=== PATIENT | male | born 1940 | race Hispanic/Latino ===

== ENCOUNTER 2023-07-03 12:58 | Emergency (ER) | payer OTHER ==
--- OUTSIDE RECORDS SUMMARY | 2023-07-03 13:02 | XMS REPORT | Continuity of Care Document ---
:1940 Author Organization [facility] t Address [address] [place] [address] [address] [place] [address] Care Team Providers Name Role Phone Kishan Hansen Primary Care Physician [phone] Problems This patient has no known problems. Allergies, Adverse Reactions, Alerts This patient has no known allergies or adverse reactions. Medications Ordered Filled Start Stop Current Ordering Indication Dosage Frequency Signature Comments Components Source Medication Medication Date Date Medication? Clinician (SIG) Name Name TAKE 1 0 No [id number] TABLET 8-09 DAILY. 00:00: 00 Xarelto 20 2020-1 No 1mg mg tablet 2-22 00:00: 00 irbesartan 2020-1 No 1mg 300 2-22 mg-hydrochl 00:00: orothiazide 00 12.5 mg tablet atorvastati 2020-1 No 1mg n 40 mg 2-22 tablet 00:00: 00 carvedilol 2020-1 No 1mg 6.25 mg 2-22 tablet 00:00: 00 atorvastati 2020-0 No 1mg n 40 mg 6-28 tablet 00:00: 00 irbesartan 2020-0 No 1mg 300 6-28 mg-hydrochl 00:00: orothiazide 00 12.5 mg tablet Xarelto 20 2020-0 No 1mg mg tablet 6-28 00:00: 00 carvedilol 1-0 No 1mg 6.25 mg 6-28 tablet 00:00: 00 irbesartan 2020-0 No 1mg 300 5-21 mg-hydrochl 00:00: orothiazide 00 12.5 mg tablet atorvastati 2020-0 No 1mg n 40 mg 5-21 tablet 00:00: 00 carvedilol 2020-0 No 1mg 6.25 mg 5-21 tablet 00:00: 00 atorvastati 2020-0 No 1mg n 40 mg 3-09 tablet 00:00: 00 irbesartan 2020-0 No 1mg 300 3-09 mg-hydrochl 00:00: orothiazide 00 12.5 mg tablet carvedilol 2020-0 No 1mg 6.25 mg 3-09 tablet 00:00: 00 atorvastati 2020-0 No 1mg n 40 mg 2-19 tablet 00:00: 00 atorvastati 2019-1 No 1mg n 40 mg 1-19 tablet 00:00: 00 cholecalcif 2019-1 No 1(50,00 karl 1-19 0 unit) (vitamin 00:00: D3) 1,250 00 mcg (50,000 unit) capsule Voltaren 1 2019-1 No 1% % topical 1-16 gel 00:00: 00 irbesartan 2019-1 No 1mg 300 1-16 mg-hydrochl 00:00: orothiazide 00 12.5 mg tablet carvedilol 2019-1 No 1mg 6.25 mg 1-16 tablet 00:00: 00 carvedilol 2019-1 No 1mg 6.25 mg 0-30 tablet 00:00: 00 irbesartan 2019-0 No 1mg 300 5-20 mg-hydrochl 00:00: orothiazide 00 12.5 mg tablet Xarelto 20 2019-0 No 1mg mg tablet 5-20 00:00: 00 carvedilol 2019-0 No 1mg 6.25 mg 5-20 tablet 00:00: 00 Xarelto 20 2019-0 No 1mg mg tablet 1-22 00:00: 00 irbesartan 2019-0 No 1mg 300 1-22 mg-hydrochl 00:00: orothiazide 00 12.5 mg tablet carvedilol 2019-0 No 1mg 6.25 mg 1-22 tablet 00:00: 00 carvedilol 2019-0 No 1mg 6.25 mg 1-22 tablet 00:00: 00 carvedilol 2018-1 No 1mg 6.25 mg 0-16 tablet 00:00: 00 carvedilol 2018-0 No 1mg 6.25 mg 4-17 tablet 00:00: 00 carvedilol 2017-1 No 1mg 6.25 mg 1-01 tablet 00:00: 00 amlodipine 2018-1 No 1mg 10 mg 0-17 tablet 00:00: 00 amlodipine 2018-0 No 1mg 10 mg 6-04 tablet 00:00: 00 amlodipine 2018-0 No 1mg 10 mg 2-28 tablet 00:00: 00 amlodipine 2018-0 No 1mg 10 mg 2-16 tablet 00:00: 00 Restasis 2018-0 No 1% 0.05 % eye 2-13 drops in a 00:00: dropperette 00 Systane 2018-0 No 1% (PF) 0.4 2-13 %-0.3 % eye 00:00: drops in a 00 dropperette amlodipine 2016-1 No 1mg 5 mg tablet 2-27 00:00: 00 carvedilol 2017-0 No 1mg 12.5 mg 9-27 tablet 00:00: 00 carvedilol 2016-1 No mg 6.25 mg 1-07 tablet 00:00: 00 carvedilol 2015-1 No 1mg 6.25 mg 1-07 tablet 00:00: 00 carvedilol 2015-1 No 2mg 6.25 mg 1-07 tablet 00:00: 00 Vital Signs Vital Name Observation Time Observation Value Comments Source BP Systolic 2022-04-03 08:26:00 105 mm[Hg] BP Diastolic 2022-04-03 08:26:00 63 mm[Hg] Weight Measured 2022-04-03 08:26:00 207.20 pounds Height Measured 2022-04-03 08:26:00 68.70 inches Body Temperature 2022-04-03 08:26:00 98.30 degrees Heart Rate 2022-04-03 08:26:00 82.00 /min Respiratory Rate 2022-04-03 08:26:00 18.00 /min BP Systolic 2021-08-16 16:12:00 134 mm[Hg] BP Diastolic 2021-08-16 16:12:00 82 mm[Hg] Weight Measured 2021-08-16 16:12:00 209.60 pounds Height Measured 2021-08-16 16:12:00 68.70 inches Body Temperature 2021-08-16 16:12:00 98.20 degrees Heart Rate 2021-08-16 16:12:00 87.00 /min Respiratory Rate 2021-08-16 16:12:00 16.00 /min BP Systolic 2021-07-03 09:11:00 130 mm[Hg] BP Diastolic 2021-07-03 09:11:00 80 mm[Hg] Weight Measured 2021-07-03 09:11:00 208.60 pounds Height Measured 2021-07-03 09:11:00 68.70 inches Body Temperature 2021-07-03 09:11:00 98.40 degrees Heart Rate 2021-07-03 09:11:00 93.00 /min Respiratory Rate 2021-07-03 09:11:00 BP Systolic 2021-02-20 08:08:00 129 mm[Hg] BP Diastolic 2021-02-20 08:08:00 74 mm[Hg] Weight Measured 2021-02-20 08:08:00 208.00 pounds Height Measured 2021-02-20 08:08:00 68.70 inches Body Temperature 2021-02-20 08:08:00 98.20 degrees Heart Rate 2021-02-20 08:08:00 98.00 /min Respiratory Rate 2021-02-20 08:08:00 23.00 /min BP Systolic 2020-11-01 09:26:00 143 mm[Hg] BP Diastolic 2020-11-01 09:26:00 83 mm[Hg] Weight Measured 2020-11-01 09:26:00 212.00 pounds Height Measured 2020-11-01 09:26:00 68.70 inches Body Temperature 2020-11-01 09:26:00 98.20 degrees Heart Rate 2020-11-01 09:26:00 104.00 /min Respiratory Rate 2020-11-01 09:26:00 16.00 /min BP Systolic 2020-07-11 13:52:00 134 mm[Hg] BP Diastolic 2020-07-11 13:52:00 75 mm[Hg] Weight Measured 2020-07-11 13:52:00 214.40 pounds Height Measured 2020-07-11 13:52:00 68.70 inches Body Temperature 2020-07-11 13:52:00 98.20 degrees Heart Rate 2020-07-11 13:52:00 95.00 /min Respiratory Rate 2020-07-11 13:52:00 17.00 /min BP Systolic 2020-01-13 08:54:00 144 mm[Hg] BP Diastolic 2020-01-13 08:54:00 85 mm[Hg] Weight Measured 2020-01-13 08:54:00 216.80 pounds Height Measured 2020-01-13 08:54:00 68.70 inches Body Temperature 2020-01-13 08:54:00 98.20 degrees Heart Rate 2020-01-13 08:54:00 87.00 /min Respiratory Rate 2020-01-13 08:54:00 17.00 /min BP Systolic 2019-06-10 08:16:00 140 mm[Hg] BP Diastolic 2019-06-10 08:16:00 83 mm[Hg] Weight Measured 2019-06-10 08:16:00 221.40 pounds Height Measured 2019-06-10 08:16:00 68.70 inches Body Temperature 2019-06-10 08:16:00 98.60 degrees Heart Rate 2019-06-10 08:16:00 91.00 /min Respiratory Rate 2019-06-10 08:16:00 17.00 /min BP Systolic 2019-04-06 08:20:00 130 mm[Hg] BP Diastolic 2019-04-06 08:20:00 89 mm[Hg] Weight Measured 2019-04-06 08:20:00 219.40 pounds Height Measured 2019-04-06 08:20:00 68.70 inches Body Temperature 2019-04-06 08:20:00 98.60 degrees Heart Rate 2019-04-06 08:20:00 87.00 /min Respiratory Rate 2019-04-06 08:20:00 17.00 /min BP Systolic 2018-12-10 09:28:00 140 mm[Hg] BP Diastolic 2018-12-10 09:28:00 88 mm[Hg] Weight Measured 2018-12-10 09:28:00 219.00 pounds Height Measured 2018-12-10 09:28:00 68.70 inches Body Temperature 2018-12-10 09:28:00 97.70 degrees Heart Rate 2018-12-10 09:28:00 83.00 /min Respiratory Rate 2018-12-10 09:28:00 18.00 /min Procedures Procedure Date / Time Performed Performing Clinician [facility] e 76866 Ecg Routine Ecg W/least 12 2018-06-11 00:00:00 Lds W/i r 11658 Ecg Routine Ecg W/least 2016-08-04 00:00:00 Lds W/i r Plan of Care Planned Activity Planned Date Details Comments Source Goal Plan of Care Note [code = 26052-7] Goal Plan of Care Note [code = 52141-4] Goal Plan of Care Note [code = 03883-9] Goal Plan of Care Note [code = 64653-8] Goal Plan of Care Note [code = 44265-1] Goal Plan of Care Note [code = 37404-3] Goal Plan of Care Note [code = 86256-1] Goal Plan of Care Note [code = 44464-6] Encounters Start End Encounter Admission Attending Care Care Encounter Source Date/Time Date/Time Type Type Clinicians Facility Department ID 2023-06-21 2023-06-21 Outpatient SFA SFA [id number] Yuan 08:20:40 08:20:40 10[address] [facility] [place] 2023-06-06 2023-06-06 Outpatient SFA SFA [id number] Yuan 07:59:35 07:59:35 1012 [facility] [place] 2023-05-03 2023-05-03 Outpatient SFA SFA [id number] 023 Yuan 08:00:02 08:00:02 0908 [facility] [place] 2023-02-01 2023-02-01 Outpatient SFA SFA [id number] [id number] Yuan 14:20:10 14:20:10 0609 [facility] [place] 2022-11-06 2022-11-06 Outpatient SFA SFA [id number] [id number] Yuan 15:20:24 15:20:24 0314 [facility] [place] 2022-08-01 2022-08-01 Outpatient SFA SFA [id number] [id number] Yuan 16:41:35 16:41:35 1207 [facility] [place] 2022-04-03 2022-04-03 Outpatient [id number] 00:00:00 00:00:00 Visit [id number] Results Test Description Test Time Test Comments Results Result Comments Source FERRITIN 2023-06-22 09:01:31 Test Item Value Reference Range Interpretation Comme nts FERRITIN (test code = 2075) 503 NG/ML 30-400 H UNLESS OTHERWISE INDICATED, ALL TESTING PERFORM ED AT CLINICAL PATHOLOGY [facility], [facility]. [address] [address] CREW LEADER/CONTROL ROOM OPERATOR: ELVER PETERSEN M.D. CLIA NUMBER [id number] [place]. [id number] CBC W/AUTO DIFF WITH [id number] 02:31:48 Test Item Value Reference Range Interpretation Comments WBC (test code = 8.5 K/UL 3.5-11.0 1001) RBC (test code = 4.24 M/UL 4.50-6.10 L 1002) HEMOGLOBIN (test 13.3 G/DL 13.5-17.0 L code = 1003) HEMATOCRIT (test 39.8 % 40.0-51.0 L code = 1004) MCV (test code = 93.9 fL 80.0-99.0 1005) MCH (test code = 31.4 PG 25.0-33.0 1006) MCHC (test code = 33.4 G/DL 31.0-36.0 1007) RDW (test code = 13.4 % 11.5-15.0 1038) NEUTROPHILS (test 62.4 % code = 1008) LYMPHOCYTES (test 27.4 % code = 1010) MONOCYTES (test code 7.1 % = 1011) EOSINOPHILS (test 1.8 % code = 1012) BASOPHILS (test code 0.5 % = 1013) IMMATURE 0.8 % GRANULOCYTES (test code = 1036) NUCLEATED RBCS (test 0.0 /100 See_Comment [Autom ated message] code = 1065) WBC'S The system [employer] generated this result transmitted ref erence range: 0.0. The reference range was not used to int erpret this result as normal/abnormal . PLATELET COUNT (test 158 K/UL 130-400 code = 1015) ABSOLUTE NEUTROPHILS 5.33 K/UL 1.50-7.50 (test code = 1066) ABSOLUTE LYMPHOCYTES 2.34 K/UL 1.00-4.00 (test code = 1067) ABSOLUTE MONOCYTES 0.61 K/UL 0.20-1.00 (test code = 1068) ABSOLUTE EOSINOPHILS 0.15 K/UL 0.00-0.50 (test code = 1040) ABSOLUTE BASOPHILS 0.04 K/UL 0.00-0.20 (test code = 1069) ABS IMMATURE 0.07 K/UL 0.00-0.10 GRANULOCYTES (test code = 1020) ABS NUCLEATED RBCS 0.00 K/UL 0.00-0.11 UNLESS O THERWISE (test code = 22952) INDICATE D, ALL TESTING PERFORM ED AT CLINICAL PATHOL [facility] [place] [address] [facility] [place] [address] [facility] DIRECTOR: Jacquelyn GERMAIN AMBREEN NUMBER [id number] [facility] [place]EDIT[place] N O. [id number] VITAMIN D, 25 [id number] 11:38:03 Test Item Value Reference Range Interpretation Comments VITAMIN D, 25 35 NG/ML SEE BELOW EFFECTIVE 09/03/2022, [place] (test code PLEASE NOTE NE W METHODOLOGY = 4958) IS ELECTROC HEMILUMINESCENCE BINDING ASSAY. NOTE: 25-HYDROXYVITAM IN D ASSAY INCLUDES 25-HYD ROXYVITAMIN D2 AND D3. I NTERPRETIVE RANGES PED IATRIC (<17 YEARS) . . . . . . . . . . . NG/ML 20-100ADU LT: INSUFFICIENT . . . . . . . . . . . . . . NG/ML <20 SUBOP TIMAL . . . . . . . . . . . . . . . NG/ML 20-29 OPTIMAL . . . . . . . . . . . . . . . . . NG/ML 30-100 CBC W/AUTO DIFF WITH [id number] 03:49:35 Test Item Value Reference Range Interpretation Comments WBC (test code = 8.3 K/UL 3.5-11.0 1001) RBC (test code = 4.12 M/UL 4.50-6.10 L 1002) HEMOGLOBIN (test code 12.9 G/DL 13.5-17.0 L = 1003) HEMATOCRIT (test code 38.9 % 40.0-51.0 L = 1004) MCV (test code = 94.4 fL 80.0-99.0 1005) MCH (test code = 31.3 PG 25.0-33.0 1006) MCHC (test code = 33.2 G/DL 31.0-36.0 1007) RDW (test code = 13.2 % 11.5-15.0 1038) NEUTROPHILS (test 65.7 % code = 1008) LYMPHOCYTES (test 24.9 % code = 1010) MONOCYTES (test code 6.6 % = 1011) EOSINOPHILS (test 2.0 % code = 1012) BASOPHILS (test code 0.6 % = 1013) IMMATURE GRANULOCYTES 0.2 % (test code = 1036) NUCLEATED RBCS (test 0.0 /100 WBC'S See_Comment [Aut omated code = 1065) message] The sy stem which generated this result transmitted reference range : 0.0. The refere nce range was not u sed to interpret th is result as normal/abnormal . PLATELET COUNT (test 175 K/UL 130-400 code = 1015) ABSOLUTE NEUTROPHILS 5.46 K/UL 1.50-7.50 (test code = 1066) ABSOLUTE LYMPHOCYTES 2.07 K/UL 1.00-4.00 (test code = 1067) ABSOLUTE MONOCYTES 0.55 K/UL 0.20-1.00 (test code = 1068) ABSOLUTE EOSINOPHILS 0.17 K/UL 0.00-0.50 (test code = 1040) ABSOLUTE BASOPHILS 0.05 K/UL 0.00-0.20 (test code = 1069) ABS IMMATURE 0.02 K/UL 0.00-0.10 GRANULOCYTES (test code = 1020) ABS NUCLEATED RBCS 0.00 K/UL 0.00-0.11 (test code = 59914) COMPREHENSIVE METABOLIC [id number] 03:17:45 Test Item Value Reference Range Interpretation Comments GLUCOSE (test code = 112 MG/DL 70-99 H 2216) BUN (test code = 27 MG/DL 8-23 H 2207) CREATININE (test 1.68 MG/DL 0.80-1.40 H code = 2214) eGFR (2020 CKD-EPI) 40 >60 L (test code = 13904) ML/MIN/1.73 CALC BUN/CREAT (test 16 RATIO 6-28 code = 2235) SODIUM (test code = 143 MEQ/L 186-257 4108) POTASSIUM (test code 4.3 MEQ/L 3.5-5.4 = 2227) CHLORIDE (test code 106 MEQ/L 95-107 = 2215) CARBON DIOXIDE (test 25 MEQ/L 19-31 code = 2206) CALCIUM (test code = 9.4 MG/DL 8.5-10.5 220) PROTEIN, TOTAL (test 7.0 G/DL 6.1-8.3 code = 2229) ALBUMIN (test code = 4.0 G/DL 3.5-5.2 220) CALC GLOBULIN (test 3.0 G/DL 1.9-3.7 code = 2240) CALC A/G RATIO (test 1.3 RATIO 1.0-2.6 code = 2234) BILIRUBIN, TOTAL 0.9 MG/DL See_Comment [Automated message] (test code = 2207) The syste [employer] which generated this result transmitted ref erence range: <=1.2. T he reference range was not used to int erpret this result as normal/abnormal . ALKALINE PHOSPHATASE 97 U/L 40-125 (test code = 2204) AST (test code = 18 U/L 9-50 2217) ALT (test code = 25 U/L 5-50 UNLESS OTH ERWISE 2218) INDICATED, ALL TESTING PERFORM ED AT [facility] [address] [place] [id number] [place] [address] DIRECTOR: Jacquelyn GERMAIN AMBREEN NUMBER [id number] CAP [place]CREDITATION N O. [id number] LIPID [id number] 05:43:22 Test Item Value Reference Range Interpretation Comments CHOLESTEROL (test 125 MG/DL <200 code = 2210) TRIGLYCERIDES (test 100 MG/DL <150 code = 2232) HDL CHOLESTEROL (test 52 MG/DL >39 code = 2220) CALC LDL CHOL (test 54 MG/DL <100 NOTE: C ALCULATED LDL code = 2237) IS BASED ON DIMITRIOS-BOYD METHOD WHICHINCLUDES ADJUSTABLE TRIGLYCERIDE:VL DL CHOLESTEROL RAT IO.THIS FACTOR VARIES B Y MEASURED TRIGLY CERIDE AND NON-HDLCHOL ESTEROL CONCENTRATIONS WITH INCREASED CALCU LATED LDL SEENIN HIGH ER TRIGLYCERIDE OR LOWER NON-HDL SPECIME NS. FOR MOREINFORMATION , SEE CLIENT ANNOUNCE MENT AT [email or web address] LDL/HDL 1.04 RATIO <3.55 (test code = 2238) COMPREHENSIVE METABOLIC [id number] 05:43:22 Test Item Value Reference Range Interpretation Comments GLUCOSE (test code = 102 MG/DL 70-99 H 2216) BUN (test code = 29 MG/DL 8-23 H 2207) CREATININE (test 1.57 MG/DL 0.80-1.40 H code = 221) eGFR (2020 CKD-EPI) 44 >60 L (test code = 79624) ML/MIN/1.73 CALC BUN/CREAT (test 18 RATIO 6-28 code = 2235) SODIUM (test code = 145 MEQ/L 978-312 5271) POTASSIUM (test code 4.7 MEQ/L 3.5-5.4 = 2227) CHLORIDE (test code 112 MEQ/L 95-107 H = 2214) CARBON DIOXIDE (test 18 MEQ/L 19-31 L code = 220) CALCIUM (test code = 9.0 MG/DL 8.5-10.5 2208) PROTEIN, TOTAL (test 7.0 G/DL 6.1-8.3 code = 2228) ALBUMIN (test code = 3.9 G/DL 3.5-5.2 2200) CALC GLOBULIN (test 3.1 G/DL 1.9-3.7 code = 2240) CALC A/G RATIO (test 1.3 RATIO 1.0-2.6 code = 223) BILIRUBIN, TOTAL 0.7 MG/DL See_Comment [Automated message] (test code = 2207) The syste m which generated this result transmitted ref erence range: <=1.2. T he reference range was not used to int erpret this result as normal/abnormal . ALKALINE PHOSPHATASE 103 U/L 40-125 (test code = 220) AST (test code = 22 U/L 9-50 2217) ALT (test code = 27 U/L 5-50 CPL chong s 2218) important patho logy staff changes effective 10/24. New patholo gy staff will prov richard uninterrupted, excellent patie nt care and clinic al consultation. S ee URL: [email or web address]. UNLE SS OTHERWISE INDIC ATED, ALL TESTING PER FORMED AT CLINICAL [facility] [employer], [place] [address] [place] [address] [facility] DIRECTOR: Jacquelyn GERMAIN AMBREEN NUMBER [id number] CAP ACCREDITATION N O. [id number] CBC W/AUTO DIFF WITH [id number] 03:40:13 Test Item Value Reference Range Interpretation Comments WBC (test code = 7.2 K/UL 3.5-11.0 1001) RBC (test code = 3.84 M/UL 4.50-6.10 L 1002) HEMOGLOBIN (test code 12.2 G/DL 13.5-17.0 L = 1003) HEMATOCRIT (test code 36.5 % 40.0-51.0 L = 1004) MCV (test code = 95.1 fL 80.0-99.0 1005) MCH (test code = 31.8 PG 25.0-33.0 1006) MCHC (test code = 33.4 G/DL 31.0-36.0 1007) RDW (test code = 12.8 % 11.5-15.0 1038) NEUTROPHILS (test 64.9 % code = 1008) LYMPHOCYTES (test 25.1 % code = 1010) MONOCYTES (test code 7.5 % = 1011) EOSINOPHILS (test 1.8 % code = 1012) BASOPHILS (test code 0.4 % = 1013) IMMATURE GRANULOCYTES 0.3 % (test code = 1036) NUCLEATED RBCS (test 0.0 /100 WBC'S See_Comment [Aut omated code = 1065) message] The sy stem which generated this result transmitted reference range : 0.0. The refere nce range was not u sed to interpret th is result as normal/abnormal . PLATELET COUNT (test 177 K/UL 130-400 code = 1015) ABSOLUTE NEUTROPHILS 4.68 K/UL 1.50-7.50 (test code = 1066) ABSOLUTE LYMPHOCYTES 1.81 K/UL 1.00-4.00 (test code = 1067) ABSOLUTE MONOCYTES 0.54 K/UL 0.20-1.00 (test code = 1068) ABSOLUTE EOSINOPHILS 0.13 K/UL 0.00-0.50 (test code = 1040) ABSOLUTE BASOPHILS 0.03 K/UL 0.00-0.20 (test code = 1069) ABS IMMATURE 0.02 K/UL 0.00-0.10 GRANULOCYTES (test code = 1020) ABS NUCLEATED RBCS 0.00 K/UL 0.00-0.11 (test code = 00886) PSA, [id number] 06:57:19 Test Item Value Reference Range Interpretation Comments PSA, TOTAL 0.56 NG/ML See_Comment NOTE: Methodol ogy is Arlene (test code = Waldo Electroch emiluminescence 2606) Immunoassay tra ceable to WHO reference stand julius 96/760. UNLESS OTHERWIS E INDICATED, ALL TESTING PERFORM ED ATCLINICAL PATHOLOGY [facility]. [address] [place] [address] LABORATORY DIRE CTOR: UMA HALL M.D. CLIA NUMBER [id number] [place]. [id number] [A utomated message] The sy stem which generated this result transmitted ref erence range: <=4.00. The ref erence range was not used to int erpret this result as bev l/abnormal. LIPID [id number] 06:08:50 Test Item Value Reference Range Interpretation Comments CHOLESTEROL (test 132 MG/DL <200 code = 2210) TRIGLYCERIDES (test 79 MG/DL <150 code = 2232) HDL CHOLESTEROL (test 55 MG/DL >39 code = 2220) CALC LDL CHOL (test 61 MG/DL <100 NOTE: C ALCULATED LDL code = 2237) IS BASED ON DIMITROIS-BOYD METHOD WHICHINCLUDES ADJUSTABLE TRIGLYCERIDE:VL DL CHOLESTEROL RAT IO.THIS FACTOR VARIES B Y MEASURED TRIGLY CERIDE AND NON-HDLCHOL ESTEROL CONCENTRATIONS WITH INCREASED CALCU LATED LDL SEENIN HIGH ER TRIGLYCERIDE OR LOWER NON-HDL SPECIME NS. FOR MOREINFORMATION , SEE CLIENT ANNOUNCE MENT AT [email or web address] LDL/HDL 1.11 RATIO <3.55 (test code = 2238) COMPREHENSIVE METABOLIC [id number] 06:08:50 Test Item Value Reference Range Interpretation Comments GLUCOSE (test code = 102 MG/DL 70-99 H 2216) BUN (test code = 36 MG/DL 8-23 H 2207) CREATININE (test 1.96 MG/DL 0.80-1.40 H code = 2214) eGFR (2020 CKD-EPI) 34 ML/MIN/1.73 >60 L (test code = 50755) CALC BUN/CREAT (test 18 RATIO 6-28 code = 223) SODIUM (test code = 142 MEQ/L 420-621 3757) POTASSIUM (test code 5.1 MEQ/L 3.5-5.4 = 2227) CHLORIDE (test code 106 MEQ/L 95-107 = 2214) CARBON DIOXIDE (test 23 MEQ/L 19-31 code = 220) CALCIUM (test code = 9.3 MG/DL 8.5-10.5 2208) PROTEIN, TOTAL (test 7.6 G/DL 6.1-8.3 code = 2228) ALBUMIN (test code = 4.2 G/DL 3.5-5.2 2200) CALC GLOBULIN (test 3.4 G/DL 1.9-3.7 code = 2239) CALC A/G RATIO (test 1.2 RATIO 1.0-2.6 code = 2233) BILIRUBIN, TOTAL 0.5 MG/DL See_Comment [Automated message] (test code = 2206) The syste [employer] which generated this result transmit reid reference range : <=1.2. The refe rence range was not u sed to interpret th is result as normal/abnormal . ALKALINE PHOSPHATASE 118 U/L 40-125 (test code = 2203) AST (test code = 28 U/L 9-50 2217) ALT (test code = 40 U/L 5-50 2218) CBC W/AUTO DIFF WITH [id number] 03:40:43 Test Item Value Reference Range Interpretation Comments WBC (test code = 8.6 K/UL 3.5-11.0 1001) RBC (test code = 4.10 M/UL 4.50-6.10 L 1002) HEMOGLOBIN (test code 12.8 G/DL 13.5-17.0 L = 1003) HEMATOCRIT (test code 38.7 % 40.0-51.0 L = 1004) MCV (test code = 94.4 fL 80.0-99.0 1005) MCH (test code = 31.2 PG 25.0-33.0 1006) MCHC (test code = 33.1 G/DL 31.0-36.0 1007) RDW (test code = 13.1 % 11.5-15.0 1038) NEUTROPHILS (test 62.0 % code = 1008) LYMPHOCYTES (test 25.6 % code = 1010) MONOCYTES (test code 8.9 % = 1011) EOSINOPHILS (test 2.6 % code = 1012) BASOPHILS (test code 0.5 % = 1013) IMMATURE GRANULOCYTES 0.4 % (test code = 1036) NUCLEATED RBCS (test 0.0 /100 WBC'S See_Comment [Aut omated code = 1065) message] The sy stem which generated this result transmitted reference range : 0.0. The refere nce range was not u sed to interpret th is result as normal/abnormal . PLATELET COUNT (test 202 K/UL 130-400 code = 1015) ABSOLUTE NEUTROPHILS 5.33 K/UL 1.50-7.50 (test code = 1066) ABSOLUTE LYMPHOCYTES 2.19 K/UL 1.00-4.00 (test code = 1067) ABSOLUTE MONOCYTES 0.76 K/UL 0.20-1.00 (test code = 1068) ABSOLUTE EOSINOPHILS 0.22 K/UL 0.00-0.50 (test code = 1040) ABSOLUTE BASOPHILS 0.04 K/UL 0.00-0.20 (test code = 1069) ABS IMMATURE 0.03 K/UL 0.00-0.10 GRANULOCYTES (test code = 1020) ABS NUCLEATED RBCS 0.00 K/UL 0.00-0.11 (test code = 16383) CBC W/AUTO [id number] 00:00:00 Test Item Value Reference Range Interpretation Comments WBC (test code = 1001) 8.6 K/UL RBC (test code = 1002) 4.10 M/UL HEMOGLOBIN (test code = 1003) 12.8 G/DL HEMATOCRIT (test code = 1004) 38.7 % MCV (test code = 1005) 94.4 fL MCH (test code = 1006) 31.2 PG MCHC (test code = 1007) 33.1 G/DL RDW (test code = 1038) 13.1 % NEUTROPHILS (test code = 1008) 62.0 % LYMPHOCYTES (test code = 1010) 25.6 % MONOCYTES (test code = 1011) 8.9 % EOSINOPHILS (test code = 1012) 2.6 % BASOPHILS (test code = 1013) 0.5 % IMMATURE GRANULOCYTES (test 0.4 % code = 1036) NUCLEATED RBCS (test code = 0.0 /100WBC'S 1065) PLATELET COUNT (test code = 202 K/UL 1015) ABSOLUTE NEUTROPHILS (test code 5.33 K/UL = 1066) ABSOLUTE LYMPHOCYTES (test code 2.19 K/UL = 1067) ABSOLUTE MONOCYTES (test code = 0.76 K/UL 1068) ABSOLUTE EOSINOPHILS (test code 0.22 K/UL = 1040) ABSOLUTE BASOPHILS (test code = 0.04 K/UL 1069) ABS IMMATURE GRANULOCYTES (test 0.03 K/UL code = 1020) ABS NUCLEATED RBCS (test code = 0.00 K/UL 42320) CBC W/AUTO [id number] 00:00:00 Test Item Value Reference Range Interpretation Comments WBC (test code = 1001) 8.6 K/UL RBC (test code = 1002) 4.10 M/UL HEMOGLOBIN (test code = 1003) 12.8 G/DL HEMATOCRIT (test code = 1004) 38.7 % MCV (test code = 1005) 94.4 fL MCH (test code = 1006) 31.2 PG MCHC (test code = 1007) 33.1 G/DL RDW (test code = 1038) 13.1 % NEUTROPHILS (test code = 1008) 62.0 % LYMPHOCYTES (test code = 1010) 25.6 % MONOCYTES (test code = 1011) 8.9 % EOSINOPHILS (test code = 1012) 2.6 % BASOPHILS (test code = 1013) 0.5 % IMMATURE GRANULOCYTES (test 0.4 % code = 1036) NUCLEATED RBCS (test code = 0.0 /100WBC'S 1065) PLATELET COUNT (test code = 202 K/UL 1015) ABSOLUTE NEUTROPHILS (test code 5.33 K/UL = 1066) ABSOLUTE LYMPHOCYTES (test code 2.19 K/UL = 1067) ABSOLUTE MONOCYTES (test code = 0.76 K/UL 1068) ABSOLUTE EOSINOPHILS (test code 0.22 K/UL = 1040) ABSOLUTE BASOPHILS (test code = 0.04 K/UL 1069) ABS IMMATURE GRANULOCYTES (test 0.03 K/UL code = 1020) ABS NUCLEATED RBCS (test code = 0.00 K/UL 11570) LIPID [id number] 00:00:00 Test Item Value Reference Range Interpretation Comments CHOLESTEROL (test code = 2210) 132 MG/DL TRIGLYCERIDES (test code = 2232) 79 MG/DL HDL CHOLESTEROL (test code = 2220) 55 MG/DL CALC LDL CHOL (test code = 2237) 61 MG/DL RISK RATIO LDL/HDL (test code = 1.11 RATIO 2238) LIPID [id number] 00:00:00 Test Item Value Reference Range Interpretation Comments CHOLESTEROL (test code = 2210) 132 MG/DL TRIGLYCERIDES (test code = 2232) 79 MG/DL HDL CHOLESTEROL (test code = 2220) 55 MG/DL CALC LDL CHOL (test code = 2237) 61 MG/DL RISK RATIO LDL/HDL (test code = 1.11 RATIO 2238) COMPREHENSIVE METABOLIC [id number] 00:00:00 Test Item Value Reference Range Interpretation Comments GLUCOSE (test code = 2217) 102 MG/DL BUN (test code = 2208) 36 MG/DL CREATININE (test code = 2214) 1.96 MG/DL eGFR (2020 CKD-EPI) (test code 34 ML/MIN/1.73 = 73110) CALC BUN/CREAT (test code = 18 RATIO 2235) SODIUM (test code = 2231) 142 MEQ/L POTASSIUM (test code = 2228) 5.1 MEQ/L CHLORIDE (test code = 2215) 106 MEQ/L CARBON DIOXIDE (test code = 23 MEQ/L 2205) CALCIUM (test code = 2209) 9.3 MG/DL PROTEIN, TOTAL (test code = 7.6 G/DL 2228) ALBUMIN (test code = 2201) 4.2 G/DL CALC GLOBULIN (test code = 3.4 G/DL 2239) CALC A/G RATIO (test code = 1.2 RATIO 4) BILIRUBIN, TOTAL (test code = 0.5 MG/DL 2206) ALKALINE PHOSPHATASE (test 118 U/L code = 2204) AST (test code = 2218) 28 U/L ALT (test code = 2219) 40 U/L COMPREHENSIVE METABOLIC [id number] 00:00:00 Test Item Value Reference Range Interpretation Comments GLUCOSE (test code = 2217) 102 MG/DL BUN (test code = 2208) 36 MG/DL CREATININE (test code = 2214) 1.96 MG/DL eGFR (2020 CKD-EPI) (test code 34 ML/MIN/1.73 = 34978) CALC BUN/CREAT (test code = 18 RATIO 2234) SODIUM (test code = 2231) 142 MEQ/L POTASSIUM (test code = 2228) 5.1 MEQ/L CHLORIDE (test code = 2215) 106 MEQ/L CARBON DIOXIDE (test code = 23 MEQ/L 2205) CALCIUM (test code = 2209) 9.3 MG/DL PROTEIN, TOTAL (test code = 7.6 G/DL 2228) ALBUMIN (test code = 2201) 4.2 G/DL CALC GLOBULIN (test code = 3.4 G/DL 2239) CALC A/G RATIO (test code = 1.2 RATIO 2233) BILIRUBIN, TOTAL (test code = 0.5 MG/DL 2206) ALKALINE PHOSPHATASE (test 118 U/L code = 2203) AST (test code = 2218) 28 U/L ALT (test code = 2219) 40 U/L PSA, [id number] 00:00:00 Test Item Value Reference Range Interpretation Comments PSA, TOTAL (test code = 2606) 0.56 NG/ML PSA, [id number] 00:00:00 Test Item Value Reference Range Interpretation Comments PSA, TOTAL (test code = 2606) 0.56 NG/ML PSA, [id number] 00:00:00 Test Item Value Reference Range Interpretation Comments PSA, TOTAL (test code = 2606) 0.56 NG/ML CBC W/AUTO [id number] 00:00:00 Test Item Value Reference Range Interpretation Comments WBC (test code = 1001) 8.6 K/UL RBC (test code = 1002) 4.10 M/UL HEMOGLOBIN (test code = 1003) 12.8 G/DL HEMATOCRIT (test code = 1004) 38.7 % MCV (test code = 1005) 94.4 fL MCH (test code = 1006) 31.2 PG MCHC (test code = 1007) 33.1 G/DL RDW (test code = 1038) 13.1 % NEUTROPHILS (test code = 1008) 62.0 % LYMPHOCYTES (test code = 1010) 25.6 % MONOCYTES (test code = 1011) 8.9 % EOSINOPHILS (test code = 1012) 2.6 % BASOPHILS (test code = 1013) 0.5 % IMMATURE GRANULOCYTES (test 0.4 % code = 1036) NUCLEATED RBCS (test code = 0.0 /100WBC'S 1065) PLATELET COUNT (test code = 202 K/UL 1015) ABSOLUTE NEUTROPHILS (test code 5.33 K/UL = 1066) ABSOLUTE LYMPHOCYTES (test code 2.19 K/UL = 1067) ABSOLUTE MONOCYTES (test code = 0.76 K/UL 1068) ABSOLUTE EOSINOPHILS (test code 0.22 K/UL = 1040) ABSOLUTE BASOPHILS (test code = 0.04 K/UL 1069) ABS IMMATURE GRANULOCYTES (test 0.03 K/UL code = 1020) ABS NUCLEATED RBCS (test code = 0.00 K/UL 78782) LIPID [id number] 05:40:06 Test Item Value Reference Range Interpretation Comments CHOLESTEROL (test 143 MG/DL <200 code = 2210) TRIGLYCERIDES (test 98 MG/DL <150 code = 2232) HDL CHOLESTEROL (test 57 MG/DL >39 code = 2220) CALC LDL CHOL (test 68 MG/DL <100 NOTE: C ALCULATED LDL code = 2237) IS BASED ON DIMITRIOS-BOYD METHOD WHICHINCLUDES ADJUSTABLE TRIGLYCERIDE:VL DL CHOLESTEROL RAT IO.THIS FACTOR VARIES B Y MEASURED TRIGLY CERIDE AND NON-HDLCHOL ESTEROL CONCENTRATIONS WITH INCREASED CALCU LATED LDL SEENIN HIGH ER TRIGLYCERIDE OR LOWER NON-HDL SPECIME NS. FOR MOREINFORMATION , SEE CLIENT ANNOUNCE MENT AT [email or web address] RISK RATIO LDL/HDL 1.19 RATIO <3.55 (test code = 2238) COMPREHENSIVE METABOLIC [id number] 05:40:06 Test Item Value Reference Range Interpretation Comments GLUCOSE (test code = 103 MG/DL 70-99 H 2216) BUN (test code = 28 MG/DL 8-23 H 2207) CREATININE (test 1.77 MG/DL 0.80-1.40 H EFFECTIVE code = 2214) 08/07/2021, [facility] HAS IMPLEMENTED THE NKF-ASN RECOMME NDED KD-EPI EGF R REFIT CALCULATI ON THAT DOES NOT I NCLUDE A COEFFICIENT FORRACE. FOR MO RE INFORMATION, SE E ANNOUNCEMENT [email or web address]. Act[employer]/EGFR_CALC eGFR (2020 CKD-EPI) 38 >60 L (test code = 42853) ML/MIN/1.73 CALC BUN/CREAT (test 16 RATIO 6-28 code = 223) SODIUM (test code = 142 MEQ/L 840-623 1281) POTASSIUM (test code 5.1 MEQ/L 3.5-5.4 = 2227) CHLORIDE (test code 106 MEQ/L 95-107 = 2214) CARBON DIOXIDE (test 24 MEQ/L 19-31 code = 220) CALCIUM (test code = 9.3 MG/DL 8.5-10.5 2208) PROTEIN, TOTAL (test 7.4 G/DL 6.1-8.3 code = 2228) ALBUMIN (test code = 4.4 G/DL 3.5-5.2 2200) CALC GLOBULIN (test 3.0 G/DL 1.9-3.7 code = 224) CALC A/G RATIO (test 1.5 RATIO 1.0-2.6 code = 2233) BILIRUBIN, TOTAL 0.6 MG/DL See_Comment [Automated message] (test code = 2206) The [employer]Chron which generated this result transmitted ref erence range: <=1.2. T he reference range was not used to int erpret this result as normal/abnormal . ALKALINE PHOSPHATASE 103 U/L 40-125 (test code = 2203) AST (test code = 19 U/L 9-50 2217) ALT (test code = 20 U/L 5-50 UNLESS OTH ERWISE 2218) INDICATED, ALL TESTING PERFORM ED [facility], [facility]. [address] [place] [id number] [place] [address] DIRECTOR: Jacquelyn MCKEONIA NUMBER [id number] CAP ACCREDITATION N O. [id number] HEMOGLOBIN [id number] 03:47:41 Test Item Value Reference Range Interpretation Comments HEMOGLOBIN A1c (test code = 04601) 5.9 % 4.2-5.6 H LIPID [id number] 00:00:00 Test Item Value Reference Range Interpretation Comments CHOLESTEROL (test code = 2210) 143 MG/DL TRIGLYCERIDES (test code = 2232) 98 MG/DL HDL CHOLESTEROL (test code = 2220) 57 MG/DL CALC LDL CHOL (test code = 2236) 68 MG/DL RISK RATIO LDL/HDL (test code = 1.19 RATIO 2238) HEMOGLOBIN [id number] 00:00:00 Test Item Value Reference Range Interpretation Comments HEMOGLOBIN A1c (test code = 30057) 5.9 % HEMOGLOBIN [id number] 00:00:00 Test Item Value Reference Range Interpretation Comments HEMOGLOBIN A1c (test code = 34139) 5.9 % HEMOGLOBIN [id number] 00:00:00 Test Item Value Reference Range Interpretation Comments HEMOGLOBIN A1c (test code = 70795) 5.9 % COMPREHENSIVE METABOLIC [id number] 00:00:00 Test Item Value Reference Range Interpretation Comments GLUCOSE (test code = 2217) 103 MG/DL BUN (test code = 2208) 28 MG/DL CREATININE (test code = 2214) 1.77 MG/DL eGFR (2020 CKD-EPI) (test code 38 ML/MIN/1.73 = 56156) CALC BUN/CREAT (test code = 16 RATIO 2235) SODIUM (test code = 2231) 142 MEQ/L POTASSIUM (test code = 2228) 5.1 MEQ/L CHLORIDE (test code = 2215) 106 MEQ/L CARBON DIOXIDE (test code = 24 MEQ/L 2205) CALCIUM (test code = 2209) 9.3 MG/DL PROTEIN, TOTAL (test code = 7.4 G/DL 2228) ALBUMIN (test code = 2201) 4.4 G/DL CALC GLOBULIN (test code = 3.0 G/DL 0) CALC A/G RATIO (test code = 1.5 RATIO 2234) BILIRUBIN, TOTAL (test code = 0.6 MG/DL 2206) ALKALINE PHOSPHATASE (test 103 U/L code = 2204) AST (test code = 2218) 19 U/L ALT (test code = 2219) 20 U/L COMPREHENSIVE METABOLIC [id number] 00:00:00 Test Item Value Reference Range Interpretation Comments GLUCOSE (test code = 2217) 103 MG/DL BUN (test code = 2208) 28 MG/DL CREATININE (test code = 2214) 1.77 MG/DL eGFR (2020 CKD-EPI) (test code 38 ML/MIN/1.73 = 54017) CALC BUN/CREAT (test code = 16 RATIO 2235) SODIUM (test code = 2231) 142 MEQ/L POTASSIUM (test code = 2228) 5.1 MEQ/L CHLORIDE (test code = 2215) 106 MEQ/L CARBON DIOXIDE (test code = 24 MEQ/L 2205) CALCIUM (test code = 2209) 9.3 MG/DL PROTEIN, TOTAL (test code = 7.4 G/DL 2228) ALBUMIN (test code = 2201) 4.4 G/DL CALC GLOBULIN (test code = 3.0 G/DL 2239) CALC A/G RATIO (test code = 1.5 RATIO 2234) BILIRUBIN, TOTAL (test code = 0.6 MG/DL 2206) ALKALINE PHOSPHATASE (test 103 U/L code = 2204) AST (test code = 2218) 19 U/L ALT (test code = 2219) 20 U/L LIPID [id number] 00:00:00 Test Item Value Reference Range Interpretation Comments CHOLESTEROL (test code = 2210) 143 MG/DL TRIGLYCERIDES (test code = 2232) 98 MG/DL HDL CHOLESTEROL (test code = 2220) 57 MG/DL CALC LDL CHOL (test code = 2237) 68 MG/DL RISK RATIO LDL/HDL (test code = 1.19 RATIO 2238) HEMOGLOBIN [id number] 00:00:00 Test Item Value Reference Range Interpretation Comments HEMOGLOBIN A1c (test code = 11968) 5.9 % HEMOGLOBIN [id number] 00:00:00 Test Item Value Reference Range Interpretation Comments HEMOGLOBIN A1c (test code = 82973) 5.9 % LIPID [id number] 00:00:00 Test Item Value Reference Range Interpretation Comments CHOLESTEROL (test code = 2210) 187 MG/DL TRIGLYCERIDES (test code = 2232) 151 MG/DL HDL CHOLESTEROL (test code = 2220) 52 MG/DL CALC LDL CHOL (test code = 2237) 109 MG/DL RISK RATIO LDL/HDL (test code = 2.10 RATIO 2238) LIPID [id number] 00:00:00 Test Item Value Reference Range Interpretation Comments CHOLESTEROL (test code = 2210) 187 MG/DL TRIGLYCERIDES (test code = 2232) 151 MG/DL HDL CHOLESTEROL (test code = 2220) 52 MG/DL CALC LDL CHOL (test code = 2237) 109 MG/DL RISK RATIO LDL/HDL (test code = 2.10 RATIO 2238) COMPREHENSIVE METABOLIC [id number] 00:00:00 Test Item Value Reference Range Interpretation Comments GLUCOSE (test code = 2217) 96 MG/DL BUN (test code = 2208) 30 MG/DL CREATININE (test code = 2214) 1.74 MG/DL eGFR AMER. (test code 42 ML/MIN/1.73 = 63741) eGFR NON- AMER. (test 36 ML/MIN/1.73 code = 27131) CALC BUN/CREAT (test code = 17 RATIO 2235) SODIUM (test code = 2231) 142 MEQ/L POTASSIUM (test code = 2228) 4.6 MEQ/L CHLORIDE (test code = 2215) 104 MEQ/L CARBON DIOXIDE (test code = 24 MEQ/L 2205) CALCIUM (test code = 2209) 9.6 MG/DL PROTEIN, TOTAL (test code = 7.8 G/DL 2228) ALBUMIN (test code = 2201) 4.6 G/DL CALC GLOBULIN (test code = 3.2 G/DL 2240) CALC A/G RATIO (test code = 1.4 RATIO 2233) BILIRUBIN, TOTAL (test code = 0.6 MG/DL 2206) ALKALINE PHOSPHATASE (test 96 U/L code = 2204) AST (test code = 2218) 15 U/L ALT (test code = 2219) 26 U/L COMPREHENSIVE METABOLIC [id number] 00:00:00 Test Item Value Reference Range Interpretation Comments GLUCOSE (test code = 2217) 96 MG/DL BUN (test code = 2208) 30 MG/DL CREATININE (test code = 2214) 1.74 MG/DL eGFR AMER. (test code 42 ML/MIN/1.73 = 67115) eGFR NON- AMER. (test 36 ML/MIN/1.73 code = 98523) CALC BUN/CREAT (test code = 17 RATIO 2235) SODIUM (test code = 2231) 142 MEQ/L POTASSIUM (test code = 2228) 4.6 MEQ/L CHLORIDE (test code = 2215) 104 MEQ/L CARBON DIOXIDE (test code = 24 MEQ/L 2205) CALCIUM (test code = 2209) 9.6 MG/DL PROTEIN, TOTAL (test code = 7.8 G/DL 2228) ALBUMIN (test code = 2201) 4.6 G/DL CALC GLOBULIN (test code = 3.2 G/DL 2240) CALC A/G RATIO (test code = 1.4 RATIO 2233) BILIRUBIN, TOTAL (test code = 0.6 MG/DL 2206) ALKALINE PHOSPHATASE (test 96 U/L code = 2204) AST (test code = 2218) 15 U/L ALT (test code = 2219) 26 U/L [id number] 00:00:00 Test Item Value Reference Range Interpretation Comments TSH, THIRD GENERATION (test code 2.790 UIU/ML = 2821) [id number] 00:00:00 Test Item Value Reference Range Interpretation Comments TSH, THIRD GENERATION (test code 2.790 UIU/ML = 2821) [id number] 00:00:00 Test Item Value Reference Range Interpretation Comments TSH, THIRD GENERATION (test code 2.790 UIU/ML = 2821) VITAMIN D, 25 [id number] 00:00:00 Test Item Value Reference Range Interpretation Comments VITAMIN D, 25 [place] (test code = 4958) 35 NG/ML VITAMIN D, 25 [id number] 00:00:00 Test Item Value Reference Range Interpretation Comments VITAMIN D, 25 [place] (test code = 4958) 35 NG/ML PTH, INTACT, WITH CALCIUM, PHOSPHORUS, [id number] 00:00:00 Test Item Value Reference Range Interpretation Comments INTACT PTH (test code = 5005) 69 PG/ML CALCIUM (test code = 2209) 9.6 MG/DL PHOSPHORUS (test code = 2227) 3.5 MG/DL CREATININE (test code = 2214) 1.74 MG/DL eGFR AMER. (test code 42 ML/MIN/1.73 = 13628) eGFR NON- AMER. (test 36 ML/MIN/1.73 code = 09218) PTH, INTACT, WITH CALCIUM, PHOSPHORUS, [id number] 00:00:00 Test Item Value Reference Range Interpretation Comments INTACT PTH (test code = 5005) 69 PG/ML CALCIUM (test code = 2209) 9.6 MG/DL PHOSPHORUS (test code = 2227) 3.5 MG/DL CREATININE (test code = 2214) 1.74 MG/DL eGFR AMER. (test code 42 ML/MIN/1.73 = 11895) eGFR NON- AMER. (test 36 ML/MIN/1.73 code = 43814) PTH, INTACT, WITH CALCIUM, PHOSPHORUS, [id number] 00:00:00 Test Item Value Reference Range Interpretation Comments INTACT PTH (test code = 5005) 69 PG/ML CALCIUM (test code = 2209) 9.6 MG/DL PHOSPHORUS (test code = 2227) 3.5 MG/DL CREATININE (test code = 2214) 1.74 MG/DL eGFR AMER. (test code 42 ML/MIN/1.73 = 90795) eGFR NON- AMER. (test 36 ML/MIN/1.73 code = 32595) ALBUMIN/CREATININE RATIO, URINE, RANDOM [ADDED][id number] 00:00:00 Test Item Value Reference Range Interpretation Comments CREATININE, URINE, CONC. (test 182.6 MG/DL code = 2072) ALBUMIN, URINE, RANDOM (test code 2.0 MG/DL = 18158) CALC ALBUMIN/CREAT, RND (test 11 MG/G code = 63536) ALBUMIN/CREATININE RATIO, URINE, RANDOM [ADDED][id number] 00:00:00 Test Item Value Reference Range Interpretation Comments CREATININE, URINE, CONC. (test 182.6 MG/DL code = 2072) ALBUMIN, URINE, RANDOM (test code 2.0 MG/DL = 62461) CALC ALBUMIN/CREAT, RND (test 11 MG/G code = 63847) HEMOGLOBIN [id number] 00:00:00 Test Item Value Reference Range Interpretation Comments HEMOGLOBIN A1c (test code = 99325) 5.9 % PTH, INTACT, WITH CALCIUM, PHOSPHORUS, [id number] 00:00:00 Test Item Value Reference Range Interpretation Comments INTACT PTH (test code = 5005) 117 PG/ML CALCIUM (test code = 2209) 9.4 MG/DL PHOSPHORUS (test code = 2227) 3.7 MG/DL CREATININE (test code = 2214) 2.02 MG/DL eGFR AMER. (test code 35 ML/MIN/1.73 = 56299) eGFR NON- AMER. (test 30 ML/MIN/1.73 code = 27212) PTH, INTACT, WITH CALCIUM, PHOSPHORUS, [id number] 00:00:00 Test Item Value Reference Range Interpretation Comments INTACT PTH (test code = 5005) 117 PG/ML CALCIUM (test code = 2209) 9.4 MG/DL PHOSPHORUS (test code = 2227) 3.7 MG/DL CREATININE (test code = 2214) 2.02 MG/DL eGFR AMER. (test code 35 ML/MIN/1.73 = 88855) eGFR NON- AMER. (test 30 ML/MIN/1.73 code = 88438) PTH, INTACT, WITH CALCIUM, PHOSPHORUS, [id number] 00:00:00 Test Item Value Reference Range Interpretation Comments INTACT PTH (test code = 5005) 117 PG/ML CALCIUM (test code = 2209) 9.4 MG/DL PHOSPHORUS (test code = 2227) 3.7 MG/DL CREATININE (test code = 2214) 2.02 MG/DL eGFR AMER. (test code 35 ML/MIN/1.73 = 75930) eGFR NON- AMER. (test 30 ML/MIN/1.73 code = 89907) VITAMIN D, 25 [id number] 00:00:00 Test Item Value Reference Range Interpretation Comments VITAMIN D, 25 [place] (test code = 4958) 23 NG/ML VITAMIN D, 25 [id number] 00:00:00 Test Item Value Reference Range Interpretation Comments VITAMIN D, 25 [place] (test code = 4958) 23 NG/ML LIPID [id number] 00:00:00 Test Item Value Reference Range Interpretation Comments CHOLESTEROL (test code = 2210) 231 MG/DL TRIGLYCERIDES (test code = 2232) 189 MG/DL HDL CHOLESTEROL (test code = 2220) 49 MG/DL CALC LDL CHOL (test code = 2237) 149 MG/DL RISK RATIO LDL/HDL (test code = 3.04 RATIO 2238) LIPID [id number] 00:00:00 Test Item Value Reference Range Interpretation Comments CHOLESTEROL (test code = 2210) 231 MG/DL TRIGLYCERIDES (test code = 2232) 189 MG/DL HDL CHOLESTEROL (test code = 2220) 49 MG/DL CALC LDL CHOL (test code = 2237) 149 MG/DL RISK RATIO LDL/HDL (test code = 3.04 RATIO 2238) COMPREHENSIVE METABOLIC [id number] 00:00:00 Test Item Value Reference Range Interpretation Comments GLUCOSE (test code = 2217) 86 MG/DL BUN (test code = 2208) 35 MG/DL CREATININE (test code = 2214) 2.02 MG/DL eGFR AMER. (test code 35 ML/MIN/1.73 = 84073) eGFR NON- AMER. (test 30 ML/MIN/1.73 code = 25942) CALC BUN/CREAT (test code = 17 RATIO 2235) SODIUM (test code = 2231) 141 MEQ/L POTASSIUM (test code = 2228) 5.0 MEQ/L CHLORIDE (test code = 2215) 104 MEQ/L CARBON DIOXIDE (test code = 19 MEQ/L 220) CALCIUM (test code = 2209) 9.4 MG/DL PROTEIN, TOTAL (test code = 8.0 G/DL 2228) ALBUMIN (test code = 2201) 4.3 G/DL CALC GLOBULIN (test code = 3.7 G/DL 2240) CALC A/G RATIO (test code = 1.2 RATIO 2234) BILIRUBIN, TOTAL (test code = 0.7 MG/DL 2206) ALKALINE PHOSPHATASE (test 96 U/L code = 2204) AST (test code = 2218) 16 U/L ALT (test code = 2219) 16 U/L COMPREHENSIVE METABOLIC [id number] 00:00:00 Test Item Value Reference Range Interpretation Comments GLUCOSE (test code = 2217) 86 MG/DL BUN (test code = 2208) 35 MG/DL CREATININE (test code = 2214) 2.02 MG/DL eGFR AMER. (test code 35 ML/MIN/1.73 = 55595) eGFR NON- AMER. (test 30 ML/MIN/1.73 code = 24624) CALC BUN/CREAT (test code = 17 RATIO 2235) SODIUM (test code = 2231) 141 MEQ/L POTASSIUM (test code = 2228) 5.0 MEQ/L CHLORIDE (test code = 2215) 104 MEQ/L CARBON DIOXIDE (test code = 19 MEQ/L 2206) CALCIUM (test code = 2209) 9.4 MG/DL PROTEIN, TOTAL (test code = 8.0 G/DL 2228) ALBUMIN (test code = 2201) 4.3 G/DL CALC GLOBULIN (test code = 3.7 G/DL 2240) CALC A/G RATIO (test code = 1.2 RATIO 2234) BILIRUBIN, TOTAL (test code = 0.7 MG/DL 7) ALKALINE PHOSPHATASE (test 96 U/L code = 2204) AST (test code = 2218) 16 U/L ALT (test code = 2219) 16 U/L CBC W/AUTO [id number] 00:00:00 Test Item Value Reference Range Interpretation Comments WBC (test code = 1001) 8.2 K/UL RBC (test code = 1002) 4.77 M/UL HEMOGLOBIN (test code = 1003) 14.4 G/DL HEMATOCRIT (test code = 1004) 42.8 % MCV (test code = 1005) 89.7 fL MCH (test code = 1006) 30.2 PG MCHC (test code = 1007) 33.6 G/DL RDW (test code = 1038) 13.1 % NEUTROPHILS (test code = 1008) 68.4 % LYMPHOCYTES (test code = 1010) 20.3 % MONOCYTES (test code = 1011) 7.6 % EOSINOPHILS (test code = 1012) 3.2 % BASOPHILS (test code = 1013) 0.5 % PLATELET COUNT (test code = 1015) 168 K/UL CBC W/AUTO [id number] 00:00:00 Test Item Value Reference Range Interpretation Comments WBC (test code = 1001) 8.2 K/UL RBC (test code = 1002) 4.77 M/UL HEMOGLOBIN (test code = 1003) 14.4 G/DL HEMATOCRIT (test code = 1004) 42.8 % MCV (test code = 1005) 89.7 fL MCH (test code = 1006) 30.2 PG MCHC (test code = 1007) 33.6 G/DL RDW (test code = 1038) 13.1 % NEUTROPHILS (test code = 1008) 68.4 % LYMPHOCYTES (test code = 1010) 20.3 % MONOCYTES (test code = 1011) 7.6 % EOSINOPHILS (test code = 1012) 3.2 % BASOPHILS (test code = 1013) 0.5 % PLATELET COUNT (test code = 1015) 168 K/UL CBC W/AUTO [id number] 00:00:00 Test Item Value Reference Range Interpretation Comments WBC (test code = 1001) 8.2 K/UL RBC (test code = 1002) 4.77 M/UL HEMOGLOBIN (test code = 1003) 14.4 G/DL HEMATOCRIT (test code = 1004) 42.8 % MCV (test code = 1005) 89.7 fL MCH (test code = 1006) 30.2 PG MCHC (test code = 1007) 33.6 G/DL RDW (test code = 1038) 13.1 % NEUTROPHILS (test code = 1008) 68.4 % LYMPHOCYTES (test code = 1010) 20.3 % MONOCYTES (test code = 1011) 7.6 % EOSINOPHILS (test code = 1012) 3.2 % BASOPHILS (test code = 1013) 0.5 % PLATELET COUNT (test code = 1015) 168 K/UL PROTEIN/CREATININE RATIO, [id number] 00:00:00 Test Item Value Reference Range Interpretation Comments PROTEIN, URINE, CONC. (test 25 MG/DL code = 2104) CREATININE, URINE, CONC. (test 247.6 MG/DL code = 2072) CALC PROTEIN/CREATININE (test 101 MG/GCREAT code = 2158) PROTEIN/CREATININE RATIO, [id number] 00:00:00 Test Item Value Reference Range Interpretation Comments PROTEIN, URINE, CONC. (test 25 MG/DL code = 2104) CREATININE, URINE, CONC. (test 247.6 MG/DL code = 2072) CALC PROTEIN/CREATININE (test 101 MG/GCREAT code = 2158) LIPID [id number] 00:00:00 Test Item Value Reference Range Interpretation Comments CHOLESTEROL (test code = 2210) 215 MG/DL TRIGLYCERIDES (test code = 2232) 135 MG/DL HDL CHOLESTEROL (test code = 2220) 49 MG/DL CALC LDL CHOL (test code = 2237) 139 MG/DL RISK RATIO LDL/HDL (test code = 2.84 RATIO 2238) LIPID [id number] 00:00:00 Test Item Value Reference Range Interpretation Comments CHOLESTEROL (test code = 2210) 215 MG/DL TRIGLYCERIDES (test code = 2232) 135 MG/DL HDL CHOLESTEROL (test code = 2220) 49 MG/DL CALC LDL CHOL (test code = 2237) 139 MG/DL RISK RATIO LDL/HDL (test code = 2.84 RATIO 2238) COMPREHENSIVE METABOLIC [id number] 00:00:00 Test Item Value Reference Range Interpretation Comments GLUCOSE (test code = 2217) 108 MG/DL BUN (test code = 2208) 30 MG/DL CREATININE (test code = 2214) 1.49 MG/DL eGFR AMER. (test code 51 ML/MIN/1.73 = 94593) eGFR NON- AMER. (test 44 ML/MIN/1.73 code = 01505) CALC BUN/CREAT (test code = 20 RATIO 2235) SODIUM (test code = 2231) 142 MEQ/L POTASSIUM (test code = 2228) 4.7 MEQ/L CHLORIDE (test code = 2215) 106 MEQ/L CARBON DIOXIDE (test code = 23 MEQ/L 220) CALCIUM (test code = 2209) 9.2 MG/DL PROTEIN, TOTAL (test code = 7.7 G/DL 2228) ALBUMIN (test code = 2201) 4.4 G/DL CALC GLOBULIN (test code = 3.3 G/DL 2240) CALC A/G RATIO (test code = 1.3 RATIO 223) BILIRUBIN, TOTAL (test code = 0.9 MG/DL 2206) ALKALINE PHOSPHATASE (test 94 U/L code = 2204) AST (test code = 2218) 13 U/L ALT (test code = 2219) 15 U/L COMPREHENSIVE METABOLIC [id number] 00:00:00 Test Item Value Reference Range Interpretation Comments GLUCOSE (test code = 2217) 108 MG/DL BUN (test code = 2208) 30 MG/DL CREATININE (test code = 2214) 1.49 MG/DL eGFR AMER. (test code 51 ML/MIN/1.73 = 12282) eGFR NON- AMER. (test 44 ML/MIN/1.73 code = 33049) CALC BUN/CREAT (test code = 20 RATIO 2235) SODIUM (test code = 2231) 142 MEQ/L POTASSIUM (test code = 2228) 4.7 MEQ/L CHLORIDE (test code = 2215) 106 MEQ/L CARBON DIOXIDE (test code = 23 MEQ/L 2206) CALCIUM (test code = 2209) 9.2 MG/DL PROTEIN, TOTAL (test code = 7.7 G/DL 2228) ALBUMIN (test code = 2201) 4.4 G/DL CALC GLOBULIN (test code = 3.3 G/DL 2240) CALC A/G RATIO (test code = 1.3 RATIO 2234) BILIRUBIN, TOTAL (test code = 0.9 MG/DL 2206) ALKALINE PHOSPHATASE (test 94 U/L code = 2204) AST (test code = 2218) 13 U/L ALT (test code = 2219) 15 U/L COMPREHENSIVE METABOLIC [id number] 00:00:00 Test Item Value Reference Range Interpretation Comments GLUCOSE (test code = 2217) 103 MG/DL BUN (test code = 2208) 38 MG/DL CREATININE (test code = 2214) 1.60 MG/DL eGFR AMER. (test code 47 ML/MIN/1.73 = 23457) eGFR NON- AMER. (test 41 ML/MIN/1.73 code = 90402) CALC BUN/CREAT (test code = 24 RATIO 2235) SODIUM (test code = 2231) 143 MEQ/L POTASSIUM (test code = 2228) 4.6 MEQ/L CHLORIDE (test code = 2215) 106 MEQ/L CARBON DIOXIDE (test code = 24 MEQ/L 2205) CALCIUM (test code = 2209) 9.5 MG/DL PROTEIN, TOTAL (test code = 7.4 G/DL 2228) ALBUMIN (test code = 2201) 4.4 G/DL CALC GLOBULIN (test code = 3.0 G/DL 2240) CALC A/G RATIO (test code = 1.5 RATIO 2234) BILIRUBIN, TOTAL (test code = 0.8 MG/DL 2206) ALKALINE PHOSPHATASE (test 97 U/L code = 2204) AST (test code = 2218) 10 U/L ALT (test code = 2219) 11 U/L COMPREHENSIVE METABOLIC [id number] 00:00:00 Test Item Value Reference Range Interpretation Comments GLUCOSE (test code = 2217) 103 MG/DL BUN (test code = 2208) 38 MG/DL CREATININE (test code = 2214) 1.60 MG/DL eGFR AMER. (test code 47 ML/MIN/1.73 = 79027) eGFR NON- AMER. (test 41 ML/MIN/1.73 code = 44283) CALC BUN/CREAT (test code = 24 RATIO 2235) SODIUM (test code = 2231) 143 MEQ/L POTASSIUM (test code = 2228) 4.6 MEQ/L CHLORIDE (test code = 2215) 106 MEQ/L CARBON DIOXIDE (test code = 24 MEQ/L 2205) CALCIUM (test code = 2209) 9.5 MG/DL PROTEIN, TOTAL (test code = 7.4 G/DL 2228) ALBUMIN (test code = 2201) 4.4 G/DL CALC GLOBULIN (test code = 3.0 G/DL 2240) CALC A/G RATIO (test code = 1.5 RATIO 2234) BILIRUBIN, TOTAL (test code = 0.8 MG/DL 2206) ALKALINE PHOSPHATASE (test 97 U/L code = 2204) AST (test code = 2218) 10 U/L ALT (test code = 2219) 11 U/L LIPID [id number] 00:00:00 Test Item Value Reference Range Interpretation Comments CHOLESTEROL (test code = 2210) 217 MG/DL TRIGLYCERIDES (test code = 2232) 198 MG/DL HDL CHOLESTEROL (test code = 2220) 47 MG/DL CALC LDL CHOL (test code = 2237) 130 MG/DL RISK RATIO LDL/HDL (test code = 2.77 RATIO 2238) LIPID [id number] 00:00:00 Test Item Value Reference Range Interpretation Comments CHOLESTEROL (test code = 2210) 217 MG/DL TRIGLYCERIDES (test code = 2232) 198 MG/DL HDL CHOLESTEROL (test code = 2220) 47 MG/DL CALC LDL CHOL (test code = 2237) 130 MG/DL RISK RATIO LDL/HDL (test code = 2.77 RATIO 2238) CBC W/AUTO [id number] 00:00:00 Test Item Value Reference Range Interpretation Comments WBC (test code = 1001) 7.7 K/UL RBC (test code = 1002) 4.56 M/UL HEMOGLOBIN (test code = 1003) 13.7 G/DL HEMATOCRIT (test code = 1004) 40.1 % MCV (test code = 1005) 87.9 fL MCH (test code = 1006) 30.0 PG MCHC (test code = 1007) 34.2 G/DL RDW (test code = 1038) 13.7 % NEUTROPHILS (test code = 1008) 65.9 % LYMPHOCYTES (test code = 1010) 24.1 % MONOCYTES (test code = 1011) 7.6 % EOSINOPHILS (test code = 1012) 2.0 % BASOPHILS (test code = 1013) 0.4 % PLATELET COUNT (test code = 1015) 175 K/UL CBC W/AUTO [id number] 00:00:00 Test Item Value Reference Range Interpretation Comments WBC (test code = 1001) 7.7 K/UL RBC (test code = 1002) 4.56 M/UL HEMOGLOBIN (test code = 1003) 13.7 G/DL HEMATOCRIT (test code = 1004) 40.1 % MCV (test code = 1005) 87.9 fL MCH (test code = 1006) 30.0 PG MCHC (test code = 1007) 34.2 G/DL RDW (test code = 1038) 13.7 % NEUTROPHILS (test code = 1008) 65.9 % LYMPHOCYTES (test code = 1010) 24.1 % MONOCYTES (test code = 1011) 7.6 % EOSINOPHILS (test code = 1012) 2.0 % BASOPHILS (test code = 1013) 0.4 % PLATELET COUNT (test code = 1015) 175 K/UL CBC W/AUTO [id number] 00:00:00 Test Item Value Reference Range Interpretation Comments WBC (test code = 1001) 7.7 K/UL RBC (test code = 1002) 4.56 M/UL HEMOGLOBIN (test code = 1003) 13.7 G/DL HEMATOCRIT (test code = 1004) 40.1 % MCV (test code = 1005) 87.9 fL MCH (test code = 1006) 30.0 PG MCHC (test code = 1007) 34.2 G/DL RDW (test code = 1038) 13.7 % NEUTROPHILS (test code = 1008) 65.9 % LYMPHOCYTES (test code = 1010) 24.1 % MONOCYTES (test code = 1011) 7.6 % EOSINOPHILS (test code = 1012) 2.0 % BASOPHILS (test code = 1013) 0.4 % PLATELET COUNT (test code = 1015) 175 K/UL PROTEIN/CREATININE RATIO, [id number] 00:00:00 Test Item Value Reference Range Interpretation Comments PROTEIN, URINE, CONC. (test code 8 MG/DL = 2104) CREATININE, URINE, CONC. (test 122.6 MG/DL code = 2071) CALC PROTEIN/CREATININE (test 65 MG/GCREAT code = 2158) PROTEIN/CREATININE RATIO, [id number] 00:00:00 Test Item Value Reference Range Interpretation Comments PROTEIN, URINE, CONC. (test code 8 MG/DL = 2104) CREATININE, URINE, CONC. (test 122.6 MG/DL code = 2072) CALC PROTEIN/CREATININE (test 65 MG/GCREAT code = 2158) COMPREHENSIVE METABOLIC [id number] 00:00:00 Test Item Value Reference Range Interpretation Comments GLUCOSE (test code = 2217) 103 MG/DL BUN (test code = 2208) 23 MG/DL CREATININE (test code = 2214) 1.57 MG/DL eGFR AMER. (test code 49 ML/MIN/1.73 = 13600) eGFR NON- AMER. (test 42 ML/MIN/1.73 code = 13570) CALC BUN/CREAT (test code = 15 RATIO 2235) SODIUM (test code = 2231) 140 MEQ/L POTASSIUM (test code = 2228) 4.5 MEQ/L CHLORIDE (test code = 2215) 103 MEQ/L CARBON DIOXIDE (test code = 23 MEQ/L 2206) CALCIUM (test code = 2209) 9.4 MG/DL PROTEIN, TOTAL (test code = 7.8 G/DL 2228) ALBUMIN (test code = 2201) 4.7 G/DL CALC GLOBULIN (test code = 3.1 G/DL 2240) CALC A/G RATIO (test code = 1.5 RATIO 2234) BILIRUBIN, TOTAL (test code = 0.8 MG/DL 2206) ALKALINE PHOSPHATASE (test 103 U/L code = 2204) AST (test code = 2218) 13 U/L ALT (test code = 2219) 16 U/L COMPREHENSIVE METABOLIC [id number] 00:00:00 Test Item Value Reference Range Interpretation Comments GLUCOSE (test code = 2217) 103 MG/DL BUN (test code = 2208) 23 MG/DL CREATININE (test code = 2214) 1.57 MG/DL eGFR AMER. (test code 49 ML/MIN/1.73 = 53847) eGFR NON- AMER. (test 42 ML/MIN/1.73 code = 91467) CALC BUN/CREAT (test code = 15 RATIO 2235) SODIUM (test code = 2231) 140 MEQ/L POTASSIUM (test code = 2228) 4.5 MEQ/L CHLORIDE (test code = 2215) 103 MEQ/L CARBON DIOXIDE (test code = 23 MEQ/L 2205) CALCIUM (test code = 2209) 9.4 MG/DL PROTEIN, TOTAL (test code = 7.8 G/DL 2228) ALBUMIN (test code = 2201) 4.7 G/DL CALC GLOBULIN (test code = 3.1 G/DL 2239) CALC A/G RATIO (test code = 1.5 RATIO 2233) BILIRUBIN, TOTAL (test code = 0.8 MG/DL 2206) ALKALINE PHOSPHATASE (test 103 U/L code = 2204) AST (test code = 2218) 13 U/L ALT (test code = 2219) 16 U/L [id number] 00:00:00 Test Item Value Reference Range Interpretation Comments TSH, THIRD GENERATION (test code 1.550 UIU/ML = 2821) [id number] 00:00:00 Test Item Value Reference Range Interpretation Comments TSH, THIRD GENERATION (test code 1.550 UIU/ML = 2821) [id number] 00:00:00 Test Item Value Reference Range Interpretation Comments TSH, THIRD GENERATION (test code 1.550 UIU/ML = 2821) CBC W/AUTO [id number] 00:00:00 Test Item Value Reference Range Interpretation Comments WBC (test code = 1001) 7.2 K/UL RBC (test code = 1002) 4.28 M/UL HEMOGLOBIN (test code = 1003) 13.0 G/DL HEMATOCRIT (test code = 1004) 38.2 % MCV (test code = 1005) 89.3 fL MCH (test code = 1006) 30.4 PG MCHC (test code = 1007) 34.0 G/DL RDW (test code = 1038) 13.5 % NEUTROPHILS (test code = 1008) 61.8 % LYMPHOCYTES (test code = 1010) 26.0 % MONOCYTES (test code = 1011) 7.4 % EOSINOPHILS (test code = 1012) 4.4 % BASOPHILS (test code = 1013) 0.4 % PLATELET COUNT (test code = 1015) 145 K/UL CBC W/AUTO [id number] 00:00:00 Test Item Value Reference Range Interpretation Comments WBC (test code = 1001) 7.2 K/UL RBC (test code = 1002) 4.28 M/UL HEMOGLOBIN (test code = 1003) 13.0 G/DL HEMATOCRIT (test code = 1004) 38.2 % MCV (test code = 1005) 89.3 fL MCH (test code = 1006) 30.4 PG MCHC (test code = 1007) 34.0 G/DL RDW (test code = 1038) 13.5 % NEUTROPHILS (test code = 1008) 61.8 % LYMPHOCYTES (test code = 1010) 26.0 % MONOCYTES (test code = 1011) 7.4 % EOSINOPHILS (test code = 1012) 4.4 % BASOPHILS (test code = 1013) 0.4 % PLATELET COUNT (test code = 1015) 145 K/UL LIPID [id number] 00:00:00 Test Item Value Reference Range Interpretation Comments CHOLESTEROL (test code = 2210) 144 MG/DL TRIGLYCERIDES (test code = 2232) 142 MG/DL HDL CHOLESTEROL (test code = 2220) 48 MG/DL CALC LDL CHOL (test code = 2237) 68 MG/DL RISK RATIO LDL/HDL (test code = 1.41 RATIO 2238) LIPID [id number] 00:00:00 Test Item Value Reference Range Interpretation Comments CHOLESTEROL (test code = 2210) 144 MG/DL TRIGLYCERIDES (test code = 2232) 142 MG/DL HDL CHOLESTEROL (test code = 2220) 48 MG/DL CALC LDL CHOL (test code = 2237) 68 MG/DL RISK RATIO LDL/HDL (test code = 1.41 RATIO 2238) COMPREHENSIVE METABOLIC [id number] 00:00:00 Test Item Value Reference Range Interpretation Comments GLUCOSE (test code = 2217) 102 MG/DL BUN (test code = 2208) 22 MG/DL CREATININE (test code = 2214) 1.31 MG/DL eGFR AMER. (test code 61 ML/MIN/1.73 = 64419) eGFR NON- AMER. (test 53 ML/MIN/1.73 code = 45926) CALC BUN/CREAT (test code = 17 RATIO 2235) SODIUM (test code = 2231) 140 MEQ/L POTASSIUM (test code = 2228) 4.7 MEQ/L CHLORIDE (test code = 2215) 104 MEQ/L CARBON DIOXIDE (test code = 21 MEQ/L 220) CALCIUM (test code = 2209) 9.2 MG/DL PROTEIN, TOTAL (test code = 7.6 G/DL 222) ALBUMIN (test code = 2201) 4.2 G/DL CALC GLOBULIN (test code = 3.4 G/DL 2240) CALC A/G RATIO (test code = 1.2 RATIO 2234) BILIRUBIN, TOTAL (test code = 0.9 MG/DL 2206) ALKALINE PHOSPHATASE (test 79 U/L code = 2204) AST (test code = 2218) 13 U/L ALT (test code = 2219) 23 U/L COMPREHENSIVE METABOLIC [id number] 00:00:00 Test Item Value Reference Range Interpretation Comments GLUCOSE (test code = 2217) 102 MG/DL BUN (test code = 2208) 22 MG/DL CREATININE (test code = 2214) 1.31 MG/DL eGFR AMER. (test code 61 ML/MIN/1.73 = 25233) eGFR NON- AMER. (test 53 ML/MIN/1.73 code = 36198) CALC BUN/CREAT (test code = 17 RATIO 2235) SODIUM (test code = 2231) 140 MEQ/L POTASSIUM (test code = 2228) 4.7 MEQ/L CHLORIDE (test code = 2215) 104 MEQ/L CARBON DIOXIDE (test code = 21 MEQ/L 2205) CALCIUM (test code = 2209) 9.2 MG/DL PROTEIN, TOTAL (test code = 7.6 G/DL 2228) ALBUMIN (test code = 2201) 4.2 G/DL CALC GLOBULIN (test code = 3.4 G/DL 2240) CALC A/G RATIO (test code = 1.2 RATIO 2234) BILIRUBIN, TOTAL (test code = 0.9 MG/DL 2206) ALKALINE PHOSPHATASE (test 79 U/L code = 2204) AST (test code = 2218) 13 U/L ALT (test code = 2219) 23 U/L HEMOGLOBIN [id number] 00:00:00 Test Item Value Reference Range Interpretation Comments HEMOGLOBIN A1c (test code = 68295) 5.6 % HEMOGLOBIN [id number] 00:00:00 Test Item Value Reference Range Interpretation Comments HEMOGLOBIN A1c (test code = 34459) 5.6 % HEMOGLOBIN [id number] 00:00:00 Test Item Value Reference Range Interpretation Comments HEMOGLOBIN A1c (test code = 68894) 5.6 % PSA, [id number] 00:00:00 Test Item Value Reference Range Interpretation Comments PSA, TOTAL (test code = 2606) 0.70 NG/ML PSA, [id number] 00:00:00 Test Item Value Reference Range Interpretation Comments PSA, TOTAL (test code = 2606) 0.70 NG/ML PSA, [id number] 00:00:00 Test Item Value Reference Range Interpretation Comments PSA, TOTAL (test code = 2606) 0.70 NG/ML CBC W/AUTO [id number] 00:00:00 Test Item Value Reference Range Interpretation Comments WBC (test code = 1001) 7.2 K/UL RBC (test code = 1002) 4.28 M/UL HEMOGLOBIN (test code = 1003) 13.0 G/DL HEMATOCRIT (test code = 1004) 38.2 % MCV (test code = 1005) 89.3 fL MCH (test code = 1006) 30.4 PG MCHC (test code = 1007) 34.0 G/DL RDW (test code = 1038) 13.5 % NEUTROPHILS (test code = 1008) 61.8 % LYMPHOCYTES (test code = 1010) 26.0 % MONOCYTES (test code = 1011) 7.4 % EOSINOPHILS (test code = 1012) 4.4 % BASOPHILS (test code = 1013) 0.4 % PLATELET COUNT (test code = 1015) 145 K/UL LIPID [id number] 00:00:00 Test Item Value Reference Range Interpretation Comments CHOLESTEROL (test code = 2210) 137 MG/DL TRIGLYCERIDES (test code = 2232) 204 MG/DL HDL CHOLESTEROL (test code = 2220) 46 MG/DL CALC LDL CHOL (test code = 2237) 50 MG/DL RISK RATIO LDL/HDL (test code = 1.09 RATIO 2238) LIPID [id number] 00:00:00 Test Item Value Reference Range Interpretation Comments CHOLESTEROL (test code = 2210) 137 MG/DL TRIGLYCERIDES (test code = 2232) 204 MG/DL HDL CHOLESTEROL (test code = 2220) 46 MG/DL CALC LDL CHOL (test code = 2237) 50 MG/DL RISK RATIO LDL/HDL (test code = 1.09 RATIO 2238) COMPREHENSIVE METABOLIC [id number] 00:00:00 Test Item Value Reference Range Interpretation Comments GLUCOSE (test code = 2217) 89 MG/DL BUN (test code = 2208) 21 MG/DL CREATININE (test code = 2214) 1.36 MG/DL eGFR AMER. (test code 58 ML/MIN/1.73 = 66000) eGFR NON- AMER. (test 50 ML/MIN/1.73 code = 93105) CALC BUN/CREAT (test code = 15 RATIO 2235) SODIUM (test code = 2231) 145 MEQ/L POTASSIUM (test code = 2228) 5.1 MEQ/L CHLORIDE (test code = 2215) 105 MEQ/L CARBON DIOXIDE (test code = 25 MEQ/L 220) CALCIUM (test code = 2209) 9.1 MG/DL PROTEIN, TOTAL (test code = 7.6 G/DL 2228) ALBUMIN (test code = 2201) 4.2 G/DL CALC GLOBULIN (test code = 3.4 G/DL 2240) CALC A/G RATIO (test code = 1.2 RATIO 2234) BILIRUBIN, TOTAL (test code = 0.6 MG/DL 2206) ALKALINE PHOSPHATASE (test 108 U/L code = 2204) AST (test code = 2218) 15 U/L ALT (test code = 2219) 24 U/L LIPID [id number] 00:00:00 Test Item Value Reference Range Interpretation Comments CHOLESTEROL (test code = 2210) 127 MG/DL TRIGLYCERIDES (test code = 2232) 125 MG/DL HDL CHOLESTEROL (test code = 2220) 46 MG/DL CALC LDL CHOL (test code = 2237) 56 MG/DL RISK RATIO LDL/HDL (test code = 1.22 RATIO 2238) LIPID [id number] 00:00:00 Test Item Value Reference Range Interpretation Comments CHOLESTEROL (test code = 2210) 127 MG/DL TRIGLYCERIDES (test code = 2232) 125 MG/DL HDL CHOLESTEROL (test code = 2220) 46 MG/DL CALC LDL CHOL (test code = 2237) 56 MG/DL RISK RATIO LDL/HDL (test code = 1.22 RATIO 2238) COMPREHENSIVE METABOLIC [id number] 00:00:00 Test Item Value Reference Range Interpretation Comments GLUCOSE (test code = 2217) 89 MG/DL BUN (test code = 2208) 21 MG/DL CREATININE (test code = 2214) 1.36 MG/DL eGFR AMER. (test code 58 ML/MIN/1.73 = 84874) eGFR NON- AMER. (test 50 ML/MIN/1.73 code = 44113) CALC BUN/CREAT (test code = 15 RATIO 2235) SODIUM (test code = 2231) 145 MEQ/L POTASSIUM (test code = 2228) 5.1 MEQ/L CHLORIDE (test code = 2215) 105 MEQ/L CARBON DIOXIDE (test code = 25 MEQ/L 220) CALCIUM (test code = 2209) 9.1 MG/DL PROTEIN, TOTAL (test code = 7.6 G/DL 2228) ALBUMIN (test code = 2201) 4.2 G/DL CALC GLOBULIN (test code = 3.4 G/DL 224) CALC A/G RATIO (test code = 1.2 RATIO 4) BILIRUBIN, TOTAL (test code = 0.6 MG/DL 2206) ALKALINE PHOSPHATASE (test 108 U/L code = 2204) AST (test code = 2218) 15 U/L ALT (test code = 2219) 24 U/L CBC W/AUTO [id number] 00:00:00 Test Item Value Reference Range Interpretation Comments WBC (test code = 1001) 8.5 K/UL RBC (test code = 1002) 4.69 M/UL HEMOGLOBIN (test code = 1003) 14.1 G/DL HEMATOCRIT (test code = 1004) 42.9 % MCV (test code = 1005) 91.5 fL MCH (test code = 1006) 30.1 PG MCHC (test code = 1007) 32.9 G/DL RDW (test code = 1038) 13.3 % NEUTROPHILS (test code = 1008) 68.1 % LYMPHOCYTES (test code = 1010) 21.7 % MONOCYTES (test code = 1011) 7.8 % EOSINOPHILS (test code = 1012) 1.9 % BASOPHILS (test code = 1013) 0.5 % PLATELET COUNT (test code = 1015) 149 K/UL CBC W/AUTO [id number] 00:00:00 Test Item Value Reference Range Interpretation Comments WBC (test code = 1001) 8.5 K/UL RBC (test code = 1002) 4.69 M/UL HEMOGLOBIN (test code = 1003) 14.1 G/DL HEMATOCRIT (test code = 1004) 42.9 % MCV (test code = 1005) 91.5 fL MCH (test code = 1006) 30.1 PG MCHC (test code = 1007) 32.9 G/DL RDW (test code = 1038) 13.3 % NEUTROPHILS (test code = 1008) 68.1 % LYMPHOCYTES (test code = 1010) 21.7 % MONOCYTES (test code = 1011) 7.8 % EOSINOPHILS (test code = 1012) 1.9 % BASOPHILS (test code = 1013) 0.5 % PLATELET COUNT (test code = 1015) 149 K/UL CBC W/AUTO [id number] 00:00:00 Test Item Value Reference Range Interpretation Comments WBC (test code = 1001) 8.5 K/UL RBC (test code = 1002) 4.69 M/UL HEMOGLOBIN (test code = 1003) 14.1 G/DL HEMATOCRIT (test code = 1004) 42.9 % MCV (test code = 1005) 91.5 fL MCH (test code = 1006) 30.1 PG MCHC (test code = 1007) 32.9 G/DL RDW (test code = 1038) 13.3 % NEUTROPHILS (test code = 1008) 68.1 % LYMPHOCYTES (test code = 1010) 21.7 % MONOCYTES (test code = 1011) 7.8 % EOSINOPHILS (test code = 1012) 1.9 % BASOPHILS (test code = 1013) 0.5 % PLATELET COUNT (test code = 1015) 149 K/UL COMPREHENSIVE METABOLIC [id number] 00:00:00 Test Item Value Reference Range Interpretation Comments GLUCOSE (test code = 2217) 111 MG/DL BUN (test code = 2208) 26 MG/DL CREATININE (test code = 2214) 1.52 MG/DL eGFR AMER. (test code 51 ML/MIN/1.73 = 34240) eGFR NON- AMER. (test 44 ML/MIN/1.73 code = 94423) CALC BUN/CREAT (test code = 17 RATIO 2235) SODIUM (test code = 2231) 141 MEQ/L POTASSIUM (test code = 2228) 4.7 MEQ/L CHLORIDE (test code = 2215) 103 MEQ/L CARBON DIOXIDE (test code = 25 MEQ/L 2205) CALCIUM (test code = 2209) 9.4 MG/DL PROTEIN, TOTAL (test code = 7.7 G/DL 2228) ALBUMIN (test code = 2201) 4.5 G/DL CALC GLOBULIN (test code = 3.2 G/DL 2240) CALC A/G RATIO (test code = 1.4 RATIO 2234) BILIRUBIN, TOTAL (test code = 0.9 MG/DL 2206) ALKALINE PHOSPHATASE (test 105 U/L code = 2204) AST (test code = 2218) 14 U/L ALT (test code = 2219) 18 U/L COMPREHENSIVE METABOLIC [id number] 00:00:00 Test Item Value Reference Range Interpretation Comments GLUCOSE (test code = 2217) 111 MG/DL BUN (test code = 2208) 26 MG/DL CREATININE (test code = 2214) 1.52 MG/DL eGFR AMER. (test code 51 ML/MIN/1.73 = 58336) eGFR NON- AMER. (test 44 ML/MIN/1.73 code = 49281) CALC BUN/CREAT (test code = 17 RATIO 2235) SODIUM (test code = 2231) 141 MEQ/L POTASSIUM (test code = 2228) 4.7 MEQ/L CHLORIDE (test code = 2215) 103 MEQ/L CARBON DIOXIDE (test code = 25 MEQ/L 2205) CALCIUM (test code = 2209) 9.4 MG/DL PROTEIN, TOTAL (test code = 7.7 G/DL 2228) ALBUMIN (test code = 2201) 4.5 G/DL CALC GLOBULIN (test code = 3.2 G/DL 2240) CALC A/G RATIO (test code = 1.4 RATIO 2234) BILIRUBIN, TOTAL (test code = 0.9 MG/DL 2206) ALKALINE PHOSPHATASE (test 105 U/L code = 2204) AST (test code = 2218) 14 U/L ALT (test code = 2219) 18 U/L LIPID [id number] 00:00:00 Test Item Value Reference Range Interpretation Comments CHOLESTEROL (test code = 2210) 125 MG/DL TRIGLYCERIDES (test code = 2232) 136 MG/DL HDL CHOLESTEROL (test code = 2220) 47 MG/DL CALC LDL CHOL (test code = 2237) 51 MG/DL RISK RATIO LDL/HDL (test code = 1.08 RATIO 2238) LIPID [id number] 00:00:00 Test Item Value Reference Range Interpretation Comments CHOLESTEROL (test code = 2210) 125 MG/DL TRIGLYCERIDES (test code = 2232) 136 MG/DL HDL CHOLESTEROL (test code = 2220) 47 MG/DL CALC LDL CHOL (test code = 2237) 51 MG/DL RISK RATIO LDL/HDL (test code = 1.08 RATIO 2238) HEMOGLOBIN [id number] 00:00:00 Test Item Value Reference Range Interpretation Comments HEMOGLOBIN A1c (test code = 19499) 5.5 % HEMOGLOBIN [id number] 00:00:00 Test Item Value Reference Range Interpretation Comments HEMOGLOBIN A1c (test code = 35858) 5.5 % HEMOGLOBIN [id number] 00:00:00 Test Item Value Reference Range Interpretation Comments HEMOGLOBIN A1c (test code = 70660) 5.5 % COMPREHENSIVE METABOLIC [id number] 00:00:00 Test Item Value Reference Range Interpretation Comments GLUCOSE (test code = 2217) 99 MG/DL BUN (test code = 2208) 19 MG/DL CREATININE (test code = 2214) 0.87 MG/DL eGFR AMER. (test code 98 ML/MIN/1.73 = 35667) eGFR NON- AMER. (test 84 ML/MIN/1.73 code = 69833) CALC BUN/CREAT (test code = 22 RATIO 2235) SODIUM (test code = 2231) 140 MEQ/L POTASSIUM (test code = 2228) 4.7 MEQ/L CHLORIDE (test code = 2215) 103 MEQ/L CARBON DIOXIDE (test code = 17 MEQ/L 2205) CALCIUM (test code = 2209) 9.2 MG/DL PROTEIN, TOTAL (test code = 7.3 G/DL 2228) ALBUMIN (test code = 2201) 4.2 G/DL CALC GLOBULIN (test code = 3.1 G/DL 2239) CALC A/G RATIO (test code = 1.4 RATIO 2233) BILIRUBIN, TOTAL (test code = 0.8 MG/DL 2207) ALKALINE PHOSPHATASE (test 91 U/L code = 2204) AST (test code = 2218) 14 U/L ALT (test code = 2219) 16 U/L LIPID [id number] 00:00:00 Test Item Value Reference Range Interpretation Comments CHOLESTEROL (test code = 2210) 222 MG/DL TRIGLYCERIDES (test code = 2232) 101 MG/DL HDL CHOLESTEROL (test code = 2220) 53 MG/DL CALC LDL CHOL (test code = 2237) 149 MG/DL RISK RATIO LDL/HDL (test code = 2.81 RATIO 2238) LIPID [id number] 00:00:00 Test Item Value Reference Range Interpretation Comments CHOLESTEROL (test code = 2210) 222 MG/DL TRIGLYCERIDES (test code = 2232) 101 MG/DL HDL CHOLESTEROL (test code = 2220) 53 MG/DL CALC LDL CHOL (test code = 2237) 149 MG/DL RISK RATIO LDL/HDL (test code = 2.81 RATIO 2238) THYROID II PROFILE (T3U, T4, T7, TSH)[id number] 00:00:00 Test Item Value Reference Range Interpretation Comments T3 UPTAKE (test code = 2817) 29.4 % T4 (THYROXINE) (test code = 2819) 8.4 UG/DL CALCULATED T7 (FTI) (test code = 2.47 2820) TSH (test code = 2821) 2.2 UIU/ML THYROID II PROFILE (T3U, T4, T7, TSH)[id number] 00:00:00 Test Item Value Reference Range Interpretation Comments T3 UPTAKE (test code = 2817) 29.4 % T4 (THYROXINE) (test code = 2819) 8.4 UG/DL CALCULATED T7 (FTI) (test code = 2.47 2820) TSH (test code = 2821) 2.2 UIU/ML PSA, FREE AND [id number] 00:00:00 Test Item Value Reference Range Interpretation Comments PROSTATIC SPECIFIC AG (test code = 0.58 NG/ML 462346) FREE PSA (test code = 850717) 0.21 NG/ML % FREE PSA (test code = 291727) 36 % PSA, FREE AND [id number] 00:00:00 Test Item Value Reference Range Interpretation Comments PROSTATIC SPECIFIC AG (test code = 0.58 NG/ML 093289) FREE PSA (test code = 428924) 0.21 NG/ML % FREE PSA (test code = 359261) 36 % COMPREHENSIVE METABOLIC [id number] 00:00:00 Test Item Value Reference Range Interpretation Comments GLUCOSE (test code = 2217) 99 MG/DL BUN (test code = 2208) 19 MG/DL CREATININE (test code = 2214) 0.87 MG/DL eGFR AMER. (test code 98 ML/MIN/1.73 = 22737) eGFR NON- AMER. (test 84 ML/MIN/1.73 code = 39979) CALC BUN/CREAT (test code = 22 RATIO 2235) SODIUM (test code = 2231) 140 MEQ/L POTASSIUM (test code = 2228) 4.7 MEQ/L CHLORIDE (test code = 2215) 103 MEQ/L CARBON DIOXIDE (test code = 17 MEQ/L 2205) CALCIUM (test code = 2209) 9.2 MG/DL PROTEIN, TOTAL (test code = 7.3 G/DL 2228) ALBUMIN (test code = 2201) 4.2 G/DL CALC GLOBULIN (test code = 3.1 G/DL 2240) CALC A/G RATIO (test code = 1.4 RATIO 2234) BILIRUBIN, TOTAL (test code = 0.8 MG/DL 2206) ALKALINE PHOSPHATASE (test 91 U/L code = 2204) AST (test code = 2218) 14 U/L ALT (test code = 2219) 16 U/L CBC W/AUTO [id number] 00:00:00 Test Item Value Reference Range Interpretation Comments WBC (test code = 1001) 7.8 K/UL RBC (test code = 1002) 4.80 M/UL HEMOGLOBIN (test code = 1003) 14.0 G/DL HEMATOCRIT (test code = 1004) 42.6 % MCV (test code = 1005) 88.8 fL MCH (test code = 1006) 29.2 PG MCHC (test code = 1007) 32.9 G/DL RDW (test code = 1038) 12.9 % NEUTROPHILS (test code = 1008) 67.2 % LYMPHOCYTES (test code = 1010) 23.3 % MONOCYTES (test code = 1011) 6.3 % EOSINOPHILS (test code = 1012) 2.8 % BASOPHILS (test code = 1013) 0.4 % PLATELET COUNT (test code = 1015) 177 K/UL CBC W/AUTO [id number] 00:00:00 Test Item Value Reference Range Interpretation Comments WBC (test code = 1001) 7.8 K/UL RBC (test code = 1002) 4.80 M/UL HEMOGLOBIN (test code = 1003) 14.0 G/DL HEMATOCRIT (test code = 1004) 42.6 % MCV (test code = 1005) 88.8 fL MCH (test code = 1006) 29.2 PG MCHC (test code = 1007) 32.9 G/DL RDW (test code = 1038) 12.9 % NEUTROPHILS (test code = 1008) 67.2 % LYMPHOCYTES (test code = 1010) 23.3 % MONOCYTES (test code = 1011) 6.3 % EOSINOPHILS (test code = 1012) 2.8 % BASOPHILS (test code = 1013) 0.4 % PLATELET COUNT (test code = 1015) 177 K/UL CBC W/AUTO [id number] 00:00:00 Test Item Value Reference Range Interpretation Comments WBC (test code = 1001) 7.8 K/UL RBC (test code = 1002) 4.80 M/UL HEMOGLOBIN (test code = 1003) 14.0 G/DL HEMATOCRIT (test code = 1004) 42.6 % MCV (test code = 1005) 88.8 fL MCH (test code = 1006) 29.2 PG MCHC (test code = 1007) 32.9 G/DL RDW (test code = 1038) 12.9 % NEUTROPHILS (test code = 1008) 67.2 % LYMPHOCYTES (test code = 1010) 23.3 % MONOCYTES (test code = 1011) 6.3 % EOSINOPHILS (test code = 1012) 2.8 % BASOPHILS (test code = 1013) 0.4 % PLATELET COUNT (test code = 1015) 177 K/UL HEMOGLOBIN [id number] 00:00:00 Test Item Value Reference Range Interpretation Comments HEMOGLOBIN A1c (test code = 25003) 5.8 % HEMOGLOBIN [id number] 00:00:00 Test Item Value Reference Range Interpretation Comments HEMOGLOBIN A1c (test code = 98591) 5.8 % HEMOGLOBIN [id number] 00:00:00 Test Item Value Reference Range Interpretation Comments HEMOGLOBIN A1c (test code = 86350) 5.8 %
[2023-07-03 13:24] LABS: Absolute Lymphocytes (CBC) 1.8 K/uL (0.7-4.9); Lymphocytes % 21.2 % (15.3-44.8); MCV 94.4 fL (80-100); MPV 8.7 fL (7.6-11.3); Platelets 155 thou/uL (152-406); RBC Red Blood Cell Count 4.24 M/uL (4.33-5.43)
[2023-07-03 13:41] LABS: Albumin 3.5 g/dL (3.4-5.0); Potassium 4.2 mEq/L (3.5-5.1); Protein, Total 7.6 g/dL (6.4-8.2)
--- NOTE | 2023-07-03 15:06 | EDPHYS ---
Physician Documentation [facility] Name: Denver Kaiser Age: 82 yrs Sex: Male : 1940 Arrival Date: 07/03/2023 Time: 12:58 Bed Treatment Private MD: ED Physician Dereck Groves HPI: 07/03 16:05 This 82 yrs old Male presents to ER via EMS with complaints of Leg Pain. rt 16:05 Patient presents to the ED with a cramping sensation to the right thigh. He states that rt this been intermittent for several years, somewhat worsened today. Patient states that the symptoms have since improved. Denies falling or injury. Denies other acute complaints, symptoms are mild in severity, aching nature, radiating, no other aggravating or alleviating factors.. Historical: - Allergies: 13:00 No Known Allergies; iw - Immunization history:: Adult Immunizations up to date. - Social history:: Smoking status: unknown. - Family history:: not pertinent. ROS: 16:05 Constitutional: Negative for fever, chills, and weight loss, Cardiovascular: Negative rt for chest pain, palpitations, and edema, Respiratory: Negative for shortness of breath, cough, wheezing, and pleuritic chest pain, Abdomen/GI: Negative for abdominal pain, nausea, vomiting, diarrhea, and constipation, Skin: Negative for injury, rash, and discoloration, Neuro: Negative for headache, weakness, numbness, tingling, and seizure, Psych: Negative for depression, anxiety, suicide ideation, homicidal ideation, and hallucinations, 16:05 MS/extremity: Positive for pain, Negative for injury or acute deformity, Exam: 16:05 Constitutional: This is a well developed, well nourished patient who is awake, alert, rt and in no acute distress. Head/Face: Normocephalic, atraumatic. Chest/axilla: Normal chest wall appearance and motion. Nontender with no deformity. No lesions are appreciated. Cardiovascular: Regular rate and rhythm with a normal S1 and S2. No gallops, murmurs, or rubs. Normal PMI, no JVD. No pulse deficits. Respiratory: Lungs have equal breath sounds bilaterally, clear to auscultation and percussion. No rales, rhonchi or wheezes noted. No increased work of breathing, no retractions or nasal flaring. Abdomen/GI: Soft, non-tender, with normal bowel sounds. No distension or tympany. No guarding or rebound. No evidence of tenderness throughout. Skin: Warm, dry with normal turgor. Normal color with no rashes, no lesions, and no evidence of cellulitis. MS/ Extremity: Pulses equal, no cyanosis. Neurovascular intact. Full, normal range of motion. Neuro: Awake and alert, GCS 15, oriented to person, place, time, and situation. Cranial nerves II-XII grossly intact. Motor strength 5/5 in all extremities. Sensory grossly intact. Cerebellar exam normal. Normal gait. Vital Signs: 13:01 BP 130 / 70; Pulse 78; Resp 16; Temp 98; Pulse Ox 98% on R/A; iw 15:23 BP 122 / 69; Resp 20; Pulse Ox 97% on R/A; tm6 MDM: 13:00 Patient medically screened. rt 16:05 Differential diagnosis: Muscle spasm, electrolyte disturbance. Data reviewed: vital rt signs, nurses notes, lab test result(s), Patient states that he has seen a kidney doctor before, believe that his elevation of creatinine is a chronic issue and not acute not requiring admission.. Consideration of Admission/Observation Escalation of care including admission/observation considered. I considered the following discharge prescriptions or medication management in the emergency department Medications were administered in the Emergency Department. See MAR. Test considered but Not performed: X-ray: Denies trauma, CT scan, x-ray not indicated. Care significantly affected by the following chronic conditions: Chronic Kidney Disease. Counseling: I had a detailed discussion with the patient and/or guardian regarding the historical points, exam findings, and any diagnostic results supporting the discharge/admit diagnosis, lab results, the need for outpatient follow up, to return to the emergency department if symptoms worsen or persist or if there are any questions or concerns that arise at home. Response to treatment: the patient's symptoms have markedly improved after treatment. 07/03 13:00 Order name: CBC with Diff; Complete Time: 13:42 rt 07/03 13:00 Order name: CMP; Complete Time: 13:42 rt 07/03 13:00 Order name: Magnesium; Complete Time: 13:42 rt 07/03 13:00 Order name: CPK; Complete Time: 13:42 rt Administered Medications: 15:22 Drug: Cyclobenzaprine PO 10 mg PO once Route: PO; tm6 Disposition Summary: 07/03/23 15:05 Discharge Ordered Notes: Location: Home rt Problem: an ongoing problem rt Symptoms: have improved rt Condition: Stable rt Diagnosis - Cramp and spasm rt Followup: rt - With: Private Physician - When: 2 - 3 days - Reason: Discharge Instructions: - Discharge Summary Sheet rt - Leg Cramps rt Forms: - Medication Reconciliation Form rt - Thank You Letter rt - Antibiotic Education rt - Prescription Opioid Use rt - Patient Portal Instructions rt - Leadership Thank You Letter rt Prescriptions: - Cyclobenzaprine 5 mg Oral Tablet - take 1 tablet ORAL route 3 times per day As needed; 15 tablet; Refills: 0, rt Product Selection Permitted Signatures: Dispatcher [employer] Monica Melo RN RN iw Dereck Groves MD MD rt Jordan Marroquin RN RN tm6
--- NOTE | 2023-07-03 15:06 | ER ---
Nurse's Notes [facility] Name: Denver Kaiser Age: 82 yrs Sex: Male : 1940 Arrival Date: 07/03/2023 Time: 12:58 Bed Treatment Private MD: Diagnosis: Cramp and spasm Presentation: 07/03 12:59 Chief complaint: Patient states: c/o leg cramping that has been going on for years , iw today he was at [facility] and he almost fell, was worried about taking him home. Coronavirus screen: At this time, the client does not indicate any symptoms associated with coronavirus-19. Ebola Screen: Patient negative for fever greater than or equal to 101.5 degrees Fahrenheit, and additional compatible Ebola Virus Disease symptoms Patient denies exposure to infectious person. Patient denies travel to an Ebola-affected area in the 21 days before illness onset. No symptoms or risks identified at this time. 12:59 Method Of Arrival: EMS: [facility] iw 12:59 Acuity: [facility] 3 iw 15:24 Initial Sepsis Screen: Does the patient meet any 2 criteria? No. Patient's initial tm6 sepsis screen is negative. Does the patient have a suspected source of infection? No. Patient's initial sepsis screen is negative. Risk Assessment: Do you want to hurt yourself or someone else? Patient reports no desire to harm self or others. Onset of symptoms is unknown. Triage Assessment: 15:24 General: Appears in no apparent distress. Behavior is calm, cooperative, appropriate tm6 for age. Pain: Complains of pain in right leg and left leg. EENT: No signs and/or symptoms were reported regarding the EENT system. Neuro: Level of Consciousness is awake, alert, obeys commands, Oriented to person, place, time, situation, Appropriate for age. Cardiovascular: Capillary refill < 3 seconds Patient's skin is warm and dry. Respiratory: Airway is patent Respiratory effort is even, unlabored, Respiratory pattern is regular, symmetrical. GI: Abdomen is round non-distended. : No signs and/or symptoms were reported regarding the genitourinary system. Derm: No signs and/or symptoms reported regarding the dermatologic system. Musculoskeletal: No signs and/or symptoms reported regarding the musculoskeletal system. Historical: - Allergies: 13:00 No Known Allergies; iw - Immunization history:: Adult Immunizations up to date. - Social history:: Smoking status: unknown. - Family history:: not pertinent. Screenin:23 [facility] ED Fall Risk Assessment (Adult) History of falling in the last 3 months, tm6 including since admission No falls in past 3 months (0 pts). Abuse screen: Denies threats or abuse. Denies injuries from another. Nutritional screening: No deficits noted. Tuberculosis screening: No symptoms or risk factors identified. Assessment: 13:00 General: Appears in no apparent distress. Behavior is calm, cooperative. Neuro: Level iw of Consciousness is awake, alert, obeys commands, Oriented to person, place, time, situation, Moves all extremities. Full function. Cardiovascular: Patient's skin is warm and dry. Respiratory: Respiratory effort is even, unlabored, Respiratory pattern is regular. Derm: Skin is intact, is healthy with good turgor. Musculoskeletal: Range of motion: intact in all extremities. 14:37 Reassessment: Patient appears in no apparent distress at this time. Patient and/or iw family updated on plan of care and expected duration. Pain level reassessed. 15:23 Reassessment: Patient appears in no apparent distress at this time. Pain: Complains of tm6 pain in right leg and left leg. Vital Signs: 13:01 BP 130 / 70; Pulse 78; Resp 16; Temp 98; Pulse Ox 98% on R/A; iw 15:23 BP 122 / 69; Resp 20; Pulse Ox 97% on R/A; tm6 ED Course: 12:59 Patient arrived in ED. iw 13:00 Dereck Groves MD is Attending Physician. rt 13:00 Triage completed. iw 13:01 Arm band placed on. iw 13:17 CPK Sent. bc6 13:17 Magnesium Sent. bc6 13:17 CMP Sent. bc6 13:17 CBC with Diff Sent. bc6 13:17 Inserted saline lock: 20 gauge in left forearm, using aseptic technique. Blood bc6 collected. 14:37 Monica Villalobos, RN is Primary Nurse. iw 15:24 No provider procedures requiring assistance completed. tm6 15:25 Patient has correct armband on for positive identification. Bed in low position. Call tm6 light in reach. Side rails up X2. Provided Education on: medications. 15:26 IV discontinued, intact, bleeding controlled, No redness/swelling at site. tm6 Administered Medications: 15:22 Drug: Cyclobenzaprine PO 10 mg PO once Route: PO; tm6 Medication: 15:25 VIS not applicable for this client. tm6 Outcome: 15:05 Discharge ordered by . rt 15:25 Discharged to home ambulatory, with family, tm6 15:25 Condition: stable 15:25 Discharge instructions given to patient, family, Instructed on discharge instructions, follow up and referral plans. medication usage, Demonstrated understanding of instructions, follow-up care, medications, Prescriptions given X 1, 15:37 Patient left the ED. tm6 Signatures: Monica Villalobos, RN RN iw Dereck Groves MD MD rt Kayla Calderon [facility] Jordan Marroquin RN RN tm6
[2023-07-03] MEDS ORDERED: CYCLOBENZAPRINE 10 MG TAB ONE (15:32)
[2023-07-03 15:53] VITALS: TEMP 98
[2023-07-03 15:55] VITALS: BP 122/69; O2SAT 97
== END 2023-07-03 15:37 | disposition home or self-care (01) ==
LOC: ER 12:58
DX: R25.2 Cramp and spasm (principal)
CPT/HCPCS: 36415; 80053; 82550; 83735; 85025; 99284

== ENCOUNTER 2023-08-27 10:49 | Inpatient (IN) | payer OTHER ==
--- OUTSIDE RECORDS SUMMARY | 2023-08-27 10:54 | XMS REPORT | Continuity of Care Document ---
Author Name Unknown Address [address] [facility] [address] [place] [address] [facility] thconnect Address [address] [facility] [address] [place] [address] Care Team Providers Care Construction Sales Manager Name Role Phone Unavailable Unavailable Unavailable Encounters Start Date/Time End Date/Time Encounter Type Admission Type Attending Clinicians [facility] Facility Care Department Encounter ID Source 2023-08-01 08:04:43 2023-08-01 08:04:43 Outpatient [facility] [id number] 2023-06-21 08:20:40 2023-06-21 08:20:40 Outpatient [facility] [id number] 2023-06-06 07:59:35 2023-06-06 07:59:35 Outpatient [facility] [id number] 2023-05-03 08:00:02 2023-05-03 08:00:02 Outpatient [facility] [id number] 2023-02-01 14:20:10 2023-02-01 14:20:10 Outpatient [facility] [id number] 2022-11-06 15:20:24 2022-11-06 15:20:24 Outpatient [facility] [id number] [address] 2022-08-01 16:41:35 2022-08-01 16:41:35 Outpatient [facility] [address] Results Test Description Test Time Test Comments Results Result Co mments Source CBC W/AUTO DIFF WITH [id number] 02:31:48* Test Item Value Reference Range Interpretation Comme nts WBC (test code = 1001) 8.5 K/UL 3.5-11.0 RBC (test code = 1002) 4.24 M/UL 4.50-6.10 L HEMOGLOBIN (test code = 1003) 13.3 G/DL 13.5-17.0 L HEMATOCRIT (test code = 1004) 39.8 % 40.0-51.0 L MCV (test code = 1005) 93.9 fL 80.0-99.0 MCH (test code = 1006) 31.4 PG 25.0-33.0 MCHC (test code = 1007) 33.4 G/DL 31.0-36.0 RDW (test code = 1038) 13.4 % 11.5-15.0 NEUTROPHILS (test code = 1008) 62.4 % LYMPHOCYTES (test code = 1010) 27.4 % MONOCYTES (test code = 1011) 7.1 % EOSINOPHILS (test code = 1012) 1.8 % BASOPHILS (test code = 1013) 0.5 % IMMATURE GRANULOCYTES (test code = 1036) 0.8 % NUCLEATED RBCS (test code = 1065) 0.0 /100 WBC'S See_Comment [Automated message] The system which generated this result transmitted reference range: 0.0. The reference range was not used to interpret this result as normal/abnormal. PLATELET COUNT (test code = 1015) 158 K/UL 130-400 ABSOLUTE NEUTROPHILS (test code = 1066) 5.33 K/UL 1.50-7.50 ABSOLUTE LYMPHOCYTES (test code = 1067) 2.34 K/UL 1.00-4.00 ABSOLUTE MONOCYTES (test code = 1068) 0.61 K/UL 0.20-1.00 ABSOLUTE EOSINOPHILS (test code = 1040) 0.15 K/UL 0.00-0.50 ABSOLUTE BASOPHILS (test code = 1069) 0.04 K/UL 0.00-0.20 ABS IMMATURE GRANULOCYTES (test code = 1020) 0.07 K/UL 0.00-0.10 ABS NUCLEATED RBCS (test code = 89510) 0.00 K/UL 0.00-0.11 UNLESS OTHER SANCHEZ INDICATED, ALL TESTING PERFORMED AT [facility] [address] [place] [address] CLUTCH MECHANIC: JANNETH PETERSEN M.D. CLIA NUMBER [id number] [place]. [id number] VITAMIN D, 25 [id number] 11:38:03* Test Item Value Reference Range Interpretation Comme nts VITAMIN D, 25 OH (test code = 4958) 35 NG/ML SEE BELOW EFFECTIVE 04/2023, PLEASE NOTE NEW METHODOLOGY IS ELECTROCHEMILUMINESCENCE BINDING ASSAY. NOTE: 25-HYDROXYVITAMIN D ASSAY INCLUDES 25-HYDROXYVITAMIN D2 AND D3. INTERPRETIVE RANGES PEDIATRIC (<17 YEARS) . . . . . . . . . . . NG/ML 20-100ADULT: INSUFFICIENT . . . . . . . . . . . . . . NG/ML <20 SUBOPTIMAL . . . . . . . . . . . . . . . NG/ML 20-29 OPTIMAL . . . . . . . . . . . . . . . . . NG/ML 30-100 CBC W/AUTO DIFF WITH [id number] 03:49:35* Test Item Value Reference Range Interpretation Comme nts WBC (test code = 1001) 8.3 K/UL 3.5-11.0 RBC (test code = 1002) 4.12 M/UL 4.50-6.10 L HEMOGLOBIN (test code = 1003) 12.9 G/DL 13.5-17.0 L HEMATOCRIT (test code = 1004) 38.9 % 40.0-51.0 L MCV (test code = 1005) 94.4 fL 80.0-99.0 MCH (test code = 1006) 31.3 PG 25.0-33.0 MCHC (test code = 1007) 33.2 G/DL 31.0-36.0 RDW (test code = 1038) 13.2 % 11.5-15.0 NEUTROPHILS (test code = 1008) 65.7 % LYMPHOCYTES (test code = 1010) 24.9 % MONOCYTES (test code = 1011) 6.6 % EOSINOPHILS (test code = 1012) 2.0 % BASOPHILS (test code = 1013) 0.6 % IMMATURE GRANULOCYTES (test code = 1036) 0.2 % NUCLEATED RBCS (test code = 1065) 0.0 /100 WBC'S See_Comment [Automated Tax Alli] The system which generated this result transmitted reference range: 0.0. The reference range was not used to interpret this result as normal/abnormal. PLATELET COUNT (test code = 1015) 175 K/UL 130-400 ABSOLUTE NEUTROPHILS (test code = 1066) 5.46 K/UL 1.50-7.50 ABSOLUTE LYMPHOCYTES (test code = 1067) 2.07 K/UL 1.00-4.00 ABSOLUTE MONOCYTES (test code = 1068) 0.55 K/UL 0.20-1.00 ABSOLUTE EOSINOPHILS (test code = 1040) 0.17 K/UL 0.00-0.50 ABSOLUTE BASOPHILS (test code = 1069) 0.05 K/UL 0.00-0.20 ABS IMMATURE GRANULOCYTES (test code = 1020) 0.02 K/UL 0.00-0.10 ABS NUCLEATED RBCS (test code = 20723) 0.00 K/UL 0.00-0.11 COMPREHENSIVE METABOLIC [id number] 03:17:45* Test Item Value Reference Range Interpretation Comme nts GLUCOSE (test code = 2217) 112 MG/DL 70-99 H BUN (test code = 220) 27 MG/DL 8-23 H CREATININE (test code = 2214) 1.68 MG/DL 0.80-1.40 H eGFR (2020 CKD-EPI) (test code = 18475) 40 ML/MIN/1.73 >60 L CALC BUN/CREAT (test code = 2235) 16 RATIO 6-28 SODIUM (test code = 2231) 143 MEQ/L 133-146 POTASSIUM (test code = 2228) 4.3 MEQ/L 3.5-5.4 CHLORIDE (test code = 2215) 106 MEQ/L 95-107 CARBON DIOXIDE (test code = 2206) 25 MEQ/L 19-31 CALCIUM (test code = 2209) 9.4 MG/DL 8.5-10.5 PROTEIN, TOTAL (test code = 2229) 7.0 G/DL 6.1-8.3 ALBUMIN (test code = 2201) 4.0 G/DL 3.5-5.2 CALC GLOBULIN (test code = 2240) 3.0 G/DL 1.9-3.7 CALC A/G RATIO (test code = 2234) 1.3 RATIO 1.0-2.6 BILIRUBIN, TOTAL (test code = 2207) 0.9 MG/DL See_Comment [Automated me ssage] The system which generated this result transmitted reference range: <=1.2. The reference range was not used to interpret this result as normal/abnormal. ALKALINE PHOSPHATASE (test code = 4) 97 U/L 40-125 AST (test code = 2218) 18 U/L 9-50 ALT (test code = 2219) 25 U/L 5-50 UNLESS OTHERWISE INDICATED, ALL TESTING PERFORMED AT [facility] [address] [place] [address] CLUTCH MECHANIC: JANNETH PETERSEN M.D. CLIA NUMBER [id number] [facility] [place]. [id number] LIPID [id number] 05:43:22* Test Item Value Reference Range Interpretation Comme nts CHOLESTEROL (test code = 0) 125 MG/DL <200 TRIGLYCERIDES (test code = 2232) 100 MG/DL <150 HDL CHOLESTEROL (test code = 2219) 52 MG/DL >39 CALC LDL CHOL (test code = 7) 54 MG/DL <100 NOTE: CALCULATED LDL IS BASED ON DIMITRIOS-BOYD METHOD WHICHINCLUDES ADJUSTABLE TRIGLYCERIDE:VLDL CHOLESTEROL RATIO.THIS FACTOR VARIES BY MEASURED TRIGLYCERIDE AND NON-HDLCHOLESTEROL CONCENTRATIONS WITH INCREASED CALCULATED LDL SEENIN HIGHER TRIGLYCERIDE OR LOWER NON-HDL SPECIMENS. FOR MOREINFORMATION, SEE CLIENT ANNOUNCEMENT AT [email or web address] [email or web address] LDL/HDL (test code = 2237) 1.04 RATIO <3.55 COMPREHENSIVE METABOLIC [id number] 05:43:22* Test Item Value Reference Range Interpretation Comme nts GLUCOSE (test code = 2216) 102 MG/DL 70-99 H BUN (test code = 2207) 29 MG/DL 8-23 H CREATININE (test code = 2213) 1.57 MG/DL 0.80-1.40 H eGFR (2020 CKD-EPI) (test code = 99306) 44 ML/MIN/1.73 >60 L CALC BUN/CREAT (test code = 2235) 18 RATIO 6-28 SODIUM (test code = 2230) 145 MEQ/L 133-146 POTASSIUM (test code = 222) 4.7 MEQ/L 3.5-5.4 CHLORIDE (test code = 2214) 112 MEQ/L 95-107 H CARBON DIOXIDE (test code = 6) 18 MEQ/L 19-31 L CALCIUM (test code = 2208) 9.0 MG/DL 8.5-10.5 PROTEIN, TOTAL (test code = 2228) 7.0 G/DL 6.1-8.3 ALBUMIN (test code = 220) 3.9 G/DL 3.5-5.2 CALC GLOBULIN (test code = 2240) 3.1 G/DL 1.9-3.7 CALC A/G RATIO (test code = 223) 1.3 RATIO 1.0-2.6 BILIRUBIN, TOTAL (test code = 2206) 0.7 MG/DL See_Comment [Automated me ssage] The system which generated this result transmitted reference range: <=1.2. The reference range was not used to interpret this result as normal/abnormal. ALKALINE PHOSPHATASE (test code = 2203) 103 U/L 40-125 AST (test code = 2217) 22 U/L 9-50 ALT (test code = 2218) 27 U/L 5-50 [facility] has impo rtant pathology staff changes effective 10/24/2022. New pathology staff will provide uninterrupted, excellent patient care and clinical consultation. See URL: [email or web address] [email or web address] [email or web address]-team. UNLESS OTHERWISE INDICATED, ALL TESTING PERFORMED AT [facility] [address] [place] [address] CLUTCH MECHANIC: JANNETH PETERSEN M.D. CLIA NUMBER [id number] [facility] [place]. [id number] CBC W/AUTO DIFF WITH [id number] 03:40:13* Test Item Value Reference Range Interpretation Comme nts WBC (test code = 1001) 7.2 K/UL 3.5-11.0 RBC (test code = 1002) 3.84 M/UL 4.50-6.10 L HEMOGLOBIN (test code = 1003) 12.2 G/DL 13.5-17.0 L HEMATOCRIT (test code = 1004) 36.5 % 40.0-51.0 L MCV (test code = 1005) 95.1 fL 80.0-99.0 MCH (test code = 1006) 31.8 PG 25.0-33.0 MCHC (test code = 1007) 33.4 G/DL 31.0-36.0 RDW (test code = 1038) 12.8 % 11.5-15.0 NEUTROPHILS (test code = 1008) 64.9 % LYMPHOCYTES (test code = 1010) 25.1 % MONOCYTES (test code = 1011) 7.5 % EOSINOPHILS (test code = 1012) 1.8 % BASOPHILS (test code = 1013) 0.4 % IMMATURE GRANULOCYTES (test code = 1036) 0.3 % NUCLEATED RBCS (test code = 1065) 0.0 /100 WBC'S See_Comment [Automated messa ge] The system which generated this result transmitted reference range: 0.0. The reference range was not used to interpret this result as normal/abnormal. PLATELET COUNT (test code = 1015) 177 K/UL 130-400 ABSOLUTE NEUTROPHILS (test code = 1066) 4.68 K/UL 1.50-7.50 ABSOLUTE LYMPHOCYTES (test code = 1067) 1.81 K/UL 1.00-4.00 ABSOLUTE MONOCYTES (test code = 1068) 0.54 K/UL 0.20-1.00 ABSOLUTE EOSINOPHILS (test code = 1040) 0.13 K/UL 0.00-0.50 ABSOLUTE BASOPHILS (test code = 1069) 0.03 K/UL 0.00-0.20 ABS IMMATURE GRANULOCYTES (test code = 1020) 0.02 K/UL 0.00-0.10 ABS NUCLEATED RBCS (test code = 71218) 0.00 K/UL 0.00-0.11 PSA, [id number] 06:57:19* Test Item Value Reference Range Interpretation Comme nts PSA, TOTAL (test code = 2606) 0.56 NG/ML See_Comment NOTE: Methodolog y is Arlene Waldo Electrochemiluminescence Immunoassay traceable to WHO reference standard 96/760. UNLESS OTHERWISE INDICATED, ALL TESTING PERFORMED [facility] [address] [place] [address] CLUTCH MECHANIC: UMA HALL M.D. CLIA NUMBER [id number] [facility] [place] [id number] [Automated message] The system which generated this result transmitted reference range: <=4.00. The reference range was not used to interpret this result as normal/abnormal. LIPID [id number] 06:08:50* Test Item Value Reference Range Interpretation Comme nts CHOLESTEROL (test code = 2210) 132 MG/DL <200 TRIGLYCERIDES (test code = 2232) 79 MG/DL <150 HDL CHOLESTEROL (test code = 2220) 55 MG/DL >39 CALC LDL CHOL (test code = 223) 61 MG/DL <100 NOTE: CALCULATED LDL IS BASED ON DIMITRIOS-BOYD METHOD WHICHINCLUDES ADJUSTABLE TRIGLYCERIDE:VLDL CHOLESTEROL RATIO.THIS FACTOR VARIES BY MEASURED TRIGLYCERIDE AND NON-HDLCHOLESTEROL CONCENTRATIONS WITH INCREASED CALCULATED LDL SEENIN HIGHER TRIGLYCERIDE OR LOWER NON-HDL SPECIMENS. FOR MOREINFORMATION, SEE CLIENT ANNOUNCEMENT AT [email or web address] RISK RATIO LDL/HDL (test code = 223) 1.11 RATIO <3.55 COMPREHENSIVE METABOLIC [id number] 06:08:50* Test Item Value Reference Range Interpretation Comme nts GLUCOSE (test code = 2216) 102 MG/DL 70-99 H BUN (test code = 2207) 36 MG/DL 8-23 H CREATININE (test code = 221) 1.96 MG/DL 0.80-1.40 H eGFR (2020 CKD-EPI) (test code = 26410) 34 ML/MIN/1.73 >60 L CALC BUN/CREAT (test code = 2235) 18 RATIO 6-28 SODIUM (test code = 223) 142 MEQ/L 133-146 POTASSIUM (test code = 2228) 5.1 MEQ/L 3.5-5.4 CHLORIDE (test code = 2215) 106 MEQ/L 95-107 CARBON DIOXIDE (test code = 2206) 23 MEQ/L 19-31 CALCIUM (test code = 220) 9.3 MG/DL 8.5-10.5 PROTEIN, TOTAL (test code = 2228) 7.6 G/DL 6.1-8.3 ALBUMIN (test code = 220) 4.2 G/DL 3.5-5.2 CALC GLOBULIN (test code = 2240) 3.4 G/DL 1.9-3.7 CALC A/G RATIO (test code = 2234) 1.2 RATIO 1.0-2.6 BILIRUBIN, TOTAL (test code = 220) 0.5 MG/DL See_Comment [Automated me ssage] The system which generated this result transmitted reference range: <=1.2. The reference range was not used to interpret this result as normal/abnormal. ALKALINE PHOSPHATASE (test code = 2204) 118 U/L 40-125 AST (test code = 2218) 28 U/L 9-50 ALT (test code = 2219) 40 U/L 5-50 CBC W/AUTO DIFF WITH [id number] 03:40:43* Test Item Value Reference Range Interpretation Comme nts WBC (test code = 1001) 8.6 K/UL 3.5-11.0 RBC (test code = 1002) 4.10 M/UL 4.50-6.10 L HEMOGLOBIN (test code = 1003) 12.8 G/DL 13.5-17.0 L HEMATOCRIT (test code = 1004) 38.7 % 40.0-51.0 L MCV (test code = 1005) 94.4 fL 80.0-99.0 MCH (test code = 1006) 31.2 PG 25.0-33.0 MCHC (test code = 1007) 33.1 G/DL 31.0-36.0 RDW (test code = 1038) 13.1 % 11.5-15.0 NEUTROPHILS (test code = 1008) 62.0 % LYMPHOCYTES (test code = 1010) 25.6 % MONOCYTES (test code = 1011) 8.9 % EOSINOPHILS (test code = 1012) 2.6 % BASOPHILS (test code = 1013) 0.5 % IMMATURE GRANULOCYTES (test code = 1036) 0.4 % NUCLEATED RBCS (test code = 1065) 0.0 /100 WBC'S See_Comment [Automated Oxyrane UKa ge] The system which generated this result transmitted reference range: 0.0. The reference range was not used to interpret this result as normal/abnormal. PLATELET COUNT (test code = 1015) 202 K/UL 130-400 ABSOLUTE NEUTROPHILS (test code = 1066) 5.33 K/UL 1.50-7.50 ABSOLUTE LYMPHOCYTES (test code = 1067) 2.19 K/UL 1.00-4.00 ABSOLUTE MONOCYTES (test code = 1068) 0.76 K/UL 0.20-1.00 ABSOLUTE EOSINOPHILS (test code = 1040) 0.22 K/UL 0.00-0.50 ABSOLUTE BASOPHILS (test code = 1069) 0.04 K/UL 0.00-0.20 ABS IMMATURE GRANULOCYTES (test code = 1020) 0.03 K/UL 0.00-0.10 ABS NUCLEATED RBCS (test code = 44948) 0.00 K/UL 0.00-0.11 LIPID [id number] 05:40:06* Test Item Value Reference Range Interpretation Comme nts CHOLESTEROL (test code = 2210) 143 MG/DL <200 TRIGLYCERIDES (test code = 2232) 98 MG/DL <150 HDL CHOLESTEROL (test code = 2220) 57 MG/DL >39 CALC LDL CHOL (test code = 2237) 68 MG/DL <100 NOTE: CALCULATED LDL IS BASED ON DIMITRIOS-BOYD METHOD WHICHINCLUDES ADJUSTABLE TRIGLYCERIDE:VLDL CHOLESTEROL RATIO.THIS FACTOR VARIES BY MEASURED TRIGLYCERIDE AND NON-HDLCHOLESTEROL CONCENTRATIONS WITH INCREASED CALCULATED LDL SEENIN HIGHER TRIGLYCERIDE OR LOWER NON-HDL SPECIMENS. FOR MOREINFORMATION, SEE CLIENT ANNOUNCEMENT AT [email or web address] /[email or web address] RISK RATIO LDL/HDL (test code = 2238) 1.19 RATIO <3.55 COMPREHENSIVE METABOLIC [id number] 05:40:06* Test Item Value Reference Range Interpretation Comme nts GLUCOSE (test code = 2217) 103 MG/DL 70-99 H BUN (test code = 2208) 28 MG/DL 8-23 H CREATININE (test code = 2214) 1.77 MG/DL 0.80-1.40 H EFFECTIVE 2020, [facility] HAS IMPLEMENTED THE NKF-ASN RECOMMENDED KD-EPI EGFR REFIT CALCULATION THAT DOES NOT INCLUDE A COEFFICIENT FORRACE. FOR MORE INFORMATION, SEE ANNOUNCEMENT [email or web address] (2020 CKD-EPI) (test code = 61328) 38 ML/MIN/1.73 >60 L CALC BUN/CREAT (test code = 2235) 16 RATIO 6-28 SODIUM (test code = 2230) 142 MEQ/L 133-146 POTASSIUM (test code = 2228) 5.1 MEQ/L 3.5-5.4 CHLORIDE (test code = 2215) 106 MEQ/L 95-107 CARBON DIOXIDE (test code = 2205) 24 MEQ/L 19-31 CALCIUM (test code = 2208) 9.3 MG/DL 8.5-10.5 PROTEIN, TOTAL (test code = 2228) 7.4 G/DL 6.1-8.3 ALBUMIN (test code = 2201) 4.4 G/DL 3.5-5.2 CALC GLOBULIN (test code = 2240) 3.0 G/DL 1.9-3.7 CALC A/G RATIO (test code = 2234) 1.5 RATIO 1.0-2.6 BILIRUBIN, TOTAL (test code = 2207) 0.6 MG/DL See_Comment [Automated me ssage] The system which generated this result transmitted reference range: <=1.2. The reference range was not used to interpret this result as normal/abnormal. ALKALINE PHOSPHATASE (test code = 2204) 103 U/L 40-125 AST (test code = 2218) 19 U/L 9-50 ALT (test code = 2219) 20 U/L 5-50 UNLESS OTHERWISE INDICATED, ALL TESTING PERFORMED [facility] [address] [place] [address] CLUTCH MECHANIC: UMA HALL M.D. CLIA NUMBER [id number] [facility] [place]. [id number] HEMOGLOBIN [id number] 03:47:41* Test Item Value Reference Range Interpretation Comme nts HEMOGLOBIN A1c (test code = 66012) 5.9 % 4.2-5.6 H
[2023-08-27 11:37] LABS: Absolute Lymphocytes (CBC) 0.7 K/uL (0.7-4.9); Hematocrit 37.2 % (39.6-49.0); Lymphocytes % 5.9 % (15.3-44.8); MCV 93.3 fL (80-100); MPV 9.1 fL (7.6-11.3); Platelets 114 thou/uL (152-406); RBC Red Blood Cell Count 3.99 M/uL (4.33-5.43)
--- NOTE | 2023-08-27 11:38 | RAD REPORT ---
EXAM DESCRIPTION: RAD - Chest Single View - 08/27/2023 11:28 am CLINICAL HISTORY: COUGH Chest pain. COMPARISON: CHEST PA AND LAT 2 VIEW dated 02/03/2014 FINDINGS: Portable technique limits examination quality. The lungs are grossly clear. The heart is upper limit normal in size. No displaced fractures. IMPRESSION: No acute intrathoracic process suspected.
--- NOTE | 2023-08-27 11:39 | RAD REPORT ---
EXAM DESCRIPTION: RAD - Femur Right - 08/27/2023 11:28 am CLINICAL HISTORY: PAIN COMPARISON: No comparisons FINDINGS: Advanced right hip osteoarthritis. No acute fracture or dislocation.
[2023-08-27 11:43] LABS: Protime INR 2.89
--- NOTE | 2023-08-27 11:46 | RAD REPORT ---
EXAM DESCRIPTION: CT - Head C Spine Cap Wo Con - 08/27/2023 11:30 am CLINICAL HISTORY: Trauma, head and neck injury. Chest, abdomen and pelvis pain. TRAUMA COMPARISON: No comparisons TECHNIQUE: CT head without contrast. CT cervical spine without contrast with coronal and sagittal reformatted images. CT chest, abdomen and pelvis without contrast with coronal and sagittal reformatted images of the [facility] [place]. All CT scans are performed using dose optimization technique as appropriate and may include automated exposure control or mA/KV adjustment according to patient size. FINDINGS: CT HEAD WITHOUT CONTRAST: No intracranial hemorrhage, hydrocephalus or extra-axial fluid collection. Advanced generalized brain atrophy is present with moderate periventricular and deep white matter chronic microvascular ischemi c changes. No areas of brain edema or midline shift. Vertebrobasilar atherosclerosis. The paranasal sinuses and mastoids are clear. The calvarium is intact. CT CERVICAL SPINE WITHOUT CONTRAST: No fracture or subluxation. Mild cervical degenerative changes are present. The prevertebral soft tis sues are normal in thickness. CT CHEST, ABDOMEN, PELVIS WITHOUT CONTRAST: NOTE: Lack of contrast is a significant limitation in the assessment of trauma related findings. Spec ifically, solid organ, vascular and bowel evaluation is significantly limited. The lungs are clear.Small hiatal hernia.No pneumothorax or pericardial/pleural fluid. No evidence of intra-abdominal visceral injury, free fluid or free air is seen within the above detai led limitations. Moderate stool throughout the colon. No concerning pelvic findings. Sclerosis of the left femoral head noted suggesting AVN. Severe osteoa rthritis of the right hip. No acute fractures. IMPRESSION: Negative for acute traumatic findings within the above detailed limitations.
[2023-08-27 11:56] LABS: Albumin 2.9 g/dL (3.4-5.0); Bilirubin Direct 0.4 mg/dL (0-0.2); Bilirubin Indirect, Calculated 0.6 mg/dL (0.2-0.8); Magnesium 1.8 mg/dL (1.6-2.4); Potassium 4.1 mEq/L (3.5-5.1)
[2023-08-27 12:02] LABS: Troponin High Sensitivity 95.4 pg/mL (<58.9)
[2023-08-27] MEDS ORDERED: NA CHLORIDE 0.9% 1,000 ML ONE (12:06)
--- NOTE | 2023-08-27 12:21 | RAD REPORT ---
EXAM DESCRIPTION: US - Extrem Venous W Compress Joey - 08/27/2023 11:55 am CLINICAL HISTORY: PAIN Bilateral leg edema and swelling. COMPARISON: No comparisons TECHNIQUE: Real-time sonographic interrogation of the left and right lower extremity deep venous sys tems was performed. FINDINGS: Normal compressibility, flow augmentation, phasic flow and spontaneous flow is identified in both the left and right lower extremity deep venous systems. IMPRESSION: No sonographic evidence of left or right lower extremity deep venous thrombosis.
--- NOTE | 2023-08-27 14:02 | EDPHYS ---
Physician Documentation [facility] Name: Denver Kaiser Age: 82 yrs Sex: Male : 1940 Arrival Date: 08/27/2023 Time: 10:49 Bed 18 Private MD: ED Physician Ozzie Agosto HPI: 08/27 13:52 This 82 yrs old Male presents to ER via EMS with complaints of Near Syncope. opal 13:52 The patient has experienced near-syncope, almost passed out, felt dizzy. Onset: The opal symptoms/episode began/occurred just prior to arrival. Duration: This was a single episode, that lasted 30 second(s). Context: the episode(s) was witnessed, by family. Associated injury: The patient did not suffer any apparent associated injury. Associated signs and symptoms: Pertinent positives: lightheadedness, palpitations. Current symptoms: weakness. The patient has experienced similar episodes in the past, a few times. Historical: - Allergies: 11:08 No Known Allergies; cm10 - Home Meds: 14:38 Xarelto oral [Active]; cm10 - PMHx: 14:38 Atrial fibrillation; Hypertensive disorder; Hypercholesterolemia; cm10 - Immunization history:: Adult Immunizations unknown. - Social history:: Smoking status: Patient denies any tobacco usage or history of. ROS: 13:54 Constitutional: Negative for fever, chills, and weight loss, Eyes: Negative for injury, opal pain, redness, and discharge, ENT: Negative for injury, pain, and discharge, Neck: Negative for injury, pain, and swelling, Respiratory: Negative for shortness of breath, cough, wheezing, and pleuritic chest pain, Abdomen/GI: Negative for abdominal pain, nausea, vomiting, diarrhea, and constipation, Back: Negative for injury and pain, : Negative for injury, bleeding, discharge, and swelling, MS/Extremity: Negative for injury and deformity, Skin: Negative for injury, rash, and discoloration, Psych: Negative for depression, anxiety, suicide ideation, homicidal ideation, and hallucinations, Allergy/Immunology: Negative for hives, rash, and allergies, Endocrine: Negative for neck swelling, polydipsia, polyuria, polyphagia, and marked weight changes, Hematologic/Lymphatic: Negative for swollen nodes, abnormal bleeding, and unusual bruising, 13:54 Neuro: Positive for dizziness, Exam: 13:54 Constitutional: This is a well developed, well nourished patient who is awake, alert, opal and in no acute distress. Head/Face: Normocephalic, atraumatic. Eyes: Pupils equal round and reactive to light, extra-ocular motions intact. Lids and lashes normal. Conjunctiva and sclera are non-icteric and not injected. Cornea within normal limits. Periorbital areas with no swelling, redness, or edema. ENT: Nares patent. No nasal discharge, no septal abnormalities noted. Tympanic membranes are normal and external auditory canals are clear. Oropharynx with no redness, swelling, or masses, exudates, or evidence of obstruction, uvula midline. Mucous membranes moist. Neck: Trachea midline, no thyromegaly or masses palpated, and no cervical lymphadenopathy. Supple, full range of motion without nuchal rigidity, or vertebral point tenderness. No Meningismus. Chest/axilla: Normal chest wall appearance and motion. Nontender with no deformity. No lesions are appreciated. Respiratory: Lungs have equal breath sounds bilaterally, clear to auscultation and percussion. No rales, rhonchi or wheezes noted. No increased work of breathing, no retractions or nasal flaring. Abdomen/GI: Soft, non-tender, with normal bowel sounds. No distension or tympany. No guarding or rebound. No evidence of tenderness throughout. Back: No spinal tenderness. No costovertebral tenderness. Full range of motion. Male : Normal genitalia with no discharge or lesions. Skin: Warm, dry with normal turgor. Normal color with no rashes, no lesions, and no evidence of cellulitis. MS/ Extremity: Pulses equal, no cyanosis. Neurovascular intact. Full, normal range of motion. Neuro: Awake and alert, GCS 15, oriented to person, place, time, and situation. Cranial nerves II-XII grossly intact. Motor strength 5/5 in all extremities. Sensory grossly intact. Cerebellar exam normal. Normal gait. Psych: Awake, alert, with orientation to person, place and time. Behavior, mood, and affect are within normal limits. 13:54 Cardiovascular: Rate: tachycardic, actual rate is 107 bpm, Rhythm: irregularly irregular, Pulses: Pulses are 4+ in bilateral radial, brachial, femoral, popliteal, posterior tibial and and dorsalis pedis arteries.. Heart sounds: normal, Edema: is not appreciated, JVD: is not appreciated, 13:54 ECG was reviewed by the Attending Physician. Vital Signs: 11:08 Pulse 107; Resp 18; Temp 98.8(O); Pulse Ox 97% on R/A; cm10 11:09 BP 118 / 74; cm10 13:00 BP 124 / 70; Pulse 94; Resp 18; Pulse Ox 96% on R/A; cm10 13:30 BP 118 / 67; Pulse 95; Resp 18; Pulse Ox 97% ; cm10 14:00 BP 115 / 68; Pulse 91; Resp 16; Pulse Ox 98% on R/A; cm10 15:00 BP 113 / 76; Pulse 83; Resp 18; Pulse Ox 98% on R/A; cm10 16:00 BP 110 / 67; Pulse 78; Resp 18; Pulse Ox 99% on R/A; cm10 17:00 BP 113 / 67; Pulse 83; Resp 18; Pulse Ox 98% on R/A; cm10 18:00 BP 108 / 70; Pulse 75; Resp 18; Pulse Ox 98% on R/A; cm10 19:21 BP 99 / 65; Pulse 73; Pulse Ox 100% ; tm6 MDM: 10:57 Patient medically screened. opal 10:58 Patient medically screened. opal 13:56 Differential diagnosis: arrythmia, dehydration. Differential Diagnosis altered mental opal status, sepsis, flu. Differential Diagnosis: aortic aneurysm, cardiac arrhythmia, cerebrovascular accident, emotional response, GI bleed, idiopathic syncope, pseudo seizure, seizure, transient ischemic attack, vasovagal episode, cardiac arrhythmia, CVA, generalized weakness, GI bleed, head injury, hyperventilation, hypovolemia, idiopathic dizziness, near-syncope, sepsis, syncope, TIA, vertigo. Data reviewed: vital signs, nurses notes, lab test result(s), EKG, radiologic studies, plain films. Data reviewed: EMS record. Consideration of Admission/Observation Patient was admitted/placed on observation. Escalation of care including admission/observation considered. I considered the following discharge prescriptions or medication management in the emergency department Medications were administered in the Emergency Department. See MAR. Test considered but Not performed: MRI: mri brain. Historians other than the Patient: EMS: ems well informed. Care significantly affected by the following chronic conditions: Diabetes, Hypertension, Chronic Kidney Disease. Counseling: I had a detailed discussion with the patient and/or guardian regarding the historical points, exam findings, and any diagnostic results supporting the discharge/admit diagnosis, lab results, radiology results, the need for further work-up and treatment in the hospital. 08/27 11:02 Order name: Basic Metabolic Panel; Complete Time: 13:42 opal 08/27 11:02 Order name: CBC with Diff opal 08/27 11:02 Order name: LFT's; Complete Time: 13:42 opal 08/27 11:02 Order name: Magnesium; Complete Time: 13:42 opal 08/27 11:02 Order name: NT PRO-BNP; Complete Time: 13:42 opal 08/27 11:02 Order name: PT-INR; Complete Time: 13:42 opal 08/27 11:02 Order name: Troponin HS; Complete Time: 13:42 opal 08/27 11:02 Order name: Lipase; Complete Time: 13:42 opal 08/27 11:02 Order name: Urinalysis w/ reflexes opal 08/27 11:02 Order name: AMMONIA; Complete Time: 13:42 opal 08/27 14:57 Order name: NT PRO-BNP EDMS 08/27 14:57 Order name: T4 Free EDMS 08/27 14:57 Order name: Thyroid Stimulating Hormone EDMS 08/27 14:57 Order name: Basic Metabolic Panel EDMS / 14:57 Order name: Basic Metabolic Panel EDMS 08/27 14:57 Order name: CBC with Automated Diff EDMS 08/27 14:57 Order name: CBC with Automated Diff EDMS / 14:57 Order name: Lipid Profile EDMS / 14:57 Order name: Lipid Profile EDMS / 14:57 Order name: Magnesium EDMS / 14:57 Order name: Magnesium EDMS 08/27 14:57 Order name: Magnesium EDMS 08/27 14:57 Order name: Magnesium EDMS / 14:57 Order name: Phosphorus EDMS / 14:57 Order name: Phosphorus EDMS / 14:57 Order name: Phosphorus EDMS 08/27 14:57 Order name: Phosphorus EDMS 08/27 14:57 Order name: Troponin High Sensitivity EDMS 08/27 14:57 Order name: Urinalysis w/ reflexes EDMS 08/27 14:58 Order name: Troponin High Sensitivity [facility] 08/27 14:58 Order name: Troponin High Sensitivity [facility] 08/27 15:28 Order name: CBC Smear Scan [facility] 08/27 11:02 Order name: XRAY Chest (1 view); Complete Time: 13:42 [facility] 08/27 11:02 Order name: CT Traumagram (Head C Spine CAP wo con); Complete Time: 13:42 [facility] 08/27 11:02 Order name: Femur Right XRAY; Complete Time: 13:42 [facility] 08/27 11:02 Order name: US Extremity Venous W Compression Joey; Complete Time: 13:42 [facility] 08/27 11:02 Order name: EKG; Complete Time: 11:02 [facility] 08/27 14:57 Order name: CONS Physician Consult [facility] 08/27 14:57 Order name: EKG Electrocardiogram [facility] 08/27 14:57 Order name: EKG Electrocardiogram [facility] 08/27 11:02 Order name: Cardiac monitoring; Complete Time: 11:30 [facility] 08/27 11:02 Order name: EKG - Nurse/Tech; Complete Time: 12:47 [facility] 08/27 11:02 Order name: IV Saline Lock; Complete Time: 11:30 [facility] 08/27 11:02 Order name: Labs collected and sent; Complete Time: 11:30 [facility] 08/27 11:02 Order name: O2 Per Protocol; Complete Time: 11:30 [facility] 08/27 11:02 Order name: O2 Sat Monitoring; Complete Time: 11:30 [facility] EC:54 Rate is 104 beats/min. Rhythm is regular. QRS [place] is Normal. AK interval is normal. [facility] QRS interval is normal. QT interval is normal. No Q waves. T waves are Normal. No ST changes noted. Clinical impression: Atrial Fibrillation. Interpreted by me. Reviewed by me. Administered Medications: 12:46 Drug: NS 0.9% IV 500 ml IV at bolus once Route: IV; Rate: bolus; Site: right forearm; cm10 18:36 Follow up: Response: No adverse reaction; IV Status: Completed infusion; IV Intake: cm10 500ml 12:46 Drug: NS 0.9% IV 1000 ml IV at 125 ml/hr continuous Route: IV; Rate: 125 ml/hr; Site: cm10 right forearm; 18:36 Follow up: Response: No adverse reaction; IV Status: Completed infusion; IV Intake: cm10 500ml 14:28 Drug: Digoxin IVP 0.5 mg IVP once Route: IVP; Site: right forearm; cm10 18:36 Follow up: Response: No adverse reaction cm10 14:28 Drug: Metoprolol PO 25 mg PO once Route: PO; cm10 18:36 Follow up: Response: No adverse reaction cm10 Disposition Summary: 08/27/23 14:02 Hospitalization Ordered Notes: Hospitalization Status: Observation opal Provider: Sherri Vasquez opal Condition: Stable opal Problem: new opal Symptoms: have improved opal Bed/Room Type: Standard opal Location: Telemetry/MedSurg (observation)(08/27/23 17:44) em1 Room Assignment: [facility](08/27/23 17:44) em1 Diagnosis - Chronic atrial fibrillation - in RVR opal - Acute kidney failure, unspecified - ON CHRONIC opal - Dizziness and giddiness opal - Syncope Near opal - Non ST elevation IA opal - longterm (current) use of anticoagulants opal Forms: - Medication Reconciliation Form opal - SBAR form opal - Leadership Thank You Letter opal Signatures: Dispatcher [employer] EDOzzie Osorio MD MD cha Martinez, Иван em1 Librado Monaco, RN RN Padmini Meza RN RN cm10 Corrections: (The following items were deleted from the chart) 14:47 11:08 PMHx: Unable to Obtain; cm10 cm10 16:30 14:02 Telemetry/MedSurg (observation) opal bp 16:30 14:02 opal bp 17:44 16:30 BR ER HOLD bp em1 17:44 16:30 ERHOLD- bp em1
--- NOTE | 2023-08-27 14:02 | ER ---
Nurse's Notes [facility] Name: Denver Kaiser Age: 82 yrs Sex: Male : 1940 Arrival Date: 08/27/2023 Time: 10:49 Bed 18 Private MD: Diagnosis: Chronic atrial fibrillation-in RVR;Acute kidney failure, unspecified-ON CHRONIC;Dizziness and giddiness;Syncope Near;Non ST elevation PR;[facility] (current) use of anticoagulants Presentation: 08/27 11:10 Chief complaint: EMS states: They were called to patient's home for near-syncopal cm10 episode. EMS reports that pt did not hit head and did not have any LOC. Pt's initial BP was in the 90s systolic. Pt currently complaining of right leg pain. Coronavirus screen: Vaccine status: Patient reports being unvaccinated. Client denies travel out of the [place] in the last 14 days. Ebola Screen: Patient denies travel to an Ebola-affected area in the 21 days before illness onset. No symptoms or risks identified at this time. Initial Sepsis Screen: Does the patient meet any 2 criteria? No. Patient's initial sepsis screen is negative. Does the patient have a suspected source of infection? No. Patient's initial sepsis screen is negative. Risk Assessment: Do you want to hurt yourself or someone else? Patient reports no desire to harm self or others. Onset of symptoms was August 27, 2023. 11:10 Method Of Arrival: EMS: [facility] 10 11:10 Acuity: KAITLIN 3 cm10 Triage Assessment: 11:12 General: Appears in no apparent distress. comfortable, Behavior is calm, cooperative. cm10 Pain: Complains of pain in right leg. Neuro: No deficits noted. Reynoso Agitation-Sedation Scale (RASS): 0 - Alert and Calm Level of Consciousness is awake, alert, Oriented to person, place, time, situation. Cardiovascular: No deficits noted. Patient's skin is warm and dry. Rhythm is atrial fibrillation. Respiratory: No deficits noted. Airway is patent Respiratory effort is even, unlabored, Respiratory pattern is regular, symmetrical. GI: No deficits noted. No signs and/or symptoms were reported involving the gastrointestinal system. : No deficits noted. No signs and/or symptoms were reported regarding the genitourinary system. Derm: No deficits noted. No signs and/or symptoms reported regarding the dermatologic system. Skin is intact, Skin is pink, warm \\T\\ dry. Musculoskeletal: No deficits noted. No signs and/or symptoms reported regarding the musculoskeletal system. Range of motion: intact in all extremities. Historical: - Allergies: 11:08 No Known Allergies; cm10 - Home Meds: 14:38 Xarelto oral [Active]; cm10 - PMHx: 14:38 Atrial fibrillation; Hypertensive disorder; Hypercholesterolemia; cm10 - Immunization history:: Adult Immunizations unknown. - Social history:: Smoking status: Patient denies any tobacco usage or history of. Screenin:12 [facility] ED Fall Risk Assessment (Adult) History of falling in the last 3 months, cm10 including since admission Yes- single mechanical fall (1 pt) Confusion or Disorientation No (0 pts) Intoxicated or Sedated No (0 pts) Impaired Gait Yes (1 pt) Mobility Assist Device Used No (0 pt) Altered Elimination No (0 pt) Score/Fall Risk Level 0 - 2 = Low Risk Oriented to surroundings, Maintained a safe environment, Provided non-skid footwear, Hourly rounding (assess needs \\T\\ fall precautionary measures) done. Abuse screen: Denies threats or abuse. Denies injuries from another. Nutritional screening: No deficits noted. Tuberculosis screening: No symptoms or risk factors identified. Assessment: 14:02 Reassessment: Patient appears in no apparent distress at this time. Patient and/or cm10 family updated on plan of care and expected duration. Pain level reassessed. Patient is alert, oriented x 3, equal unlabored respirations, skin warm/dry/pink. Patient states feeling better. Patient states symptoms have improved. 16:00 Reassessment: Patient appears in no apparent distress at this time. Patient and/or cm10 family updated on plan of care and expected duration. Pain level reassessed. Patient is alert, oriented x 3, equal unlabored respirations, skin warm/dry/pink. Patient states feeling better. Patient states symptoms have improved. 18:35 Reassessment: Patient and/or family updated on plan of care and expected duration. Pain cm10 level reassessed. Patient is alert, oriented x 3, equal unlabored respirations, skin warm/dry/pink. Attempted to call report and was told "wait until after shift change." Patient states symptoms have improved. 19:21 Reassessment: Patient appears in no apparent distress at this time. Patient and/or tm6 family updated on plan of care and expected duration. Pain level reassessed. Patient is alert, oriented x 3, equal unlabored respirations, skin warm/dry/pink. Vital Signs: 11:08 Pulse 107; Resp 18; Temp 98.8(O); Pulse Ox 97% on R/A; cm10 11:09 BP 118 / 74; cm10 13:00 BP 124 / 70; Pulse 94; Resp 18; Pulse Ox 96% on R/A; cm10 13:30 BP 118 / 67; Pulse 95; Resp 18; Pulse Ox 97% ; cm10 14:00 BP 115 / 68; Pulse 91; Resp 16; Pulse Ox 98% on R/A; cm10 15:00 BP 113 / 76; Pulse 83; Resp 18; Pulse Ox 98% on R/A; cm10 16:00 BP 110 / 67; Pulse 78; Resp 18; Pulse Ox 99% on R/A; cm10 17:00 BP 113 / 67; Pulse 83; Resp 18; Pulse Ox 98% on R/A; cm10 18:00 BP 108 / 70; Pulse 75; Resp 18; Pulse Ox 98% on R/A; cm10 19:21 BP 99 / 65; Pulse 73; Pulse Ox 100% ; tm6 ED Course: 10:57 Patient arrived in ED. opal 10:57 Ozzie Agosto MD is Attending Physician. opal 11:08 Padmini Hanson, VALENTIN is Primary Nurse. cm10 11:12 Triage completed. cm10 11:12 Arm band placed on Patient placed in an exam room, on a stretcher, on director of cardiac cath lab, cm10 on pulse oximetry. 11:13 Patient has correct armband on for positive identification. Placed in gown. Bed in low cm10 position. Call light in reach. Side rails up X2. Provided Education on: ER process and procedures. . Client placed on continuous cardiac and pulse oximetry monitoring. NIBP monitoring applied. 11:30 XRAY Chest (1 view) In Process Unspecified. EDMS 11:30 Femur Right XRAY In Process Unspecified. EDMS 11:30 Initial lab(s) drawn, by me, sent to lab. Inserted saline lock: 20 gauge in right cm10 forearm, using aseptic technique. Blood collected. 11:32 CT Traumagram (Head C Spine CAP wo con) In Process Unspecified. EDMS 11:57 US Extremity Venous W Compression Joey In Process Unspecified. EDMS 12:03 Notified ED physician of a critical lab result(s). troponin 95.5. kb3 14:00 Sherri Vasquez MD is Hospitalizing Provider. opal 18:39 No provider procedures requiring assistance completed. Patient admitted, IV remains in cm10 place. Administered Medications: 12:46 Drug: NS 0.9% IV 500 ml IV at bolus once Route: IV; Rate: bolus; Site: right forearm; cm10 18:36 Follow up: Response: No adverse reaction; IV Status: Completed infusion; IV Intake: cm10 500ml 12:46 Drug: NS 0.9% IV 1000 ml IV at 125 ml/hr continuous Route: IV; Rate: 125 ml/hr; Site: cm10 right forearm; 18:36 Follow up: Response: No adverse reaction; IV Status: Completed infusion; IV Intake: cm10 500ml 14:28 Drug: Digoxin IVP 0.5 mg IVP once Route: IVP; Site: right forearm; cm10 18:36 Follow up: Response: No adverse reaction cm10 14:28 Drug: Metoprolol PO 25 mg PO once Route: PO; cm10 18:36 Follow up: Response: No adverse reaction cm10 Medication: 11:12 VIS not applicable for this client. cm10 Intake: 18:36 IV: 500ml; Total: 500ml. cm10 18:36 IV: 500ml; Total: 1000ml. cm10 Outcome: 14:02 Decision to Hospitalize by Provider. opal 19:38 Admitted to Tele accompanied by nurse, via wheelchair, room 406, Report called to tm6 VALENTIN Baptiste 19:38 Condition: good 19:57 Patient left the ED. 6 Signatures: Dispatcher [employer] Ozzie Ta MD MD cha Bradberry, Kelly, RN RN kb3 Padmini Hanson RN RN cm10 Jordan Marroquin RN RN tm6 Corrections: (The following items were deleted from the chart) 14:47 11:08 PMHx: Unable to Obtain; cm10 cm10
[2023-08-27] MEDS ORDERED: METOPROLOL TAR 25 MG TAB ONE (14:19)
[2023-08-27] MEDS ORDERED: DIGOXIN 0.25 MG/ML AMP ONE (14:19)
[2023-08-27] MEDS ORDERED: HYDROCODONE/APAP 5/325 MG TAB PO PRN (14:47)
[2023-08-27] MEDS ORDERED: MORPHINE 4 MG/ML SYR IV PRN (14:47)
[2023-08-27] MEDS ORDERED: NITROGLYCERIN 0.4 MG/TAB SL PRN (14:55)
[2023-08-27] MEDS ORDERED: NA CHLORIDE 0.9% 1,000 ML IV SCH (15:00)
--- NOTE | 2023-08-27 15:19 | P.HP ---
Certification for Inpatient With expected LOS: <2 Midnights Patient will require the following post-hospital care: None Practitioner: I am a practitioner with admitting privileges, knowledge of patient current condition, hospital course, and medical plan of care. Services: Services provided to patient in accordance with Admission requirements found in Title 42 Section 412.3 of the Code of Federal Regulations <Lori Valverde - Last Filed: 08/27/23 15:11> Patient History Date of Service: 08/27/23 Reason for admission: A-fib RVR, near syncope, acute renal failure History of Present Illness: 2 This 82 yrs old Male patient with a history of hypertension, chronic A-fib, CKD presents to ER via EMS with complaints of Near Syncope. The patient has experienced near-syncope, almost passed out, felt dizzy. Onset: The symptoms/episode began/occurred just prior to arrival today. this was a single episode, that lasted 30 second(s). Context: the episode(s) was witnessed, by family. The patient did not suffer any apparent associated injury.Pertinent positives for lightheadedness, palpitations. Current symptoms: weakness. The patient has experienced similar episodes in the past, a few times. Patient denies chest pain, shortness of breath or palpitation. Patient denies fever chills, abdominal pain, nausea or vomiting. ED course Vital Signs: blood pressure BP 124 / 70; Pulse 94; Resp 18; Pulse Ox 96% on R/A; Initial laboratory evaluation; leukocytosis WBC 11.1, metabolic panel shows acute renal failure BUN 59, creatinine 2.35, GFR 27, hyperglycemia blood glucose 146. Elevated troponin I95.4, elevated BNP 4714. Admitting the patient with a diagnosis of A-fib RVR, near syncope, and acute renal failure. <Lori Valverde - Last Filed: 08/27/23 15:11> Date of Service: 08/27/23 <Sherri Vasquez - Last Filed: 08/27/23 17:08> Allergies No Known Allergies Allergy (Verified 02/25/17 11:39) Home Medications: Aspirin [Aspirin EC 81 MG] 81 mg PO DAILY 08/30/15 Losartan Potassium [Cozaar] 100 mg PO DAILY WITH BREAKFAST 08/30/15 carvediloL [Coreg*] 6.25 mg PO BID 08/30/15 Atorvastatin Calcium [Lipitor*] 20 mg PO BEDTIME 02/22/17 Vit C/E/Zn/Coppr/Lutein/Zeaxan [Preservision Areds 2 Softgel] 1 each PO DAILY 02/22/17 Review of Systems 10-point ROS is otherwise unremarkable <Lori Valverde - Last Filed: 08/27/23 15:11> Physical Examination - Physical Exam General: Alert, Oriented x3, Cachectic HEENT: Normocephalic Neck: Supple, 2+ carotid pulse no bruit Respiratory: Clear to auscultation bilaterally, Normal air movement Cardiovascular: No edema, Regular rate/rhythm Capillary refill: <2 Seconds Gastrointestinal: Normal bowel sounds, Soft and benign Musculoskeletal: No clubbing, No swelling Integumentary: No rashes, No breakdown Neurological: Normal gait, Normal speech, Normal tone, Normal affect - Studies Laboratory Data (last 24 hrs) 08/27/23 08/27/23 08/27/23 11:20 11:20 11:20 WBC 11.10 H Hgb 12.7 L Hct 37.2 L Plt Count 114 L PT 30.8 H INR 2.89 Sodium 138 Potassium 4.1 BUN 59 H Creatinine 2.35 H Glucose 146 H Magnesium 1.8 Total Bilirubin 1.0 AST 30 ALT 35 Alkaline Phosphatase 85 Lipase 36 <Lori Valverde - Last Filed: 08/27/23 15:11> - Studies Laboratory Data (last 24 hrs) 08/27/23 08/27/23 08/27/23 11:20 11:20 11:20 WBC 11.10 H Hgb 12.7 L Hct 37.2 L Plt Count 114 L PT 30.8 H INR 2.89 Sodium 138 Potassium 4.1 BUN 59 H Creatinine 2.35 H Glucose 146 H Magnesium 1.8 Total Bilirubin 1.0 AST 30 ALT 35 Alkaline Phosphatase 85 Lipase 36 <Sherri Vasquez - Last Filed: 08/27/23 17:08> Assessment and Plan - Problems (Diagnosis) (1) Atrial fibrillation with RVR Current Visit: Yes Status: Acute (2) Cardiac enzymes elevated Current Visit: Yes Status: Acute (3) Elevated brain natriuretic peptide (BNP) level Current Visit: Yes Status: Acute (4) Hypertension Current Visit: Yes Status: Acute Qualifiers: Hypertension type: renovascular hypertension Qualified Code(s): I15.0 - Renovascular hypertension (5) CKD (chronic kidney disease) stage 4, GFR 15-29 ml/min Current Visit: Yes Status: Acute (6) Acute renal failure Current Visit: Yes Status: Acute (7) Osteoarthritis of right hip Current Visit: Yes Status: Acute (8) Hyperlipidemia Current Visit: Yes Status: Acute - Plan A-fib with RVR Near syncope, dizziness Elevated troponin Elevated BNP Patient is brought to the hospital due to near syncope experienced this morning, single episode lasted 30 seconds witnessed by the family, no injury Twelve-lead EKG source shows A-fib RVR Patient denies chest pain, discomfort or palpitation Patient's daughter reports that patient has history of A-fib was started on Xarelto by the nicking machine operator Patient is on aspirin 81 p.o. daily Consulted nicking machine operator Dr. Springer Acute renal failure versus chronic Elevated renal profile BUN 59, creatinine 2.35, GFR 27 Patient and daughter reports that he had mild decrease in the kidney function Gentle IV hydration as the BNP is elevated Consulted abstract searcher Dr. Escalante Renal diet Renal dosing of medications and avoid NSAIDs and nephrotoxins Hypertension Chronic controlled Continue the home medication and start as appropriate Hyperlipidemia chronic controlled on statins Will check the lipid panel in the morning Right hip osteoarthritis Chronic, controlled pain on Tylenol as needed Fall precautions discussed CODE STATUS Full code Diet Cardiac DVT prophylaxis Heparin Discharge Plan: Home Plan to discharge in: 48 Hours - Advance Directives Does patient have a Living Will: No Does patient have a Durable POA for Healthcare: No - Code Status/Comfort Care Code Status Assessed: Yes (full code) Code Status: Full Code Physician Review: Patient Assessed, Agree with Above Assessment and Plan Critical Care: No Time Spent Managing Pts Care (In Minutes): 55 (minutes) <Lori Valverde - Last Filed: 08/27/23 15:11> - Plan Pt seen and examined. I agree with the note by the POWDER OPERATOR. Pt is an 82 yrs old Male patient with a history of hypertension, chronic A-fib, and CKD who presents to ER via EMS with complaints of Near Syncope. Pt reports that he passed out while trying to get up from the commode. He remembers feeling dizzy. On admission, pt presented with A. fib with RVR. At bedside, pt is in NAD A/P: A. fib with RVR; Will continue telemetry, xarelto and metoprolol. Near syncope: Will follow up Echo and carotid ultrasound. It appears pt had micturition syncope EARNEST on CKD stage 3: Will avoid nephrotoxins and monitor renal function. Consulted Grill Associate Will continue home meds for other chronic medical problems. Code: full <Sherri Vasquez - Last Filed: 08/27/23 17:08>
[2023-08-27 15:28] LABS: Blood Morphology Comment NOT SEEN (NOT SEEN); Platelet Estimate DECR; White Blood Cell Scan OK (OK)
[2023-08-27 19:59] LABS: Thyroid Stimulating Hormone 0.926 uIU/mL (0.358-3.740)
[2023-08-27] MEDS: HEPARIN 5000 UNIT/ML 1 ML VIAL SQ SCH (22:37)
[2023-08-28] MEDS: HEPARIN 5000 UNIT/ML 1 ML VIAL SQ SCH ×3 (01:00→17:14)
[2023-08-28 02:18] LABS: Hematocrit 34.2 % (39.6-49.0); Lymphocytes % 20.8 % (15.3-44.8); MCV 93.3 fL (80-100); MPV 9.1 fL (7.6-11.3); Platelets 104 thou/uL (152-406); RBC Red Blood Cell Count 3.67 M/uL (4.33-5.43)
[2023-08-28 02:44] LABS: Magnesium 1.8 mg/dL (1.6-2.4); Phosphorus 2.1 mg/dL (2.5-4.9); Potassium 3.8 mEq/L (3.5-5.1)
[2023-08-28] MEDS: carvediloL 6.25 MG TAB PO SCH ×2 (08:01→20:53)
[2023-08-28] MEDS: POTASS/SODIUM PHOSPHATE 1 PKT POWD.PACK PO SCH ×3 (08:01→11:23)
[2023-08-28] MEDS: ASPIRIN EC 81 MG TAB PO SCH (08:01)
[2023-08-28] MEDS ORDERED: POTASSIUM CL SA 10 MEQ TAB PO ONE (09:00)
[2023-08-28] MEDS ORDERED: MAGNESIUM SULFATE 1 gm IVPB 1 GM/100 ML BAG IV ONE (09:00)
--- NOTE | 2023-08-28 10:08 | P.CNS ---
Date of Consult: 08/28/23 Reason for Consult: EARNEST/ CKD Requesting Physician: Sherri Vasquez Chief Complaint: A-fib RVR, near syncope, acute renal failure History of Present Illness: This 82 yrs old Male patient with a history of hypertension, chronic A- fib, CKD presents to ER via EMS with complaints of Near Syncope. The patient has experienced near-syncope, almost passed out, felt dizzy. Onset: The symptoms/episode began/occurred just prior to arrival today. this was a single episode, that lasted 30 second(s). Context: the episode(s) was witnessed, by family. The patient did not suffer any apparent associated injury.Pertinent positives for lightheadedness, palpitations. Current symptoms: weakness. The patient has experienced similar episodes in the past, a few times. Patient denies chest pain, shortness of breath or palpitation. Patient denies fever chills, abdominal pain, nausea or vomiting. ED course Vital Signs: blood pressure BP 124 / 70; Pulse 94; Resp 18; Pulse Ox 96% on R/A; Initial laboratory evaluation; leukocytosis WBC 11.1, metabolic panel shows acute renal failure BUN 59, creatinine 2.35, GFR 27, hyperglycemia blood glucose 146. Elevated troponin I95.4, elevated BNP 4714. Admitting the patient with a diagnosis of A-fib RVR, near syncope, and acute renal failure. darrenrice 13:52 This 82 yrs old Male presents to ER via EMS with complaints of Near Syncope. opal 13:52 The patient has experienced near-syncope, almost passed out, felt dizzy. Onset: The opal symptoms/episode began/occurred just prior to arrival. Duration: This was a single episode, that lasted 30 second(s). Context: the episode(s) was witnessed, by family. Associated injury: The patient did not suffer any apparent associated injury. Associated signs and symptoms: Pertinent positives: lightheadedness, palpitations. Current symptoms: weakness. The patient has experienced similar episodes in the past, a few times. Denies current NSAIDs. No difficulty with urination. Daughter reports he does not drink enough water. He lays in bed most of the day due to hip pain. Allergies No Known Allergies Allergy (Verified 02/25/17 11:39) Home medications list reviewed: Yes Home Medications: Aspirin [Aspirin EC 81 MG] 81 mg PO DAILY 08/30/15 Losartan Potassium [Cozaar] 100 mg PO DAILY WITH BREAKFAST 08/30/15 carvediloL [Coreg*] 6.25 mg PO BID 08/30/15 Atorvastatin Calcium [Lipitor*] 20 mg PO BEDTIME 02/22/17 Vit C/E/Zn/Coppr/Lutein/Zeaxan [Preservision Areds 2 Softgel] 1 each PO DAILY 02/22/17 - Past Medical/Surgical History -: HTN -: HLD -: CKD III (Dr. Escalante/ Dr. Butler) -: CVD - Social History Smoking Status: Unknown if ever smoked Review of Systems 10-point ROS is otherwise unremarkable General: Weakness Musculoskeletal: Other (Hip pain) Physical Examination Temp Pulse Resp BP Pulse Ox 97.7 F 63 16 140/75 100 08/28/23 08:00 08/28/23 08:01 08/28/23 08:00 08/28/23 08:01 08/28/23 08:00 General: In no apparent distress, Oriented x3, Cooperative HEENT: Atraumatic Neck: Supple Respiratory: Clear to auscultation bilaterally Cardiovascular: No edema, Regular rate/rhythm Gastrointestinal: Soft and benign, Non-distended Musculoskeletal: No clubbing, No contractures Integumentary: No rashes, No cyanosis Neurological: Normal speech Laboratory Data (last 24 hrs) 08/27/23 08/27/23 08/27/23 11:20 11:20 11:20 WBC 11.10 H Hgb 12.7 L Hct 37.2 L Plt Count 114 L PT 30.8 H INR 2.89 Sodium 138 Potassium 4.1 BUN 59 H Creatinine 2.35 H Glucose 146 H Magnesium 1.8 Total Bilirubin 1.0 AST 30 ALT 35 Alkaline Phosphatase 85 Lipase 36 Imagings Data: EXAM DESCRIPTION: RAD - Chest Single View - 08/27/2023 11:28 am CLINICAL HISTORY: COUGH Chest pain. COMPARISON: CHEST PA AND LAT 2 VIEW dated 02/03/2014 FINDINGS: Portable technique limits examination quality. The lungs are grossly clear. The heart is upper limit normal in size. No displaced fractures. IMPRESSION: No acute intrathoracic process suspected. EXAM DESCRIPTION: CT - Head C Spine Cap Wo Con - 08/27/2023 11:30 am CLINICAL HISTORY: Trauma, head and neck injury. Chest, abdomen and pelvis pain. TRAUMA COMPARISON: No comparisons TECHNIQUE: CT head without contrast. CT cervical spine without contrast with coronal and sagittal reformatted images. CT chest, abdomen and pelvis without contrast with coronal and sagittal reformatted images of the spine. All CT scans are performed using dose optimization technique as appropriate and may include automated exposure control or mA/KV adjustment according to patient size. FINDINGS: CT HEAD WITHOUT CONTRAST: No intracranial hemorrhage, hydrocephalus or extra-axial fluid collection. Advanced generalized brain atrophy is present with moderate periventricular and deep white matter chronic microvascular ischemic changes. No areas of brain edema or midline shift. Vertebrobasilar atherosclerosis. The paranasal sinuses and mastoids are clear. The calvarium is intact. CT CERVICAL SPINE WITHOUT CONTRAST: No fracture or subluxation. Mild cervical degenerative changes are present. The prevertebral soft tissues are normal in thickness. CT CHEST, ABDOMEN, PELVIS WITHOUT CONTRAST: NOTE: Lack of contrast is a significant limitation in the assessment of trauma related findings. Specifically, solid organ, vascular and bowel evaluation is significantly limited. The lungs are clear.Small hiatal hernia.No pneumothorax or pericardial/pleural fluid. No evidence of intra-abdominal visceral injury, free fluid or free air is seen within the above detailed limitations. Moderate stool throughout the colon. No concerning pelvic findings. Sclerosis of the left femoral head noted suggesting AVN. Severe osteoarthritis of the right hip. No acute fractures. EXAM DESCRIPTION: US - Extrem Venous W Compress Joey - 08/27/2023 11:55 am CLINICAL HISTORY: PAIN Bilateral leg edema and swelling. COMPARISON: No comparisons TECHNIQUE: Real-time sonographic interrogation of the left and right lower extremity deep venous systems was performed. FINDINGS: Normal compressibility, flow augmentation, phasic flow and spontaneous flow is identified in both the left and right lower extremity deep venous systems. IMPRESSION: No sonographic evidence of left or right lower extremity deep venous thrombosis. Conclusions/Impression: Stage I EARNEST likely due to hypovolemia CKD IIIb -No NSAIDs -Change IVF to LR Hypophosphatemia -Replete as ordered HTN with CKD -Continue Coreg -Hold Losartan at this time Hypoalbuminemia -Recommend protein supplementation Anemia in chronic illness -Monitor H&H CKD MBD -Start Ergo Hospitalist and ER notes reviewed Thank you kindly for the consultation
[2023-08-28] MEDS ORDERED: POTASS/SODIUM PHOSPHATE 1 PKT POWD.PACK PO ONE (10:11)
[2023-08-28] MEDS: Ringers Lactate 1,000 ML IV SCH ×2 (11:00→20:33)
--- NOTE | 2023-08-28 11:23 | RAD REPORT ---
EXAM DESCRIPTION: US - CP - 08/28/2023 8:50 am CLINICAL HISTORY: syncope COMPARISON: No comparisons TECHNIQUE: Real-time sonographic grayscale, color duplex, and spectral wave Doppler evaluation of cordelia carotid systems was performed. FINDINGS: Normal high resistance waveforms are noted in both external carotid arteries. The common c arotid arteries and internal carotid arteries show normal low resistance waveforms. Left proximal to mid ICA short segment of hypoechoic plaque and sluggish flow, with suspected severe luminal narrowing. Proximal to mid right ICA multifocal up to moderate narrowing predominantly due to echogenic calcified irregular plaque. Peak systolic velocity is elevated on the right, up to 164 cm/ sec, and decreased on the left, with highest peak systolic velocity 64 cm/sec. ICA/CCA ratio calculat ed at 2.0 on the right and 0.5 on the left. Antegrade flow seen in both vertebral arteries. IMPRESSION: Up to moderate segmental proximal to mid right ICA atherosclerotic plaque with 50-69% st enosis. Short segment of a hypoechoic plaque and suspected severe luminal narrowing along the left proximal t o mid ICA, concerning for a near occlusion. Additional evaluation which may entail CT neck angiogram is recommended. Vertebral arteries are patent. Evaluation of carotid artery stenosis, if any, is reported based on consensus recommendations of the Society of Radiologists in Ultrasound (Yusef et al., Radiology, 2003)
[2023-08-28] MEDS: DRISDOL (VITAMIN D=ERGOCALCIFEROL) 50000 UNIT CAP PO SCH (11:31)
[2023-08-28] MEDS: RIVAROXABAN 15 MG TABLET PO SCH (17:14)
[2023-08-28] MEDS: DOCUSATE NA 100 MG CAP PO SCH (20:35)
[2023-08-28] MEDS: ATORVASTATIN 20 MG TAB PO SCH (20:36)
[2023-08-29] MEDS: HEPARIN 5000 UNIT/ML 1 ML VIAL SQ SCH ×2 (00:49→09:00)
[2023-08-29 05:15] LABS: Urine Bacteria <20 /HPF (<20); Urine Bilirubin NEGATIVE (Negative); Urine Blood 2+ (Negative); Urine Clarity Turbid (Clear); Urine Color Light-Yellow (Yellow); Urine Glucose NEGATIVE (Negative); Urine Mucus Slight /HPF (None Seen); Urine Protein NEGATIVE (Negative); Urine Urobilinogen Normal (Normal); Urine WBC Clump Rare /HPF (None Seen)
[2023-08-29 05:21] LABS: UR PROTEIN 12.7 mg/dL (<11.9); Urine Protein/Creatinine Ratio 0.29 ratio (<0.15)
[2023-08-29 05:47] LABS: UR MICROALBUMIN 1.5 mg/dL (< 1.9)
--- NOTE | 2023-08-29 07:26 | ECHO ---
HEIGHT: 5 ft 5 in WEIGHT: 199 lb 0 oz DATE OF STUDY: 08/28/[address]: Sherri Vasquez MD 2-DIMENSIONAL: YES M.MODE: YES DOPPLER: YES COLOR FLOW: YES TDS: NO PORTABLE: YES DEFINITY: NO BUBBLE STUDY: NO DIAGNOSIS: SYNCOPE CARDIAC HISTORY: CATHERIZATION: SURGERY: PROSTHETIC VALVE: PACEMAKER: MEASUREMENTS (cm) DIASTOLIC (NORMALS) SYSTOLIC (NORMALS) IVSd 1.1 (0.6-1.2) LA Diam 4.1 (1.9-4.0) LVEF 85% LVIDd 2.9 (3.5-5.7) LVIDs 1.4 (2.0-3.5) %FS 53% LVPWd 1.2 (0.6-1.2) Ao Diam 2.8 (2.0-3.7) 2 DIMENSIONAL ASSESSMENT: RIGHT ATRIUM: NORMAL LEFT ATRIUM: ENLARGED RIGHT VENTRICLE: NORMAL LEFT VENTRICLE: NORMAL TRICUSPID VALVE: NORMAL MITRAL VALVE: NORMAL PULMONIC VALVE: NORMAL AORTIC VALVE: NORMAL PERICARDIAL EFFUSION: NONE AORTIC ROOT: NORMAL LEFT VENTRICULAR WALL MOTION: NORMAL. DOPPLER/COLOR FLOW: SEE BELOW. COMMENTS: 1. NORMAL LEFT VENTRICULAR EJECTION FRACTION GREATER THAN 60% WITH NORMAL WALL MOTION. 2. DIASTOLIC DYSFUNCTION. 3. LEFT ATRIAL ENLARGEMENT. TECHNOLOGIST: CLEM RIVAS
[2023-08-29 08:21] LABS: Hematocrit 34.4 % (39.6-49.0); Lymphocytes % 27.1 % (15.3-44.8); MCV 93.1 fL (80-100); MPV 9.5 fL (7.6-11.3); Platelets 117 thou/uL (152-406)
[2023-08-29 08:37] LABS: Magnesium 2.1 mg/dL (1.6-2.4); Phosphorus 2.7 mg/dL (2.5-4.9); Potassium 4.2 mEq/L (3.5-5.1); Uric Acid 7.4 mg/dL (3.5-7.2)
[2023-08-29] MEDS ORDERED: CEFTRIAXONE 1,000 MG in NA CHLORIDE 0.9% 50 ML IVPB SCH (09:00)
[2023-08-29] MEDS: Ringers Lactate 1,000 ML IV SCH ×2 (09:14→13:17)
[2023-08-29] MEDS: carvediloL 6.25 MG TAB PO SCH ×2 (09:15→20:14)
[2023-08-29] MEDS: DOCUSATE NA 100 MG CAP PO SCH ×2 (09:15→20:15)
[2023-08-29] MEDS: ASPIRIN EC 81 MG TAB PO SCH (09:16)
--- NOTE | 2023-08-29 10:15 | P.PN ---
Subjective Date of Service: 08/29/23 Chief Complaint: A-fib RVR, near syncope, acute renal failure Subjective: No new changes, Improving, Doing well Patient is alert and oriented x 3 Resting in the bed NAD Denies any pain or shortness of breath Vital stable <Lori Valverde - Last Filed: 08/29/23 10:15> Date of Service: 08/31/23 <Sherri Vasquez - Last Filed: 08/31/23 13:46> Review of Systems 10-point ROS is otherwise unremarkable <Lori Valverde - Last Filed: 08/29/23 10:15> Physical Examination - Vital Signs Temperature: 97.5 F Blood Pressure: 136/73 Pulse: 86 Respirations: 17 Pulse Ox (%): 97 - Physical Exam General: Alert, Oriented x3 HEENT: Atraumatic, Normocephalic Neck: Supple, 2+ carotid pulse no bruit Respiratory: Clear to auscultation bilaterally, Normal air movement Cardiovascular: No edema, Normal pulses Capillary refill: <2 Seconds Gastrointestinal: Normal bowel sounds, Soft and benign Musculoskeletal: No clubbing, No swelling Integumentary: No rashes, No breakdown Neurological: Normal gait, Normal speech <Lori Valverde - Last Filed: 08/29/23 10:15> Assessment And Plan - Current Problems (Diagnosis) (1) Atrial fibrillation with RVR Status: Acute (2) Cardiac enzymes elevated Status: Acute (3) Elevated brain natriuretic peptide (BNP) level Status: Acute (4) Hypertension Status: Acute Qualifiers: Hypertension type: renovascular hypertension Qualified Code(s): I15.0 - Renovascular hypertension (5) CKD (chronic kidney disease) stage 4, GFR 15-29 ml/min Status: Acute (6) Acute renal failure Status: Acute (7) Osteoarthritis of right hip Status: Acute (8) Hyperlipidemia Status: Acute - Plan A-fib with RVR, Elevated troponin -Chronic, controlled , no palipitations, chesr discomfort -Admitted with Near syncope, dizziness Elevated troponin - 95.4>-79.3>-72 Elevated BNP Patient's daughter reports that patient has history of A-fib was started on Xarelto by the consumer services advisor Patient is on aspirin 81 p.o. daily Consulted consumer services advisor Dr. Springer Acute renal failure versus chronic Improving renal profile BUN 34, creatinine 1.54, GFR 44 Patient and daughter reports that he had mild decrease in the kidney function Gentle IV hydration as the BNP is elevated Consulted home service director Dr. Escalante Renal diet Renal dosing of medications and avoid NSAIDs and nephrotoxins Hypertension Chronic controlled Continue the home medication and start as appropriate Hyperlipidemia chronic controlled on statins Will check the lipid panel in the morning Right hip osteoarthritis Chronic, controlled pain on Tylenol as needed Fall precautions discussed CODE STATUS Full code Diet Cardiac DVT prophylaxis Heparin Discharge Plan: Home Plan to discharge in: 24 Hours - Code Status/Comfort Care Code Status Assessed: Yes (full code) Code Status: Full Code Physician Review: Patient Assessed, Agree with Above Assessment and Plan Critical Care: No Time Spent Managing PTS Care (In Minutes): 35 (minutes) <Lori Valverde - Last Filed: 08/29/23 10:15> - Plan Pt seen and examined. I agree with the note by the LITHARGE MILL OPERATOR. Continue current therapy <Sherri Vasquez - Last Filed: 08/31/23 13:46>
--- NOTE | 2023-08-29 11:36 | P.PN ---
Date of Service: 08/29/23 Vital Signs Temp Pulse Resp BP Pulse Ox 97.5 F 86 17 136/73 97 08/29/23 10:16 08/29/23 10:16 08/29/23 10:16 08/29/23 10:16 08/29/23 10:16 Medications Acetaminophen (Acetaminophen 500 Mg Tab) 500 mg PO Q4HP PRN PRN Reason: Pain scale 2-4 (Mild) Hydrocodone Bitart/Acetaminophen (Hydrocodone/Apap 5/325 Mg Tab) 1 tab PO Q6H PRN PRN Reason: Pain scale 5-7 (Moderate) Aspirin (Aspirin Ec 81 Mg Tab) 81 mg PO DAILY [facility] Last Admin: 08/29/23 09:16 Dose: 81 mg Atorvastatin Calcium (Atorvastatin 20 Mg Tab) 20 mg PO BEDTIME [facility] Last Admin: 08/28/23 20:36 Dose: 20 mg Carvedilol (Carvedilol 6.25 Mg Tab) 6.25 mg PO BID [facility] Last Admin: 08/29/23 09:15 Dose: 6.25 mg Docusate Sodium (Docusate Na 100 Mg Cap) 100 mg PO BID [facility] Last Admin: 08/29/23 09:15 Dose: 100 mg Ergocalciferol (Drisdol (Vitamin D=Ergocalciferol) 01972 Unit Cap) 50,000 unit PO Q48H [facility] Stop: 08/30/23 12:01 Last Admin: 08/28/23 11:31 Dose: 50,000 unit Lactated Ringer's (Lactated Ringers) 1,000 mls @ 75 mls/hr IV .[id number] [facility] Last Admin: 08/29/23 09:14 Dose: 1,000 mls Ceftriaxone Sodium 1,000 mg/ (Sodium Chloride) 50 mls @ 100 mls/hr IVPB DAILY [facility]; Protocol Last Admin: 08/29/23 09:14 Dose: 50 mls Morphine Sulfate (Morphine 4 Mg/Ml Syr) 4 mg IV Q6H PRN PRN Reason: Pain scale 8-10 (Severe) Nitroglycerin (Nitroglycerin 0.4 Mg/Tab) 0.4 mg SL UD PRN PRN Reason: Pain scale 2-4 (Mild) Rivaroxaban (Rivaroxaban 15 Mg Tablet) 15 mg PO DAILY AT SUPPER [facility] Last Admin: 08/28/23 17:14 Dose: 15 mg Lab Results (last 24 hrs) 08/27/23 11:02: Urine Color Cancelled, Urine Clarity Cancelled, Urine pH Cancelled, Ur Specific [place] Cancelled, Glucose (UA)(Auto) Cancelled, Urine Ketones Cancelled, Urine Blood Cancelled, Urine Nitrite Cancelled, Urine Bilirubin Cancelled, Urine Urobilinogen Cancelled, Ur Leukocyte Esterase Cancelled, Urine RBC Cancelled, Urine Red Cell Clumps Cancelled, Urine WBC Cancelled, Urine WBC Clumps Cancelled, Ur Squamous Epith Cells Cancelled, U Non- Squamous Epi Cells Cancelled, Ur Transition Epith Cell Cancelled, Ur Renal Epithelial Cell Cancelled, Calcium Carbonate Cryst Cancelled, Calcium Oxalate Crystal Cancelled, Leucine Crystals Cancelled, Cystine Crystals Cancelled, Uric Acid Crystals Cancelled, Triple Phos Crystals Cancelled, Tyrosine Crystals Cancelled, Unidentified Crystals Cancelled, Amorphous Crystals Cancelled, Urine Bacteria Cancelled, Hyaline Casts Cancelled, Granular Casts Cancelled, Waxy Casts Cancelled, RBC Casts Cancelled, WBC Casts Cancelled, Urine Mucus Cancelled, Urine Trichomonas Cancelled, Ur Yeast w Hyphae Cancelled, Urine Yeast (Budding) Cancelled, Urine Sperm Cancelled, Ur Oval Fat Bodies Cancelled, Urine Culture Reflexed Cancelled, Urine Total Protein Cancelled, Urine Ascorbic Acid Cancelled, Urine Fat Cancelled Assessment/ Plan: Nephrology No dyspnea No chest pain Good appetite No acute events overnight Vitals, medications, blood work and imaging reviewed in the chart General: In no apparent distress, Oriented x3, Cooperative HEENT: Atraumatic Neck: Supple Respiratory: Clear to auscultation bilaterally Cardiovascular: No edema, Regular rate/rhythm Gastrointestinal: Soft and benign, Non-distended Musculoskeletal: No clubbing, No contractures Integumentary: No rashes, No cyanosis Neurological: Normal speech Laboratory Data (last 24 hrs) 08/27/23 08/27/23 08/27/23 11:20 11:20 11:20 WBC 11.10 H Hgb 12.7 L Hct 37.2 L Plt Count 114 L PT 30.8 H INR 2.89 Sodium 138 Potassium 4.1 BUN 59 H Creatinine 2.35 H Glucose 146 H Magnesium 1.8 Total Bilirubin 1.0 AST 30 ALT 35 Alkaline Phosphatase 85 Lipase 36 Imagings Data: EXAM DESCRIPTION: RAD - Chest Single View - 08/27/2023 11:28 am CLINICAL HISTORY: COUGH Chest pain. COMPARISON: CHEST PA AND LAT 2 VIEW dated 02/03/2014 FINDINGS: Portable technique limits examination quality. The lungs are grossly clear. The heart is upper limit normal in size. No displaced fractures. IMPRESSION: No acute intrathoracic process suspected. EXAM DESCRIPTION: CT - Head C Spine Cap Wo Con - 08/27/2023 11:30 am CLINICAL HISTORY: Trauma, head and neck injury. Chest, abdomen and pelvis pain. TRAUMA COMPARISON: No comparisons TECHNIQUE: CT head without contrast. CT cervical spine without contrast with coronal and sagittal reformatted images. CT chest, abdomen and pelvis without contrast with coronal and sagittal reformatted images of the spine. All CT scans are performed using dose optimization technique as appropriate and may include automated exposure control or mA/KV adjustment according to patient size. FINDINGS: CT HEAD WITHOUT CONTRAST: No intracranial hemorrhage, hydrocephalus or extra-axial fluid collection. Advanced generalized brain atrophy is present with moderate periventricular and deep white matter chronic microvascular ischemic changes. No areas of brain edema or midline shift. Vertebrobasilar atherosclerosis. The paranasal sinuses and mastoids are clear. The calvarium is intact. CT CERVICAL SPINE WITHOUT CONTRAST: No fracture or subluxation. Mild cervical degenerative changes are present. The prevertebral soft tissues are normal in thickness. CT CHEST, ABDOMEN, PELVIS WITHOUT CONTRAST: NOTE: Lack of contrast is a significant limitation in the assessment of trauma related findings. Specifically, solid organ, vascular and bowel evaluation is significantly limited. The lungs are clear.Small hiatal hernia.No pneumothorax or pericardial/pleural fluid. No evidence of intra-abdominal visceral injury, free fluid or free air is seen within the above detailed limitations. Moderate stool throughout the colon. No concerning pelvic findings. Sclerosis of the left femoral head noted suggesting AVN. Severe osteoarthritis of the right hip. No acute fractures. EXAM DESCRIPTION: US - Extrem Venous W Compress Joey - 08/27/2023 11:55 am CLINICAL HISTORY: PAIN Bilateral leg edema and swelling. COMPARISON: No comparisons TECHNIQUE: Real-time sonographic interrogation of the left and right lower extremity deep venous systems was performed. FINDINGS: Normal compressibility, flow augmentation, phasic flow and spontaneous flow is identified in both the left and right lower extremity deep venous systems. IMPRESSION: No sonographic evidence of left or right lower extremity deep venous thrombosis. LEFT VENTRICULAR WALL MOTION: NORMAL. DOPPLER/COLOR FLOW: SEE BELOW. COMMENTS: 1. NORMAL LEFT VENTRICULAR EJECTION FRACTION GREATER THAN 60% WITH NORMAL WALL MOTION. 2. DIASTOLIC DYSFUNCTION. 3. LEFT ATRIAL ENLARGEMENT Conclusions/Impression: Stage I EARNEST likely due to hypovolemia CKD IIIb with Proteinuria -No NSAIDs -Continue IVF with LR Hypophosphatemia -Replete prn HTN with CKD/ CHD -Continue Coreg -Hold Losartan at this time Diastolic CHF, chronic -Daily weight -Low sodium diet Hypoalbuminemia -Recommend protein supplementation Anemia in chronic illness -Monitor H&H CKD MBD -Continue Ergo Hospitalist note reviewed
--- NOTE | 2023-08-29 12:16 | P.PN ---
Date of Service: 08/28/23 Patient is alert and oriented x 3 Resting in the bed NAD Denies any pain or shortness of breath Vital stable Review of Systems 10-point ROS is otherwise unremarkable Physical Examination - Vital Signs Temperature: 97.5 F Blood Pressure: 136/73 Pulse: 86 Respirations: 17 Pulse Ox (%): 97 - Physical Exam General: Alert, Oriented x3 HEENT: Atraumatic, Normocephalic Neck: Supple, 2+ carotid pulse no bruit Respiratory: Clear to auscultation bilaterally, Normal air movement Cardiovascular: No edema, Normal pulses Capillary refill: <2 Seconds Gastrointestinal: Normal bowel sounds, Soft and benign Musculoskeletal: No clubbing, No swelling Integumentary: No rashes, No breakdown Neurological: Normal gait, Normal speech Assessment And Plan - Current Problems (Diagnosis) (1) Atrial fibrillation with RVR Current Visit: Yes Status: Acute (2) Cardiac enzymes elevated Current Visit: Yes Status: Acute (3) Elevated brain natriuretic peptide (BNP) level Current Visit: Yes Status: Acute (4) Hypertension Current Visit: Yes Status: Acute Qualifiers: Hypertension type: renovascular hypertension Qualified Code(s): I15.0 - Renovascular hypertension (5) CKD (chronic kidney disease) stage 4, GFR 15-29 ml/min Current Visit: Yes Status: Acute (6) Acute renal failure Current Visit: Yes Status: Acute (7) Osteoarthritis of right hip Current Visit: Yes Status: Acute (8) Hyperlipidemia Current Visit: Yes Status: Acute - Plan A-fib with RVR, Elevated troponin -Chronic, controlled , no palipitations, chesr discomfort -Admitted with Near syncope, dizziness Elevated troponin - 95.4>-79.3 Elevated BNP Patient's daughter reports that patient has history of A-fib was started on Xarelto by the diving supervisor Patient is on aspirin 81 p.o. daily Consulted diving supervisor Dr. Springer Acute renal failure versus chronic Improving renal profile Patient and daughter reports that he had mild decrease in the kidney function Gentle IV hydration as the BNP is elevated Consulted securities trader Dr. Escalante Renal diet Renal dosing of medications and avoid NSAIDs and nephrotoxins Hypertension Chronic controlled Continue the home medication and start as appropriate Hyperlipidemia chronic controlled on statins Will check the lipid panel in the morning Right hip osteoarthritis Chronic, controlled pain on Tylenol as needed Fall precautions discussed CODE STATUS Full code Diet Cardiac <Lori Valverde - Last Filed: 08/29/23 12:15> Pt seen and examined. I agree with the note by the FACILITY PLANNER. Carotid ultrasound shows moderate segmental proximal to mid right ICA atherosclerotic plaque with 50-69% stenosis. He needs to see a vascular surgeon. Will continue coreg, xarelto and telemetry. <Sherri Vasquez - Last Filed: 08/29/23 16:36>
[2023-08-29] MEDS: RIVAROXABAN 15 MG TABLET PO SCH (16:31)
[2023-08-29 18:03] VITALS: BMI 33.1
[2023-08-29] MEDS: ACETAMINOPHEN 500 MG TAB PO PRN (20:14)
[2023-08-29] MEDS: ATORVASTATIN 20 MG TAB PO SCH (20:15)
[2023-08-29 21:00] VITALS: O2SAT 94
[2023-08-30] MEDS: ACETAMINOPHEN 500 MG TAB PO PRN (04:55)
[2023-08-30 08:35] LABS: Phosphorus 2.8 mg/dL (2.5-4.9)
[2023-08-30 09:28] VITALS: TEMP 97.6
--- NOTE | 2023-08-30 10:36 | P.DS ---
Admission Date: 08/27/23 Discharge Date: 08/30/23 Reason for Admission: A-fib RVR, near syncope, acute renal failure - Problems (1) Atrial fibrillation with RVR Status: Acute (2) Cardiac enzymes elevated Status: Acute (3) Elevated brain natriuretic peptide (BNP) level Status: Acute (4) Hypertension Status: Acute Qualifiers: Hypertension type: renovascular hypertension Qualified Code(s): I15.0 - Renovascular hypertension (5) CKD (chronic kidney disease) stage 4, GFR 15-29 ml/min Status: Acute (6) Acute renal failure Status: Acute (7) Osteoarthritis of right hip Status: Acute (8) Hyperlipidemia Status: Acute Brief History of Present Illness: 2 This 82 yrs old Male patient with a history of hypertension, chronic A-fib, CKD presents to ER via EMS with complaints of Near Syncope. The patient has experienced near-syncope, almost passed out, felt dizzy. Onset: The symptoms/episode began/occurred just prior to arrival today. this was a single episode, that lasted 30 second(s). Context: the episode(s) was witnessed, by family. The patient did not suffer any apparent associated injury.Pertinent positives for lightheadedness, palpitations. Current symptoms: weakness. The patient has experienced similar episodes in the past, a few times. Patient denies chest pain, shortness of breath or palpitation. Patient denies fever chills, abdominal pain, nausea or vomiting. ED course Vital Signs: blood pressure BP 124 / 70; Pulse 94; Resp 18; Pulse Ox 96% on R/A; Initial laboratory evaluation; leukocytosis WBC 11.1, metabolic panel shows acute renal failure BUN 59, creatinine 2.35, GFR 27, hyperglycemia blood glucose 146. Elevated troponin I95.4, elevated BNP 4714. Admitting the patient with a diagnosis of A-fib RVR, near syncope, and acute renal failure. Hospital Course: Mr. Kaiser is a pleasant 82-year-old male patient with a past medical history significant for hypertension, chronic A-fib, CKD who was admitted to the [facility] on 09/14/2019 for near syncope and atrial fibrillation with RVR, hypertension and acute renal failure.. Patient was admitted in the hospital and started on IV pain reportedly regional education manager and epic ambulatory specialists. On 10/29/2019, patient was seen on morning rounds and deemed medically stable for discharge. Patient was discharged with instructions to schedule follow-up appointments with -PCP in 3 to 5 days, -regional education manager in 2 weeks, -Labor Contract Analyst 2 weeks. Patient was provided prescriptions for Augmentin for 4 more days Patient was given opportunity to ask questions and reported no further questions. Furthermore, all questions were answered to the best of my ability. - Please follow-up with your PCP for medication refills/adjustments -Please call if any questions regarding hospital stay -Please call nursing station at [phone] if any nursing or medication questions -Return to the emergency room if symptoms worsen <Lori Valverde - Last Filed: 08/30/23 10:34> Admission Date: 08/27/23 Discharge Date: 08/31/23 Hospital Course: Pt seen and examined. I agree with the note by the PROCUREMENT INTERNSH[employer]. Ok to discharge pt <Sherri Vasquez - Last Filed: 08/31/23 13:30> Disposition: ROUTINE DISCHARGE Discharge Condition: GOOD Vital Signs/Physical Exam: Temp Pulse Resp BP Pulse Ox 97.6 F 73 17 169/84 H 98 08/30/23 08:00 08/30/23 08:00 08/30/23 08:00 08/30/23 08:00 08/30/23 08:00 General: Alert, Oriented x3 HEENT: Atraumatic, Normocephalic Neck: Supple, 2+ carotid pulse no bruit Respiratory: Clear to auscultation bilaterally, Normal air movement Cardiovascular: No edema, Normal pulses Capillary refill: <2 Seconds Gastrointestinal: Normal bowel sounds, Soft and benign Musculoskeletal: No clubbing, No swelling Neurological: Normal gait, Normal speech Laboratory Data at Discharge: WBC 7.40 thou/uL (4.3-10.9) 08/29/23 07:26 Hgb 11.7 g/dL (13.6-17.9) L 08/29/23 07:26 Hct 34.4 % (39.6-49.0) L 08/29/23 07:26 Plt Count 117 thou/uL (152-406) L 08/29/23 07:26 PT 30.8 SECONDS (9.5-12.5) H 08/27/23 11:20 INR 2.89 08/27/23 11:20 Sodium 139 mEq/L (136-145) 08/29/23 07:26 Potassium 4.2 mEq/L (3.5-5.1) 08/29/23 07:26 BUN 36 mg/dL (7-18) H 08/29/23 07:26 Creatinine 1.54 mg/dL (0.70-1.30) H 08/29/23 07:26 Glucose 91 mg/dL (74-106) 08/29/23 07:26 Uric Acid 7.4 mg/dL (3.5-7.2) H 08/29/23 07:26 Phosphorus 2.8 mg/dL (2.5-4.9) 08/30/23 06:30 Magnesium 2.0 mg/dL (1.6-2.4) 08/30/23 06:30 Total Bilirubin 1.0 mg/dL (0.2-1.0) 08/27/23 11:20 AST 30 U/L (15-37) 08/27/23 11:20 ALT 35 U/L (16-61) 08/27/23 11:20 Alkaline Phosphatase 85 U/L (45-117) 08/27/23 11:20 Triglycerides 98 mg/dL (<150) 08/28/23 01:55 Cholesterol 91 mg/dL (<200) 08/28/23 01:55 HDL Cholesterol 36 mg/dL (40-60) L 08/28/23 01:55 Cholesterol/HDL Ratio 2.53 08/28/23 01:55 Lipase 36 U/L (13-75) 08/27/23 11:20 <Lori Valverde - Last Filed: 08/30/23 10:34> Vital Signs/Physical Exam: Temp Pulse Resp BP Pulse Ox 97.6 F 57 17 164/86 H 98 08/30/23 08:00 08/30/23 12:00 08/30/23 08:00 08/30/23 12:00 08/30/23 08:00 Laboratory Data at Discharge: WBC 7.40 thou/uL (4.3-10.9) 08/29/23 07:26 Hgb 11.7 g/dL (13.6-17.9) L 08/29/23 07:26 Hct 34.4 % (39.6-49.0) L 08/29/23 07:26 Plt Count 117 thou/uL (152-406) L 08/29/23 07:26 PT 30.8 SECONDS (9.5-12.5) H 08/27/23 11:20 INR 2.89 08/27/23 11:20 Sodium 139 mEq/L (136-145) 08/29/23 07:26 Potassium 4.2 mEq/L (3.5-5.1) 08/29/23 07:26 BUN 36 mg/dL (7-18) H 08/29/23 07:26 Creatinine 1.54 mg/dL (0.70-1.30) H 08/29/23 07:26 Glucose 91 mg/dL (74-106) 08/29/23 07:26 Uric Acid 7.4 mg/dL (3.5-7.2) H 08/29/23 07:26 Phosphorus 2.8 mg/dL (2.5-4.9) 08/30/23 06:30 Magnesium 2.0 mg/dL (1.6-2.4) 08/30/23 06:30 Total Bilirubin 1.0 mg/dL (0.2-1.0) 08/27/23 11:20 AST 30 U/L (15-37) 08/27/23 11:20 ALT 35 U/L (16-61) 08/27/23 11:20 Alkaline Phosphatase 85 U/L (45-117) 08/27/23 11:20 Triglycerides 98 mg/dL (<150) 08/28/23 01:55 Cholesterol 91 mg/dL (<200) 08/28/23 01:55 HDL Cholesterol 36 mg/dL (40-60) L 08/28/23 01:55 Cholesterol/HDL Ratio 2.53 08/28/23 01:55 Lipase 36 U/L (13-75) 08/27/23 11:20 <Sherri Vasquez - Last Filed: 08/31/23 13:30> Activity: Ad joel Time spent managing pt's care (in minutes): 55 (minutes) <Lori Valverde - Last Filed: 08/30/23 10:34> <Sherri Vasquez - Last Filed: 08/31/23 13:30> Home Medications: Aspirin [Aspirin EC 81 MG] 81 mg PO DAILY 08/30/15 Losartan Potassium [Cozaar] 100 mg PO DAILY WITH BREAKFAST 08/30/15 carvediloL [Coreg*] 6.25 mg PO BID 08/30/15 Atorvastatin Calcium [Lipitor*] 20 mg PO BEDTIME 02/22/17 Vit C/E/Zn/Coppr/Lutein/Zeaxan [Preservision Areds 2 Softgel] 1 each PO DAILY 02/22/17 Amox/Clavulanate [Augmentin 875-125 Tab] 1 each PO BID 4 Days #8 tab 08/30/23 New Medications: Amox/Clavulanate [Augmentin 875-125 Tab] 1 each PO BID 4 Days #8 tab Physician Discharge Instructions: Mr. Kaiser is a pleasant 82-year-old male patient with a past medical history significant for hypertension, chronic A-fib, CKD who was admitted to the [facility] on 09/14/2019 for near syncope and atrial fibrillation with RVR, hypertension and acute renal failure.. Patient was admitted in the hospital and started on IV pain reportedly regional education manager and epic ambulatory specialists. On 10/29/2019, patient was seen on morning rounds and deemed medically stable for discharge. Patient was discharged with instructions to schedule follow-up appointments with -PCP in 3 to 5 days, -regional education manager in 2 weeks, -Labor Contract Analyst 2 weeks. Patient was provided prescriptions for Augmentin for 4 more days Patient was given opportunity to ask questions and reported no further questions. Furthermore, all questions were answered to the best of my ability. - Please follow-up with your PCP for medication refills/adjustments -Please call if any questions regarding hospital stay -Please call nursing station at [phone] if any nursing or medication questions -Return to the emergency room if symptoms worsen Followup: Teto Escalante DO [ACTIVE - CAN ADMIT] - 1 Week Jose Rhodes MD [ACTIVE - CAN ADMIT] - 1 Week Satish,Mona Castellon MD [Primary Care Provider] - (3-5 days)
[2023-08-30] MEDS: DOCUSATE NA 100 MG CAP PO SCH (10:45)
[2023-08-30] MEDS ORDERED: carvediloL 12.5 MG TAB PO SCH ×2 (10:52→18:00)
[2023-08-30] MEDS: DRISDOL (VITAMIN D=ERGOCALCIFEROL) 50000 UNIT CAP PO SCH (11:00)
[2023-08-30 12:35] VITALS: BP 164/86
--- NOTE | 2023-08-30 13:48 | EKG ---
Test Date: 2023-08-27 Test Time: 12:43:24 Video Effects Editor: POLI MEASUREMENT RESULTS: Intervals: Rate: 104 [place]: QRSD: 72 QT: 340 QTc: 447 [place]: P: DE: QRS: -12 T: -57 INTERPRETIVE STATEMENTS: Atrial fibrillation Marked ST abnormality, possible inferior subendocardial injury Abnormal ECG Compared to ECG 02/03/2014 11:58:37 ST (T wave) deviation now present Sinus rhythm no longer present Left ventricular hypertrophy no longer present Electronically Signed On 08-30-23 13:41:38 PRICING COORDINATOR by Jose Rhodes
--- NOTE | 2023-08-30 14:01 | P.PN ---
Nephrology (S) Pt has no acute complaints, feels better overall (O) Vitals reviewed in the EMR Vitals, medications, blood work and imaging reviewed in the chart General: Cooperative HEENT: Atraumatic, not on O2 Neck: Supple Respiratory: Clear to auscultation bilaterally mostly Cardiovascular: No edema, Regular rate/rhythm Gastrointestinal: Soft and benign, Non-distended Musculoskeletal: No contractures Integumentary: No rashes Neurological: Normal speech, awake, alert Imagings Data: EXAM DESCRIPTION: RAD - Chest Single View - 08/27/2023 11:28 am CLINICAL HISTORY: COUGH Chest pain. COMPARISON: CHEST PA AND LAT 2 VIEW dated 02/03/2014 FINDINGS: Portable technique limits examination quality. The lungs are grossly clear. The heart is upper limit normal in size. No displaced fractures. IMPRESSION: No acute intrathoracic process suspected. EXAM DESCRIPTION: US - Extrem Venous W Compress Joey - 08/27/2023 11:55 am CLINICAL HISTORY: PAIN Bilateral leg edema and swelling. COMPARISON: No comparisons TECHNIQUE: Real-time sonographic interrogation of the left and right lower ex tremity deep venous systems was performed. FINDINGS: Normal compressibility, flow augmentation, phasic flow and spontaneous flow is identified in both the left and right lower extremity deep venous s ystems. IMPRESSION: No sonographic evidence of left or right lower extremity deep venous thrombosis. LEFT VENTRICULAR WALL MOTION: NORMAL. DOPPLER/COLOR FLOW: SEE BELOW. COMMENTS: 1. NORMAL LEFT VENTRICULAR EJECTION FRACTION GREATER THAN 60% WITH NORMAL WALL MOTION. 2. DIASTOLIC DYSFUNCTION. 3. LEFT ATRIAL ENLARGEMENT Conclusions/Impression: Stage I EARNEST 2nd to pre-renal state in part on possible underlying CKD Stage III unspecified -Cr level has downward trended nicely HTN with CKD -Continue Coreg, can restart ARB as lower dose of 50 mg qd UTI POA, Group B Step bacteriuria -Complete Abx course
[2023-09-02 11:16] LABS: Alpha-1-Globulins 0.3 g/dL (0.2-0.3); Alpha-2-Globulins 0.7 g/dL (0.5-0.9); Gamma Globulins 1.2 g/dL (0.8-1.7); INTERPRETATION REPORT
== END 2023-08-30 13:35 | disposition home health service (06) | DRG 683 ==
LOC: ER 10:49 → ERHOLD 14:44 → 4TH 19:19
PROVIDERS: ADMIT Hospitalist; ATTEND Hospitalist
DX: N17.9 Acute kidney failure, unspecified (principal); I13.0 Hypertensive heart and chronic kidney disease with heart failure and stage 1 through stage 4 chronic kidney disease, or unspecified chronic kidney disease; R64 Cachexia; I50.32 Chronic diastolic (congestive) heart failure; N39.0 Urinary tract infection, site not specified; D63.8 Anemia in other chronic diseases classified elsewhere; E83.39 Other disorders of phosphorus metabolism; I15.0 Renovascular hypertension; I48.91 Unspecified atrial fibrillation; R55 Syncope and collapse; N18.4 Chronic kidney disease, stage 4 (severe); N18.32 Chronic kidney disease, stage 3b; I65.21 Occlusion and stenosis of right carotid artery; M16.11 Unilateral primary osteoarthritis, right hip; E78.5 Hyperlipidemia, unspecified; B96.20 Unspecified Escherichia coli [E. coli] as the cause of diseases classified elsewhere; B95.1 Streptococcus, group B, as the cause of diseases classified elsewhere; Z68.33 Body mass index [BMI] 33.0-33.9, adult; Z79.01 Long term (current) use of anticoagulants
CPT/HCPCS: 36415; 70450; 71045; 71250; 72125; 80048; 80061; 80076; 81001; 82043; 82140; 82570; 83690; 83735; 83880; 84100; 84156; 84165; 84439; 84443; 84484; 84550; 85025; 85610; 86038; 86160; 87077; 87086; 87088; 87186; 93005; 93306; 93880; 93970; 96361; 96374; 97116; 97161; 99285; J0696; J1160; J1644; J3475; J7030; J7120

== ENCOUNTER 2024-05-27 17:10 | Emergency (ER) | payer OTHER ==
--- OUTSIDE RECORDS SUMMARY | 2024-05-27 17:17 | XMS REPORT | Continuity of Care Document ---
Author Name Unknown Address [address] [facility] [address] [place] [address] [facility] thconnect Address [address] [facility] [address] [place] [address] Care Team Providers Care Fisher Mussel Name Role Phone Valerie De La Rosa Primary Care Physician Medications Ordered Medication Name Filled Medication Name Start Date Stop Date Current Medication? Ordering Clinician Indication Dosage Frequency Signature (SIG) Comments Components Source Xarelto 15 mg tablet 15 00:00: 00 Yes mg Yuan Hamm hydrocodone 7.5 mg-acetamin ophen 325 mg tablet 02-25 00:00: 00 Yes mg Yuan Hamm atorvastati n 80 mg tablet 02-20 00:00: 00 Yes mg Yuan Hamm aspirin 81 mg tablet,chiki yed release 02-20 00:00: 00 Yes mg Yuan Hamm carvedilol 6.25 mg tablet 18 00:00: 00 Yes 1mg Yuan Hamm Bactrim DS 800 mg-160 mg tablet 12-16 00:00: 00 Yes 1mg Yuan Hamm SULFAMETHOX AZOLE/TRIME THOPRIM DS 800-160 MG TABS 12-16 00:00: 00 Yes Yuan Hamm irbesartan 150 mg-hydrochl orothiazide 12.5 mg tablet 11-30 00:00: 00 Yes mg Yuan Hamm magnesium oxide 400 mg (241.3 mg magnesium) tablet - 00:00: 00 Yes mg magnesi um) Yuan Hamm TAKE 1 TABLET BY MOUTH EVERY DAY WITH FOOD - 00:00: 00 Yes Yuan Hamm IRBESARTAN/ HYDROCHLORO THIAZIDE 150-12.5 MG TABS 0 1-23 00:00: 00 Yes Yuan Hamm AMOXICILLIN /CLAVULANAT E POTASSIUM 875-125 MG TABS 1-05 00:00: 00 Yes Yuan Hamm IRBESARTAN/ HYDROCHLORO THIAZIDE 300-12.5 MG TABS 2022-08 2- 00:00: 00 Yes Yuan Hamm ATORVASTATI N CALCIUM 40 MG TABS 2022-08 2- 00:00: 00 Yes Yuan Hamm TAKE 1 TABLET TWICE DAILY. 2022-08 2- 00:00: 00 12-31 00:00 :00 No 125 Yuan Hamm CYCLOBENZAP RINE HYDROCHLORI DE 5 MG TABS 2022-08 1- 00:00: 00 Yes Yuan Hamm LATANOPROST 0.005 % SOLN 2022-08 1 00:00: 00 Yes Yuan Hamm TAKE 1 TABLET TWICE DAILY. -11 00:00: 00 12-31 00:00 :00 No [id number] Yuan Hamm IRBESARTAN/ HYDROCHLORO THIAZIDE 300-12.5 MG TABS -08 00:00: 00 Yes Yuan Hamm TAKE 1 TABLET BY MOUTH AT BEDTIME 0 -08 00:00: 00 Yes Yuan Hamm TAKE 1 TABLET TWICE DAILY. -08 00:00: 00 12-31 00:00 :00 No 125 Yuan Hamm XARELTO 20 MG TABS 0 8-25 00:00: 00 Yes Yuan Hamm TAKE 1 TABLET BY MOUTH TWICE DAILY 0 6-09 00:00: 00 Yes Yuan Hamm LATANOPROST 0.005 % SOLN 0 5-18 00:00: 00 Yes Yuan Hamm INSTILL 1 DROP IN BOTH EYES AT BEDTIME 0 4-18 00:00: 00 Yes Yuan Hamm XARELTO 20 MG TABS 0 3-14 00:00: 00 Yes Yuan Hamm CARVEDILOL 12.5 MG TABS 0 3-14 00:00: 00 Yes Yuan Hamm ATORVASTATI N CALCIUM 40 MG TABS 3-14 00:00: 00 Yes Yuan Hamm TAKE 1 TABLET DAILY. 3-14 00:00: 00 12-31 00:00 :00 No [id number] Yuan Hamm CHEW OR SWALLOW 1 TABLET DAILY. 2021-08 2 00:00: 00 12-31 00:00 :00 No 20 Yuan Hamm TAKE 1 TABLET TWICE DAILY. 2021-08 00:00: 00 12-31 00:00 :00 No 125 Yuan Hamm TAKE 1 TABLET DAILY. 2021-08 00:00: 00 12-31 00:00 :00 No [id number] Yuan Hamm TAKE 1 TABLET BY MOUTH AT BEDTIME 2021-08 0- 00:00: 00 Yes Yuan Hamm TAKE 1 TABLET BY MOUTH DAILY 2021-08 0 00:00: 00 Yes Yuan Hamm CARVEDILOL 12.5 MG TABS 2021-08 0 00:00: 00 Yes Yuan Hamm LATANOPROST 0.005 % SOLN 05-02 00:00: 00 Yes Yuan Hamm INSTILL 1 DROP IN BOTH EYES AT BEDTIME 04-18 00:00: 00 Yes Yuan Hamm TAKE 1 TABLET DAILY. 8- 00:00: 00 Yes Yuan Hamm ATORVASTATI N CALCIUM 40 MG TABS 8- 00:00: 00 Yes Yuan Hamm CHEW OR SWALLOW 1 TABLET DAILY. 2020-08 00:00: 00 Yes Yuan Hamm TAKE 1 TABLET DAILY. 2020-08 00:00: 00 Yes Yuan Hamm atorvastati n 40 mg tablet 2020-08 00:00: 00 Yes 1mg Yuan Hamm Dose Unknown 2020-08 00:00: 00 Yes Yuan Hamm atorvastati n 40 mg tablet 02-20 00:00: 00 Yes 1mg Yuan Hamm irbesartan 300 mg-hydrochl orothiazide 12.5 mg tablet 02-20 00:00: 00 Yes 1mg Yuan Hamm CHEW OR SWALLOW 1 TABLET DAILY. 02-20 00:00: 00 Yes Yuan Hamm carvedilol 6.25 mg tablet 02-20 00:00: 00 Yes 1mg Yuan Hamm irbesartan 300 mg-hydrochl orothiazide 12.5 mg tablet 01-13 00:00: 00 Yes 1mg Yuan Hamm atorvastati n 40 mg tablet 01-13 00:00: 00 Yes 1mg Yuan Hamm carvedilol 6.25 mg tablet 01-13 00:00: 00 Yes 1mg Yuan Hamm atorvastati n 40 mg tablet 11-01 00:00: 00 Yes 1mg Yuan Hamm irbesartan 300 mg-hydrochl orothiazide 12.5 mg tablet 11-01 00:00: 00 Yes 1mg Yuan Hamm carvedilol 6.25 mg tablet 11-01 00:00: 00 Yes 1mg Yuan Hamm atorvastati n 40 mg tablet 10-14 00:00: 00 Yes 1mg Yuan Hamm atorvastati n 40 mg tablet 2019-08 00:00: 00 Yes 1mg Yuan Hamm cholecalcif karl (vitamin D3) 1,250 mcg (50,000 unit) capsule 2019-08 00:00: 00 Yes 1-5.84 gram Yuan Hamm Voltaren 1 % topical gel 2019-08 00:00: 00 Yes 1% Yuan Hamm irbesartan 300 mg-hydrochl orothiazide 12.5 mg tablet 2019-08 00:00: 00 Yes 1mg Yuan Hamm carvedilol 6.25 mg tablet 2019-08 00:00: 00 Yes 1mg Yuan Hamm carvedilol 6.25 mg tablet 2019-08 00:00: 00 Yes 1mg Yuan Hamm irbesartan 300 mg-hydrochl orothiazide 12.5 mg tablet 01-12 00:00: 00 Yes 1mg Yuan Hamm Xarelto 20 mg tablet 01-12 00:00: 00 Yes 1mg Yuan Hamm carvedilol 6.25 mg tablet 520 00:00: 00 Yes 1mg Yuan Hamm Xarelto 20 mg tablet 09-16 00:00: 00 Yes 1mg Yuan Hamm irbesartan 300 mg-hydrochl orothiazide 12.5 mg tablet 09-16 00:00: 00 Yes 1mg Yuan Hamm carvedilol 6.25 mg tablet 09-16 00:00: 00 Yes 1mg Yuan Hamm carvedilol 6.25 mg tablet 2018-08 016 00:00: 00 Yes 1mg Yuan Hamm carvedilol 6.25 mg tablet 17 00:00: 00 Yes 1mg Yuan Hamm carvedilol 6.25 mg tablet 2017-08 00:00: 00 Yes 1mg Yuan Hamm amlodipine 10 mg tablet 2017-08 0 00:00: 00 Yes 1mg Yuan Hamm amlodipine 10 mg tablet 604 00:00: 00 Yes 1mg Yuan Hamm amlodipine 10 mg tablet 10-23 00:00: 00 Yes 1mg Yuan Hamm amlodipine 10 mg tablet 16 00:00: 00 Yes 1mg Yuan Hamm Restasis 0.05 % eye drops in a dropperette 10-08 00:00: 00 Yes 1% Yuan Hamm Systane (PF) 0.4 %-0.3 % eye drops in a dropperette 10-08 00:00: 00 Yes 1% Yuan Hamm amlodipine 5 mg tablet 2016-08 00:00: 00 Yes 1mg Yuan Hamm carvedilol 12.5 mg tablet 05-22 00:00: 00 Yes 1mg Yuan Hamm carvedilol 6.25 mg tablet 2015-08 00:00: 00 Yes mg Yuan Hamm Immunizations Ordered Immunization Name Filled Immunization Name Date Status Comments Source influenza, seasonal vaccine, quadrivalent, adjuvanted, .5mL dose, preservative-free influenza, seasonal vaccine, quadrivalent, adjuvanted, .5mL dose, preservative-free 2023-08-01 00:00:00 Completed Yuan Hamm influenza, seasonal vaccine, quadrivalent, adjuvanted, .5mL dose, preservative-free influenza, seasonal vaccine, quadrivalent, adjuvanted, .5mL dose, preservative-free 2023-08-01 00:00:00 Completed Yuan Hamm (Old) Moderna COVID-19 Vaccine Bivalent Booster for ages 6 + years (18+, 12-17, 6-11) (Old) Moderna COVID-19 Vaccine Bivalent Booster for ages 6 + years (18+, 12-17, 6-11) 2022-11-06 00:00:00 Completed Yuan Hamm (Old) Moderna COVID-19 Vaccine Bivalent Booster for ages 6 + years (18+, 12-17, 6-11) (Old) Moderna COVID-19 Vaccine Bivalent Booster for ages 6 + years (18+, 12-17, 6-11) 2022-11-06 00:00:00 Completed Yuan Hamm (Old, dont use) Moderna Covid-19 Vaccine (Aged 12 years and older) (Corrugated Box Machine Operator) (Old, dont use) Moderna Covid-19 Vaccine (Aged 12 years and older) (Corrugated Box Machine Operator) 2021-04-24 00:00:00 Completed Yuan Hamm (Old, dont use) Moderna Covid-19 Vaccine (Aged 12 years and older) (Corrugated Box Machine Operator) (Old, dont use) Moderna Covid-19 Vaccine (Aged 12 years and older) (Corrugated Box Machine Operator) 2021-04-24 00:00:00 Completed Yuan Hamm (Old, dont use) Moderna Covid-19 Vaccine (Aged 12 years and older) (Corrugated Box Machine Operator) (Old, dont use) Moderna Covid-19 Vaccine (Aged 12 years and older) (Corrugated Box Machine Operator) 2020-11-29 00:00:00 Completed Yuan Hamm (Old, dont use) Moderna Covid-19 Vaccine (Aged 12 years and older) (Corrugated Box Machine Operator) (Old, dont use) Moderna Covid-19 Vaccine (Aged 12 years and older) (Corrugated Box Machine Operator) 2020-11-29 00:00:00 Completed Yuan Hamm Moderna COVID-19 Vaccine Moderna COVID-19 Vaccine 2020-11-01 00:00:00 Completed Yuan Hamm Moderna COVID-19 Vaccine Moderna COVID-19 Vaccine 2020-11-01 00:00:00 Completed Yuan Hamm Vital Signs Vital Name Observation Time Observation Value Comments S nga BP Systolic 2024-03-17 15:36:00 102 mm[Hg] Step hen F Hansel BP Diastolic 2024-03-17 15:36:00 61 mm[Hg] Yony phen F Hansel Weight Measured 2024-03-17 15:36:00 190.40 pounds Yuan F Hansel Height Measured 2024-03-17 15:36:00 68.70 inches Yuan F Hansel Body Temperature 2024-03-17 15:36:00 97.50 degrees Yuan F Hansel Heart Rate 2024-03-17 15:36:00 95.00 /min Pati en F Hansel Respiratory Rate 2024-03-17 15:36:00 Yuan F Hansel BP Systolic 2024-01-11 13:57:00 161 mm[Hg] Step hen F Hansel BP Diastolic 2024-01-11 13:57:00 80 mm[Hg] Yony phen F Hansel Weight Measured 2024-01-11 13:57:00 197.20 pounds Yuan F Hansel Height Measured 2024-01-11 13:57:00 68.70 inches Yuan F Hansel Body Temperature 2024-01-11 13:57:00 98.30 degrees Yuan F Hansel Heart Rate 2024-01-11 13:57:00 84.00 /min Pati en F Hansel Respiratory Rate 2024-01-11 13:57:00 18.00 /min Yuan F Hansel BP Systolic 2023-12-17 09:27:00 157 mm[Hg] Step hen F Hansel BP Diastolic 2023-12-17 09:27:00 80 mm[Hg] Yony phen F Hansel Weight Measured 2023-12-17 09:27:00 205.80 pounds Yuan F Hansel Height Measured 2023-12-17 09:27:00 68.70 inches Yuan F Hansel Body Temperature 2023-12-17 09:27:00 98.30 degrees Yuan F Hansel Heart Rate 2023-12-17 09:27:00 73.00 /min Pati en F Hansel Respiratory Rate 2023-12-17 09:27:00 17.00 /min Yuan F Hansel BP Systolic 2023-10-17 16:49:00 173 mm[Hg] Step hen F Hansel BP Diastolic 2023-10-17 16:49:00 81 mm[Hg] Yony phen F Hansel Weight Measured 2023-10-17 16:49:00 197.60 pounds Yuan F Hansel Height Measured 2023-10-17 16:49:00 68.70 inches Yuan F Hansel Body Temperature 2023-10-17 16:49:00 98.20 degrees Yuan F Hansel Heart Rate 2023-10-17 16:49:00 76.00 /min Pati en F Hansel Respiratory Rate 2023-10-17 16:49:00 17.00 /min Yuan F Hansel BP Systolic 2023-09-16 15:42:00 128 mm[Hg] Step hen F Hansel BP Diastolic 2023-09-16 15:42:00 81 mm[Hg] Yony phen F Hansel Weight Measured 2023-09-16 15:42:00 200.20 pounds Yuan F Hansel Height Measured 2023-09-16 15:42:00 68.70 inches Yuan F Hansel Body Temperature 2023-09-16 15:42:00 98.20 degrees Yuan F Hansel Heart Rate 2023-09-16 15:42:00 78.00 /min Pati en F Hansel Respiratory Rate 2023-09-16 15:42:00 19.00 /min Yuan F Hansel BP Systolic 2023-09-03 14:16:00 129 mm[Hg] Step hen F Hansel BP Diastolic 2023-09-03 14:16:00 82 mm[Hg] Yony phen F Hansel Weight Measured 2023-09-03 14:16:00 202.80 pounds Yuan F Hansel Height Measured 2023-09-03 14:16:00 68.70 inches Yuan F Hansel Body Temperature 2023-09-03 14:16:00 98.20 degrees Yuan F Hansel Heart Rate 2023-09-03 14:16:00 66.00 /min Pati en F Hansel Respiratory Rate 2023-09-03 14:16:00 18.00 /min Yuan F Hansel BP Systolic 2023-08-01 08:20:00 148 mm[Hg] Step hen F Hansel BP Diastolic 2023-08-01 08:20:00 91 mm[Hg] Yony phen F Hansel Weight Measured 2023-08-01 08:20:00 205.00 pounds Yuan F Hansel Height Measured 2023-08-01 08:20:00 68.70 inches Yuan F Hansel Body Temperature 2023-08-01 08:20:00 98.00 degrees Yuan F Hansel Heart Rate 2023-08-01 08:20:00 76.00 /min Pati en F Hansel Respiratory Rate 2023-08-01 08:20:00 17.00 /min Yuan F Hansel BP Systolic 2023-06-06 08:07:00 139 mm[Hg] Step hen F Hansel BP Diastolic 2023-06-06 08:07:00 88 mm[Hg] Yony phen F Hansel Weight Measured 2023-06-06 08:07:00 205.00 pounds Yuan F Hansel Height Measured 2023-06-06 08:07:00 68.70 inches Yuan F Hansel Body Temperature 2023-06-06 08:07:00 98.00 degrees Yuan F Hansel Heart Rate 2023-06-06 08:07:00 67.00 /min Pati en F Hansel Respiratory Rate 2023-06-06 08:07:00 Yuan F Hansel BP Systolic 2023-05-03 08:08:00 120 mm[Hg] Step hen F Hansel BP Diastolic 2023-05-03 08:08:00 78 mm[Hg] Yony phen F Hansel Weight Measured 2023-05-03 08:08:00 194.60 pounds Yuan F Hansel Height Measured 2023-05-03 08:08:00 68.70 inches Yuan F Hansel Body Temperature 2023-05-03 08:08:00 98.00 degrees Yuan F Hansel Heart Rate 2023-05-03 08:08:00 75.00 /min Pati en F Hansel Respiratory Rate 2023-05-03 08:08:00 Yuan F Hansel BP Systolic 2023-02-01 14:26:00 168 mm[Hg] Step hen F Hansel BP Diastolic 2023-02-01 14:26:00 97 mm[Hg] Yony phen F Hansel Weight Measured 2023-02-01 14:26:00 196.20 pounds Yuan F Hansel Height Measured 2023-02-01 14:26:00 68.70 inches Yuan F Hansel Body Temperature 2023-02-01 14:26:00 98.40 degrees Yuan F Hansel Heart Rate 2023-02-01 14:26:00 75.00 /min Pati en F Hansel Respiratory Rate 2023-02-01 14:26:00 19.00 /min Yuan F Hansel BP Systolic 2022-11-06 15:27:00 147 mm[Hg] Step hen F Hansel BP Diastolic 2022-11-06 15:27:00 70 mm[Hg] Yony phen F Hansel Weight Measured 2022-11-06 15:27:00 198.00 pounds Yuan F Hansel Height Measured 2022-11-06 15:27:00 68.70 inches Yuan F Hansel Body Temperature 2022-11-06 15:27:00 97.50 degrees Yuan F Hansel Heart Rate 2022-11-06 15:27:00 78.00 /min Pati en F Hansel Respiratory Rate 2022-11-06 15:27:00 18.00 /min Yuan F Hansel BP Systolic 2022-08-01 16:50:00 161 mm[Hg] Step hen F Hansel BP Diastolic 2022-08-01 16:50:00 93 mm[Hg] Yony phen F Hansel Weight Measured 2022-08-01 16:50:00 203.00 pounds Yuan F Hansel Height Measured 2022-08-01 16:50:00 68.70 inches Yuan F Hansel Body Temperature 2022-08-01 16:50:00 98.20 degrees Yuan F Hansel Heart Rate 2022-08-01 16:50:00 91.00 /min Pati en F Hansel Respiratory Rate 2022-08-01 16:50:00 17.00 /min Yuan Hamm Procedures Procedure Date / Time Performed Performing Clinicia n Source 30170 Ecg Routine Ecg W/least 12 Lds W/i r 2018-06-11 00:00:00 Yuan Hamm 26497 Ecg Routine Ecg W/least 12 Lds W/i r 2016-08-04 00:00:00 Yuan Hamm Encounters Start Date/Time End Date/Time Encounter Type Admission Type Attending [facility] Care Department Encounter ID Source 2024-03-16 15:30:00 Outpatient [facility] [id number] [facility] 2024-03-12 13:34:00 Outpatient [facility] ST[facility] [id number] [facility] 2024-02-25 13:53:01 Outpatient [facility] ST[facility] [id number] [facility] 2024-02-19 09:42:01 Outpatient [facility]LML[facility] STL[facility]C [id number] [facility] 2023-12-12 07:54:00 Outpatient [facility]LML[facility] STLMLC [id number] [facility] 2024-03-17 15:27:07 2024-03-17 15:27:07 Outpatient SFA SFA [id number] Yuan Hamm 2024-03-17 00:00:00 2024-03-17 00:00:00 Outpatient Visit SFA [id number] Yuan Hamm 2024-01-11 13:42:26 2024-01-11 13:42:26 Outpatient SFA SFA [id number] Yuan Hamm 2024-01-11 00:00:00 2024-01-11 00:00:00 Outpatient Visit SFA [id number] Yuan Hamm 2023-12-17 09:10:37 2023-12-17 09:10:37 Outpatient SFA SFA [id number] Yuan Hamm 2023-12-17 00:00:00 2023-12-17 00:00:00 Outpatient Visit SFA [id number] Yuan Hamm 2023-10-17 16:42:01 2023-10-17 16:42:01 Outpatient SFA SFA [id number] Yuan Hamm 2023-09-16 15:47:36 2023-09-16 15:47:36 Outpatient SFA SFA [id number] Yuan Hamm 2023-09-03 14:01:03 2023-09-03 14:01:03 Outpatient [facility] [id number] Yuan Hamm 2023-08-01 08:04:43 2023-08-01 08:04:43 Outpatient [facility] [id number] Yuan Hamm 2023-06-21 08:20:40 2023-06-21 08:20:40 Outpatient [facility] [id number] Yuan Hamm 2023-06-06 07:59:35 2023-06-06 07:59:35 Outpatient [facility] [id number] Yuan Hamm 2023-05-03 08:00:02 2023-05-03 08:00:02 Outpatient [facility] [id number] Yuan Hamm 2023-02-01 14:20:10 2023-02-01 14:20:10 Outpatient [facility] [id number] Yuan Hamm 2022-11-06 15:20:24 2022-11-06 15:20:24 Outpatient [facility] [id number] Yuan Hamm 2022-08-01 16:41:35 2022-08-01 16:41:35 Outpatient [facility] [id number] Yuan Hamm Results Test Description Test Time Test Comments Results Result Co mments Source CULTURE, URINE 2024-01-13 09:40:13 SPECIMEN NUMBER: [id number] CULTURE, URINE SPECIMEN NUMBER: [id number] SPECIMEN COMMENT: URINE SOURCE: URINE REPORT STATUS: FINAL FINAL REPORT: 01/13/2024 <10,000 CFU/ML UROGENITAL AWA PRESENT NO COMMON PATHOGENS UNLESS OTHERWISE INDICATED, ALL TESTING PERFORMED AT [facility] [address] [place] [id number] HOUSE CALLS NURSE: JANNETH PETERSEN M.D. CLIA NUMBER [id number] [facility] [place]. [id number] Yuan [id number] 09:01:31* Test Item Value Reference Range Interpretation Comme nts FERRITIN (test code = 2075) 503 NG/ML 30-400 H UNLESS OTHERWISE INDICATED, ALL TESTING PERFORMED AT [facility] [address] [place] [address] HOUSE CALLS NURSE: AJNNETH PETERSEN M.D. CLIA NUMBER [id number] [facility] [place]. [id number] 00:00:00* Test Item Value Reference Range Interpretation Comme nts FERRITIN (test code = 2074) 503 NG/ML Yuan [id number] 00:00:00* Test Item Value Reference Range Interpretation Comme nts FERRITIN (test code = 2074) 503 NG/ML Yuan Rouse [id number] 00:00:00* Test Item Value Reference Range Interpretation Comme nts FERRITIN (test code = 2074) 503 NG/ML Yuan HammCBC W/AUTO DIFF WITH [id number] 02:31:48* Test Item Value Reference Range Interpretation [...] 0.00-0.10 ABS NUCLEATED RBCS (test code = 93291) 0.00 K/UL 0.00-0.11 UNLESS OTHER SANCHEZ INDICATED, ALL TESTING PERFORMED AT [facility] [address] [place] [id number] HOUSE CALLS NURSE: JANNETH PETERSEN M.D. [place] NUMBER [id number] [facility] [place]. [id number] CBC W/AUTO [id number] 00:00:00* Test Item Value Reference Range Interpretation Comme nts WBC (test code = 1001) 8.5 K/UL RBC (test code = 1002) 4.24 M/UL HEMOGLOBIN (test code = 1003) 13.3 G/DL HEMATOCRIT (test code = 1004) 39.8 % MCV (test code = 1005) 93.9 fL MCH (test code = 1006) 31.4 PG MCHC (test code = 1007) 33.4 G/DL RDW (test code = 1038) 13.4 % NEUTROPHILS (test code = 1008) 62.4 % LYMPHOCYTES (test code = 1010) 27.4 % MONOCYTES (test code = 1011) 7.1 % EOSINOPHILS (test code = 1012) 1.8 % BASOPHILS (test code = 1013) 0.5 % IMMATURE GRANULOCYTES (test code = 1036) 0.8 % NUCLEATED RBCS (test code = 1065) 0.0 /100WBC'S PLATELET COUNT (test code = 1015) 158 K/UL ABSOLUTE NEUTROPHILS (test c ode = 1066) 5.33 K/UL ABSOLUTE LYMPHOCYTES (test c ode = 1067) 2.34 K/UL ABSOLUTE MONOCYTES (test cod e = 1068) 0.61 K/UL ABSOLUTE EOSINOPHILS (test c ode = 1040) 0.15 K/UL ABSOLUTE BASOPHILS (test cod e = 1069) 0.04 K/UL ABS IMMATURE GRANULOCYTES (t est code = 1020) 0.07 K/UL ABS NUCLEATED RBCS (test cod e = 32488) 0.00 K/UL Yuan HammCBC W/AUTO [id number] 00:00:00* Test Item Value Reference Range Interpretation Comme nts WBC (test code = 1001) 8.5 K/UL RBC (test code = 1002) 4.24 M/UL HEMOGLOBIN (test code = 1003) 13.3 G/DL HEMATOCRIT (test code = 1004) 39.8 % MCV (test code = 1005) 93.9 fL MCH (test code = 1006) 31.4 PG MCHC (test code = 1007) 33.4 G/DL RDW (test code = 1038) 13.4 % NEUTROPHILS (test code = 1008) 62.4 % LYMPHOCYTES (test code = 1010) 27.4 % MONOCYTES (test code = 1011) 7.1 % EOSINOPHILS (test code = 1012) 1.8 % BASOPHILS (test code = 1013) 0.5 % IMMATURE GRANULOCYTES (test code = 1036) 0.8 % NUCLEATED RBCS (test code = 1065) 0.0 /100WBC'S PLATELET COUNT (test code = 1015) 158 K/UL ABSOLUTE NEUTROPHILS (test c ode = 1066) 5.33 K/UL ABSOLUTE LYMPHOCYTES (test c ode = 1067) 2.34 K/UL ABSOLUTE MONOCYTES (test cod e = 1068) 0.61 K/UL ABSOLUTE EOSINOPHILS (test c ode = 1040) 0.15 K/UL ABSOLUTE BASOPHILS (test cod e = 1069) 0.04 K/UL ABS IMMATURE GRANULOCYTES (t est code = 1020) 0.07 K/UL ABS NUCLEATED RBCS (test cod e = 48970) 0.00 K/UL Yuan HammCBC W/AUTO [id number] 00:00:00* Test Item Value Reference Range Interpretation Comme nts WBC (test code = 1001) 8.5 K/UL RBC (test code = 1002) 4.24 M/UL HEMOGLOBIN (test code = 1003) 13.3 G/DL HEMATOCRIT (test code = 1004) 39.8 % MCV (test code = 1005) 93.9 fL MCH (test code = 1006) 31.4 PG MCHC (test code = 1007) 33.4 G/DL RDW (test code = 1038) 13.4 % NEUTROPHILS (test code = 1008) 62.4 % LYMPHOCYTES (test code = 1010) 27.4 % MONOCYTES (test code = 1011) 7.1 % EOSINOPHILS (test code = 1012) 1.8 % BASOPHILS (test code = 1013) 0.5 % IMMATURE GRANULOCYTES (test code = 1036) 0.8 % NUCLEATED RBCS (test code = 1065) 0.0 /100WBC'S PLATELET COUNT (test code = 1015) 158 K/UL ABSOLUTE NEUTROPHILS (test c ode = 1066) 5.33 K/UL ABSOLUTE LYMPHOCYTES (test c ode = 1067) 2.34 K/UL ABSOLUTE MONOCYTES (test cod e = 1068) 0.61 K/UL ABSOLUTE EOSINOPHILS (test c ode = 1040) 0.15 K/UL ABSOLUTE BASOPHILS (test cod e = 1069) 0.04 K/UL ABS IMMATURE GRANULOCYTES (t est code = 1020) 0.07 K/UL ABS NUCLEATED RBCS (test cod e = 19620) 0.00 K/UL Yuan Rouse AustinVITAMIN D, 25 [id number] 11:38:03* Test Item Value Reference Range Interpretation [...] . NG/ML 30-100 CBC W/AUTO DIFF WITH [id number] 03:49:35* Test Item Value Reference Range Interpretation [...] = 1065) 0.0 /100 WBC'S See_Comment [Automated [employer] ge] The system which generated this result [...] 0.00-0.10 ABS NUCLEATED RBCS (test code = 62655) 0.00 K/UL 0.00-0.11 COMPREHENSIVE METABOLIC [id number] 03:17:45* Test Item Value Reference Range Interpretation Comme nts GLUCOSE (test code = 2217) 112 MG/DL 70-99 H BUN (test code = 2208) 27 MG/DL 8-23 H CREATININE (test code = 2214) 1.68 MG/DL 0.80-1.40 H eGFR (2021 CKD-EPI) (test code = ) 40 ML/MIN/1.73 >60 L CALC BUN/CREAT (test code = 2234) 16 RATIO 6-28 SODIUM (test code = 2230) 143 MEQ/L 133-146 POTASSIUM (test code = 2227) 4.3 MEQ/L 3.5-5.4 CHLORIDE (test code = 2214) 106 MEQ/L 95-107 CARBON DIOXIDE (test code = 2205) 25 MEQ/L 19-31 CALCIUM (test code = 2208) 9.4 MG/DL 8.5-10.5 PROTEIN, TOTAL (test code = 2228) 7.0 G/DL 6.1-8.3 ALBUMIN (test code = 2200) 4.0 G/DL 3.5-5.2 CALC GLOBULIN (test code = 2239) 3.0 G/DL 1.9-3.7 CALC A/G RATIO (test code = 2233) 1.3 RATIO 1.0-2.6 BILIRUBIN, TOTAL (test code = 2206) 0.9 MG/DL See_Comment [Automated me ssage] The system which generated this result transmitted reference range: <=1.2. The reference range was not used to interpret this result as normal/abnormal. ALKALINE PHOSPHATASE (test code = 2203) 97 U/L 40-125 AST (test code = 2217) 18 U/L 9-50 ALT (test code = 2218) 25 U/L 5-50 UNLESS OTHERWISE INDICATED, ALL TESTING PERFORMED AT [facility] [address] [place] [address] HOUSE CALLS NURSE: JANNETH PETERSEN M.D. CLIA NUMBER [id number] [facility] [place]. [id number] CBC W/AUTO [id number] 00:00:00* Test Item Value Reference Range Interpretation Comme nts WBC (test code = 1001) 8.3 K/UL RBC (test code = 1002) 4.12 M/UL HEMOGLOBIN (test code = 1003) 12.9 G/DL HEMATOCRIT (test code = 1004) 38.9 % MCV (test code = 1005) 94.4 fL MCH (test code = 1006) 31.3 PG MCHC (test code = 1007) 33.2 G/DL RDW (test code = 1038) 13.2 % NEUTROPHILS (test code = 1008) 65.7 % LYMPHOCYTES (test code = 1010) 24.9 % MONOCYTES (test code = 1011) 6.6 % EOSINOPHILS (test code = 1012) 2.0 % BASOPHILS (test code = 1013) 0.6 % IMMATURE GRANULOCYTES (test code = 1036) 0.2 % NUCLEATED RBCS (test code = 1065) 0.0 /100WBC'S PLATELET COUNT (test code = 1015) 175 K/UL ABSOLUTE NEUTROPHILS (test c ode = 1066) 5.46 K/UL ABSOLUTE LYMPHOCYTES (test c ode = 1067) 2.07 K/UL ABSOLUTE MONOCYTES (test cod e = 1068) 0.55 K/UL ABSOLUTE EOSINOPHILS (test c ode = 1040) 0.17 K/UL ABSOLUTE BASOPHILS (test cod e = 1069) 0.05 K/UL ABS IMMATURE GRANULOCYTES (t est code = 1020) 0.02 K/UL ABS NUCLEATED RBCS (test cod e = 86298) 0.00 K/UL Yuan HammCOMPREHENSIVE METABOLIC [id number] 00:00:00* Test Item Value Reference Range Interpretation Comme nts GLUCOSE (test code = 2217) 112 MG/DL BUN (test code = 2208) 27 MG/DL CREATININE (test code = 2214) 1.68 MG/DL eGFR (2020 CKD-EPI) (test co de = 14404) 40 ML/MIN/1.73 CALC BUN/CREAT (test code = 2235) 16 RATIO SODIUM (test code = 2231) 143 MEQ/L POTASSIUM (test code = 2228) 4.3 MEQ/L CHLORIDE (test code = 2215) 106 MEQ/L CARBON DIOXIDE (test code = 2206) 25 MEQ/L CALCIUM (test code = 2209) 9.4 MG/DL PROTEIN, TOTAL (test code = 2229) 7.0 G/DL ALBUMIN (test code = 2201) 4.0 G/DL CALC GLOBULIN (test code = 2240) 3.0 G/DL CALC A/G RATIO (test code = 2234) 1.3 RATIO BILIRUBIN, TOTAL (test code = 2207) 0.9 MG/DL ALKALINE PHOSPHATASE (test code = 2204) 97 U/L AST (test code = 2218) 18 U/L ALT (test code = 2219) 25 U/L Yuan HammVITAMIN D, 25 [id number] 00:00:00* Test Item Value Reference Range Interpretation Comme nts VITAMIN D, 25 OH (test code = 4958) 35 NG/ML Yuan HammCBC W/AUTO [id number] 00:00:00* Test Item Value Reference Range Interpretation Comme nts WBC (test code = 1001) 8.3 K/UL RBC (test code = 1002) 4.12 M/UL HEMOGLOBIN (test code = 1003) 12.9 G/DL HEMATOCRIT (test code = 1004) 38.9 % MCV (test code = 1005) 94.4 fL MCH (test code = 1006) 31.3 PG MCHC (test code = 1007) 33.2 G/DL RDW (test code = 1038) 13.2 % NEUTROPHILS (test code = 1008) 65.7 % LYMPHOCYTES (test code = 1010) 24.9 % MONOCYTES (test code = 1011) 6.6 % EOSINOPHILS (test code = 1012) 2.0 % BASOPHILS (test code = 1013) 0.6 % IMMATURE GRANULOCYTES (test code = 1036) 0.2 % NUCLEATED RBCS (test code = 1065) 0.0 /100WBC'S PLATELET COUNT (test code = 1015) 175 K/UL ABSOLUTE NEUTROPHILS (test c ode = 1066) 5.46 K/UL ABSOLUTE LYMPHOCYTES (test c ode = 1067) 2.07 K/UL ABSOLUTE MONOCYTES (test cod e = 1068) 0.55 K/UL ABSOLUTE EOSINOPHILS (test c ode = 1040) 0.17 K/UL ABSOLUTE BASOPHILS (test cod e = 1069) 0.05 K/UL ABS IMMATURE GRANULOCYTES (t est code = 1020) 0.02 K/UL ABS NUCLEATED RBCS (test cod e = 98239) 0.00 K/UL Yuan HammCOMPREHENSIVE METABOLIC [id number] 00:00:00* Test Item Value Reference Range Interpretation Comme nts GLUCOSE (test code = 2217) 112 MG/DL BUN (test code = 2208) 27 MG/DL CREATININE (test code = 2214) 1.68 MG/DL eGFR (2020 CKD-EPI) (test co de = 03225) 40 ML/MIN/1.73 CALC BUN/CREAT (test code = 2235) 16 RATIO SODIUM (test code = 2231) 143 MEQ/L POTASSIUM (test code = 2228) 4.3 MEQ/L CHLORIDE (test code = 2215) 106 MEQ/L CARBON DIOXIDE (test code = 2206) 25 MEQ/L CALCIUM (test code = 2209) 9.4 MG/DL PROTEIN, TOTAL (test code = 2229) 7.0 G/DL ALBUMIN (test code = 2201) 4.0 G/DL CALC GLOBULIN (test code = 2240) 3.0 G/DL CALC A/G RATIO (test code = 2234) 1.3 RATIO BILIRUBIN, TOTAL (test code = 2207) 0.9 MG/DL ALKALINE PHOSPHATASE (test code = 2204) 97 U/L AST (test code = 2218) 18 U/L ALT (test code = 2219) 25 U/L Yuan HammVITAMIN D, 25 [id number] 00:00:00* Test Item Value Reference Range Interpretation Comme nts VITAMIN D, 25 OH (test code = 4958) 35 NG/ML Yuan Rouse HanselCBC W/AUTO [id number] 00:00:00* Test Item Value Reference Range Interpretation Comme nts WBC (test code = 1001) 8.3 K/UL RBC (test code = 1002) 4.12 M/UL HEMOGLOBIN (test code = 1003) 12.9 G/DL HEMATOCRIT (test code = 1004) 38.9 % MCV (test code = 1005) 94.4 fL MCH (test code = 1006) 31.3 PG MCHC (test code = 1007) 33.2 G/DL RDW (test code = 1038) 13.2 % NEUTROPHILS (test code = 1008) 65.7 % LYMPHOCYTES (test code = 1010) 24.9 % MONOCYTES (test code = 1011) 6.6 % EOSINOPHILS (test code = 1012) 2.0 % BASOPHILS (test code = 1013) 0.6 % IMMATURE GRANULOCYTES (test code = 1036) 0.2 % NUCLEATED RBCS (test code = 1065) 0.0 /100WBC'S PLATELET COUNT (test code = 1015) 175 K/UL ABSOLUTE NEUTROPHILS (test c ode = 1066) 5.46 K/UL ABSOLUTE LYMPHOCYTES (test c ode = 1067) 2.07 K/UL ABSOLUTE MONOCYTES (test cod e = 1068) 0.55 K/UL ABSOLUTE EOSINOPHILS (test c ode = 1040) 0.17 K/UL ABSOLUTE BASOPHILS (test cod e = 1069) 0.05 K/UL ABS IMMATURE GRANULOCYTES (t est code = 1020) 0.02 K/UL ABS NUCLEATED RBCS (test cod e = 19502) 0.00 K/UL Yuan HammCOMPREHENSIVE METABOLIC [id number] 00:00:00* Test Item Value Reference Range Interpretation Comme nts GLUCOSE (test code = 2217) 112 MG/DL BUN (test code = 2208) 27 MG/DL CREATININE (test code = 2214) 1.68 MG/DL eGFR (2020 CKD-EPI) (test co de = 55491) 40 ML/MIN/1.73 CALC BUN/CREAT (test code = 2235) 16 RATIO SODIUM (test code = 2231) 143 MEQ/L POTASSIUM (test code = 2228) 4.3 MEQ/L CHLORIDE (test code = 2215) 106 MEQ/L CARBON DIOXIDE (test code = 2206) 25 MEQ/L CALCIUM (test code = 2209) 9.4 MG/DL PROTEIN, TOTAL (test code = 2229) 7.0 G/DL ALBUMIN (test code = 2201) 4.0 G/DL CALC GLOBULIN (test code = 2240) 3.0 G/DL CALC A/G RATIO (test code = 2234) 1.3 RATIO BILIRUBIN, TOTAL (test code = 2207) 0.9 MG/DL ALKALINE PHOSPHATASE (test code = 2204) 97 U/L AST (test code = 2218) 18 U/L ALT (test code = 2219) 25 U/L Yuan HammVITAMIN D, 25 [id number] 00:00:00* Test Item Value Reference Range Interpretation Comme nts VITAMIN D, 25 OH (test code = 4958) 35 NG/ML Yuan HammLIPID [id number] 05:43:22* Test Item Value Reference Range Interpretation Comme nts CHOLESTEROL (test code = 2210) 125 MG/DL <200 TRIGLYCERIDES (test code = 2232) 100 MG/DL <150 HDL CHOLESTEROL (test code = 2220) 52 MG/DL >39 CALC LDL CHOL (test code = 223) 54 MG/DL <100 NOTE: CALCULATED LDL IS BASED ON DIMITRIOS-BOYD METHOD WHICHINCLUDES ADJUSTABLE TRIGLYCERIDE:VLDL CHOLESTEROL RATIO.THIS FACTOR VARIES BY MEASURED TRIGLYCERIDE AND NON-HDLCHOLESTEROL CONCENTRATIONS WITH INCREASED CALCULATED LDL SEENIN HIGHER TRIGLYCERIDE OR LOWER NON-HDL SPECIMENS. FOR MOREINFORMATION, SEE CLIENT ANNOUNCEMENT AT [email or web address] [email or web address] RATIO LDL/HDL (test code = 2237) 1.04 RATIO <3.55 COMPREHENSIVE METABOLIC [id number] 05:43:22* Test Item Value Reference Range Interpretation Comme nts GLUCOSE (test code = 2216) 102 MG/DL 70-99 H BUN (test code = 2207) 29 MG/DL 8-23 H CREATININE (test code = 221) 1.57 MG/DL 0.80-1.40 H eGFR (2020 CKD-EPI) (test code = 40531) 44 ML/MIN/1.73 >60 L CALC BUN/CREAT (test code = 2235) 18 RATIO 6-28 SODIUM (test code = 223) 145 MEQ/L 133-146 POTASSIUM (test code = 2228) 4.7 MEQ/L 3.5-5.4 CHLORIDE (test code = 2215) 112 MEQ/L 95-107 H CARBON DIOXIDE (test code = 6) 18 MEQ/L 19-31 L CALCIUM (test code = 2209) 9.0 MG/DL 8.5-10.5 PROTEIN, TOTAL (test code = 2228) 7.0 G/DL 6.1-8.3 ALBUMIN (test code = 1) 3.9 G/DL 3.5-5.2 CALC GLOBULIN (test code [...] U/L 40-125 AST (test code = 2218) 22 U/L 9-50 ALT (test code = 2219) 27 U/L 5-50 [facility] has impo rtant pathology staff changes effective 10/24/2022. New pathology staff will provide uninterrupted, excellent patient care and clinical consultation. See URL: [email or web address]. UNLESS OTHERWISE INDICATED, ALL TESTING PERFORMED AT [facility] [address] [place] [address] HOUSE CALLS NURSE: JANNETH PETERSEN M.D. IA NUMBER [id number] [facility] [place]. [id number] CBC W/AUTO DIFF WITH [id number] 03:40:13* Test Item Value Reference Range Interpretation [...] = 1065) 0.0 /100 WBC'S See_Comment [Automated [employer] ge] The system which generated this result [...] 0.00-0.10 ABS NUCLEATED RBCS (test code = 38424) 0.00 K/UL 0.00-0.11 LIPID [id number] 00:00:00* Test Item Value Reference Range Interpretation Comme nts CHOLESTEROL (test code = 2210) 125 MG/DL TRIGLYCERIDES (test code = 2232) 100 MG/DL HDL CHOLESTEROL (test code = 2220) 52 MG/DL CALC LDL CHOL (test code = 2237) 54 MG/DL RISK RATIO LDL/HDL (test cod e = 2238) 1.04 RATIO Yuan HammCOMPREHENSIVE METABOLIC [id number] 00:00:00* Test Item Value Reference Range Interpretation Comme nts GLUCOSE (test code = 2217) 102 MG/DL BUN (test code = 2208) 29 MG/DL CREATININE (test code = 2214) 1.57 MG/DL eGFR (2020 CKD-EPI) (test co de = 88185) 44 ML/MIN/1.73 CALC BUN/CREAT (test code = 2235) 18 RATIO SODIUM (test code = 2231) 145 MEQ/L POTASSIUM (test code = 2228) 4.7 MEQ/L CHLORIDE (test code = 2215) 112 MEQ/L CARBON DIOXIDE (test code = 2206) 18 MEQ/L CALCIUM (test code = 2209) 9.0 MG/DL PROTEIN, TOTAL (test code = 2229) 7.0 G/DL ALBUMIN (test code = 2201) 3.9 G/DL CALC GLOBULIN (test code = 2240) 3.1 G/DL CALC A/G RATIO (test code = 2234) 1.3 RATIO BILIRUBIN, TOTAL (test code = 2207) 0.7 MG/DL ALKALINE PHOSPHATASE (test code = 2204) 103 U/L AST (test code = 2218) 22 U/L ALT (test code = 2219) 27 U/L Yuan HammCBC W/AUTO [id number] 00:00:00* Test Item Value Reference Range Interpretation Comme nts WBC (test code = 1001) 7.2 K/UL RBC (test code = 1002) 3.84 M/UL HEMOGLOBIN (test code = 1003) 12.2 G/DL HEMATOCRIT (test code = 1004) 36.5 % MCV (test code = 1005) 95.1 fL MCH (test code = 1006) 31.8 PG MCHC (test code = 1007) 33.4 G/DL RDW (test code = 1038) 12.8 % NEUTROPHILS (test code = 1008) 64.9 % LYMPHOCYTES (test code = 1010) 25.1 % MONOCYTES (test code = 1011) 7.5 % EOSINOPHILS (test code = 1012) 1.8 % BASOPHILS (test code = 1013) 0.4 % IMMATURE GRANULOCYTES (test code = 1036) 0.3 % NUCLEATED RBCS (test code = 1065) 0.0 /100WBC'S PLATELET COUNT (test code = 1015) 177 K/UL ABSOLUTE NEUTROPHILS (test c ode = 1066) 4.68 K/UL ABSOLUTE LYMPHOCYTES (test c ode = 1067) 1.81 K/UL ABSOLUTE MONOCYTES (test cod e = 1068) 0.54 K/UL ABSOLUTE EOSINOPHILS (test c ode = 1040) 0.13 K/UL ABSOLUTE BASOPHILS (test cod e = 1069) 0.03 K/UL ABS IMMATURE GRANULOCYTES (t est code = 1020) 0.02 K/UL ABS NUCLEATED RBCS (test cod e = 58264) 0.00 K/UL Yuan HammLIPID [id number] 00:00:00* Test Item Value Reference Range Interpretation Comme nts CHOLESTEROL (test code = 2210) 125 MG/DL TRIGLYCERIDES (test code = 2232) 100 MG/DL HDL CHOLESTEROL (test code = 2220) 52 MG/DL CALC LDL CHOL (test code = 2237) 54 MG/DL RISK RATIO LDL/HDL (test cod e = 2238) 1.04 RATIO Yuan HammCOMPREHENSIVE METABOLIC [id number] 00:00:00* Test Item Value Reference Range Interpretation Comme nts GLUCOSE (test code = 2217) 102 MG/DL BUN (test code = 2208) 29 MG/DL CREATININE (test code = 2214) 1.57 MG/DL eGFR (2020 CKD-EPI) (test co de = 78261) 44 ML/MIN/1.73 CALC BUN/CREAT (test code = 2235) 18 RATIO SODIUM (test code = 2231) 145 MEQ/L POTASSIUM (test code = 2228) 4.7 MEQ/L CHLORIDE (test code = 2215) 112 MEQ/L CARBON DIOXIDE (test code = 2206) 18 MEQ/L CALCIUM (test code = 2209) 9.0 MG/DL PROTEIN, TOTAL (test code = 2229) 7.0 G/DL ALBUMIN (test code = 2201) 3.9 G/DL CALC GLOBULIN (test code = 2240) 3.1 G/DL CALC A/G RATIO (test code = 2234) 1.3 RATIO BILIRUBIN, TOTAL (test code = 2207) 0.7 MG/DL ALKALINE PHOSPHATASE (test code = 2204) 103 U/L AST (test code = 2218) 22 U/L ALT (test code = 2219) 27 U/L Yuan Rouse [facility] W/AUTO [id number] 00:00:00* Test Item Value Reference Range Interpretation Comme nts WBC (test code = 1001) 7.2 K/UL RBC (test code = 1002) 3.84 M/UL HEMOGLOBIN (test code = 1003) 12.2 G/DL HEMATOCRIT (test code = 1004) 36.5 % MCV (test code = 1005) 95.1 fL MCH (test code = 1006) 31.8 PG MCHC (test code = 1007) 33.4 G/DL RDW (test code = 1038) 12.8 % NEUTROPHILS (test code = 1008) 64.9 % LYMPHOCYTES (test code = 1010) 25.1 % MONOCYTES (test code = 1011) 7.5 % EOSINOPHILS (test code = 1012) 1.8 % BASOPHILS (test code = 1013) 0.4 % IMMATURE GRANULOCYTES (test code = 1036) 0.3 % NUCLEATED RBCS (test code = 1065) 0.0 /100WBC'S PLATELET COUNT (test code = 1015) 177 K/UL ABSOLUTE NEUTROPHILS (test c ode = 1066) 4.68 K/UL ABSOLUTE LYMPHOCYTES (test c ode = 1067) 1.81 K/UL ABSOLUTE MONOCYTES (test cod e = 1068) 0.54 K/UL ABSOLUTE EOSINOPHILS (test c ode = 1040) 0.13 K/UL ABSOLUTE BASOPHILS (test cod e = 1069) 0.03 K/UL ABS IMMATURE GRANULOCYTES (t est code = 1020) 0.02 K/UL ABS NUCLEATED RBCS (test cod e = 55300) 0.00 K/UL Yuan HammLIPID [id number] 00:00:00* Test Item Value Reference Range Interpretation Comme nts CHOLESTEROL (test code = 2210) 125 MG/DL TRIGLYCERIDES (test code = 2232) 100 MG/DL HDL CHOLESTEROL (test code = 2220) 52 MG/DL CALC LDL CHOL (test code = 2237) 54 MG/DL RISK RATIO LDL/HDL (test cod e = 2238) 1.04 RATIO Yuan HammCOMPREHENSIVE METABOLIC [id number] 00:00:00* Test Item Value Reference Range Interpretation Comme nts GLUCOSE (test code = 2217) 102 MG/DL BUN (test code = 2208) 29 MG/DL CREATININE (test code = 2214) 1.57 MG/DL eGFR (2020 CKD-EPI) (test co de = 41703) 44 ML/MIN/1.73 CALC BUN/CREAT (test code = 2235) 18 RATIO SODIUM (test code = 2231) 145 MEQ/L POTASSIUM (test code = 2228) 4.7 MEQ/L CHLORIDE (test code = 2215) 112 MEQ/L CARBON DIOXIDE (test code = 2206) 18 MEQ/L CALCIUM (test code = 2209) 9.0 MG/DL PROTEIN, TOTAL (test code = 2229) 7.0 G/DL ALBUMIN (test code = 2201) 3.9 G/DL CALC GLOBULIN (test code = 2240) 3.1 G/DL CALC A/G RATIO (test code = 2234) 1.3 RATIO BILIRUBIN, TOTAL (test code = 2207) 0.7 MG/DL ALKALINE PHOSPHATASE (test code = 2204) 103 U/L AST (test code = 2218) 22 U/L ALT (test code = 2219) 27 U/L Yuan Rouse HanselCBC W/AUTO [id number] 00:00:00* Test Item Value Reference Range Interpretation Comme nts WBC (test code = 1001) 7.2 K/UL RBC (test code = 1002) 3.84 M/UL HEMOGLOBIN (test code = 1003) 12.2 G/DL HEMATOCRIT (test code = 1004) 36.5 % MCV (test code = 1005) 95.1 fL MCH (test code = 1006) 31.8 PG MCHC (test code = 1007) 33.4 G/DL RDW (test code = 1038) 12.8 % NEUTROPHILS (test code = 1008) 64.9 % LYMPHOCYTES (test code = 1010) 25.1 % MONOCYTES (test code = 1011) 7.5 % EOSINOPHILS (test code = 1012) 1.8 % BASOPHILS (test code = 1013) 0.4 % IMMATURE GRANULOCYTES (test code = 1036) 0.3 % NUCLEATED RBCS (test code = 1065) 0.0 /100WBC'S PLATELET COUNT (test code = 1015) 177 K/UL ABSOLUTE NEUTROPHILS (test c ode = 1066) 4.68 K/UL ABSOLUTE LYMPHOCYTES (test c ode = 1067) 1.81 K/UL ABSOLUTE MONOCYTES (test cod e = 1068) 0.54 K/UL ABSOLUTE EOSINOPHILS (test c ode = 1040) 0.13 K/UL ABSOLUTE BASOPHILS (test cod e = 1069) 0.03 K/UL ABS IMMATURE GRANULOCYTES (t est code = 1020) 0.02 K/UL ABS NUCLEATED RBCS (test cod e = 13562) 0.00 K/UL Yuan HammPSA, [id number] 06:57:19* Test Item Value Reference Range Interpretation Comme nts PSA, TOTAL (test code = 2606) 0.56 NG/ML See_Comment NOTE: Methodolog y is Arlene Waldo Electrochemiluminescence Immunoassay traceable to WHO reference standard 96/760. UNLESS OTHERWISE INDICATED, ALL TESTING PERFORMED [facility] [employer] [facility] [address] [place] [address] HOUSE CALLS NURSE: UMA HALL M.D. CLIA NUMBER [id number] [place]. [id number] [Automated message] The system which generated this result transmitted reference range: <=4.00. The reference range was not used to interpret this result as normal/abnormal. LIPID [id number] 06:08:50* Test Item Value Reference Range Interpretation Comme nts CHOLESTEROL (test code = 2210) 132 MG/DL <200 TRIGLYCERIDES (test code = 2232) 79 MG/DL <150 HDL CHOLESTEROL (test code = 2220) 55 MG/DL >39 CALC LDL CHOL (test code = 2237) 61 MG/DL <100 NOTE: CALCULATED LDL IS BASED ON DIMITRIOS-BOYD METHOD WHICHINCLUDES ADJUSTABLE TRIGLYCERIDE:VLDL CHOLESTEROL RATIO.THIS FACTOR VARIES BY MEASURED TRIGLYCERIDE AND NON-HDLCHOLESTEROL CONCENTRATIONS WITH INCREASED CALCULATED LDL SEENIN HIGHER TRIGLYCERIDE OR LOWER NON-HDL SPECIMENS. FOR MOREINFORMATION, SEE CLIENT ANNOUNCEMENT AT [email or web address] RISK RATIO LDL/HDL (test code = 2238) 1.11 RATIO <3.55 COMPREHENSIVE METABOLIC [id number] 06:08:50* Test Item Value Reference Range Interpretation Comme nts GLUCOSE (test code = 2217) 102 MG/DL 70-99 H BUN (test code = 2207) 36 MG/DL 8-23 H CREATININE (test code = 2214) 1.96 MG/DL 0.80-1.40 H eGFR (2020 CKD-EPI) (test code = 02940) 34 ML/MIN/1.73 >60 L CALC BUN/CREAT (test code = 2235) 18 RATIO 6-28 SODIUM (test code = 2231) 142 MEQ/L 133-146 POTASSIUM (test code = 2228) 5.1 MEQ/L 3.5-5.4 CHLORIDE (test code = 2215) 106 MEQ/L 95-107 CARBON DIOXIDE (test code = 2206) 23 MEQ/L 19-31 CALCIUM (test code = 2209) 9.3 MG/DL 8.5-10.5 PROTEIN, TOTAL (test code = 222) 7.6 G/DL 6.1-8.3 ALBUMIN (test code = 2201) 4.2 G/DL 3.5-5.2 CALC GLOBULIN (test code [...] 40 U/L 5-50 CBC W/AUTO DIFF WITH [id number] 03:40:43* Test Item Value Reference Range Interpretation [...] 0.00-0.10 ABS NUCLEATED RBCS (test code = 63607) 0.00 K/UL 0.00-0.11 LIPID [id number] 00:00:00* Test Item Value Reference Range Interpretation Comme nts CHOLESTEROL (test code = 2210) 132 MG/DL TRIGLYCERIDES (test code = 2232) 79 MG/DL HDL CHOLESTEROL (test code = 2220) 55 MG/DL CALC LDL CHOL (test code = 2237) 61 MG/DL RISK RATIO LDL/HDL (test cod e = 2238) 1.11 RATIO Yuan HammCOMPREHENSIVE METABOLIC [id number] 00:00:00* Test Item Value Reference Range Interpretation Comme nts GLUCOSE (test code = 2217) 102 MG/DL BUN (test code = 2208) 36 MG/DL CREATININE (test code = 2214) 1.96 MG/DL eGFR (2020 CKD-EPI) (test co de = 96436) 34 ML/MIN/1.73 CALC BUN/CREAT (test code = 2235) 18 RATIO SODIUM (test code = 2231) 142 MEQ/L POTASSIUM (test code = 2228) 5.1 MEQ/L CHLORIDE (test code = 2215) 106 MEQ/L CARBON DIOXIDE (test code = 2206) 23 MEQ/L CALCIUM (test code = 2209) 9.3 MG/DL PROTEIN, TOTAL (test code = 2229) 7.6 G/DL ALBUMIN (test code = 2201) 4.2 G/DL CALC GLOBULIN (test code = 2240) 3.4 G/DL CALC A/G RATIO (test code = 2234) 1.2 RATIO BILIRUBIN, TOTAL (test code = 2207) 0.5 MG/DL ALKALINE PHOSPHATASE (test code = 2204) 118 U/L AST (test code = 2218) 28 U/L ALT (test code = 2219) 40 U/L Yuan HammPSA, [id number] 00:00:00* Test Item Value Reference Range Interpretation Comme nts PSA, TOTAL (test code = 2606) 0.56 NG/ML Yuan Rouse HanselCBC W/AUTO [id number] 00:00:00* Test Item Value Reference Range Interpretation Comme [...] NUCLEATED RBCS (test code = 1065) 0.0 /100WBC'S PLATELET COUNT (test code = 1015) 202 K/UL ABSOLUTE NEUTROPHILS (test c ode = 1066) 5.33 K/UL ABSOLUTE LYMPHOCYTES (test c ode = 1067) 2.19 K/UL ABSOLUTE MONOCYTES (test cod e = 1068) 0.76 K/UL ABSOLUTE EOSINOPHILS (test c ode = 1040) 0.22 K/UL ABSOLUTE BASOPHILS (test cod e = 1069) 0.04 K/UL ABS IMMATURE GRANULOCYTES (t est code = 1020) 0.03 K/UL ABS NUCLEATED RBCS (test cod e = 38369) 0.00 K/UL Yuan Rouse AustinLIPID [id number] 00:00:00* Test Item Value Reference Range Interpretation Comme nts CHOLESTEROL (test code = 2210) 132 MG/DL TRIGLYCERIDES (test code = 2232) 79 MG/DL HDL CHOLESTEROL (test code = 2220) 55 MG/DL CALC LDL CHOL (test code = 2237) 61 MG/DL RISK RATIO LDL/HDL (test cod e = 2238) 1.11 RATIO Yuan HammCOMPREHENSIVE METABOLIC [id number] 00:00:00* Test Item Value Reference Range Interpretation Comme nts GLUCOSE (test code = 2217) 102 MG/DL BUN (test code = 2208) 36 MG/DL CREATININE (test code = 2214) 1.96 MG/DL eGFR (2020 CKD-EPI) (test co de = 00666) 34 ML/MIN/1.73 CALC BUN/CREAT (test code = 2235) 18 RATIO SODIUM (test code = 2231) 142 MEQ/L POTASSIUM (test code = 2228) 5.1 MEQ/L CHLORIDE (test code = 2215) 106 MEQ/L CARBON DIOXIDE (test code = 2206) 23 MEQ/L CALCIUM (test code = 2209) 9.3 MG/DL PROTEIN, TOTAL (test code = 2229) 7.6 G/DL ALBUMIN (test code = 2201) 4.2 G/DL CALC GLOBULIN (test code = 2240) 3.4 G/DL CALC A/G RATIO (test code = 2234) 1.2 RATIO BILIRUBIN, TOTAL (test code = 2207) 0.5 MG/DL ALKALINE PHOSPHATASE (test code = 2204) 118 U/L AST (test code = 2218) 28 U/L ALT (test code = 2219) 40 U/L Yuan HammPSA, [id number] 00:00:00* Test Item Value Reference Range Interpretation Comme nts PSA, TOTAL (test code = 2606) 0.56 NG/ML Yuan HammCBC W/AUTO [id number] 00:00:00* Test Item Value Reference Range Interpretation Comme [...] NUCLEATED RBCS (test code = 1065) 0.0 /100WBC'S PLATELET COUNT (test code = 1015) 202 K/UL ABSOLUTE NEUTROPHILS (test c ode = 1066) 5.33 K/UL ABSOLUTE LYMPHOCYTES (test c ode = 1067) 2.19 K/UL ABSOLUTE MONOCYTES (test cod e = 1068) 0.76 K/UL ABSOLUTE EOSINOPHILS (test c ode = 1040) 0.22 K/UL ABSOLUTE BASOPHILS (test cod e = 1069) 0.04 K/UL ABS IMMATURE GRANULOCYTES (t est code = 1020) 0.03 K/UL ABS NUCLEATED RBCS (test cod e = 44373) 0.00 K/UL Yuan HammLIPID [id number] 00:00:00* Test Item Value Reference Range Interpretation Comme nts CHOLESTEROL (test code = 2210) 132 MG/DL TRIGLYCERIDES (test code = 2232) 79 MG/DL HDL CHOLESTEROL (test code = 2220) 55 MG/DL CALC LDL CHOL (test code = 2237) 61 MG/DL RISK RATIO LDL/HDL (test cod e = 2238) 1.11 RATIO Yuan HammCOMPREHENSIVE METABOLIC [id number] 00:00:00* Test Item Value Reference Range Interpretation Comme nts GLUCOSE (test code = 2217) 102 MG/DL BUN (test code = 2208) 36 MG/DL CREATININE (test code = 2214) 1.96 MG/DL eGFR (2020 CKD-EPI) (test co de = 52005) 34 ML/MIN/1.73 CALC BUN/CREAT (test code = 2235) 18 RATIO SODIUM (test code = 2231) 142 MEQ/L POTASSIUM (test code = 2228) 5.1 MEQ/L CHLORIDE (test code = 2215) 106 MEQ/L CARBON DIOXIDE (test code = 2206) 23 MEQ/L CALCIUM (test code = 2209) 9.3 MG/DL PROTEIN, TOTAL (test code = 2229) 7.6 G/DL ALBUMIN (test code = 2201) 4.2 G/DL CALC GLOBULIN (test code = 2240) 3.4 G/DL CALC A/G RATIO (test code = 2234) 1.2 RATIO BILIRUBIN, TOTAL (test code = 2207) 0.5 MG/DL ALKALINE PHOSPHATASE (test code = 2204) 118 U/L AST (test code = 2218) 28 U/L ALT (test code = 2219) 40 U/L Yuan HammPSA, [id number] 00:00:00* Test Item Value Reference Range Interpretation Comme nts PSA, TOTAL (test code = 2606) 0.56 NG/ML Yuan HammCBC W/AUTO [id number] 00:00:00* Test Item Value Reference Range Interpretation Comme [...] NUCLEATED RBCS (test code = 1065) 0.0 /100WBC'S PLATELET COUNT (test code = 1015) 202 K/UL ABSOLUTE NEUTROPHILS (test c ode = 1066) 5.33 K/UL ABSOLUTE LYMPHOCYTES (test c ode = 1067) 2.19 K/UL ABSOLUTE MONOCYTES (test cod e = 1068) 0.76 K/UL ABSOLUTE EOSINOPHILS (test c ode = 1040) 0.22 K/UL ABSOLUTE BASOPHILS (test cod e = 1069) 0.04 K/UL ABS IMMATURE GRANULOCYTES (t est code = 1020) 0.03 K/UL ABS NUCLEATED RBCS (test cod e = 49272) 0.00 K/UL Yuan HammLIPID [id number] 05:40:06* Test Item Value Reference Range Interpretation [...] SPECIMENS. FOR MOREINFORMATION, SEE CLIENT ANNOUNCEMENT AT [email or web address] [email or web address] RATIO LDL/HDL (test code = 223) 1.19 RATIO <3.55 COMPREHENSIVE METABOLIC [id number] 05:40:06* Test Item Value Reference Range Interpretation Comme nts GLUCOSE (test code = 2217) 103 MG/DL 70-99 H BUN (test code = 2208) 28 MG/DL 8-23 H CREATININE (test code = 2214) 1.77 MG/DL 0.80-1.40 H EFFECTIVE 2020, [facility] HAS IMPLEMENTED THE NKF-ASN RECOMMENDED KD-EPI EGFR REFIT CALCULATION THAT DOES NOT INCLUDE A COEFFICIENT FORRACE. FOR MORE INFORMATION, SEE ANNOUNCEMENT [email or web address] eGFR (2020 CKD-EPI) (test code = 55027) 38 ML/MIN/1.73 >60 L CALC BUN/CREAT (test code = 2235) 16 RATIO 6-28 SODIUM (test code = 223) 142 MEQ/L 133-146 POTASSIUM (test code = 2228) 5.1 MEQ/L 3.5-5.4 CHLORIDE (test code = 2215) 106 MEQ/L 95-107 CARBON DIOXIDE (test code = 2206) 24 MEQ/L 19-31 CALCIUM (test code = 2209) 9.3 MG/DL 8.5-10.5 PROTEIN, TOTAL (test code = 222) 7.4 G/DL 6.1-8.3 ALBUMIN (test code = [...] 5-50 UNLESS OTHERWISE INDICATED, ALL TESTING PERFORMED [facility] [employer] [address] [place] [id number] HOUSE CALLS NURSE: UMA HALL M.D. IA NUMBER [id number] [facility] [place]. [id number] HEMOGLOBIN [id number] 03:47:41* Test Item Value Reference Range Interpretation Comme nts HEMOGLOBIN A1c (test code = 44732) 5.9 % 4.2-5.6 H HEMOGLOBIN [id number] 00:00:00* Test Item Value Reference Range Interpretation Comme nts HEMOGLOBIN A1c (test code = 19847) 5.9 % Yuan HammCOMPREHENSIVE METABOLIC [id number] 00:00:00* Test Item Value Reference Range Interpretation Comme nts GLUCOSE (test code = 2217) 103 MG/DL BUN (test code = 2208) 28 MG/DL CREATININE (test code = 2214) 1.77 MG/DL eGFR (2020 CKD-EPI) (test co de = 76883) 38 ML/MIN/1.73 CALC BUN/CREAT (test code = 2235) 16 RATIO SODIUM (test code = 2231) 142 MEQ/L POTASSIUM (test code = 2228) 5.1 MEQ/L CHLORIDE (test code = 2215) 106 MEQ/L CARBON DIOXIDE (test code = 2206) 24 MEQ/L CALCIUM (test code = 2209) 9.3 MG/DL PROTEIN, TOTAL (test code = 2229) 7.4 G/DL ALBUMIN (test code = 2201) 4.4 G/DL CALC GLOBULIN (test code = 2240) 3.0 G/DL CALC A/G RATIO (test code = 2234) 1.5 RATIO BILIRUBIN, TOTAL (test code = 2207) 0.6 MG/DL ALKALINE PHOSPHATASE (test code = 2204) 103 U/L AST (test code = 2218) 19 U/L ALT (test code = 2219) 20 U/L Yuan HammLIPID [id number] 00:00:00* Test Item Value Reference Range Interpretation Comme nts CHOLESTEROL (test code = 2210) 143 MG/DL TRIGLYCERIDES (test code = 2232) 98 MG/DL HDL CHOLESTEROL (test code = 2220) 57 MG/DL CALC LDL CHOL (test code = 2237) 68 MG/DL RISK RATIO LDL/HDL (test cod e = 2238) 1.19 RATIO Yuan Rouse AustinHEMOGLOBIN [id number] 00:00:00* Test Item Value Reference Range Interpretation Comme nts HEMOGLOBIN A1c (test code = 06593) 5.9 % Yuan HammCOMPREHENSIVE METABOLIC [id number] 00:00:00* Test Item Value Reference Range Interpretation Comme nts GLUCOSE (test code = 2217) 103 MG/DL BUN (test code = 2208) 28 MG/DL CREATININE (test code = 2214) 1.77 MG/DL eGFR (2020 CKD-EPI) (test co de = 73585) 38 ML/MIN/1.73 CALC BUN/CREAT (test code = 2235) 16 RATIO SODIUM (test code = 2231) 142 MEQ/L POTASSIUM (test code = 2228) 5.1 MEQ/L CHLORIDE (test code = 2215) 106 MEQ/L CARBON DIOXIDE (test code = 2206) 24 MEQ/L CALCIUM (test code = 2209) 9.3 MG/DL PROTEIN, TOTAL (test code = 2229) 7.4 G/DL ALBUMIN (test code = 2201) 4.4 G/DL CALC GLOBULIN (test code = 2240) 3.0 G/DL CALC A/G RATIO (test code = 2234) 1.5 RATIO BILIRUBIN, TOTAL (test code = 2207) 0.6 MG/DL ALKALINE PHOSPHATASE (test code = 2204) 103 U/L AST (test code = 2218) 19 U/L ALT (test code = 2219) 20 U/L Yuan Rouse AustinLIPID [id number] 00:00:00* Test Item Value Reference Range Interpretation Comme nts CHOLESTEROL (test code = 2210) 143 MG/DL TRIGLYCERIDES (test code = 2232) 98 MG/DL HDL CHOLESTEROL (test code = 2220) 57 MG/DL CALC LDL CHOL (test code = 2237) 68 MG/DL RISK RATIO LDL/HDL (test cod e = 2238) 1.19 RATIO Yuan F AustinHEMOGLOBIN [id number] 00:00:00* Test Item Value Reference Range Interpretation Comme nts HEMOGLOBIN A1c (test code = 26383) 5.9 % Yuan HammCOMPREHENSIVE METABOLIC [id number] 00:00:00* Test Item Value Reference Range Interpretation Comme nts GLUCOSE (test code = 2217) 103 MG/DL BUN (test code = 2208) 28 MG/DL CREATININE (test code = 2214) 1.77 MG/DL eGFR (2020 CKD-EPI) (test co de = 14963) 38 ML/MIN/1.73 CALC BUN/CREAT (test code = 2235) 16 RATIO SODIUM (test code = 2231) 142 MEQ/L POTASSIUM (test code = 2228) 5.1 MEQ/L CHLORIDE (test code = 2215) 106 MEQ/L CARBON DIOXIDE (test code = 2206) 24 MEQ/L CALCIUM (test code = 2209) 9.3 MG/DL PROTEIN, TOTAL (test code = 2229) 7.4 G/DL ALBUMIN (test code = 2201) 4.4 G/DL CALC GLOBULIN (test code = 2240) 3.0 G/DL CALC A/G RATIO (test code = 2234) 1.5 RATIO BILIRUBIN, TOTAL (test code = 2207) 0.6 MG/DL ALKALINE PHOSPHATASE (test code = 2204) 103 U/L AST (test code = 2218) 19 U/L ALT (test code = 2219) 20 U/L Yuan Rouse AustinLIPID [id number] 00:00:00* Test Item Value Reference Range Interpretation Comme nts CHOLESTEROL (test code = 2210) 143 MG/DL TRIGLYCERIDES (test code = 2232) 98 MG/DL HDL CHOLESTEROL (test code = 2220) 57 MG/DL CALC LDL CHOL (test code = 2237) 68 MG/DL RISK RATIO LDL/HDL (test cod e = 2238) 1.19 RATIO Yuan Rouse AustinLIPID [id number] 00:00:00* Test Item Value Reference Range Interpretation Comme nts CHOLESTEROL (test code = 2210) 187 MG/DL TRIGLYCERIDES (test code = 2232) 151 MG/DL HDL CHOLESTEROL (test code = 2220) 52 MG/DL CALC LDL CHOL (test code = 2237) 109 MG/DL RISK RATIO LDL/HDL (test cod e = 2238) 2.10 RATIO Yuan HammCOMPREHENSIVE METABOLIC [id number] 00:00:00* Test Item Value Reference Range Interpretation Comme nts GLUCOSE (test code = 2217) 96 MG/DL BUN (test code = 2208) 30 MG/DL CREATININE (test code = 2214) 1.74 MG/DL eGFR AMER. (test cod e = 10008) 42 ML/MIN/1.73 eGFR NON- AMER. (test code = 31767) 36 ML/MIN/1.73 CALC BUN/CREAT (test code = 2235) 17 RATIO SODIUM (test code = 223) 142 MEQ/L POTASSIUM (test code = 2228) 4.6 MEQ/L CHLORIDE (test code = 2215) 104 MEQ/L CARBON DIOXIDE (test code = 2206) 24 MEQ/L CALCIUM (test code = 2209) 9.6 MG/DL PROTEIN, TOTAL (test code = 2229) 7.8 G/DL ALBUMIN (test code = 2201) 4.6 G/DL CALC GLOBULIN (test code = 2240) 3.2 G/DL CALC A/G RATIO (test code = 2234) 1.4 RATIO BILIRUBIN, TOTAL (test code = 2207) 0.6 MG/DL ALKALINE PHOSPHATASE (test code = 2204) 96 U/L AST (test code = 2218) 15 U/L ALT (test code = 2219) 26 U/L Yuan [id number] 00:00:00* Test Item Value Reference Range Interpretation Comme [facility] TSH, THIRD GENERATION (test code = 2821) 2.790 UIU/ML Yuan HammVITAMIN D, 25 [id number] 00:00:00* Test Item Value Reference Range Interpretation Comme [facility] VITAMIN D, 25 OH (test code = 4958) 35 NG/ML Yuan HammPTH, INTACT, WITH CALCIUM, PHOSPHORUS, [id number] 00:00:00* Test Item Value Reference Range Interpretation Comme [facility] INTACT PTH (test code = 5005) 69 PG/ML CALCIUM (test code = 2209) 9.6 MG/DL PHOSPHORUS (test code = 2227) 3.5 MG/DL CREATININE (test code = 2214) 1.74 MG/DL eGFR AMER. (test cod e = 72035) 42 ML/MIN/1.73 eGFR NON- AMER. (test code = 38239) 36 ML/MIN/1.73 Yuan HammALBUMIN/CREATININE RATIO, URINE, RANDOM [ADDED]2021-02-21 00:00:00* Test Item Value Reference Range Interpretation Comme nts CREATININE, URINE, CONC. (te st code = 2072) 182.6 MG/DL ALBUMIN, URINE, RANDOM (test code = 67246) 2.0 MG/DL CALC ALBUMIN/CREAT, RND (darcie t code = 39684) 11 MG/G Yuan HammHEMOGLOBIN [id number] 00:00:00* Test Item Value Reference Range Interpretation Comme [facility] HEMOGLOBIN A1c (test code = 82077) 5.9 % Yuan HammLIPID [id number] 00:00:00* Test Item Value Reference Range Interpretation Comme nts CHOLESTEROL (test code = 2210) 187 MG/DL TRIGLYCERIDES (test code = 2232) 151 MG/DL HDL CHOLESTEROL (test code = 2220) 52 MG/DL CALC LDL CHOL (test code = 2237) 109 MG/DL RISK RATIO LDL/HDL (test cod e = 2238) 2.10 RATIO Yuan HammCOMPREHENSIVE METABOLIC [id number] 00:00:00* Test Item Value Reference Range Interpretation Comme nts GLUCOSE (test code = 2217) 96 MG/DL BUN (test code = 2208) 30 MG/DL CREATININE (test code = 2214) 1.74 MG/DL eGFR AMER. (test cod e = 57365) 42 ML/MIN/1.73 eGFR NON- AMER. (test code = 06928) 36 ML/MIN/1.73 CALC BUN/CREAT (test code = 2235) 17 RATIO SODIUM (test code = 2231) 142 MEQ/L POTASSIUM (test code = 2228) 4.6 MEQ/L CHLORIDE (test code = 2215) 104 MEQ/L CARBON DIOXIDE (test code = 2206) 24 MEQ/L CALCIUM (test code = 2209) 9.6 MG/DL PROTEIN, TOTAL (test code = 2229) 7.8 G/DL ALBUMIN (test code = 220) 4.6 G/DL CALC GLOBULIN (test code = 2240) 3.2 G/DL CALC A/G RATIO (test code = 2234) 1.4 RATIO BILIRUBIN, TOTAL (test code = 2207) 0.6 MG/DL ALKALINE PHOSPHATASE (test code = 2204) 96 U/L AST (test code = 2218) 15 U/L ALT (test code = 2219) 26 U/L Yuan [id number] 00:00:00* Test Item Value Reference Range Interpretation Comme [facility] TSH, THIRD GENERATION (test code = 2821) 2.790 UIU/ML Yuan HammVITAMIN D, 25 [id number] 00:00:00* Test Item Value Reference Range Interpretation Comme [facility] VITAMIN D, 25 OH (test code = 4958) 35 NG/ML Yuan HammPTH, INTACT, WITH CALCIUM, PHOSPHORUS, [id number] 00:00:00* Test Item Value Reference Range Interpretation Comme [facility] INTACT PTH (test code = 5005) 69 PG/ML CALCIUM (test code = 2209) 9.6 MG/DL PHOSPHORUS (test code = 2227) 3.5 MG/DL CREATININE (test code = 2214) 1.74 MG/DL eGFR AMER. (test cod e = 62467) 42 ML/MIN/1.73 eGFR NON- AMER. (test code = 48304) 36 ML/MIN/1.73 Yuan HammALBUMIN/CREATININE RATIO, URINE, RANDOM [ADDED]2021-02-21 00:00:00* Test Item Value Reference Range Interpretation Comme [facility] CREATININE, URINE, CONC. (te st code = 2072) 182.6 MG/DL ALBUMIN, URINE, RANDOM (test code = 95419) 2.0 MG/DL CALC ALBUMIN/CREAT, RND (darcie t code = 19010) 11 MG/G Yuan HammHEMOGLOBIN [id number] 00:00:00* Test Item Value Reference Range Interpretation Comme [facility] HEMOGLOBIN A1c (test code = 52241) 5.9 % Yuan HammLIPID [id number] 00:00:00* Test Item Value Reference Range Interpretation Comme [facility] CHOLESTEROL (test code = 2210) 187 MG/DL TRIGLYCERIDES (test code = 2232) 151 MG/DL HDL CHOLESTEROL (test code = 2220) 52 MG/DL CALC LDL CHOL (test code = 2237) 109 MG/DL RISK RATIO LDL/HDL (test cod e = 2238) 2.10 RATIO Yuan HammCOMPREHENSIVE METABOLIC [id number] 00:00:00* Test Item Value Reference Range Interpretation Comme nts GLUCOSE (test code = 2217) 96 MG/DL BUN (test code = 2208) 30 MG/DL CREATININE (test code = 2214) 1.74 MG/DL eGFR AMER. (test cod e = 88671) 42 ML/MIN/1.73 eGFR NON- AMER. (test code = 32435) 36 ML/MIN/1.73 CALC BUN/CREAT (test code = 2235) 17 RATIO SODIUM (test code = 2231) 142 MEQ/L POTASSIUM (test code = 2228) 4.6 MEQ/L CHLORIDE (test code = 2215) 104 MEQ/L CARBON DIOXIDE (test code = 2206) 24 MEQ/L CALCIUM (test code = 2209) 9.6 MG/DL PROTEIN, TOTAL (test code = 2229) 7.8 G/DL ALBUMIN (test code = 2201) 4.6 G/DL CALC GLOBULIN (test code = 2240) 3.2 G/DL CALC A/G RATIO (test code = 2234) 1.4 RATIO BILIRUBIN, TOTAL (test code = 2207) 0.6 MG/DL ALKALINE PHOSPHATASE (test code = 2204) 96 U/L AST (test code = 2218) 15 U/L ALT (test code = 2219) 26 U/L Yuan [id number] 00:00:00* Test Item Value Reference Range Interpretation Comme [facility] TSH, THIRD GENERATION (test code = 2821) 2.790 UIU/ML Yuan HammVITAMIN D, 25 [id number] 00:00:00* Test Item Value Reference Range Interpretation Comme [facility] VITAMIN D, 25 OH (test code = 4958) 35 NG/ML Yuan HammPTH, INTACT, WITH CALCIUM, PHOSPHORUS, [id number] 00:00:00* Test Item Value Reference Range Interpretation Comme [facility] INTACT PTH (test code = 5005) 69 PG/ML CALCIUM (test code = 2209) 9.6 MG/DL PHOSPHORUS (test code = 2227) 3.5 MG/DL CREATININE (test code = 2214) 1.74 MG/DL eGFR AMER. (test cod e = 64010) 42 ML/MIN/1.73 eGFR NON- AMER. (test code = 91781) 36 ML/MIN/1.73 Yuan Rouse AustinALBUMIN/CREATININE RATIO, URINE, RANDOM [ADDED]2021-02-21 00:00:00* Test Item Value Reference Range Interpretation Comme [facility] CREATININE, URINE, CONC. (te st code = 2072) 182.6 MG/DL ALBUMIN, URINE, RANDOM (test code = 88333) 2.0 MG/DL CALC ALBUMIN/CREAT, RND (darcie t code = 03238) 11 MG/G Yuan HammHEMOGLOBIN [id number] 00:00:00* Test Item Value Reference Range Interpretation Comme [facility] HEMOGLOBIN A1c (test code = 90582) 5.9 % Yuan HammPTH, INTACT, WITH CALCIUM, PHOSPHORUS, [id number] 00:00:00* Test Item Value Reference Range Interpretation Comme nts INTACT PTH (test code = 5005) 117 PG/ML CALCIUM (test code = 2209) 9.4 MG/DL PHOSPHORUS (test code = 2227) 3.7 MG/DL CREATININE (test code = 2214) 2.02 MG/DL eGFR AMER. (test cod e = 88466) 35 ML/MIN/1.73 eGFR NON- AMER. (test code = 77594) 30 ML/MIN/1.73 Yuan HammVITAMIN D, 25 [id number] 00:00:00* Test Item Value Reference Range Interpretation Comme nts VITAMIN D, 25 OH (test code = 4958) 23 NG/ML Yuan HammPTH, INTACT, WITH CALCIUM, PHOSPHORUS, [id number] 00:00:00* Test Item Value Reference Range Interpretation Comme nts INTACT PTH (test code = 5005) 117 PG/ML CALCIUM (test code = 2209) 9.4 MG/DL PHOSPHORUS (test code = 2227) 3.7 MG/DL CREATININE (test code = 2214) 2.02 MG/DL eGFR AMER. (test cod e = 07740) 35 ML/MIN/1.73 eGFR NON- AMER. (test code = 95712) 30 ML/MIN/1.73 Yuan Rouse AustinVITAMIN D, 25 [id number] 00:00:00* Test Item Value Reference Range Interpretation Comme nts VITAMIN D, 25 OH (test code = 4958) 23 NG/ML Yuan HammPTH, INTACT, WITH CALCIUM, PHOSPHORUS, [id number] 00:00:00* Test Item Value Reference Range Interpretation Comme nts INTACT PTH (test code = 5005) 117 PG/ML CALCIUM (test code = 2209) 9.4 MG/DL PHOSPHORUS (test code = 2227) 3.7 MG/DL CREATININE (test code = 2214) 2.02 MG/DL eGFR AMER. (test cod e = 67046) 35 ML/MIN/1.73 eGFR NON- AMER. (test code = 50543) 30 ML/MIN/1.73 Yuan HammVITAMIN D, 25 [id number] 00:00:00* Test Item Value Reference Range Interpretation Comme nts VITAMIN D, 25 OH (test code = 4958) 23 NG/ML Yuan HammCOMPREHENSIVE METABOLIC [id number] 00:00:00* Test Item Value Reference Range Interpretation Comme nts GLUCOSE (test code = 2217) 86 MG/DL BUN (test code = 2208) 35 MG/DL CREATININE (test code = 2214) 2.02 MG/DL eGFR AMER. (test cod e = 33736) 35 ML/MIN/1.73 eGFR NON- AMER. (test code = 76260) 30 ML/MIN/1.73 CALC BUN/CREAT (test code = 2235) 17 RATIO SODIUM (test code = 2231) 141 MEQ/L POTASSIUM (test code = 2228) 5.0 MEQ/L CHLORIDE (test code = 2215) 104 MEQ/L CARBON DIOXIDE (test code = 2206) 19 MEQ/L CALCIUM (test code = 2209) 9.4 MG/DL PROTEIN, TOTAL (test code = 2229) 8.0 G/DL ALBUMIN (test code = 2201) 4.3 G/DL CALC GLOBULIN (test code = 2240) 3.7 G/DL CALC A/G RATIO (test code = 2234) 1.2 RATIO BILIRUBIN, TOTAL (test code = 2207) 0.7 MG/DL ALKALINE PHOSPHATASE (test code = 2204) 96 U/L AST (test code = 2218) 16 U/L ALT (test code = 2219) 16 U/L Yuan HammCBC W/AUTO [id number] 00:00:00* Test Item Value Reference Range Interpretation Comme nts WBC (test code = 1001) 8.2 K/UL [...] COUNT (test code = 1015) 168 K/UL Yuan HammPROTEIN/CREATININE RATIO, [id number] 00:00:00* Test Item Value Reference Range Interpretation Comme nts PROTEIN, URINE, CONC. (test code = 2104) 25 MG/DL CREATININE, URINE, CONC. (te st code = 2071) 247.6 MG/DL CALC PROTEIN/CREATININE (darcie t code = 2157) 101 MG/GCREAT Yuan HammLIPID [id number] 00:00:00* Test Item Value Reference Range Interpretation Comme nts CHOLESTEROL (test code = 2210) 231 MG/DL TRIGLYCERIDES (test code = 2232) 189 MG/DL HDL CHOLESTEROL (test code = 2220) 49 MG/DL CALC LDL CHOL (test code = 2237) 149 MG/DL RISK RATIO LDL/HDL (test cod e = 2238) 3.04 RATIO Yuan HammCOMPREHENSIVE METABOLIC [id number] 00:00:00* Test Item Value Reference Range Interpretation Comme nts GLUCOSE (test code = 2217) 86 MG/DL BUN (test code = 2208) 35 MG/DL CREATININE (test code = 2214) 2.02 MG/DL eGFR AMER. (test cod e = 82194) 35 ML/MIN/1.73 eGFR NON- AMER. (test code = 96209) 30 ML/MIN/1.73 CALC BUN/CREAT (test code = 2235) 17 RATIO SODIUM (test code = 2231) 141 MEQ/L POTASSIUM (test code = 2228) 5.0 MEQ/L CHLORIDE (test code = 2215) 104 MEQ/L CARBON DIOXIDE (test code = 2206) 19 MEQ/L CALCIUM (test code = 2209) 9.4 MG/DL PROTEIN, TOTAL (test code = 2229) 8.0 G/DL ALBUMIN (test code = 2201) 4.3 G/DL CALC GLOBULIN (test code = 2240) 3.7 G/DL CALC A/G RATIO (test code = 2234) 1.2 RATIO BILIRUBIN, TOTAL (test code = 2207) 0.7 MG/DL ALKALINE PHOSPHATASE (test code = 2204) 96 U/L AST (test code = 2218) 16 U/L ALT (test code = 2219) 16 U/L Yuan HammCBC W/AUTO [id number] 00:00:00* Test Item Value Reference Range Interpretation Comme nts WBC (test code = 1001) 8.2 K/UL [...] COUNT (test code = 1015) 168 K/UL Yuan HammPROTEIN/CREATININE RATIO, [id number] 00:00:00* Test Item Value Reference Range Interpretation Comme nts PROTEIN, URINE, CONC. (test code = 210) 25 MG/DL CREATININE, URINE, CONC. (te st code = 2071) 247.6 MG/DL CALC PROTEIN/CREATININE (darcie t code = 215) 101 MG/GCREAT Yuan HammLIPID [id number] 00:00:00* Test Item Value Reference Range Interpretation Comme nts CHOLESTEROL (test code = 2210) 231 MG/DL TRIGLYCERIDES (test code = 2232) 189 MG/DL HDL CHOLESTEROL (test code = 2220) 49 MG/DL CALC LDL CHOL (test code = 2237) 149 MG/DL RISK RATIO LDL/HDL (test cod e = 2238) 3.04 RATIO Yuan HammCOMPREHENSIVE METABOLIC [id number] 00:00:00* Test Item Value Reference Range Interpretation Comme nts GLUCOSE (test code = 2217) 86 MG/DL BUN (test code = 2208) 35 MG/DL CREATININE (test code = 2214) 2.02 MG/DL eGFR AMER. (test cod e = 38747) 35 ML/MIN/1.73 eGFR NON- AMER. (test code = 43380) 30 ML/MIN/1.73 CALC BUN/CREAT (test code = 2235) 17 RATIO SODIUM (test code = 2231) 141 MEQ/L POTASSIUM (test code = 2228) 5.0 MEQ/L CHLORIDE (test code = 2215) 104 MEQ/L CARBON DIOXIDE (test code = 2206) 19 MEQ/L CALCIUM (test code = 2209) 9.4 MG/DL PROTEIN, TOTAL (test code = 2229) 8.0 G/DL ALBUMIN (test code = 2201) 4.3 G/DL CALC GLOBULIN (test code = 2240) 3.7 G/DL CALC A/G RATIO (test code = 2234) 1.2 RATIO BILIRUBIN, TOTAL (test code = 2207) 0.7 MG/DL ALKALINE PHOSPHATASE (test code = 2204) 96 U/L AST (test code = 2218) 16 U/L ALT (test code = 2219) 16 U/L Yuan HammCBC W/AUTO [id number] 00:00:00* Test Item Value Reference Range Interpretation Comme nts WBC (test code = 1001) 8.2 K/UL [...] COUNT (test code = 1015) 168 K/UL Yuan aHmmPROTEIN/CREATININE RATIO, [id number] 00:00:00* Test Item Value Reference Range Interpretation Comme nts PROTEIN, URINE, CONC. (test code = 210) 25 MG/DL CREATININE, URINE, CONC. (te st code = 2071) 247.6 MG/DL CALC PROTEIN/CREATININE (darcie t code = 2157) 101 MG/GCREAT Yuan HammLIPID [id number] 00:00:00* Test Item Value Reference Range Interpretation Comme nts CHOLESTEROL (test code = 2210) 231 MG/DL TRIGLYCERIDES (test code = 2232) 189 MG/DL HDL CHOLESTEROL (test code = 2220) 49 MG/DL CALC LDL CHOL (test code = 2237) 149 MG/DL RISK RATIO LDL/HDL (test cod e = 2238) 3.04 RATIO Yuan HammCOMPREHENSIVE METABOLIC [id number] 00:00:00* Test Item Value Reference Range Interpretation Comme nts GLUCOSE (test code = 2217) 108 MG/DL BUN (test code = 2208) 30 MG/DL CREATININE (test code = 2214) 1.49 MG/DL eGFR AMER. (test cod e = 37734) 51 ML/MIN/1.73 eGFR NON- AMER. (test code = 99666) 44 ML/MIN/1.73 CALC BUN/CREAT (test code = 2235) 20 RATIO SODIUM (test code = 2231) 142 MEQ/L POTASSIUM (test code = 2228) 4.7 MEQ/L CHLORIDE (test code = 2215) 106 MEQ/L CARBON DIOXIDE (test code = 2206) 23 MEQ/L CALCIUM (test code = 2209) 9.2 MG/DL PROTEIN, TOTAL (test code = 2229) 7.7 G/DL ALBUMIN (test code = 2201) 4.4 G/DL CALC GLOBULIN (test code = 2240) 3.3 G/DL CALC A/G RATIO (test code = 2234) 1.3 RATIO BILIRUBIN, TOTAL (test code = 2207) 0.9 MG/DL ALKALINE PHOSPHATASE (test code = 220) 94 U/L AST (test code = 2218) 13 U/L ALT (test code = 2219) 15 U/L Yuan HammLIPID [id number] 00:00:00* Test Item Value Reference Range Interpretation Comme nts CHOLESTEROL (test code = 2210) 215 MG/DL TRIGLYCERIDES (test code = 2232) 135 MG/DL HDL CHOLESTEROL (test code = 2220) 49 MG/DL CALC LDL CHOL (test code = 2237) 139 MG/DL RISK RATIO LDL/HDL (test cod e = 2238) 2.84 RATIO Yuan HammCOMPREHENSIVE METABOLIC [id number] 00:00:00* Test Item Value Reference Range Interpretation Comme nts GLUCOSE (test code = 2216) 108 MG/DL BUN (test code = 8) 30 MG/DL CREATININE (test code = 2214) 1.49 MG/DL eGFR AMER. (test cod e = 42283) 51 ML/MIN/1.73 eGFR NON- AMER. (test code = 81544) 44 ML/MIN/1.73 CALC BUN/CREAT (test code = 2235) 20 RATIO SODIUM (test code = 2231) 142 MEQ/L POTASSIUM (test code = 2228) 4.7 MEQ/L CHLORIDE (test code = 2215) 106 MEQ/L CARBON DIOXIDE (test code = 6) 23 MEQ/L CALCIUM (test code = 2209) 9.2 MG/DL PROTEIN, TOTAL (test code = 2229) 7.7 G/DL ALBUMIN (test code = 2201) 4.4 G/DL CALC GLOBULIN (test code = 2240) 3.3 G/DL CALC A/G RATIO (test code = 2234) 1.3 RATIO BILIRUBIN, TOTAL (test code = 2207) 0.9 MG/DL ALKALINE PHOSPHATASE (test code = 2204) 94 U/L AST (test code = 2218) 13 U/L ALT (test code = 2219) 15 U/L Yuan Rouse AustinLIPID [id number] 00:00:00* Test Item Value Reference Range Interpretation Comme nts CHOLESTEROL (test code = 2210) 215 MG/DL TRIGLYCERIDES (test code = 2232) 135 MG/DL HDL CHOLESTEROL (test code = 2220) 49 MG/DL CALC LDL CHOL (test code = 2237) 139 MG/DL RISK RATIO LDL/HDL (test cod e = 2238) 2.84 RATIO Yuan F AustinCOMPREHENSIVE METABOLIC [id number] 00:00:00* Test Item Value Reference Range Interpretation Comme nts GLUCOSE (test code = 2217) 108 MG/DL BUN (test code = 2208) 30 MG/DL CREATININE (test code = 2214) 1.49 MG/DL eGFR AMER. (test cod e = 75344) 51 ML/MIN/1.73 eGFR NON- AMER. (test code = 82665) 44 ML/MIN/1.73 CALC BUN/CREAT (test code = 2235) 20 RATIO SODIUM (test code = 2231) 142 MEQ/L POTASSIUM (test code = 2228) 4.7 MEQ/L CHLORIDE (test code = 2215) 106 MEQ/L CARBON DIOXIDE (test code = 2206) 23 MEQ/L CALCIUM (test code = 2209) 9.2 MG/DL PROTEIN, TOTAL (test code = 2229) 7.7 G/DL ALBUMIN (test code = 2201) 4.4 G/DL CALC GLOBULIN (test code = 2240) 3.3 G/DL CALC A/G RATIO (test code = 2234) 1.3 RATIO BILIRUBIN, TOTAL (test code = 2207) 0.9 MG/DL ALKALINE PHOSPHATASE (test code = 2204) 94 U/L AST (test code = 2218) 13 U/L ALT (test code = 2219) 15 U/L Yuan Rouse AustinLIPID [id number] 00:00:00* Test Item Value Reference Range Interpretation Comme nts CHOLESTEROL (test code = 2210) 215 MG/DL TRIGLYCERIDES (test code = 2232) 135 MG/DL HDL CHOLESTEROL (test code = 2220) 49 MG/DL CALC LDL CHOL (test code = 2237) 139 MG/DL RISK RATIO LDL/HDL (test cod e = 2238) 2.84 RATIO uYan HammLIPID [id number] 00:00:00* Test Item Value Reference Range Interpretation Comme nts CHOLESTEROL (test code = 2210) 217 MG/DL TRIGLYCERIDES (test code = 2232) 198 MG/DL HDL CHOLESTEROL (test code = 2220) 47 MG/DL CALC LDL CHOL (test code = 2237) 130 MG/DL RISK RATIO LDL/HDL (test cod e = 2238) 2.77 RATIO Yuan HammCBC W/AUTO [id number] 00:00:00* Test Item Value Reference Range Interpretation Comme nts WBC (test code = 1001) 7.7 K/UL [...] COUNT (test code = 1015) 175 K/UL Yuan HammPROTEIN/CREATININE RATIO, [id number] 00:00:00* Test Item Value Reference Range Interpretation Comme nts PROTEIN, URINE, CONC. (test code = 2104) 8 MG/DL CREATININE, URINE, CONC. (te st code = 2071) 122.6 MG/DL CALC PROTEIN/CREATININE (darcie t code = 2157) 65 MG/GCREAT Yuan HammCOMPREHENSIVE METABOLIC [id number] 00:00:00* Test Item Value Reference Range Interpretation Comme nts GLUCOSE (test code = 2217) 103 MG/DL BUN (test code = 2208) 38 MG/DL CREATININE (test code = 2214) 1.60 MG/DL eGFR AMER. (test cod e = 23285) 47 ML/MIN/1.73 eGFR NON- AMER. (test code = 85117) 41 ML/MIN/1.73 CALC BUN/CREAT (test code = 2235) 24 RATIO SODIUM (test code = 2231) 143 MEQ/L POTASSIUM (test code = 2228) 4.6 MEQ/L CHLORIDE (test code = 2215) 106 MEQ/L CARBON DIOXIDE (test code = 2206) 24 MEQ/L CALCIUM (test code = 2209) 9.5 MG/DL PROTEIN, TOTAL (test code = 2229) 7.4 G/DL ALBUMIN (test code = 2201) 4.4 G/DL CALC GLOBULIN (test code = 2240) 3.0 G/DL CALC A/G RATIO (test code = 2234) 1.5 RATIO BILIRUBIN, TOTAL (test code = 2207) 0.8 MG/DL ALKALINE PHOSPHATASE (test code = 2204) 97 U/L AST (test code = 2218) 10 U/L ALT (test code = 2219) 11 U/L Yuan HammLIPID [id number] 00:00:00* Test Item Value Reference Range Interpretation Comme nts CHOLESTEROL (test code = 2210) 217 MG/DL TRIGLYCERIDES (test code = 2232) 198 MG/DL HDL CHOLESTEROL (test code = 2220) 47 MG/DL CALC LDL CHOL (test code = 2237) 130 MG/DL RISK RATIO LDL/HDL (test cod e = 2238) 2.77 RATIO Yuan HammCBC W/AUTO [id number] 00:00:00* Test Item Value Reference Range Interpretation Comme nts WBC (test code = 1001) 7.7 K/UL [...] COUNT (test code = 1015) 175 K/UL Yuan HammPROTEIN/CREATININE RATIO, [id number] 00:00:00* Test Item Value Reference Range Interpretation Comme nts PROTEIN, URINE, CONC. (test code = 2104) 8 MG/DL CREATININE, URINE, CONC. (te st code = 2071) 122.6 MG/DL CALC PROTEIN/CREATININE (darcie t code = 2158) 65 MG/GCREAT Yuan HammCOMPREHENSIVE METABOLIC [id number] 00:00:00* Test Item Value Reference Range Interpretation Comme nts GLUCOSE (test code = 2217) 103 MG/DL BUN (test code = 2208) 38 MG/DL CREATININE (test code = 2214) 1.60 MG/DL eGFR AMER. (test cod e = 84725) 47 ML/MIN/1.73 eGFR NON- AMER. (test code = 41429) 41 ML/MIN/1.73 CALC BUN/CREAT (test code = 2235) 24 RATIO SODIUM (test code = 2231) 143 MEQ/L POTASSIUM (test code = 2228) 4.6 MEQ/L CHLORIDE (test code = 2215) 106 MEQ/L CARBON DIOXIDE (test code = 2206) 24 MEQ/L CALCIUM (test code = 2209) 9.5 MG/DL PROTEIN, TOTAL (test code = 2229) 7.4 G/DL ALBUMIN (test code = 2201) 4.4 G/DL CALC GLOBULIN (test code = 2240) 3.0 G/DL CALC A/G RATIO (test code = 2234) 1.5 RATIO BILIRUBIN, TOTAL (test code = 2207) 0.8 MG/DL ALKALINE PHOSPHATASE (test code = 2204) 97 U/L AST (test code = 2218) 10 U/L ALT (test code = 2219) 11 U/L Yuan HammLIPID [id number] 00:00:00* Test Item Value Reference Range Interpretation Comme nts CHOLESTEROL (test code = 2210) 217 MG/DL TRIGLYCERIDES (test code = 2232) 198 MG/DL HDL CHOLESTEROL (test code = 2220) 47 MG/DL CALC LDL CHOL (test code = 2237) 130 MG/DL RISK RATIO LDL/HDL (test cod e = 2238) 2.77 RATIO Yuan HammCBC W/AUTO [id number] 00:00:00* Test Item Value Reference Range Interpretation Comme nts WBC (test code = 1001) 7.7 K/UL [...] COUNT (test code = 1015) 175 K/UL Yuan Rouse HanselPROTEIN/CREATININE RATIO, [id number] 00:00:00* Test Item Value Reference Range Interpretation Comme nts PROTEIN, URINE, CONC. (test code = 2104) 8 MG/DL CREATININE, URINE, CONC. (te st code = 2071) 122.6 MG/DL CALC PROTEIN/CREATININE (darcie t code = 215) 65 MG/GCREAT Yuan Rouse HanselCOMPREHENSIVE METABOLIC [id number] 00:00:00* Test Item Value Reference Range Interpretation Comme nts GLUCOSE (test code = 2217) 103 MG/DL BUN (test code = 2208) 38 MG/DL CREATININE (test code = 2214) 1.60 MG/DL eGFR AMER. (test cod e = 18744) 47 ML/MIN/1.73 eGFR NON- AMER. (test code = 46254) 41 ML/MIN/1.73 CALC BUN/CREAT (test code = 2235) 24 RATIO SODIUM (test code = 2231) 143 MEQ/L POTASSIUM (test code = 2228) 4.6 MEQ/L CHLORIDE (test code = 2215) 106 MEQ/L CARBON DIOXIDE (test code = 2206) 24 MEQ/L CALCIUM (test code = 2209) 9.5 MG/DL PROTEIN, TOTAL (test code = 2229) 7.4 G/DL ALBUMIN (test code = 2201) 4.4 G/DL CALC GLOBULIN (test code = 2240) 3.0 G/DL CALC A/G RATIO (test code = 2234) 1.5 RATIO BILIRUBIN, TOTAL (test code = 2207) 0.8 MG/DL ALKALINE PHOSPHATASE (test code = 2204) 97 U/L AST (test code = 2218) 10 U/L ALT (test code = 2219) 11 U/L Yuan Rouse [id number] 00:00:00* Test Item Value Reference Range Interpretation Comme nts TSH, THIRD GENERATION (test code = 2821) 1.550 UIU/ML Yuan HammCOMPREHENSIVE METABOLIC [id number] 00:00:00* Test Item Value Reference Range Interpretation Comme nts GLUCOSE (test code = 2217) 103 MG/DL BUN (test code = 2208) 23 MG/DL CREATININE (test code = 2214) 1.57 MG/DL eGFR AMER. (test cod e = 30097) 49 ML/MIN/1.73 eGFR NON- AMER. (test code = 34500) 42 ML/MIN/1.73 CALC BUN/CREAT (test code = 2235) 15 RATIO SODIUM (test code = 2231) 140 MEQ/L POTASSIUM (test code = 2228) 4.5 MEQ/L CHLORIDE (test code = 2215) 103 MEQ/L CARBON DIOXIDE (test code = 2206) 23 MEQ/L CALCIUM (test code = 2209) 9.4 MG/DL PROTEIN, TOTAL (test code = 2229) 7.8 G/DL ALBUMIN (test code = 2201) 4.7 G/DL CALC GLOBULIN (test code = 2240) 3.1 G/DL CALC A/G RATIO (test code = 2234) 1.5 RATIO BILIRUBIN, TOTAL (test code = 2207) 0.8 MG/DL ALKALINE PHOSPHATASE (test code = 2204) 103 U/L AST (test code = 2218) 13 U/L ALT (test code = 2219) 16 U/L Yuan Rouse [id number] 00:00:00* Test Item Value Reference Range Interpretation Comme nts TSH, THIRD GENERATION (test code = 2821) 1.550 UIU/ML Yuan Rouse AustinCOMPREHENSIVE METABOLIC [id number] 00:00:00* Test Item Value Reference Range Interpretation Comme nts GLUCOSE (test code = 2217) 103 MG/DL BUN (test code = 2208) 23 MG/DL CREATININE (test code = 2214) 1.57 MG/DL eGFR AMER. (test cod e = 14292) 49 ML/MIN/1.73 eGFR NON- AMER. (test code = 49879) 42 ML/MIN/1.73 CALC BUN/CREAT (test code = 2235) 15 RATIO SODIUM (test code = 2231) 140 MEQ/L POTASSIUM (test code = 2228) 4.5 MEQ/L CHLORIDE (test code = 2215) 103 MEQ/L CARBON DIOXIDE (test code = 2206) 23 MEQ/L CALCIUM (test code = 2209) 9.4 MG/DL PROTEIN, TOTAL (test code = 2229) 7.8 G/DL ALBUMIN (test code = 2201) 4.7 G/DL CALC GLOBULIN (test code = 2240) 3.1 G/DL CALC A/G RATIO (test code = 2234) 1.5 RATIO BILIRUBIN, TOTAL (test code = 2207) 0.8 MG/DL ALKALINE PHOSPHATASE (test code = 2204) 103 U/L AST (test code = 2218) 13 U/L ALT (test code = 2219) 16 U/L Yuan Rouse [id number] 00:00:00* Test Item Value Reference Range Interpretation Comme nts TSH, THIRD GENERATION (test code = 2821) 1.550 UIU/ML Yuan Rouse [place] [id number] 00:00:00* Test Item Value Reference Range Interpretation Comme nts GLUCOSE (test code = 2217) 103 MG/DL BUN (test code = 2208) 23 MG/DL CREATININE (test code = 2214) 1.57 MG/DL eGFR AMER. (test cod e = 33924) 49 ML/MIN/1.73 eGFR NON- AMER. (test code = 17350) 42 ML/MIN/1.73 CALC BUN/CREAT (test code = 2235) 15 RATIO SODIUM (test code = 2231) 140 MEQ/L POTASSIUM (test code = 2228) 4.5 MEQ/L CHLORIDE (test code = 2215) 103 MEQ/L CARBON DIOXIDE (test code = 2206) 23 MEQ/L CALCIUM (test code = 2209) 9.4 MG/DL PROTEIN, TOTAL (test code = 2229) 7.8 G/DL ALBUMIN (test code = 2201) 4.7 G/DL CALC GLOBULIN (test code = 2240) 3.1 G/DL CALC A/G RATIO (test code = 2234) 1.5 RATIO BILIRUBIN, TOTAL (test code = 2207) 0.8 MG/DL ALKALINE PHOSPHATASE (test code = 2204) 103 U/L AST (test code = 2218) 13 U/L ALT (test code = 2219) 16 U/L Yuan oRuse [place] HillLIPID [id number] 00:00:00* Test Item Value Reference Range Interpretation Comme nts CHOLESTEROL (test code = 2210) 144 MG/DL TRIGLYCERIDES (test code = 2232) 142 MG/DL HDL CHOLESTEROL (test code = 2220) 48 MG/DL CALC LDL CHOL (test code = 2237) 68 MG/DL RISK RATIO LDL/HDL (test cod e = 2238) 1.41 RATIO Yuan HammCOMPREHENSIVE METABOLIC [id number] 00:00:00* Test Item Value Reference Range Interpretation Comme nts GLUCOSE (test code = 2217) 102 MG/DL BUN (test code = 2208) 22 MG/DL CREATININE (test code = 2214) 1.31 MG/DL eGFR AMER. (test cod e = 22633) 61 ML/MIN/1.73 eGFR NON- AMER. (test code = 59717) 53 ML/MIN/1.73 CALC BUN/CREAT (test code = 2235) 17 RATIO SODIUM (test code = 2231) 140 MEQ/L POTASSIUM (test code = 2228) 4.7 MEQ/L CHLORIDE (test code = 2215) 104 MEQ/L CARBON DIOXIDE (test code = 2206) 21 MEQ/L CALCIUM (test code = 2209) 9.2 MG/DL PROTEIN, TOTAL (test code = 2229) 7.6 G/DL ALBUMIN (test code = 2201) 4.2 G/DL CALC GLOBULIN (test code = 2240) 3.4 G/DL CALC A/G RATIO (test code = 2234) 1.2 RATIO BILIRUBIN, TOTAL (test code = 2207) 0.9 MG/DL ALKALINE PHOSPHATASE (test code = 2204) 79 U/L AST (test code = 2218) 13 U/L ALT (test code = 2219) 23 U/L Yuan HammHEMOGLOBIN [id number] 00:00:00* Test Item Value Reference Range Interpretation Comme nts HEMOGLOBIN A1c (test code = 83918) 5.6 % Yuan HammPSA, [id number] 00:00:00* Test Item Value Reference Range Interpretation Comme nts PSA, TOTAL (test code = 2606) 0.70 NG/ML Yuan HammCBC W/AUTO [id number] 00:00:00* Test Item Value Reference Range Interpretation Comme [...] COUNT (test code = 1015) 145 K/UL Yuan HammLIPID [id number] 00:00:00* Test Item Value Reference Range Interpretation Comme nts CHOLESTEROL (test code = 2210) 144 MG/DL TRIGLYCERIDES (test code = 2232) 142 MG/DL HDL CHOLESTEROL (test code = 2220) 48 MG/DL CALC LDL CHOL (test code = 2237) 68 MG/DL RISK RATIO LDL/HDL (test cod e = 2238) 1.41 RATIO Yuan HammCOMPREHENSIVE METABOLIC [id number] 00:00:00* Test Item Value Reference Range Interpretation Comme nts GLUCOSE (test code = 2217) 102 MG/DL BUN (test code = 2208) 22 MG/DL CREATININE (test code = 2214) 1.31 MG/DL eGFR AMER. (test cod e = 50016) 61 ML/MIN/1.73 eGFR NON- AMER. (test code = 83190) 53 ML/MIN/1.73 CALC BUN/CREAT (test code = 2235) 17 RATIO SODIUM (test code = 2231) 140 MEQ/L POTASSIUM (test code = 2228) 4.7 MEQ/L CHLORIDE (test code = 2215) 104 MEQ/L CARBON DIOXIDE (test code = 2206) 21 MEQ/L CALCIUM (test code = 2209) 9.2 MG/DL PROTEIN, TOTAL (test code = 2229) 7.6 G/DL ALBUMIN (test code = 2201) 4.2 G/DL CALC GLOBULIN (test code = 2240) 3.4 G/DL CALC A/G RATIO (test code = 2234) 1.2 RATIO BILIRUBIN, TOTAL (test code = 2207) 0.9 MG/DL ALKALINE PHOSPHATASE (test code = 2204) 79 U/L AST (test code = 2218) 13 U/L ALT (test code = 2219) 23 U/L Yuan HammHEMOGLOBIN [id number] 00:00:00* Test Item Value Reference Range Interpretation Comme nts HEMOGLOBIN A1c (test code = 36276) 5.6 % Yuan HammPSA, [id number] 00:00:00* Test Item Value Reference Range Interpretation Comme nts PSA, TOTAL (test code = 2606) 0.70 NG/ML Yuan HammCBC W/AUTO [id number] 00:00:00* Test Item Value Reference Range Interpretation Comme [...] COUNT (test code = 1015) 145 K/UL Yuan HammLIPID [id number] 00:00:00* Test Item Value Reference Range Interpretation Comme nts CHOLESTEROL (test code = 2210) 144 MG/DL TRIGLYCERIDES (test code = 2232) 142 MG/DL HDL CHOLESTEROL (test code = 2220) 48 MG/DL CALC LDL CHOL (test code = 2237) 68 MG/DL RISK RATIO LDL/HDL (test cod e = 2238) 1.41 RATIO Yuan HammCOMPREHENSIVE METABOLIC [id number] 00:00:00* Test Item Value Reference Range Interpretation Comme nts GLUCOSE (test code = 2217) 102 MG/DL BUN (test code = 2208) 22 MG/DL CREATININE (test code = 2214) 1.31 MG/DL eGFR AMER. (test cod e = 04640) 61 ML/MIN/1.73 eGFR NON- AMER. (test code = 44659) 53 ML/MIN/1.73 CALC BUN/CREAT (test code = 2235) 17 RATIO SODIUM (test code = 2231) 140 MEQ/L POTASSIUM (test code = 2228) 4.7 MEQ/L CHLORIDE (test code = 2215) 104 MEQ/L CARBON DIOXIDE (test code = 2206) 21 MEQ/L CALCIUM (test code = 2209) 9.2 MG/DL PROTEIN, TOTAL (test code = 2229) 7.6 G/DL ALBUMIN (test code = 2201) 4.2 G/DL CALC GLOBULIN (test code = 2240) 3.4 G/DL CALC A/G RATIO (test code = 2234) 1.2 RATIO BILIRUBIN, TOTAL (test code = 2207) 0.9 MG/DL ALKALINE PHOSPHATASE (test code = 2204) 79 U/L AST (test code = 2218) 13 U/L ALT (test code = 2219) 23 U/L Yuan HammHEMOGLOBIN [id number] 00:00:00* Test Item Value Reference Range Interpretation Comme nts HEMOGLOBIN A1c (test code = 37416) 5.6 % Yuan HammPSA, [id number] 00:00:00* Test Item Value Reference Range Interpretation Comme nts PSA, TOTAL (test code = 2606) 0.70 NG/ML Yuan HammCBC W/AUTO [id number] 00:00:00* Test Item Value Reference Range Interpretation Comme [...] COUNT (test code = 1015) 145 K/UL Yuan HammLIPID [id number] 00:00:00* Test Item Value Reference Range Interpretation Comme nts CHOLESTEROL (test code = 2210) 137 MG/DL TRIGLYCERIDES (test code = 2232) 204 MG/DL HDL CHOLESTEROL (test code = 2220) 46 MG/DL CALC LDL CHOL (test code = 2237) 50 MG/DL RISK RATIO LDL/HDL (test cod e = 2238) 1.09 RATIO Yuan HammLIPID [id number] 00:00:00* Test Item Value Reference Range Interpretation Comme nts CHOLESTEROL (test code = 2210) 137 MG/DL TRIGLYCERIDES (test code = 2232) 204 MG/DL HDL CHOLESTEROL (test code = 2220) 46 MG/DL CALC LDL CHOL (test code = 2237) 50 MG/DL RISK RATIO LDL/HDL (test cod e = 2238) 1.09 RATIO Yuan HammLIPID [id number] 00:00:00* Test Item Value Reference Range Interpretation Comme nts CHOLESTEROL (test code = 2210) 137 MG/DL TRIGLYCERIDES (test code = 2232) 204 MG/DL HDL CHOLESTEROL (test code = 2220) 46 MG/DL CALC LDL CHOL (test code = 2237) 50 MG/DL RISK RATIO LDL/HDL (test cod e = 2238) 1.09 RATIO Yuan HammLIPID [id number] 00:00:00* Test Item Value Reference Range Interpretation Comme nts CHOLESTEROL (test code = 2210) 127 MG/DL TRIGLYCERIDES (test code = 2232) 125 MG/DL HDL CHOLESTEROL (test code = 2220) 46 MG/DL CALC LDL CHOL (test code = 2237) 56 MG/DL RISK RATIO LDL/HDL (test cod e = 2238) 1.22 RATIO Yuan HammCOMPREHENSIVE METABOLIC [id number] 00:00:00* Test Item Value Reference Range Interpretation Comme nts GLUCOSE (test code = 2217) 89 MG/DL BUN (test code = 2208) 21 MG/DL CREATININE (test code = 2214) 1.36 MG/DL eGFR AMER. (test cod e = 41584) 58 ML/MIN/1.73 eGFR NON- AMER. (test code = 33868) 50 ML/MIN/1.73 CALC BUN/CREAT (test code = 2235) 15 RATIO SODIUM (test code = 2231) 145 MEQ/L POTASSIUM (test code = 2228) 5.1 MEQ/L CHLORIDE (test code = 2215) 105 MEQ/L CARBON DIOXIDE (test code = 2206) 25 MEQ/L CALCIUM (test code = 2209) 9.1 MG/DL PROTEIN, TOTAL (test code = 2229) 7.6 G/DL ALBUMIN (test code = 2201) 4.2 G/DL CALC GLOBULIN (test code = 2240) 3.4 G/DL CALC A/G RATIO (test code = 2234) 1.2 RATIO BILIRUBIN, TOTAL (test code = 2207) 0.6 MG/DL ALKALINE PHOSPHATASE (test code = 2204) 108 U/L AST (test code = 2218) 15 U/L ALT (test code = 2219) 24 U/L Yuan HammLIPID [id number] 00:00:00* Test Item Value Reference Range Interpretation Comme nts CHOLESTEROL (test code = 2210) 127 MG/DL TRIGLYCERIDES (test code = 2232) 125 MG/DL HDL CHOLESTEROL (test code = 2220) 46 MG/DL CALC LDL CHOL (test code = 2237) 56 MG/DL RISK RATIO LDL/HDL (test cod e = 2238) 1.22 RATIO Yuan HammCOMPREHENSIVE METABOLIC [id number] 00:00:00* Test Item Value Reference Range Interpretation Comme nts GLUCOSE (test code = 2217) 89 MG/DL BUN (test code = 2208) 21 MG/DL CREATININE (test code = 2214) 1.36 MG/DL eGFR AMER. (test cod e = 29820) 58 ML/MIN/1.73 eGFR NON- AMER. (test code = 87527) 50 ML/MIN/1.73 CALC BUN/CREAT (test code = 2235) 15 RATIO SODIUM (test code = 2231) 145 MEQ/L POTASSIUM (test code = 2228) 5.1 MEQ/L CHLORIDE (test code = 2215) 105 MEQ/L CARBON DIOXIDE (test code = 2206) 25 MEQ/L CALCIUM (test code = 2209) 9.1 MG/DL PROTEIN, TOTAL (test code = 2229) 7.6 G/DL ALBUMIN (test code = 2201) 4.2 G/DL CALC GLOBULIN (test code = 2240) 3.4 G/DL CALC A/G RATIO (test code = 2234) 1.2 RATIO BILIRUBIN, TOTAL (test code = 2207) 0.6 MG/DL ALKALINE PHOSPHATASE (test code = 2204) 108 U/L AST (test code = 2218) 15 U/L ALT (test code = 2219) 24 U/L Yuan Rouse AustinLIPID [id number] 00:00:00* Test Item Value Reference Range Interpretation Comme nts CHOLESTEROL (test code = 2210) 127 MG/DL TRIGLYCERIDES (test code = 2232) 125 MG/DL HDL CHOLESTEROL (test code = 2220) 46 MG/DL CALC LDL CHOL (test code = 2237) 56 MG/DL RISK RATIO LDL/HDL (test cod e = 2238) 1.22 RATIO Yuan HammCOMPREHENSIVE METABOLIC [id number] 00:00:00* Test Item Value Reference Range Interpretation Comme nts GLUCOSE (test code = 2217) 89 MG/DL BUN (test code = 2208) 21 MG/DL CREATININE (test code = 2214) 1.36 MG/DL eGFR AMER. (test cod e = 10993) 58 ML/MIN/1.73 eGFR NON- AMER. (test code = 36275) 50 ML/MIN/1.73 CALC BUN/CREAT (test code = 2235) 15 RATIO SODIUM (test code = 2231) 145 MEQ/L POTASSIUM (test code = 2228) 5.1 MEQ/L CHLORIDE (test code = 2215) 105 MEQ/L CARBON DIOXIDE (test code = 2206) 25 MEQ/L CALCIUM (test code = 2209) 9.1 MG/DL PROTEIN, TOTAL (test code = 2229) 7.6 G/DL ALBUMIN (test code = 2201) 4.2 G/DL CALC GLOBULIN (test code = 2240) 3.4 G/DL CALC A/G RATIO (test code = 2234) 1.2 RATIO BILIRUBIN, TOTAL (test code = 2207) 0.6 MG/DL ALKALINE PHOSPHATASE (test code = 2204) 108 U/L AST (test code = 2218) 15 U/L ALT (test code = 2219) 24 U/L Yuan Nasim [place] HillCOMPREHENSIVE METABOL[place] [id number] 00:00:00* Test Item Value Reference Range Interpretation Comme nts GLUCOSE (test code = 2217) 111 MG/DL BUN (test code = 2208) 26 MG/DL CREATININE (test code = 2214) 1.52 MG/DL eGFR AMER. (test cod e = 00077) 51 ML/MIN/1.73 eGFR NON- AMER. (test code = 00518) 44 ML/MIN/1.73 CALC BUN/CREAT (test code = 2235) 17 RATIO SODIUM (test code = 2231) 141 MEQ/L POTASSIUM (test code = 2228) 4.7 MEQ/L CHLORIDE (test code = 2215) 103 MEQ/L CARBON DIOXIDE (test code = 2206) 25 MEQ/L CALCIUM (test code = 2209) 9.4 MG/DL PROTEIN, TOTAL (test code = 2229) 7.7 G/DL ALBUMIN (test code = 2201) 4.5 G/DL CALC GLOBULIN (test code = 2240) 3.2 G/DL CALC A/G RATIO (test code = 2234) 1.4 RATIO BILIRUBIN, TOTAL (test code = 2207) 0.9 MG/DL ALKALINE PHOSPHATASE (test code = 2204) 105 U/L AST (test code = 2218) 14 U/L ALT (test code = 2219) 18 U/L Yuan HammLIPID [id number] 00:00:00* Test Item Value Reference Range Interpretation Comme nts CHOLESTEROL (test code = 2210) 125 MG/DL TRIGLYCERIDES (test code = 2232) 136 MG/DL HDL CHOLESTEROL (test code = 2220) 47 MG/DL CALC LDL CHOL (test code = 2237) 51 MG/DL RISK RATIO LDL/HDL (test cod e = 2238) 1.08 RATIO Yuan HammHEMOGLOBIN [id number] 00:00:00* Test Item Value Reference Range Interpretation Comme gladys HEMOGLOBIN A1c (test code = 97592) 5.5 % Yuan HammCBC W/AUTO [id number] 00:00:00* Test Item Value Reference Range Interpretation Comme [...] COUNT (test code = 1015) 149 K/UL Yuan HammCOMPREHENSIVE METABOLIC [id number] 00:00:00* Test Item Value Reference Range Interpretation Comme nts GLUCOSE (test code = 2217) 111 MG/DL BUN (test code = 2208) 26 MG/DL CREATININE (test code = 2214) 1.52 MG/DL eGFR AMER. (test cod e = 99696) 51 ML/MIN/1.73 eGFR NON- AMER. (test code = 58902) 44 ML/MIN/1.73 CALC BUN/CREAT (test code = 2235) 17 RATIO SODIUM (test code = 2231) 141 MEQ/L POTASSIUM (test code = 2228) 4.7 MEQ/L CHLORIDE (test code = 2215) 103 MEQ/L CARBON DIOXIDE (test code = 2206) 25 MEQ/L CALCIUM (test code = 2209) 9.4 MG/DL PROTEIN, TOTAL (test code = 2229) 7.7 G/DL ALBUMIN (test code = 2201) 4.5 G/DL CALC GLOBULIN (test code = 2240) 3.2 G/DL CALC A/G RATIO (test code = 2234) 1.4 RATIO BILIRUBIN, TOTAL (test code = 2207) 0.9 MG/DL ALKALINE PHOSPHATASE (test code = 2204) 105 U/L AST (test code = 2218) 14 U/L ALT (test code = 2219) 18 U/L Yuan HammLIPID [id number] 00:00:00* Test Item Value Reference Range Interpretation Comme nts CHOLESTEROL (test code = 2210) 125 MG/DL TRIGLYCERIDES (test code = 2232) 136 MG/DL HDL CHOLESTEROL (test code = 2220) 47 MG/DL CALC LDL CHOL (test code = 2237) 51 MG/DL RISK RATIO LDL/HDL (test cod e = 2238) 1.08 RATIO Yuan HammHEMOGLOBIN [id number] 00:00:00* Test Item Value Reference Range Interpretation Comme nts HEMOGLOBIN A1c (test code = 25183) 5.5 % Yuan HammCBC W/AUTO [id number] 00:00:00* Test Item Value Reference Range Interpretation Comme [...] COUNT (test code = 1015) 149 K/UL Yuan HammCOMPREHENSIVE METABOLIC [id number] 00:00:00* Test Item Value Reference Range Interpretation Comme nts GLUCOSE (test code = 2217) 111 MG/DL BUN (test code = 2208) 26 MG/DL CREATININE (test code = 2214) 1.52 MG/DL eGFR AMER. (test cod e = 32426) 51 ML/MIN/1.73 eGFR NON- AMER. (test code = 40535) 44 ML/MIN/1.73 CALC BUN/CREAT (test code = 2235) 17 RATIO SODIUM (test code = 2231) 141 MEQ/L POTASSIUM (test code = 2228) 4.7 MEQ/L CHLORIDE (test code = 2215) 103 MEQ/L CARBON DIOXIDE (test code = 2206) 25 MEQ/L CALCIUM (test code = 2209) 9.4 MG/DL PROTEIN, TOTAL (test code = 2229) 7.7 G/DL ALBUMIN (test code = 2201) 4.5 G/DL CALC GLOBULIN (test code = 2240) 3.2 G/DL CALC A/G RATIO (test code = 2234) 1.4 RATIO BILIRUBIN, TOTAL (test code = 2207) 0.9 MG/DL ALKALINE PHOSPHATASE (test code = 2204) 105 U/L AST (test code = 2218) 14 U/L ALT (test code = 2219) 18 U/L Yuan HammLIPID [id number] 00:00:00* Test Item Value Reference Range Interpretation Comme nts CHOLESTEROL (test code = 2210) 125 MG/DL TRIGLYCERIDES (test code = 2232) 136 MG/DL HDL CHOLESTEROL (test code = 2220) 47 MG/DL CALC LDL CHOL (test code = 2237) 51 MG/DL RISK RATIO LDL/HDL (test cod e = 2238) 1.08 RATIO Yuan HammHEMOGLOBIN [id number] 00:00:00* Test Item Value Reference Range Interpretation Comme nts HEMOGLOBIN A1c (test code = 13834) 5.5 % Yuan HammCBC W/AUTO [id number] 00:00:00* Test Item Value Reference Range Interpretation Comme [...] COUNT (test code = 1015) 149 K/UL Yuan Rouse HanselLIPID [id number] 00:00:00* Test Item Value Reference Range Interpretation Comme nts CHOLESTEROL (test code = 2210) 222 MG/DL TRIGLYCERIDES (test code = 2232) 101 MG/DL HDL CHOLESTEROL (test code = 2220) 53 MG/DL CALC LDL CHOL (test code = 2237) 149 MG/DL RISK RATIO LDL/HDL (test cod e = 2238) 2.81 RATIO Yuan Rouse HanselTHYROID II PROFILE (T3U, T4, T7, TSH)[id number] 00:00:00* Test Item Value Reference Range Interpretation Comme nts T3 UPTAKE (test code = 2817) 29.4 % T4 (THYROXINE) (test code = 2819) 8.4 UG/DL CALCULATED T7 (FTI) (test co de = 2820) 2.47 TSH (test code = 2821) 2.2 UIU/ML Yuan Rouse HanselPSA, FREE AND [id number] 00:00:00* Test Item Value Reference Range Interpretation Comme nts PROSTATIC SPECIFIC AG (test code = 894223) 0.58 NG/ML FREE PSA (test code = 902047) 0.21 NG/ML % FREE PSA (test code = 099244) 36 % Yuan Nasim HanselCOMPREHENSIVE METABOLIC [id number] 00:00:00* Test Item Value Reference Range Interpretation Comme nts GLUCOSE (test code = 2217) 99 MG/DL BUN (test code = 2208) 19 MG/DL CREATININE (test code = 2214) 0.87 MG/DL eGFR AMER. (test cod e = 59721) 98 ML/MIN/1.73 eGFR NON- AMER. (test code = 03354) 84 ML/MIN/1.73 CALC BUN/CREAT (test code = 2235) 22 RATIO SODIUM (test code = 2231) 140 MEQ/L POTASSIUM (test code = 2228) 4.7 MEQ/L CHLORIDE (test code = 2215) 103 MEQ/L CARBON DIOXIDE (test code = 2206) 17 MEQ/L CALCIUM (test code = 2209) 9.2 MG/DL PROTEIN, TOTAL (test code = 2229) 7.3 G/DL ALBUMIN (test code = 2201) 4.2 G/DL CALC GLOBULIN (test code = 2240) 3.1 G/DL CALC A/G RATIO (test code = 2234) 1.4 RATIO BILIRUBIN, TOTAL (test code = 2207) 0.8 MG/DL ALKALINE PHOSPHATASE (test code = 2204) 91 U/L AST (test code = 2218) 14 U/L ALT (test code = 2219) 16 U/L Yuan Nasim HanselLIPID [id number] 00:00:00* Test Item Value Reference Range Interpretation Comme nts CHOLESTEROL (test code = 2210) 222 MG/DL TRIGLYCERIDES (test code = 2232) 101 MG/DL HDL CHOLESTEROL (test code = 2220) 53 MG/DL CALC LDL CHOL (test code = 2237) 149 MG/DL RISK RATIO LDL/HDL (test cod e = 2238) 2.81 RATIO Yuan HammTHYROID II PROFILE (T3U, T4, T7, TSH)[id number] 00:00:00* Test Item Value Reference Range Interpretation Comme nts T3 UPTAKE (test code = 2817) 29.4 % T4 (THYROXINE) (test code = 2819) 8.4 UG/DL CALCULATED T7 (FTI) (test co de = 2820) 2.47 TSH (test code = 2821) 2.2 UIU/ML Yuan HammPSA, FREE AND [id number] 00:00:00* Test Item Value Reference Range Interpretation Comme nts PROSTATIC SPECIFIC AG (test code = 986517) 0.58 NG/ML FREE PSA (test code = 889189) 0.21 NG/ML % FREE PSA (test code = 784679) 36 % Yuan HammCOMPREHENSIVE METABOLIC [id number] 00:00:00* Test Item Value Reference Range Interpretation Comme nts GLUCOSE (test code = 2217) 99 MG/DL BUN (test code = 2208) 19 MG/DL CREATININE (test code = 2214) 0.87 MG/DL eGFR AMER. (test cod e = 41438) 98 ML/MIN/1.73 eGFR NON- AMER. (test code = 03717) 84 ML/MIN/1.73 CALC BUN/CREAT (test code = 2235) 22 RATIO SODIUM (test code = 2231) 140 MEQ/L POTASSIUM (test code = 2228) 4.7 MEQ/L CHLORIDE (test code = 2215) 103 MEQ/L CARBON DIOXIDE (test code = 2206) 17 MEQ/L CALCIUM (test code = 2209) 9.2 MG/DL PROTEIN, TOTAL (test code = 2229) 7.3 G/DL ALBUMIN (test code = 2201) 4.2 G/DL CALC GLOBULIN (test code = 2240) 3.1 G/DL CALC A/G RATIO (test code = 2234) 1.4 RATIO BILIRUBIN, TOTAL (test code = 2207) 0.8 MG/DL ALKALINE PHOSPHATASE (test code = 2204) 91 U/L AST (test code = 2218) 14 U/L ALT (test code = 2219) 16 U/L Yuan Rouse AustinLIPID [id number] 00:00:00* Test Item Value Reference Range Interpretation Comme nts CHOLESTEROL (test code = 2210) 222 MG/DL TRIGLYCERIDES (test code = 2232) 101 MG/DL HDL CHOLESTEROL (test code = 2220) 53 MG/DL CALC LDL CHOL (test code = 2237) 149 MG/DL RISK RATIO LDL/HDL (test cod e = 2238) 2.81 RATIO Yuan HammTHYROID II PROFILE (T3U, T4, T7, TSH)2016-08-06 00:00:00* Test Item Value Reference Range Interpretation Comme nts T3 UPTAKE (test code = 2817) 29.4 % T4 (THYROXINE) (test code = 2819) 8.4 UG/DL CALCULATED T7 (FTI) (test co de = 2820) 2.47 TSH (test code = 2821) 2.2 UIU/ML Yuan Rouse HanselPSA, FREE AND [id number] 00:00:00* Test Item Value Reference Range Interpretation Comme nts PROSTATIC SPECIFIC AG (test code = 354082) 0.58 NG/ML FREE PSA (test code = 929981) 0.21 NG/ML % FREE PSA (test code = 802114) 36 % Yuan HammCOMPREHENSIVE METABOLIC [id number] 00:00:00* Test Item Value Reference Range Interpretation Comme nts GLUCOSE (test code = 2217) 99 MG/DL BUN (test code = 2208) 19 MG/DL CREATININE (test code = 2214) 0.87 MG/DL eGFR AMER. (test cod e = 55723) 98 ML/MIN/1.73 eGFR NON- AMER. (test code = 40843) 84 ML/MIN/1.73 CALC BUN/CREAT (test code = 2235) 22 RATIO SODIUM (test code = 2231) 140 MEQ/L POTASSIUM (test code = 2228) 4.7 MEQ/L CHLORIDE (test code = 2215) 103 MEQ/L CARBON DIOXIDE (test code = 2206) 17 MEQ/L CALCIUM (test code = 2209) 9.2 MG/DL PROTEIN, TOTAL (test code = 2229) 7.3 G/DL ALBUMIN (test code = 2201) 4.2 G/DL CALC GLOBULIN (test code = 2240) 3.1 G/DL CALC A/G RATIO (test code = 2234) 1.4 RATIO BILIRUBIN, TOTAL (test code = 2207) 0.8 MG/DL ALKALINE PHOSPHATASE (test code = 2204) 91 U/L AST (test code = 2218) 14 U/L ALT (test code = 2219) 16 U/L Yuan Rouse HanselCBC W/AUTO [id number] 00:00:00* Test Item Value Reference Range Interpretation Comme nts WBC (test code = 1001) 7.8 K/UL [...] COUNT (test code = 1015) 177 K/UL Yuan Rouse AustinHEMOGLOBIN [id number] 00:00:00* Test Item Value Reference Range Interpretation Comme nts HEMOGLOBIN A1c (test code = 48252) 5.8 % Yuan Rouse AustinCBC W/AUTO [id number] 00:00:00* Test Item Value Reference Range Interpretation Comme nts WBC (test code = 1001) 7.8 K/UL [...] COUNT (test code = 1015) 177 K/UL Yuan Rouse AustinHEMOGLOBIN [id number] 00:00:00* Test Item Value Reference Range Interpretation Comme nts HEMOGLOBIN A1c (test code = 11285) 5.8 % Yuan Rouse AustinCBC W/AUTO [id number] 00:00:00* Test Item Value Reference Range Interpretation Comme nts WBC (test code = 1001) 7.8 K/UL [...] COUNT (test code = 1015) 177 K/UL Yuan HammHEMOGLOBIN [id number] 00:00:00* Test Item Value Reference Range Interpretation Comme nts HEMOGLOBIN A1c (test code = 84040) 5.8 % Yuan Hamm Notes Date/Time Note Provider Source Yuan Hamm [facility]2024-05-18 00:00:00 Yuan Hamm [facility]2024-04-23 00:00:00 Yuan Martino [facility] [place]
[2024-05-27] MEDS ORDERED: NA CHLORIDE 0.9% 500 ML ONE (17:46)
[2024-05-27] MEDS ORDERED: MORPHINE 2 MG/ML SYR ONE (17:46)
[2024-05-27] MEDS ORDERED: ONDANSETRON 4 MG/2 ML VIAL ONE (17:46)
[2024-05-27 17:53] LABS: Absolute Eosinophils 0.2 K/uL (0-0.5); Absolute Lymphocytes (CBC) 2.2 K/uL (0.7-4.9); Absolute Monocytes 0.6 K/uL (0.1-1.3); Absolute Neutrophil 6.9 K/uL (1.8-8.0); Basophils % 0.4 % (0-1.3); Eosinophils % 1.8 % (0-4.4); Hematocrit 35.2 % (39.6-49.0); Hemoglobin 11.8 g/dL (13.6-17.9); Lymphocytes % 22.4 % (15.3-44.8); MCH 30.8 pg (27.0-35.0); MCHC 33.4 g/dL (32.0-36.0); MCV 92.1 fL (80-100); MPV 8.3 fL (7.6-11.3); Monocytes % 6.2 % (3.3-12.3); Neutrophils % 69.2 % (41.7-73.7); Platelets 295 thou/uL (152-406); RBC Red Blood Cell Count 3.82 M/uL (4.33-5.43); Red Cell Distribution Width 16.5 % (12.1-15.2)
[2024-05-27 18:05] LABS: Albumin 2.9 g/dL (3.4-5.0); Albumin/Globulin Ratio 0.6 (1.1-1.8); Anion Gap 9.6 mEq/L (5.0-15.0); Bilirubin Total 0.7 mg/dL (0.2-1.0); Potassium 3.6 mEq/L (3.5-5.1); Protein, Total 7.9 g/dL (6.4-8.2)
--- NOTE | 2024-05-27 18:46 | RAD REPORT ---
EXAM:Femur Right HISTORY: PAIN RIGHT COMPARISON: None IMPRESSION: Status post right total hip arthroplasty. No hardware convocations. No acute fracture. Pe ripheral vascular calcifications. Mild medial and lateral compartment narrowing at the knee.
--- NOTE | 2024-05-27 18:47 | RAD REPORT ---
EXAM:Hip Right 2 View HISTORY: PAIN RIGHT COMPARISON: None IMPRESSION: Right hip arthroplasty without hardware complications. No fractures. No dislocation.
--- NOTE | 2024-05-27 18:48 | RAD REPORT ---
EXAMINATION: XR PELVIS CLINICAL INDICATION: Male, 83 years old. PAIN TECHNIQUE: Frontal view of the pelvis [id number]. COMPARISON: Right hip radiograph 02/18/2024 FINDINGS: Status post right hip arthroplasty. No however convocations. No pelvic fracture identified. Mild left acetabular degenerative changes. IMPRESSION: No acute osseous abnormality.
--- NOTE | 2024-05-27 19:28 | EDPHYS ---
Physician Documentation [facility] Name: Denver Kaiser Age: 83 yrs Sex: Male : 1940 Arrival Date: 05/27/2024 Time: 17:10 Bed 18 Private MD: ED Physician Ozzie Agosto HPI: 05/27 19:19 This 83 yrs old Male presents to ER via Wheelchair with complaints of Fall opal Injury, Hip Pain - right. 19:19 Details of fall: The patient fell from an upright position, while walking. Onset: The opal symptoms/episode began/occurred today. Associated injuries: The patient sustained right hip, contusion, decreased range of motion. Severity of symptoms: At their worst the symptoms were mild, in the emergency department the symptoms are unchanged. The patient has not experienced similar symptoms in the past. Historical: - Allergies: 17:27 No Known Allergies; tm6 - PMHx: 17:27 Atrial fibrillation; Hypercholesterolemia; Hypertensive disorder; tm6 - PSHx: 17:27 right hip; tm6 - Immunization history:: Client reports receiving the 2nd dose of the Covid vaccine. - Infectious Disease History:: Denies. - Social history:: Smoking status: Patient denies any tobacco usage or history of. Patient/guardian denies using alcohol. - Family history:: not pertinent. ROS: 19:19 Constitutional: Negative for fever, chills, and weight loss, Eyes: Negative for injury, opal pain, redness, and discharge, ENT: Negative for injury, pain, and discharge, Neck: Negative for injury, pain, and swelling, Cardiovascular: Negative for chest pain, palpitations, and edema, Respiratory: Negative for shortness of breath, cough, wheezing, and pleuritic chest pain, Abdomen/GI: Negative for abdominal pain, nausea, vomiting, diarrhea, and constipation, Back: Negative for injury and pain, : Negative for injury, bleeding, discharge, and swelling, Skin: Negative for injury, rash, and discoloration, Neuro: Negative for headache, weakness, numbness, tingling, and seizure, 19:19 MS/extremity: Positive for decreased range of motion, pain, tenderness, of the right leg, Exam: 19:19 Constitutional: This is a well developed, well nourished patient who is awake, alert, opal and in no acute distress. Head/Face: Normocephalic, atraumatic. Eyes: Pupils equal round and reactive to light, extra-ocular motions intact. Lids and lashes normal. Conjunctiva and sclera are non-icteric and not injected. Cornea within normal limits. Periorbital areas with no swelling, redness, or edema. ENT: Nares patent. No nasal discharge, no septal abnormalities noted. Tympanic membranes are normal and external auditory canals are clear. Oropharynx with no redness, swelling, or masses, exudates, or evidence of obstruction, uvula midline. Mucous membranes moist. Neck: Trachea midline, no thyromegaly or masses palpated, and no cervical lymphadenopathy. Supple, full range of motion without nuchal rigidity, or vertebral point tenderness. No Meningismus. Chest/axilla: Normal chest wall appearance and motion. Nontender with no deformity. No lesions are appreciated. Cardiovascular: Regular rate and rhythm with a normal S1 and S2. No gallops, murmurs, or rubs. Normal PMI, no JVD. No pulse deficits. Respiratory: Lungs have equal breath sounds bilaterally, clear to auscultation and percussion. No rales, rhonchi or wheezes noted. No increased work of breathing, no retractions or nasal flaring. Abdomen/GI: Soft, non-tender, with normal bowel sounds. No distension or tympany. No guarding or rebound. No evidence of tenderness throughout. Back: No spinal tenderness. No costovertebral tenderness. Full range of motion. Male : Normal genitalia with no discharge or lesions. Skin: Warm, dry with normal turgor. Normal color with no rashes, no lesions, and no evidence of cellulitis. Neuro: Awake and alert, GCS 15, oriented to person, place, time, and situation. Cranial nerves II-XII grossly intact. Motor strength 5/5 in all extremities. Sensory grossly intact. Cerebellar exam normal. Normal gait. Psych: Awake, alert, with orientation to person, place and time. Behavior, mood, and affect are within normal limits. 19:19 Musculoskeletal/extremity: ROM: intact in all extremities, full active range of motion, full passive range of motion, limited active range of motion due to pain, limited passive range of motion due to pain, Circulation is intact in all extremities. Sensation intact. Compartment Syndrome exam of affected extremity: is normal. Weight bearing: able to fully bear weight, WITH SOME PAIN , USES A WALKER, DVT Exam: No signs of deep vein thrombosis. no swelling, no tenderness, negative Homans' sign noted on exam, no appreciated bluish discoloration, no erythema, no increased warmth, pain, Vital Signs: 17:25 BP 128 / 89; Pulse 92; Resp 18; Temp 97.8(O); Pulse Ox 99% on R/A; MAP 101 mmHg; Weight tm6 88.45 kg; Height 5 ft. 9 in. ; Pain 10/10; 18:52 BP 148 / 99; Pulse 89; Resp 16 S; Pulse Ox 100% on R/A; kc6 19:31 BP 157 / 95; Pulse 85; Resp 16; Temp 98.7; Pulse Ox 99% on R/A; mt4 17:25 Body Mass Index 28.80 (88.45 kg, 175.26 cm) tm6 17:25 Pain Scale: Adult tm6 Myra Coma Score: 19:19 Eye Response: spontaneous(4). Motor Response: obeys commands(6). Verbal Response: opal oriented(5). Total: 15. 19:49 Eye Response: spontaneous(4). Motor Response: obeys commands(6). Verbal Response: mt4 oriented(5). Total: 15. MDM: 17:21 Patient medically screened. opal 19:25 Differential diagnosis: contusion, fracture, multiple trauma, sprain, strain. Data opal reviewed: vital signs, nurses notes, lab test result(s), radiologic studies. Consideration of Admission/Observation Escalation of care including admission/observation considered. I considered the following discharge prescriptions or medication management in the emergency department Medications were administered in the Emergency Department. See MAR. Independent interpretation of the following test(s) in the Emergency Department X-Ray: My interpretation is ALL NEG PER DAY. Historians other than the Patient: Family Member: FAMILY WELL INFORMED. Care significantly affected by the following chronic conditions: Hypertension, A FIB, HIGH CHLESTEROL. Counseling: I had a detailed discussion with the patient and/or guardian regarding the historical points, exam findings, and any diagnostic results supporting the discharge/admit diagnosis, lab results, radiology results, the need for outpatient follow up, for definitive care, a family practitioner, a orthopedic surgeon. 05/27 17:22 Order name: CBC with Diff; Complete Time: 19:02 [facility] 05/27 17:22 Order name: Comprehensive Metabolic Panel; Complete Time: 19:02 [facility] 05/27 17:22 Order name: Pelvis XRAY; Complete Time: 19:02 [facility] 05/27 17:22 Order name: Hip Right 2 View XRAY; Complete Time: 19:02 [facility] 05/27 17:22 Order name: Femur Right XRAY; Complete Time: 19:02 opal Administered Medications: 17:53 Drug: morphine IVP or IV 2 mg IVP once over 4 mins Route: IVP; Infused Over: 4 mins; tm6 Site: right wrist; 18:52 Follow up: Response: No adverse reaction; RASS: Alert and Calm (0) kc6 17:53 Drug: Ondansetron IVP 4 mg IVP once; over 2 minutes Route: IVP; Site: right wrist; tm6 18:52 Follow up: Response: No adverse reaction kc6 17:54 Drug: NS 0.9% IV 500 ml IV at bolus once Route: IV; Rate: bolus; Site: right wrist; tm6 18:51 Follow up: Response: No adverse reaction; IV Status: Completed infusion; IV Intake: kc6 500ml 19:11 Not Given (Other Intervention Used): morphineor iv 2 mg IVP once over 4 mins kc6 19:36 Drug: [place] PO 10 mg-325 mg 1 tabs PO once Route: PO; mt4 19:52 Follow up: Response: No adverse reaction mt4 Disposition Summary: 05/27/24 19:27 Discharge Ordered Notes: Location: Home opal Problem: new opal Symptoms: have improved opal Condition: Stable opal Diagnosis - Fall on same level, unspecified opal - Contusion of right hip opal Followup: opal - With: Private Physician - When: 2 - 3 days - Reason: Recheck today's complaints, Continuance of care, Re-evaluation by your physician Followup: opal - With: Reese Santiago MD - When: 2 - 3 days - Reason: Recheck today's complaints, Re-evaluation by your physician Discharge Instructions: - Discharge Summary Sheet opal - Contusion opal - Fall Prevention in the Home, Adult opal - Contusion, [id number] opal - Hip Pain opal - Hip Sprain opal Forms: - Medication Reconciliation Form opal - Antibiotic Education opal - Prescription Opioid Use opal - Patient Portal Instructions opal - Leadership Thank You Letter opal Prescriptions: - acetaminophen-codeine 300-30 mg Oral tablet - take 1 tablet ORAL route every 4 to 6 hours; 20 tablet; Refills: 0, Product [facility] Selection Permitted Signatures: Dispatcher [employer] EDOzzie Osorio MD MD cha Masterson, Tawney RN RN tm6 Coleen Urena RN RN mt4 Hannah Hendrickson RN kc6 Corrections: (The following items were deleted from the chart) 17:23 17:23 Pelvis+RAD.RAD.BRZ ordered. EDMS EDMS 17:23 17:23 Hip Right 2 View+RAD.RAD.BRZ ordered. EDMS EDMS 17:23 17:23 Femur Right+RAD.RAD.BRZ ordered. EDMS EDMS
--- NOTE | 2024-05-27 19:28 | ER ---
Nurse's Notes [facility] Name: Denver Kaiser Age: 83 yrs Sex: Male : 1940 Arrival Date: 05/27/2024 Time: 17:10 Bed 18 Private MD: Diagnosis: Fall on same level, unspecified;Contusion of right hip Presentation: 05/27 17:26 Chief complaint: Patient's son or daughter states: dad fell last Saturday, does not tm6 remember falling. Right hip and thigh hurts 06/04, difficulty walking. Coronavirus screen: Vaccine status: Patient reports receiving the 2nd dose of the covid vaccine. Ebola Screen: Patient negative for fever greater than or equal to 101.5 degrees Fahrenheit, and additional compatible Ebola Virus Disease symptoms Patient denies exposure to infectious person. Patient denies travel to an Ebola-affected area in the 21 days before illness onset. No symptoms or risks identified at this time. Initial Sepsis Screen: Does the patient meet any 2 criteria? No. Patient's initial sepsis screen is negative. Does the patient have a suspected source of infection? No. Patient's initial sepsis screen is negative. Risk Assessment: Do you want to hurt yourself or someone else? Patient reports no desire to harm self or others. Onset of symptoms was May 19, 2024. 17:26 Method Of Arrival: Wheelchair tm6 17:26 Acuity: KAITLIN 3 tm6 Triage Assessment: 17:27 General: Appears in no apparent distress. Behavior is calm, cooperative. Pain: tm6 Complains of pain in right hip and right quadriceps Pain currently is 10 out of 10 on a pain scale. Pain began one week ago. EENT: No signs and/or symptoms were reported regarding the EENT system. Neuro: Level of Consciousness is awake, alert, obeys commands, Oriented to person, place, time, situation. Cardiovascular: Patient's skin is warm and dry. Respiratory: Airway is patent Respiratory effort is even, unlabored, Respiratory pattern is regular, symmetrical. GI: No signs and/or symptoms were reported involving the gastrointestinal system. Abdomen is flat, non-distended. : No signs and/or symptoms were reported regarding the genitourinary system. Derm: No signs and/or symptoms reported regarding the dermatologic system. Musculoskeletal: Reports pain in right hip and right quadriceps since last Saturday. Pain is 10 out of 10 on a pain scale. Historical: - Allergies: 17:27 No Known Allergies; tm6 - PMHx: 17:27 Atrial fibrillation; Hypercholesterolemia; Hypertensive disorder; tm6 - PSHx: 17:27 right hip; tm6 - Immunization history:: Client reports receiving the 2nd dose of the Covid vaccine. - Infectious Disease History:: Denies. - Social history:: Smoking status: Patient denies any tobacco usage or history of. Patient/guardian denies using alcohol. - Family history:: not pertinent. Screenin:53 [facility] ED Fall Risk Assessment (Adult) History of falling in the last 3 months, kc6 including since admission Yes- single mechanical fall (1 pt) Confusion or Disorientation Yes (5 pts) Intoxicated or Sedated No (0 pts) Impaired Gait Yes (1 pt) Mobility Assist Device Used Yes (1 pt) Altered Elimination No (0 pt) Score/Fall Risk Level 3 or more points = High Risk Oriented to surroundings. Abuse screen: Denies threats or abuse. Denies injuries from another. Nutritional screening: No deficits noted. Tuberculosis screening: No symptoms or risk factors identified. Assessment: 17:30 General: Appears in no apparent distress. comfortable, well groomed, well developed, kc6 Behavior is calm, cooperative, appropriate for age. Pain: Complains of pain in right leg and pelvis and right hip and right quadriceps Pain currently is 10 out of 10 on a pain scale. Neuro: Level of Consciousness is awake, alert, obeys commands. Cardiovascular: Capillary refill < 3 seconds. Respiratory: Airway is patent Trachea midline Respiratory effort is even, unlabored, Respiratory pattern is regular, symmetrical. GI: No signs and/or symptoms were reported involving the gastrointestinal system. : No signs and/or symptoms were reported regarding the genitourinary system. EENT: No signs and/or symptoms were reported regarding the EENT system. Derm: No signs and/or symptoms reported regarding the dermatologic system. Skin is intact, is healthy with good turgor, Skin is pink, warm \T\ dry. 18:53 Reassessment: Patient appears in no apparent distress at this time. No changes from kc6 previously documented assessment. Patient and/or family updated on plan of care and expected duration. Pain level reassessed. 19:48 General: Appears in no apparent distress. comfortable, Behavior is calm, cooperative, mt4 appropriate for age. Pain: Complains of pain in pelvis Pain currently is 8 out of 10 on a pain scale. Neuro: Level of Consciousness is awake, alert, obeys commands. 19:49 Neuro: Level of Consciousness is Weakness Gait is unsteady, Speech is normal. mt4 Respiratory: Airway is patent Respiratory effort is even, unlabored, Respiratory pattern is regular, symmetrical. GI: No signs and/or symptoms were reported involving the gastrointestinal system. : No signs and/or symptoms were reported regarding the genitourinary system. Vital Signs: 17:25 BP 128 / 89; Pulse 92; Resp 18; Temp 97.8(O); Pulse Ox 99% on R/A; MAP 101 mmHg; Weight tm6 88.45 kg; Height 5 ft. 9 in. ; Pain 10/10; 18:52 BP 148 / 99; Pulse 89; Resp 16 S; Pulse Ox 100% on R/A; kc6 19:31 BP 157 / 95; Pulse 85; Resp 16; Temp 98.7; Pulse Ox 99% on R/A; mt4 17:25 Body Mass Index 28.80 (88.45 kg, 175.26 cm) tm6 17:25 Pain Scale: Adult tm6 Myra Coma Score: 19:19 Eye Response: spontaneous(4). Motor Response: obeys commands(6). Verbal Response: opal oriented(5). Total: 15. 19:49 Eye Response: spontaneous(4). Motor Response: obeys commands(6). Verbal Response: mt4 oriented(5). Total: 15. ED Course: 17:13 Patient arrived in ED. ra3 17:21 Ozzie Agosto MD is Attending Physician. opal 17:27 Triage completed. tm6 17:27 Arm band placed on right wrist. tm6 17:38 Hannah Hendrickson, VALENTIN is Primary Nurse. kc6 17:44 Inserted saline lock: 20 gauge in right antecubital area, using aseptic technique. tm6 Blood collected. Flushed with 10 mL NS. 17:45 Comprehensive Metabolic Panel Sent. tm6 17:45 CBC with Diff Sent. tm6 17:54 Patient has correct armband on for positive identification. Bed in low position. Call kc6 light in reach. Side rails up X2. Adult w/ patient. Pulse ox on. NIBP on. Door closed. Noise minimized. Lights dimmed. Warm blanket given. Pillow given. 17:54 Patient maintains SpO2 saturation greater than 95% on room air. kc6 18:30 Pelvis XRAY In Process Unspecified. EDMS 18:30 Hip Right 2 View XRAY In Process Unspecified. EDMS 18:30 Femur Right XRAY In Process Unspecified. EDMS 19:11 Report given to VALENTIN Horne. [facility] 19:27 Reese Santiago MD is Referral Physician. [facility] 19:49 Provided Education on: discharge . mt4 19:49 No provider procedures requiring assistance completed. IV discontinued, intact, mt4 bleeding controlled, No redness/swelling at site. Patient maintains SpO2 saturation greater than 95% on room air. Administered Medications: 17:53 Drug: morphine IVP or IV 2 mg IVP once over 4 mins Route: IVP; Infused Over: 4 mins; tm6 Site: right wrist; 18:52 Follow up: Response: No adverse reaction; RASS: Alert and Calm (0) [facility] 17:53 Drug: Ondansetron IVP 4 mg IVP once; over 2 minutes Route: IVP; Site: right wrist; tm6 18:52 Follow up: Response: No adverse reaction 6 17:54 Drug: NS 0.9% IV 500 ml IV at bolus once Route: IV; Rate: bolus; Site: right wrist; tm6 18:51 Follow up: Response: No adverse reaction; IV Status: Completed infusion; IV Intake: kc6 500ml 19:11 Not Given (Other Intervention Used): morphineor iv 2 mg IVP once over [address] [facility] 19:36 Drug: [place] PO 10 mg-325 mg 1 tabs PO once Route: PO; mt4 19:52 Follow up: Response: No adverse reaction mt4 Medication: 19:49 VIS not applicable for this client. mt4 Intake: 18:51 IV: 500ml; Total: 500ml. kc6 Outcome: 19:27 Discharge ordered by . [facility] 19:49 Discharged to mt4 19:49 Condition: good 19:49 Discharge instructions given to patient, family, Instructed on discharge instructions, follow up and referral plans. medication usage, Demonstrated understanding of instructions, follow-up care, medications, Prescriptions given X 1, 19:51 Patient left the ED. mt4 Signatures: Dispatcher [employer] Ozzie Ta MD MD cha Campbell, Kaitlyn, RN RN kc6 Jordan Marroquin RN RN tm6 Carrie Victoria Molinec, RN RN mt4
[2024-05-27] MEDS ORDERED: HYDROCODONE/APAP 10/325 TAB ONE (19:34)
[2024-05-28 11:05] VITALS: BP 157/95; TEMP 98.7; O2SAT 99
== END 2024-05-27 19:51 | disposition home or self-care (01) ==
LOC: ER 17:10
DX: S70.01XA Contusion of right hip, initial encounter (principal); W18.30XA Fall on same level, unspecified, initial encounter; Y93.9 Activity, unspecified; Y92.9 Unspecified place or not applicable; I10 Essential (primary) hypertension; E78.00 Pure hypercholesterolemia, unspecified; I48.91 Unspecified atrial fibrillation
CPT/HCPCS: 96361; 85025; 36415; 80053; 72170; 73502; 73552; 96375; 96374; 99284; J2270; J2405; J7040

== ENCOUNTER 2024-09-25 18:25 | Emergency (ER) | payer OTHER ==
--- OUTSIDE RECORDS SUMMARY | 2024-09-25 18:43 | XMS REPORT | Continuity of Care Document ---
Author Name Unknown Address [address] [facility] [address] [place] [address] [facility] Address [address] [facility] [address] [place] [address] Care Team Providers Care Jacquard Loom Fixer Name Role Phone Valerie De La Rosa Primary Care Physician [phone] Medications Ordered Medication Name Filled Medication Name Start Date Stop Date Current Medication? Ordering Clinician Indication Dosage Frequency Signature (SIG) Comments Components Source atorvastati n 80 mg tablet 2023-08 00:00: 00 Yes mg Yuan Hamm aspirin 81 mg tablet,chiki yed release 2023-08 00:00: 00 Yes mg Yuan Hamm irbesartan 150 mg-hydrochl orothiazide 12.5 mg tablet 2023-08 00:00: 00 Yes 1mg Yuan Hamm atorvastati n 80 mg tablet 2023-08 00:00: 00 Yes mg Yuan Hamm aspirin 81 mg tablet,chiki yed release 2023-08 0 00:00: 00 Yes mg Yuan Hamm Xarelto 15 mg tablet 15 00:00: 00 Yes mg Yuan Hamm hydrocodone 7.5 mg-acetamin ophen 325 mg tablet -03 00:00: 00 Yes mg Yuan Hamm atorvastati [...] oxide 400 mg (241.3 mg magnesium) tablet 09-20 00:00: 00 Yes mg magnesi um) Yuan Hamm TAKE 1 TABLET BY MOUTH EVERY DAY WITH FOOD 09-17 00:00: 00 Yes Yuan Hamm IRBESARTAN/ HYDROCHLORO THIAZIDE 150-12.5 MG TABS 09-17 00:00: 00 Yes Yuan Hamm AMOXICILLIN /CLAVULANAT E POTASSIUM 875-125 MG TABS 08-30 00:00: 00 Yes Yuan Hamm IRBESARTAN/ HYDROCHLORO THIAZIDE 300-12.5 MG TABS 2022-08 00:00: 00 Yes Yuan Hamm ATORVASTATI N CALCIUM 40 MG TABS 2022-08 00:00: 00 Yes Yuan Hamm TAKE 1 TABLET TWICE DAILY. 2022-08 00:00: 00 12-31 00:00 :00 No 125 Yuan Hamm CYCLOBENZAP RINE HYDROCHLORI DE 5 MG TABS 2022-08 00:00: 00 Yes Yuan Hamm LATANOPROST 0.005 % SOLN 2022-08 00:00: 00 Yes Yuan Hamm TAKE 1 TABLET TWICE DAILY. 05-06 00:00: 00 12-31 00:00 :00 No [id number] Yuan Hamm IRBESARTAN/ HYDROCHLORO THIAZIDE 300-12.5 MG TABS 05-03 00:00: 00 Yes Yuan Hamm TAKE 1 TABLET BY MOUTH AT BEDTIME 05-03 00:00: 00 Yes Yuan Hamm TAKE 1 TABLET TWICE DAILY. 05-03 00:00: 00 12-31 00:00 :00 No 125 Yuan Hamm XARELTO 20 MG TABS 2023-0 8-25 00:00: 00 Yes Yuan Hamm TAKE [...] Yes Yuan Hamm TAKE 1 TABLET DAILY. -14 00:00: 00 12-31 00:00 :00 No [id number] Yuan Hamm CHEW OR SWALLOW 1 TABLET DAILY. 2021-08 2 00:00: 00 12-31 00:00 :00 No 20 Yuan Hamm TAKE 1 TABLET TWICE DAILY. 2021-08 2 00:00: 00 12-31 00:00 :00 No 125 Yuan Hamm TAKE 1 TABLET DAILY. 2021-08 2 00:00: 00 12-31 00:00 :00 No [id number] Yuan Hamm TAKE 1 TABLET BY MOUTH AT BEDTIME 2021-08 0-10 00:00: 00 Yes Yuan Hamm TAKE 1 TABLET BY MOUTH DAILY 2021-08 0-10 00:00: 00 Yes Yuan Hamm CARVEDILOL 12.5 MG TABS 2021-08 0-10 00:00: 00 Yes Yuan Hamm LATANOPROST 0.005 % SOLN 0 9-07 00:00: 00 Yes Yuan Hamm INSTILL 1 DROP IN BOTH EYES AT BEDTIME -24 00:00: 00 Yes Yuan Hamm TAKE 1 TABLET DAILY. 8-09 00:00: 00 Yes Yuan Hamm ATORVASTATI N CALCIUM 40 MG TABS 8-09 00:00: 00 Yes Yuan Hamm CHEW OR [...] irbesartan 300 mg-hydrochl orothiazide 12.5 mg tablet 2019-0816 00:00: 00 Yes 1mg Yuan Hamm carvedilol 6.25 mg tablet 2019-0816 00:00: 00 Yes 1mg Yuan Hamm carvedilol 6.25 mg tablet 2019-0830 00:00: 00 Yes 1mg Yuan Hamm irbesartan 300 mg-hydrochl orothiazide 12.5 mg tablet 20 00:00: 00 Yes 1mg Yuan Hamm Xarelto 20 mg tablet 01-12 00:00: 00 Yes 1mg Yuan Hamm carvedilol 6.25 mg tablet 01-12 00:00: 00 Yes 1mg Yuan Hamm Xarelto 20 mg tablet 09-16 00:00: 00 Yes 1mg Yuan Hamm irbesartan 300 mg-hydrochl orothiazide 12.5 mg tablet 09-16 00:00: 00 Yes 1mg Yuan Hamm carvedilol 6.25 mg tablet 09-16 00:00: 00 Yes 1mg Yuan Hamm carvedilol 6.25 mg tablet 2018-0816 00:00: 00 Yes 1mg Yuan Hamm carvedilol 6.25 mg tablet 17 00:00: 00 Yes 1mg Yuan Hamm carvedilol 6.25 mg tablet 2017-08 00:00: 00 Yes 1mg Yuan Hamm amlodipine 10 mg tablet 2017-08 017 00:00: 00 Yes 1mg Yuan Hamm amlodipine 10 mg tablet 604 00:00: 00 Yes 1mg Yuan Hamm amlodipine 10 mg tablet 28 00:00: 00 Yes 1mg Yuan Hamm amlodipine [...] .5mL dose, preservative-free 2023-08-01 00:00:00 Completed Yuan Nasim Hansel influenza, seasonal vaccine, quadrivalent, adjuvanted, .5mL dose, [...] Covid-19 Vaccine (Aged 12 years and older) (Through Freight Engineer) (Old, dont use) Moderna Covid-19 Vaccine (Aged 12 years and older) (Through Freight Engineer) 2021-04-24 00:00:00 Completed Yuan Hamm (Old, dont use) Moderna Covid-19 Vaccine (Aged 12 years and older) (Through Freight Engineer) (Old, dont use) Moderna Covid-19 Vaccine (Aged 12 years and older) (Through Freight Engineer) 2021-04-24 00:00:00 Completed Yuan Hamm (Old, dont use) Moderna Covid-19 Vaccine (Aged 12 years and older) (Through Freight Engineer) (Old, dont use) Moderna Covid-19 Vaccine (Aged 12 years and older) (Through Freight Engineer) 2020-11-29 00:00:00 Completed Yuan Hamm (Old, dont use) Moderna Covid-19 Vaccine (Aged 12 years and older) (Through Freight Engineer) (Old, dont use) Moderna Covid-19 Vaccine (Aged 12 years and older) (Through Freight Engineer) 2020-11-29 00:00:00 Completed Yuan Hamm Moderna COVID-19 Vaccine Moderna COVID-19 Vaccine 2020-11-01 00:00:00 Completed Yuan Hamm Moderna COVID-19 Vaccine Moderna COVID-19 Vaccine 2020-11-01 00:00:00 Completed Yuan Hamm Vital Signs Vital Name Observation Time Observation Value Comments S ource BP Systolic 2024-07-13 10:00:00 113 mm[Hg] Step hen F Hansel BP Diastolic 2024-07-13 10:00:00 67 mm[Hg] Yony phen F Hansel Weight Measured 2024-07-13 10:00:00 187.20 pounds Yuan Hamm Height Measured 2024-07-13 10:00:00 68.70 inches Yuan Hamm Body Temperature 2024-07-13 10:00:00 98.00 degrees Yuan Hamm Heart Rate 2024-07-13 10:00:00 95.00 /min Pati en F Hansel Respiratory Rate 2024-07-13 10:00:00 18.00 /min Yuan F Hansel BP Systolic 2024-03-17 15:36:00 102 mm[Hg] Step hen F Hansel BP Diastolic 2024-03-17 15:36:00 61 mm[Hg] Yony phen F Hansel Weight Measured 2024-03-17 15:36:00 190.40 pounds Yuan Hamm Height Measured 2024-03-17 15:36:00 68.70 inches Yuan Rouse Hansel Body Temperature 2024-03-17 15:36:00 97.50 degrees Yuan F Hansel Heart Rate 2024-03-17 15:36:00 95.00 /min Pati en F Hansel Respiratory Rate 2024-03-17 15:36:00 Yuan Nasim Hansel BP Systolic 2024-01-11 13:57:00 161 mm[Hg] [...] Rate 2023-12-17 09:27:00 17.00 /min Yuan F Hansle BP Systolic 2023-10-17 16:49:00 173 mm[Hg] Step [...] Respiratory Rate 2022-11-06 15:27:00 18.00 /min Yuan Hamm BP Systolic 2022-08-01 16:50:00 161 mm[Hg] Haroon Hamm BP Diastolic 2022-08-01 16:50:00 93 mm[Hg] Yony Hamm Weight Measured 2022-08-01 16:50:00 203.00 pounds Yuan Hamm Height Measured 2022-08-01 16:50:00 68.70 inches Yuan Hamm Body Temperature 2022-08-01 16:50:00 98.20 degrees Yuan Hamm Heart Rate 2022-08-01 16:50:00 91.00 /min Pati Hamm Respiratory Rate 2022-08-01 16:50:00 17.00 /min Yuan Hamm Procedures Procedure Date / Time Performed Performing Clinicia n Source 55402 Ecg Routine Ecg W/least 12 Lds W/i r 2018-06-11 00:00:00 Yuan Hamm 25727 Ecg Routine Ecg W/least 12 Lds W/i r 2016-08-04 00:00:00 Yuan Hamm Encounters Start Date/Time End Date/Time Encounter Type Admission Type Attending [facility] Facility Care Department Encounter ID Source 2024-03-16 15:30:00 Outpatient STLMLC STLMLC [id number] [facility] 2024-03-12 13:34:00 Outpatient STLMLC STLMLC [id number] [facility] 2024-02-25 13:53:01 Outpatient STLMLC STLMLC [id number] [facility] 2024-02-19 09:42:01 Outpatient STLMLC STLMLC [id number] [facility] 2023-12-12 07:54:00 Outpatient STLMLC STLMLC [id number] [facility] 2024-07-13 09:47:58 2024-07-13 09:47:58 Outpatient SFA SFA [id number] Yuan Hamm 2024-07-13 00:00:00 2024-07-13 00:00:00 Outpatient Visit SFA [id number] Yuan Hamm 2024-03-17 15:27:07 2024-03-17 15:27:07 Outpatient SFA SFA [id number] Yuan Hamm 2024-03-17 00:00:00 2024-03-17 00:00:00 Outpatient Visit SFA [id number] Yuan Hamm 2024-01-11 13:42:26 2024-01-11 13:42:26 Outpatient SFA SFA [id number] Yuan Hamm 2024-01-11 00:00:00 2024-01-11 00:00:00 Outpatient Visit SFA [id number] Yuan Hamm 2023-12-17 09:10:37 2023-12-17 09:10:37 Outpatient SFA SFA [id number] Yuan Hamm 2023-12-17 00:00:00 2023-12-17 00:00:00 Outpatient Visit SFA [id number] Yuan Hamm 2023-10-17 16:42:01 2023-10-17 16:42:01 Outpatient SFA SFA [id number] Yuan Rouse Hansel 2023-09-16 15:47:36 2023-09-16 15:47:36 Outpatient SFA SFA [id number] Yuan Rouse Hansel 2023-09-03 14:01:03 2023-09-03 14:01:03 Outpatient SFA SFA [id number] Yuan Hamm 2023-08-01 08:04:43 2023-08-01 08:04:43 Outpatient SFA SFA [id number] Yuan Hamm 2023-06-21 08:20:40 2023-06-21 08:20:40 Outpatient SFA SFA [id number] Yuan Hamm 2023-06-06 07:59:35 2023-06-06 07:59:35 Outpatient SFA [facility] [id number] Yuan Hamm 2023-05-03 08:00:02 2023-05-03 08:00:02 Outpatient SFA [facility] [id number] Yuan Hamm 2023-02-01 14:20:10 2023-02-01 14:20:10 Outpatient SFA SFA [id number] Yuan Hamm 2022-11-06 15:20:24 2022-11-06 15:20:24 Outpatient SFA SFA [id number] Yuan Hamm 2022-08-01 16:41:35 2022-08-01 16:41:35 Outpatient SFA SFA 1207 Yuan Hamm Results Test Description Test Time Test Comments Results Result Co mments Source VITAMIN [id number] 04:46:39* Test Item Value Reference Range Interpretation Comme [facility] VITAMIN B-12 (test code = 2840) 404 PG/ML 200-950 FOLIC [id number] 04:46:39* Test Item Value Reference Range Interpretation Comme [facility] FOLIC ACID (test code = 2695) 2.4 UG/L SEE BELOW L INTERPRETIVE RAN GES DEFICIENCY . . . . . . . . . . . . . . . UG/L <4.0 POSSIBLE DEFICIENCY. . . . . . . . . . . UG/L 4.0-5.9 SUFFICIENT . . . . . . . . . . . . . . . UG/L >=6.0 HEMOGLOBIN [id number] 07:40:39* Test Item Value Reference Range Interpretation Comme [facility] HEMOGLOBIN A1c (test code = 03830) 5.6 % 4.2-5.6 CBC W/AUTO DIFF WITH [id number] 06:47:08* Test Item Value Reference Range Interpretation Comme [facility] WBC (test code = 1001) 8.3 K/UL 3.5-11.0 RBC (test code = 1002) 3.65 M/UL 4.50-6.10 L HEMOGLOBIN (test code = 1003) 10.8 G/DL 13.5-17.0 L HEMATOCRIT (test code = 1004) 34.9 % 40.0-51.0 L MCV (test code = 1005) 95.6 fL 80.0-99.0 MCH (test code = 1006) 29.6 PG 25.0-33.0 MCHC (test code = 1007) 30.9 G/DL 31.0-36.0 L RDW (test code = 1038) 14.5 % 11.5-15.0 NEUTROPHILS (test code = 1008) 47.5 % LYMPHOCYTES (test code = 1010) 40.0 % MONOCYTES (test code = 1011) 9.0 % EOSINOPHILS (test code = 1012) 2.8 % BASOPHILS (test code = 1013) 0.5 % IMMATURE GRANULOCYTES (test code = 1036) 0.2 % NUCLEATED RBCS (test code = 1065) 0.0 /100 WBC'S See_Comment [Automated messa ge] The system which generated this result transmitted reference range: 0.0. The reference range was not used to interpret this result as normal/abnormal. PLATELET COUNT (test code = 1015) 216 K/UL 130-400 ABSOLUTE NEUTROPHILS (test code = 1066) 3.96 K/UL 1.50-7.50 ABSOLUTE LYMPHOCYTES (test code = 1067) 3.34 K/UL 1.00-4.00 ABSOLUTE MONOCYTES (test code = 1068) 0.75 K/UL 0.20-1.00 ABSOLUTE EOSINOPHILS (test code = 1040) 0.23 K/UL 0.00-0.50 ABSOLUTE BASOPHILS (test code = 1069) 0.04 K/UL 0.00-0.20 ABS IMMATURE GRANULOCYTES (test code = 1020) 0.02 K/UL 0.00-0.10 ABS NUCLEATED RBCS (test code = 21997) 0.00 K/UL 0.00-0.11 LIPID [id number] 06:30:27* Test Item Value Reference Range Interpretation Comme nts CHOLESTEROL (test code = 2210) 118 MG/DL <200 TRIGLYCERIDES (test code = 2232) 91 MG/DL <150 HDL CHOLESTEROL (test code = 2220) 52 MG/DL >39 CALC LDL CHOL (test code = 2237) 48 MG/DL <100 NOTE: CALCULATED LDL IS BASED ON DIMITRIOS-BOYD METHOD WHICHINCLUDES ADJUSTABLE TRIGLYCERIDE:VLDL CHOLESTEROL RATIO.THIS FACTOR VARIES BY MEASURED TRIGLYCERIDE AND NON-HDLCHOLESTEROL CONCENTRATIONS WITH INCREASED CALCULATED LDL SEENIN HIGHER TRIGLYCERIDE OR LOWER NON-HDL SPECIMENS. FOR MOREINFORMATION, SEE CLIENT ANNOUNCEMENT AT [email or web address] RISK RATIO LDL/HDL (test code = 2237) 0.92 RATIO <3.55 COMPREHENSIVE METABOLIC [id number] 06:30:27* Test Item Value Reference Range Interpretation Comme nts GLUCOSE (test code = 2216) 82 MG/DL 70-99 BUN (test code = 2207) 25 MG/DL 8-23 H CREATININE (test code = 2213) 1.60 MG/DL 0.80-1.40 H eGFR (2020 CKD-EPI) (test co de = 61190) 42 ML/MIN/1.73 >60 L CALC BUN/CREAT (test code = 2234) 16 RATIO 6-28 SODIUM (test code = 2230) 140 MEQ/L 133-146 POTASSIUM (test code = 2227) 3.8 MEQ/L 3.5-5.4 CHLORIDE (test code = 2214) 107 MEQ/L 95-107 CARBON DIOXIDE (test code = 2205) 21 MEQ/L 19-31 CALCIUM (test code = 2208) 8.5 MG/DL 8.5-10.5 PROTEIN, TOTAL (test code = 2228) 7.1 G/DL 6.1-8.3 ALBUMIN (test code = 2200) 3.7 G/DL 3.5-5.2 CALC GLOBULIN (test code = 0) 3.4 G/DL 1.9-3.7 CALC A/G RATIO (test code = 2233) 1.1 RATIO 1.0-2.6 BILIRUBIN, TOTAL (test code = 2206) 0.6 MG/DL <=1.2 ALKALINE PHOSPHATASE (test code = 2203) 108 U/L 40-125 AST (test code = 2217) 16 U/L 9-50 ALT (test code = 2218) 17 U/L 5-50 IRON BINDING CAPACITY AND IRON AND % [id number] 06:30:27* Test Item Value Reference Range Interpretation Comme nts IRON, SERUM (test code = 2221) 81 UG/DL 59-158 UNSATURATED IBC (test code = ) 162 UG/DL 112-347 CALC TOTAL IBC (test code = 2076) 243 UG/DL 250-450 L CALC % IRON SAT (test code = 2079) 33 % 20-50 [id number] 06:28:37* Test Item Value Reference Range Interpretation Comme nts TRANSFERRIN (test code = 4936) 191 MG/DL 200-360 L EGFR, CREATININE AND [id number] 06:28:37* Test Item Value Reference Range Interpretation Comme nts CYSTATIN-C (test code = 56312) 2.3 MG/L 0.6-1.2 H CREATININE (test code = 2214) 1.60 MG/DL 0.80-1.40 H eGFR CYS-CR.(2020 CKD-EPI) (test code = 50651) 31 ML/MIN/1.73 >59 L UNLESS OTHERWISE INDICATED, ALL TESTING PERFORMED AT [facility] [address] [place] [address] NANNY CAREGIVER: JANNETH PETERSEN M.D. CLIA NUMBER [id number] [place] [id number] 06:26:44* Test Item Value Reference Range Interpretation Comme nts FERRITIN (test code = 2075) 408 NG/ML 30-400 H CULTURE, [id number] 09:40:13SPECIMEN NUMBER: [id number] CULTURE, URINE SPECIMEN NUMBER: [id number] SPECIMEN COMMENT: URINE SOURCE: URINE REPORT STATUS: FINAL FINAL REPORT: 01/13/2024 <10,000 CFU/ML UROGENITAL AWA PRESENT NO COMMON PATHOGENS UNLESS OTHERWISE INDICATED, ALL TESTING PERFORMED AT [facility] [address] [place] [address] NANNY CAREGIVER: JANNETH PETERSEN M.D. CLIA NUMBER [id number] [place] [id number] CULTURE, [id number] 00:00:00* Test Item Value Reference Range Interpretation Comme nts CULTURE, URINE (test code = 47166) SPECIMEN NUMBER: [id number] Yuan HammCULTURE, [id number] 00:00:00* Test Item Value Reference Range Interpretation Comme nts CULTURE, URINE (test code = 20657) SPECIMEN NUMBER: [id number] Yuan [id number] 09:01:31* Test Item Value Reference Range Interpretation Comme nts FERRITIN (test code = 2074) 503 NG/ML 30-400 H UNLESS OTHERWISE INDICATED, ALL TESTING PERFORMED AT [facility] [address] [place] [address] NANNY CAREGIVER: JANNETH PETERSEN M.D. CLIA NUMBER [id number] [place]. [id number] 00:00:00* Test Item Value Reference Range Interpretation Comme nts FERRITIN (test code = 2074) 503 NG/ML Yuan Rouse [id number] 00:00:00* Test Item Value Reference Range Interpretation Comme nts FERRITIN (test code = 2074) 503 NG/ML Yuan F [id number] 00:00:00* Test Item Value Reference Range Interpretation Comme nts FERRITIN (test code = 2074) 503 NG/ML Yuan Rouse [id number] 00:00:00* Test Item Value Reference Range Interpretation Comme nts FERRITIN (test code = 2074) 503 NG/ML Yuan Rouse AustinCBC W/AUTO DIFF WITH [id number] 02:31:48* Test Item Value Reference Range Interpretation [...] 0.00-0.10 ABS NUCLEATED RBCS (test code = 97749) 0.00 K/UL 0.00-0.11 UNLESS OTHER SANCHEZ INDICATED, ALL TESTING PERFORMED AT [facility] [address] [place] [address] NANNY CAREGIVER: JANNETH PETERSEN M.D. CLIA NUMBER [id number] [facility] [place]. [id number] CBC W/AUTO [id number] 00:00:00* Test Item Value Reference Range Interpretation [...] ABS NUCLEATED RBCS (test cod e = 97824) 0.00 K/UL Yuan Rouse AustinCBC W/AUTO [id number] 00:00:00* Test Item Value Reference Range Interpretation [...] ABS NUCLEATED RBCS (test cod e = 36303) 0.00 K/UL Yuan Rouse AustinCBC W/AUTO [id number] 00:00:00* Test Item Value Reference Range Interpretation [...] ABS NUCLEATED RBCS (test cod e = 59216) 0.00 K/UL Yuan Rouse [facility] W/AUTO [id number] 00:00:00* Test Item Value Reference Range Interpretation [...] ABS NUCLEATED RBCS (test cod e = 68824) 0.00 K/UL Yuan Rouse AustinVITAMIN D, 25 [id number] 11:38:03* Test Item Value Reference Range Interpretation [...] . NG/ML 30-100 CBC W/AUTO DIFF WITH [id number] 03:49:35* Test Item Value Reference Range Interpretation [...] = 1065) 0.0 /100 WBC'S See_Comment [Automated RxMP Therapeuticsa ge] The system which generated this result [...] 0.00-0.10 ABS NUCLEATED RBCS (test code = 13062) 0.00 K/UL 0.00-0.11 COMPREHENSIVE METABOLIC [id number] 03:17:45* Test Item Value Reference Range Interpretation Comme nts GLUCOSE (test code = 2217) 112 MG/DL 70-99 H BUN (test code = 2208) 27 MG/DL 8-23 H CREATININE (test code = 2214) 1.68 MG/DL 0.80-1.40 H eGFR (2020 CKD-EPI) (test code = 56916) 40 ML/MIN/1.73 >60 L CALC BUN/CREAT (test code = 2235) 16 RATIO 6-28 SODIUM (test code = 223) 143 MEQ/L 133-146 POTASSIUM (test code = [...] 18 U/L 9-50 ALT (test code = 221) 25 U/L 5-50 UNLESS OTHERWISE INDICATED, ALL TESTING PERFORMED AT [facility] [address] [place] [address] NANNY CAREGIVER: JANNETH PETERSEN M.D. CLIA NUMBER [id number] [place]. [id number] VITAMIN D, 25 [id number] 00:00:00* Test Item Value Reference Range Interpretation Comme nts VITAMIN D, 25 OH (test code = 4958) 35 NG/ML [facility] [id number] 00:00:00* Test Item Value Reference Range Interpretation [...] ABS NUCLEATED RBCS (test cod e = 92173) 0.00 K/UL Yuan HammCOMPREHENSIVE METABOLIC [id number] 00:00:00* Test Item Value Reference Range Interpretation Comme nts GLUCOSE (test code = 2217) 112 MG/DL BUN (test code = 2208) 27 MG/DL CREATININE (test code = 2214) 1.68 MG/DL eGFR (2020 CKD-EPI) (test co de = 94984) 40 ML/MIN/1.73 CALC BUN/CREAT (test code = [...] 2219) 25 U/L Yuan HammVITAMIN D, 25 [id number] 00:00:00* Test Item Value Reference Range Interpretation Comme nts VITAMIN D, 25 OH (test code = 4958) 35 NG/ML Yuan HammCBC W/AUTO [id number] 00:00:00* Test Item Value Reference Range Interpretation [...] ABS NUCLEATED RBCS (test cod e = 47963) 0.00 K/UL Yuan HammCOMPREHENSIVE METABOLIC [id number] 00:00:00* Test Item Value Reference Range Interpretation Comme nts GLUCOSE (test code = 2217) 112 MG/DL BUN (test code = 2208) 27 MG/DL CREATININE (test code = 2214) 1.68 MG/DL eGFR (2020 CKD-EPI) (test co de = 81744) 40 ML/MIN/1.73 CALC BUN/CREAT (test code = [...] MG/DL ALKALINE PHOSPHATASE (test code = 220) 97 U/L AST (test code = 2218) 18 U/L ALT (test code = 2219) 25 U/L Yuan HammVITAMIN D, 25 [id number] 00:00:00* Test Item Value Reference Range Interpretation Comme nts VITAMIN D, 25 OH (test code = 4958) 35 NG/ML Yuan HammCBC W/AUTO [id number] 00:00:00* Test Item Value Reference Range Interpretation [...] ABS NUCLEATED RBCS (test cod e = 93038) 0.00 K/UL Yuan HammCOMPREHENSIVE METABOLIC [id number] 00:00:00* Test Item Value Reference Range Interpretation Comme nts GLUCOSE (test code = 2217) 112 MG/DL BUN (test code = 2208) 27 MG/DL CREATININE (test code = 2214) 1.68 MG/DL eGFR (2020 CKD-EPI) (test co de = 36208) 40 ML/MIN/1.73 CALC BUN/CREAT (test code = [...] 2219) 25 U/L Yuan HammVITAMIN D, 25 [id number] 00:00:00* Test Item Value Reference Range Interpretation Comme nts VITAMIN D, 25 OH (test code = 4958) 35 NG/ML Yuan Rouse HanselCBC W/AUTO [id number] 00:00:00* Test Item Value Reference Range Interpretation [...] ABS NUCLEATED RBCS (test cod e = 14468) 0.00 K/UL Yuan HammCOMPREHENSIVE METABOLIC [id number] 00:00:00* Test Item Value Reference Range Interpretation Comme nts GLUCOSE (test code = 2217) 112 MG/DL BUN (test code = 2208) 27 MG/DL CREATININE (test code = 2214) 1.68 MG/DL eGFR (2020 CKD-EPI) (test co de = 33239) 40 ML/MIN/1.73 CALC BUN/CREAT (test code = [...] G/DL CALC A/G RATIO (test code = 223) 1.3 RATIO BILIRUBIN, TOTAL (test code = 2206) 0.9 MG/DL ALKALINE PHOSPHATASE (test code = 2203) 97 U/L AST (test code = 2218) 18 U/L ALT (test code = 221) 25 U/L Yuan Rouse AustinLIPID [id number] 05:43:22* Test Item Value Reference Range Interpretation Comme nts CHOLESTEROL (test code = 2210) 125 MG/DL <200 TRIGLYCERIDES (test code = 2232) 100 MG/DL <150 HDL CHOLESTEROL (test code = 2220) 52 MG/DL >39 CALC LDL CHOL (test code = 2236) 54 MG/DL <100 NOTE: CALCULATED LDL IS BASED ON DIMITRIOS-BOYD METHOD WHICHINCLUDES ADJUSTABLE TRIGLYCERIDE:VLDL CHOLESTEROL RATIO.THIS FACTOR VARIES BY MEASURED TRIGLYCERIDE AND NON-HDLCHOLESTEROL CONCENTRATIONS WITH INCREASED CALCULATED LDL SEENIN HIGHER TRIGLYCERIDE OR LOWER NON-HDL SPECIMENS. FOR MOREINFORMATION, SEE CLIENT ANNOUNCEMENT AT [email or web address] RATIO LDL/HDL (test code = 2237) 1.04 RATIO <3.55 COMPREHENSIVE METABOLIC [id number] 05:43:22* Test Item Value Reference Range Interpretation Comme nts GLUCOSE (test code = 2216) 102 MG/DL 70-99 H BUN (test code = 2207) 29 MG/DL 8-23 H CREATININE (test code = 4) 1.57 MG/DL 0.80-1.40 H eGFR (2020 CKD-EPI) (test code = 06560) 44 ML/MIN/1.73 >60 L CALC BUN/CREAT (test code = 2234) 18 RATIO 6-28 SODIUM (test code = 2230) 145 MEQ/L 133-146 POTASSIUM (test code = 2228) 4.7 MEQ/L 3.5-5.4 CHLORIDE (test code = 2215) 112 MEQ/L 95-107 H CARBON DIOXIDE (test code = 6) 18 MEQ/L 19-31 L CALCIUM (test code = 220) 9.0 MG/DL 8.5-10.5 PROTEIN, TOTAL (test code = 2228) 7.0 G/DL 6.1-8.3 ALBUMIN (test code = 2200) 3.9 G/DL 3.5-5.2 CALC GLOBULIN (test code = 2240) 3.1 G/DL 1.9-3.7 CALC A/G RATIO (test code = 223) 1.3 RATIO 1.0-2.6 BILIRUBIN, TOTAL (test code = 2207) 0.7 MG/DL See_Comment [Automated me ssage] The system which generated this result transmitted reference range: <=1.2. The reference range was not used to interpret this result as normal/abnormal. ALKALINE PHOSPHATASE (test code = 2203) 103 U/L 40-125 AST (test code = 2218) 22 U/L 9-50 ALT (test code = 2219) 27 U/L 5-50 [facility] has impo rtant pathology staff changes effective 10/24/2022. New pathology staff will provide uninterrupted, excellent patient care and clinical consultation. See URL: [email or web address]. UNLESS OTHERWISE INDICATED, ALL TESTING PERFORMED AT [facility] [address] [place] [address] NANNY CAREGIVER: JANNETH PETERSEN M.D. CLIA NUMBER [id number] [facility] [place] [id number] CBC W/AUTO DIFF WITH [id number] 03:40:13* Test Item Value Reference Range Interpretation [...] 0.00-0.10 ABS NUCLEATED RBCS (test code = 50509) 0.00 K/UL 0.00-0.11 CBC W/AUTO [id number] 00:00:00* Test Item Value Reference Range Interpretation [...] ABS NUCLEATED RBCS (test cod e = 29002) 0.00 K/UL Yuan HammLIPID [id number] 00:00:00* Test Item Value Reference Range Interpretation Comme nts CHOLESTEROL (test code = 2210) 125 MG/DL TRIGLYCERIDES (test code = 2232) 100 MG/DL HDL CHOLESTEROL (test code = 2220) 52 MG/DL CALC LDL CHOL (test code = 2237) 54 MG/DL RISK RATIO LDL/HDL (test cod e = 2238) 1.04 RATIO Yuan Rouse HanselCOMPREHENSIVE METABOLIC [id number] 00:00:00* Test Item Value Reference Range Interpretation Comme nts GLUCOSE (test code = 2217) 102 MG/DL BUN (test code = 2208) 29 MG/DL CREATININE (test code = 2214) 1.57 MG/DL eGFR (2020 CKD-EPI) (test co de = 79330) 44 ML/MIN/1.73 CALC BUN/CREAT (test code = [...] = 2219) 27 U/L Yuan HammCBC W/AUTO [id number] 00:00:00* Test Item Value Reference Range Interpretation [...] ABS NUCLEATED RBCS (test cod e = 45771) 0.00 K/UL Yuan HammLIPID [id number] 00:00:00* Test Item Value Reference Range Interpretation Comme nts CHOLESTEROL (test code = 2210) 125 MG/DL TRIGLYCERIDES (test code = 2232) 100 MG/DL HDL CHOLESTEROL (test code = 2220) 52 MG/DL CALC LDL CHOL (test code = 2237) 54 MG/DL RISK RATIO LDL/HDL (test cod e = 2238) 1.04 RATIO Yuan HammCOMPREHENSIVE METABOLIC [id number] 00:00:00* Test Item Value Reference Range Interpretation Comme nts GLUCOSE (test code = 2217) 102 MG/DL BUN (test code = 2208) 29 MG/DL CREATININE (test code = 2214) 1.57 MG/DL eGFR (2020 CKD-EPI) (test co de = 66281) 44 ML/MIN/1.73 CALC BUN/CREAT (test code = [...] (test code = 2219) 27 U/L [facility] [id number] 00:00:00* Test Item Value Reference Range Interpretation [...] ABS NUCLEATED RBCS (test cod e = 74212) 0.00 K/UL Yuan HammLIPID [id number] 00:00:00* Test Item Value Reference Range Interpretation Comme nts CHOLESTEROL (test code = 2210) 125 MG/DL TRIGLYCERIDES (test code = 2232) 100 MG/DL HDL CHOLESTEROL (test code = 2220) 52 MG/DL CALC LDL CHOL (test code = 2237) 54 MG/DL RISK RATIO LDL/HDL (test cod e = 2238) 1.04 RATIO Yuan HammCOMPREHENSIVE METABOLIC [id number] 00:00:00* Test Item Value Reference Range Interpretation Comme nts GLUCOSE (test code = 2217) 102 MG/DL BUN (test code = 2208) 29 MG/DL CREATININE (test code = 2214) 1.57 MG/DL eGFR (2020 CKD-EPI) (test co de = 09022) 44 ML/MIN/1.73 CALC BUN/CREAT (test code = [...] = 2219) 27 U/L Yuan HammCBC W/AUTO [id number] 00:00:00* Test Item Value Reference Range Interpretation [...] ABS NUCLEATED RBCS (test cod e = 36752) 0.00 K/UL Yuan Rouse AustinLIPID [id number] 00:00:00* Test Item Value Reference Range Interpretation Comme nts CHOLESTEROL (test code = 2210) 125 MG/DL TRIGLYCERIDES (test code = 2232) 100 MG/DL HDL CHOLESTEROL (test code = 2220) 52 MG/DL CALC LDL CHOL (test code = 2237) 54 MG/DL RISK RATIO LDL/HDL (test cod e = 2238) 1.04 RATIO Yuan HammCOMPREHENSIVE METABOLIC [id number] 00:00:00* Test Item Value Reference Range Interpretation Comme nts GLUCOSE (test code = 2217) 102 MG/DL BUN (test code = 2208) 29 MG/DL CREATININE (test code = 2214) 1.57 MG/DL eGFR (2020 CKD-EPI) (test co de = 44939) 44 ML/MIN/1.73 CALC BUN/CREAT (test code = [...] (test code = 2219) 27 U/L Yuan HammPSA, [id number] 06:57:19* Test Item Value Reference Range Interpretation Comme nts PSA, TOTAL (test code = 2606) 0.56 NG/ML See_Comment NOTE: Methodolog y is Arlene Waldo Electrochemiluminescence Immunoassay traceable to WHO reference standard 96/760. UNLESS OTHERWISE INDICATED, ALL TESTING PERFORMED [facility] [employer] [address] [place] [address] NANNY CAREGIVER: UMA HALL M.D. CLIA NUMBER [id number] [place]. [id number] [Automated message] The system which generated this result transmitted reference range: <=4.00. The reference range was not used to interpret this result as normal/abnormal. LIPID [id number] 06:08:50* Test Item Value Reference Range Interpretation [...] SPECIMENS. FOR MOREINFORMATION, SEE CLIENT ANNOUNCEMENT AT [email or web address] RISK RATIO LDL/HDL (test code = 2237) 1.11 RATIO <3.55 COMPREHENSIVE METABOLIC [id number] 06:08:50* Test Item Value Reference Range Interpretation Comme nts GLUCOSE (test code = 2216) 102 MG/DL 70-99 H BUN (test code = 2207) 36 MG/DL 8-23 H CREATININE (test code = 2213) 1.96 MG/DL 0.80-1.40 H eGFR (2020 CKD-EPI) (test code = ) 34 ML/MIN/1.73 >60 L CALC BUN/CREAT (test code = 2234) 18 RATIO 6-28 SODIUM (test code = 2230) 142 MEQ/L 133-146 POTASSIUM (test code = 2227) 5.1 MEQ/L 3.5-5.4 CHLORIDE (test code = 2214) 106 MEQ/L 95-107 CARBON DIOXIDE (test code = 2205) 23 MEQ/L 19-31 CALCIUM (test code = 2208) 9.3 MG/DL 8.5-10.5 PROTEIN, TOTAL (test code = 2228) 7.6 G/DL 6.1-8.3 ALBUMIN (test code = 2200) 4.2 G/DL 3.5-5.2 CALC GLOBULIN (test code = 2240) 3.4 G/DL 1.9-3.7 CALC A/G RATIO (test code = 2233) 1.2 RATIO 1.0-2.6 BILIRUBIN, TOTAL (test code = 2206) 0.5 MG/DL See_Comment [Automated me ssage] The system which generated this result transmitted reference range: <=1.2. The reference range was not used to interpret this result as normal/abnormal. ALKALINE PHOSPHATASE (test code = 2203) 118 U/L 40-125 AST (test code = 2218) 28 U/L 9-50 ALT (test code = 2219) 40 U/L 5-50 CBC W/AUTO DIFF WITH [id number] 03:40:43* Test Item Value Reference Range Interpretation [...] 0.00-0.10 ABS NUCLEATED RBCS (test code = 72009) 0.00 K/UL 0.00-0.11 CBC W/AUTO [id number] 00:00:00* Test Item Value Reference Range Interpretation [...] ABS NUCLEATED RBCS (test cod e = 66363) 0.00 K/UL Yuan Nasim AustinLIPID [id number] 00:00:00* Test Item Value Reference Range Interpretation Comme nts CHOLESTEROL (test code = 2210) 132 MG/DL TRIGLYCERIDES (test code = 2232) 79 MG/DL HDL CHOLESTEROL (test code = 2220) 55 MG/DL CALC LDL CHOL (test code = 2237) 61 MG/DL RISK RATIO LDL/HDL (test cod e = 2238) 1.11 RATIO Yuan HammCOMPREHENSIVE METABOLIC [id number] 00:00:00* Test Item Value Reference Range Interpretation Comme nts GLUCOSE (test code = 2217) 102 MG/DL BUN (test code = 2208) 36 MG/DL CREATININE (test code = 2214) 1.96 MG/DL eGFR (2020 CKD-EPI) (test co de = 85125) 34 ML/MIN/1.73 CALC BUN/CREAT (test code = [...] code = 2219) 40 U/L Yuan HammPSA, [id number] 00:00:00* Test Item Value Reference Range Interpretation Comme nts PSA, TOTAL (test code = 2606) 0.56 NG/ML Yuan HammCBC W/AUTO [id number] 00:00:00* Test Item Value Reference Range Interpretation [...] ABS NUCLEATED RBCS (test cod e = 60667) 0.00 K/UL Yuan HammLIPID [id number] 00:00:00* Test Item Value Reference Range Interpretation Comme nts CHOLESTEROL (test code = 2210) 132 MG/DL TRIGLYCERIDES (test code = 2232) 79 MG/DL HDL CHOLESTEROL (test code = 2220) 55 MG/DL CALC LDL CHOL (test code = 2237) 61 MG/DL RISK RATIO LDL/HDL (test cod e = 2238) 1.11 RATIO Yuan HammCOMPREHENSIVE METABOLIC [id number] 00:00:00* Test Item Value Reference Range Interpretation Comme nts GLUCOSE (test code = 2217) 102 MG/DL BUN (test code = 2208) 36 MG/DL CREATININE (test code = 2214) 1.96 MG/DL eGFR (2020 CKD-EPI) (test co de = 11992) 34 ML/MIN/1.73 CALC BUN/CREAT (test code = [...] code = 2219) 40 U/L Yuan HammPSA, [id number] 00:00:00* Test Item Value Reference Range Interpretation Comme nts PSA, TOTAL (test code = 2606) 0.56 NG/ML Yuan HammCBC W/AUTO [id number] 00:00:00* Test Item Value Reference Range Interpretation [...] ABS NUCLEATED RBCS (test cod e = 57602) 0.00 K/UL Yuan HammLIPID [id number] 00:00:00* Test Item Value Reference Range Interpretation Comme nts CHOLESTEROL (test code = 2210) 132 MG/DL TRIGLYCERIDES (test code = 2232) 79 MG/DL HDL CHOLESTEROL (test code = 2220) 55 MG/DL CALC LDL CHOL (test code = 2237) 61 MG/DL RISK RATIO LDL/HDL (test cod e = 2238) 1.11 RATIO Yuan HammCOMPREHENSIVE METABOLIC [id number] 00:00:00* Test Item Value Reference Range Interpretation Comme nts GLUCOSE (test code = 2217) 102 MG/DL BUN (test code = 2208) 36 MG/DL CREATININE (test code = 2214) 1.96 MG/DL eGFR (2020 CKD-EPI) (test co de = 24989) 34 ML/MIN/1.73 CALC BUN/CREAT (test code = [...] code = 2219) 40 U/L Yuan HammPSA, [id number] 00:00:00* Test Item Value Reference Range Interpretation Comme nts PSA, TOTAL (test code = 2606) 0.56 NG/ML Yuan HammCBC W/AUTO [id number] 00:00:00* Test Item Value Reference Range Interpretation [...] ABS NUCLEATED RBCS (test cod e = 24621) 0.00 K/UL Yuan HammLIPID [id number] 00:00:00* Test Item Value Reference Range Interpretation Comme nts CHOLESTEROL (test code = 2210) 132 MG/DL TRIGLYCERIDES (test code = 2232) 79 MG/DL HDL CHOLESTEROL (test code = 2220) 55 MG/DL CALC LDL CHOL (test code = 2237) 61 MG/DL RISK RATIO LDL/HDL (test cod e = 2238) 1.11 RATIO Yuan HammCOMPREHENSIVE METABOLIC [id number] 00:00:00* Test Item Value Reference Range Interpretation Comme nts GLUCOSE (test code = 2217) 102 MG/DL BUN (test code = 2208) 36 MG/DL CREATININE (test code = 2214) 1.96 MG/DL eGFR (2020 CKD-EPI) (test co de = 81136) 34 ML/MIN/1.73 CALC BUN/CREAT (test code = [...] code = 2219) 40 U/L Yuan HammPSA, [id number] 00:00:00* Test Item Value Reference Range Interpretation Comme nts PSA, TOTAL (test code = 2606) 0.56 NG/ML Yuan HammLIPID [id number] 05:40:06* Test Item Value Reference Range Interpretation [...] SPECIMENS. FOR MOREINFORMATION, SEE CLIENT ANNOUNCEMENT AT [email or web address] RISK RATIO LDL/HDL (test code = 223) 1.19 RATIO <3.55 COMPREHENSIVE METABOLIC [id number] 05:40:06* Test Item Value Reference Range Interpretation Comme nts GLUCOSE (test code = 2217) 103 MG/DL 70-99 H BUN (test code = 220) 28 MG/DL 8-23 H CREATININE (test code = 2214) 1.77 MG/DL 0.80-1.40 H EFFECTIVE 2020, [facility] HAS IMPLEMENTED THE NKF-ASN RECOMMENDED KD-EPI EGFR REFIT CALCULATION THAT DOES NOT INCLUDE A COEFFICIENT FORRACE. FOR MORE INFORMATION, SEE ANNOUNCEMENT [email or web address] (2020 CKD-EPI) (test code = 23064) 38 ML/MIN/1.73 >60 L CALC BUN/CREAT (test code = 5) 16 RATIO 6-28 SODIUM (test code = 2230) 142 MEQ/L 133-146 POTASSIUM (test code = 2227) 5.1 MEQ/L 3.5-5.4 CHLORIDE (test code = 2214) 106 MEQ/L 95-107 CARBON DIOXIDE (test code = 2205) 24 MEQ/L 19-31 CALCIUM (test code = 2209) 9.3 MG/DL 8.5-10.5 PROTEIN, TOTAL (test code = 2229) 7.4 G/DL 6.1-8.3 ALBUMIN (test code = [...] 5-50 UNLESS OTHERWISE INDICATED, ALL TESTING PERFORMED [facility] [employer] [address] [place] [address] NANNY CAREGIVER: UMA HALL M.D. CLIA NUMBER [id number] [facility]. [id number] HEMOGLOBIN [id number] 03:47:41* Test Item Value Reference Range Interpretation Comme nts HEMOGLOBIN A1c (test code = 72330) 5.9 % 4.2-5.6 H LIPID [id number] 00:00:00* Test Item Value Reference Range Interpretation Comme nts CHOLESTEROL (test code = 2210) 143 MG/DL TRIGLYCERIDES (test code = 2232) 98 MG/DL HDL CHOLESTEROL (test code = 2220) 57 MG/DL CALC LDL CHOL (test code = 2237) 68 MG/DL RISK RATIO LDL/HDL (test cod e = 2238) 1.19 RATIO Yuan Nasim AustinHEMOGLOBIN [id number] 00:00:00* Test Item Value Reference Range Interpretation Comme nts HEMOGLOBIN A1c (test code = 45711) 5.9 % Yuan F ColoraCOMPREHENSIVE METABOLIC [id number] 00:00:00* Test Item Value Reference Range Interpretation Comme nts GLUCOSE (test code = 2217) 103 MG/DL BUN (test code = 2208) 28 MG/DL CREATININE (test code = 2214) 1.77 MG/DL eGFR (2020 CKD-EPI) (test co de = 90911) 38 ML/MIN/1.73 CALC BUN/CREAT (test code = [...] code = 2219) 20 U/L Yuan Rouse ColoraLIPID [id number] 00:00:00* Test Item Value Reference Range Interpretation Comme nts CHOLESTEROL (test code = 2210) 143 MG/DL TRIGLYCERIDES (test code = 2232) 98 MG/DL HDL CHOLESTEROL (test code = 2220) 57 MG/DL CALC LDL CHOL (test code = 2237) 68 MG/DL RISK RATIO LDL/HDL (test cod e = 2238) 1.19 RATIO Yuan HammHEMOGLOBIN [id number] 00:00:00* Test Item Value Reference Range Interpretation Comme nts HEMOGLOBIN A1c (test code = 71027) 5.9 % Yuan Rouse ColoraCOMPREHENSIVE METABOLIC [id number] 00:00:00* Test Item Value Reference Range Interpretation Comme nts GLUCOSE (test code = 2217) 103 MG/DL BUN (test code = 2208) 28 MG/DL CREATININE (test code = 2214) 1.77 MG/DL eGFR (2020 CKD-EPI) (test co de = 33423) 38 ML/MIN/1.73 CALC BUN/CREAT (test code = [...] code = 2219) 20 U/L Yuan HammLIPID [id number] 00:00:00* Test Item Value Reference Range Interpretation Comme nts CHOLESTEROL (test code = 2210) 143 MG/DL TRIGLYCERIDES (test code = 2232) 98 MG/DL HDL CHOLESTEROL (test code = 2220) 57 MG/DL CALC LDL CHOL (test code = 2237) 68 MG/DL RISK RATIO LDL/HDL (test cod e = 2238) 1.19 RATIO Yuan HammHEMOGLOBIN [id number] 00:00:00* Test Item Value Reference Range Interpretation Comme nts HEMOGLOBIN A1c (test code = 16173) 5.9 % Yuan HammCOMPREHENSIVE METABOLIC [id number] 00:00:00* Test Item Value Reference Range Interpretation Comme nts GLUCOSE (test code = 2217) 103 MG/DL BUN (test code = 2208) 28 MG/DL CREATININE (test code = 2214) 1.77 MG/DL eGFR (2020 CKD-EPI) (test co de = 21578) 38 ML/MIN/1.73 CALC BUN/CREAT (test code = [...] code = 2219) 20 U/L Yuan HammLIPID [id number] 00:00:00* Test Item Value Reference Range Interpretation Comme nts CHOLESTEROL (test code = 2210) 143 MG/DL TRIGLYCERIDES (test code = 2232) 98 MG/DL HDL CHOLESTEROL (test code = 2220) 57 MG/DL CALC LDL CHOL (test code = 2237) 68 MG/DL RISK RATIO LDL/HDL (test cod e = 2238) 1.19 RATIO Yuan HammHEMOGLOBIN [id number] 00:00:00* Test Item Value Reference Range Interpretation Comme nts HEMOGLOBIN A1c (test code = 10156) 5.9 % Yuan HammCOMPREHENSIVE METABOLIC [id number] 00:00:00* Test Item Value Reference Range Interpretation Comme nts GLUCOSE (test code = 2217) 103 MG/DL BUN (test code = 2208) 28 MG/DL CREATININE (test code = 2214) 1.77 MG/DL eGFR (2020 CKD-EPI) (test co de = 79201) 38 ML/MIN/1.73 CALC BUN/CREAT (test code = [...] (test code = 2219) 20 U/L Yuan HammHEMOGLOBIN [id number] 00:00:00* Test Item Value Reference Range Interpretation Comme [facility] HEMOGLOBIN A1c (test code = 38176) 5.9 % Yuan HammLIPID [id number] 00:00:00* Test Item Value Reference Range Interpretation Comme nts CHOLESTEROL (test code = 2210) 187 MG/DL TRIGLYCERIDES (test code = 2232) 151 MG/DL HDL CHOLESTEROL (test code = 2220) 52 MG/DL CALC LDL CHOL (test code = 2237) 109 MG/DL RISK RATIO LDL/HDL (test cod e = 2238) 2.10 RATIO Yuan HammCOMPREHENSIVE METABOLIC [id number] 00:00:00* Test Item Value Reference Range Interpretation Comme nts GLUCOSE (test code = 2217) 96 MG/DL BUN (test code = 2208) 30 MG/DL CREATININE (test code = 2214) 1.74 MG/DL eGFR AMER. (test cod e = 66295) 42 ML/MIN/1.73 eGFR NON- AMER. (test code = 31145) 36 ML/MIN/1.73 CALC BUN/CREAT (test code = [...] (test code = 2219) 26 U/L Yuan [id number] 00:00:00* Test Item Value Reference Range Interpretation Comme nts TSH, THIRD GENERATION (test code = 2821) 2.790 UIU/ML Yuan HammVITAMIN D, 25 [id number] 00:00:00* Test Item Value Reference Range Interpretation Comme gladys VITAMIN D, 25 OH (test code = 4958) 35 NG/ML Yuan HammPTH, INTACT, WITH CALCIUM, PHOSPHORUS, [id number] 00:00:00* Test Item Value Reference Range Interpretation Comme nts INTACT PTH (test code = 5005) 69 PG/ML CALCIUM (test code = 2209) 9.6 MG/DL PHOSPHORUS (test code = 2227) 3.5 MG/DL CREATININE (test code = 2214) 1.74 MG/DL eGFR AMER. (test cod e = 34726) 42 ML/MIN/1.73 eGFR NON- AMER. (test code = 31771) 36 ML/MIN/1.73 Yuan HammALBUMIN/CREATININE RATIO, URINE, RANDOM [ADDED]2021-02-21 00:00:00* Test Item Value Reference Range Interpretation Comme nts CREATININE, URINE, CONC. (te st code = 2072) 182.6 MG/DL ALBUMIN, URINE, RANDOM (test code = 42398) 2.0 MG/DL CALC ALBUMIN/CREAT, RND (darcie t code = 27096) 11 MG/G Yuan HammHEMOGLOBIN [id number] 00:00:00* Test Item Value Reference Range Interpretation Comme gladys HEMOGLOBIN A1c (test code = 24090) 5.9 % Yuan HammLIPID [id number] 00:00:00* Test Item Value Reference Range Interpretation Comme nts CHOLESTEROL (test code = 2210) 187 MG/DL TRIGLYCERIDES (test code = 2232) 151 MG/DL HDL CHOLESTEROL (test code = 2220) 52 MG/DL CALC LDL CHOL (test code = 2237) 109 MG/DL RISK RATIO LDL/HDL (test cod e = 2238) 2.10 RATIO Yuan HammCOMPREHENSIVE METABOLIC [id number] 00:00:00* Test Item Value Reference Range Interpretation Comme nts GLUCOSE (test code = 2217) 96 MG/DL BUN (test code = 2208) 30 MG/DL CREATININE (test code = 2214) 1.74 MG/DL eGFR AMER. (test cod e = 02242) 42 ML/MIN/1.73 eGFR NON- AMER. (test code = 44056) 36 ML/MIN/1.73 CALC BUN/CREAT (test code = [...] (test code = 2219) 26 U/L Yuan [id number] 00:00:00* Test Item Value Reference Range Interpretation Comme [facility] TSH, THIRD GENERATION (test code = 2821) 2.790 UIU/ML Yuan HammVITAMIN D, 25 [id number] 00:00:00* Test Item Value Reference Range Interpretation Comme [facility] VITAMIN D, 25 OH (test code = 4958) 35 NG/ML Yuan HammPTH, INTACT, WITH CALCIUM, PHOSPHORUS, [id number] 00:00:00* Test Item Value Reference Range Interpretation Comme [facility] INTACT PTH (test code = 5005) 69 PG/ML CALCIUM (test code = 2209) 9.6 MG/DL PHOSPHORUS (test code = 2227) 3.5 MG/DL CREATININE (test code = 2214) 1.74 MG/DL eGFR AMER. (test cod e = 32568) 42 ML/MIN/1.73 eGFR NON- AMER. (test code = 52842) 36 ML/MIN/1.73 Yuan HammALBUMIN/CREATININE RATIO, URINE, RANDOM [ADDED]2021-02-21 00:00:00* Test Item Value Reference Range Interpretation Comme [facility] CREATININE, URINE, CONC. (te st code = 2072) 182.6 MG/DL ALBUMIN, URINE, RANDOM (test code = 78949) 2.0 MG/DL CALC ALBUMIN/CREAT, RND (darcie t code = 74294) 11 MG/G Yuan HammHEMOGLOBIN [id number] 00:00:00* Test Item Value Reference Range Interpretation Comme nts HEMOGLOBIN A1c (test code = 35592) 5.9 % Yuan HammLIPID [id number] 00:00:00* Test Item Value Reference Range Interpretation Comme nts CHOLESTEROL (test code = 2210) 187 MG/DL TRIGLYCERIDES (test code = 2232) 151 MG/DL HDL CHOLESTEROL (test code = 2220) 52 MG/DL CALC LDL CHOL (test code = 2237) 109 MG/DL RISK RATIO LDL/HDL (test cod e = 2238) 2.10 RATIO Yuan HammCOMPREHENSIVE METABOLIC [id number] 00:00:00* Test Item Value Reference Range Interpretation Comme nts GLUCOSE (test code = 2217) 96 MG/DL BUN (test code = 2208) 30 MG/DL CREATININE (test code = 2214) 1.74 MG/DL eGFR AMER. (test cod e = 12911) 42 ML/MIN/1.73 eGFR NON- AMER. (test code = 46747) 36 ML/MIN/1.73 CALC BUN/CREAT (test code = [...] (test code = 2219) 26 U/L Yuan [id number] 00:00:00* Test Item Value Reference Range Interpretation Comme nts TSH, THIRD GENERATION (test code = 2821) 2.790 UIU/ML Yuan HammVITAMIN D, 25 [id number] 00:00:00* Test Item Value Reference Range Interpretation Comme [facility] VITAMIN D, 25 OH (test code = 4958) 35 NG/ML Yuan HammPTH, INTACT, WITH CALCIUM, PHOSPHORUS, [id number] 00:00:00* Test Item Value Reference Range Interpretation Comme [facility] INTACT PTH (test code = 5005) 69 PG/ML CALCIUM (test code = 2209) 9.6 MG/DL PHOSPHORUS (test code = 2227) 3.5 MG/DL CREATININE (test code = 2214) 1.74 MG/DL eGFR AMER. (test cod e = 63018) 42 ML/MIN/1.73 eGFR NON- AMER. (test code = 24423) 36 ML/MIN/1.73 Yuan HammALBUMIN/CREATININE RATIO, URINE, RANDOM [ADDED]2021-02-21 00:00:00* Test Item Value Reference Range Interpretation Comme [facility] CREATININE, URINE, CONC. (te st code = 2072) 182.6 MG/DL ALBUMIN, URINE, RANDOM (test code = 16268) 2.0 MG/DL CALC ALBUMIN/CREAT, RND (darcie t code = 82430) 11 MG/G Yuan HammHEMOGLOBIN [id number] 00:00:00* Test Item Value Reference Range Interpretation Comme [facility] HEMOGLOBIN A1c (test code = 33540) 5.9 % Yuan HammLIPID [id number] 00:00:00* Test Item Value Reference Range Interpretation Comme nts CHOLESTEROL (test code = 2210) 187 MG/DL TRIGLYCERIDES (test code = 2232) 151 MG/DL HDL CHOLESTEROL (test code = 2220) 52 MG/DL CALC LDL CHOL (test code = 2237) 109 MG/DL RISK RATIO LDL/HDL (test cod e = 2238) 2.10 RATIO Yuan HammCOMPREHENSIVE METABOLIC [id number] 00:00:00* Test Item Value Reference Range Interpretation Comme nts GLUCOSE (test code = 2217) 96 MG/DL BUN (test code = 2208) 30 MG/DL CREATININE (test code = 2214) 1.74 MG/DL eGFR AMER. (test cod e = 92748) 42 ML/MIN/1.73 eGFR NON- AMER. (test code = 84059) 36 ML/MIN/1.73 CALC BUN/CREAT (test code = [...] (test code = 2219) 26 U/L Yuan [id number] 00:00:00* Test Item Value Reference Range Interpretation Comme [facility] TSH, THIRD GENERATION (test code = 2821) 2.790 UIU/ML Yuan HammVITAMIN D, 25 [id number] 00:00:00* Test Item Value Reference Range Interpretation Comme [facility] VITAMIN D, 25 OH (test code = 4958) 35 NG/ML Yuan HammPTH, INTACT, WITH CALCIUM, PHOSPHORUS, [id number] 00:00:00* Test Item Value Reference Range Interpretation Comme [facility] INTACT PTH (test code = 5005) 69 PG/ML CALCIUM (test code = 2209) 9.6 MG/DL PHOSPHORUS (test code = 2227) 3.5 MG/DL CREATININE (test code = 2214) 1.74 MG/DL eGFR AMER. (test cod e = 62922) 42 ML/MIN/1.73 eGFR NON- AMER. (test code = 15259) 36 ML/MIN/1.73 Yuan Rouse HanselALBUMIN/CREATININE RATIO, URINE, RANDOM [ADDED]2021-02-21 00:00:00* Test Item Value Reference Range Interpretation Comme nts CREATININE, URINE, CONC. (te st code = 2072) 182.6 MG/DL ALBUMIN, URINE, RANDOM (test code = 92022) 2.0 MG/DL CALC ALBUMIN/CREAT, RND (darcie t code = 81193) 11 MG/G Yuan F AustinPTH, INTACT, WITH CALCIUM, PHOSPHORUS, [id number] 00:00:00* Test Item Value Reference Range Interpretation Comme nts INTACT PTH (test code = 5005) 117 PG/ML CALCIUM (test code = 2209) 9.4 MG/DL PHOSPHORUS (test code = 2227) 3.7 MG/DL CREATININE (test code = 2214) 2.02 MG/DL eGFR AMER. (test cod e = 87275) 35 ML/MIN/1.73 eGFR NON- AMER. (test code = 93219) 30 ML/MIN/1.73 Yuan F AustinVITAMIN D, 25 [id number] 00:00:00* Test Item Value Reference Range Interpretation Comme nts VITAMIN D, 25 OH (test code = 4958) 23 NG/ML Yuan Rouse AustinPTH, INTACT, WITH CALCIUM, PHOSPHORUS, [id number] 00:00:00* Test Item Value Reference Range Interpretation Comme nts INTACT PTH (test code = 5005) 117 PG/ML CALCIUM (test code = 2209) 9.4 MG/DL PHOSPHORUS (test code = 2227) 3.7 MG/DL CREATININE (test code = 2214) 2.02 MG/DL eGFR AMER. (test cod e = 81055) 35 ML/MIN/1.73 eGFR NON- AMER. (test code = 28039) 30 ML/MIN/1.73 Yuan F AustinVITAMIN D, 25 [id number] 00:00:00* Test Item Value Reference Range Interpretation Comme nts VITAMIN D, 25 OH (test code = 4958) 23 NG/ML Yuan F AustinPTH, INTACT, WITH CALCIUM, PHOSPHORUS, [id number] 00:00:00* Test Item Value Reference Range Interpretation Comme nts INTACT PTH (test code = 5005) 117 PG/ML CALCIUM (test code = 2209) 9.4 MG/DL PHOSPHORUS (test code = 2227) 3.7 MG/DL CREATININE (test code = 2214) 2.02 MG/DL eGFR AMER. (test cod e = 67032) 35 ML/MIN/1.73 eGFR NON- AMER. (test code = 37499) 30 ML/MIN/1.73 Yuan HammVITAMIN D, 25 [id number] 00:00:00* Test Item Value Reference Range Interpretation Comme nts VITAMIN D, 25 OH (test code = 4958) 23 NG/ML Yuan HammPTH, INTACT, WITH CALCIUM, PHOSPHORUS, [id number] 00:00:00* Test Item Value Reference Range Interpretation Comme nts INTACT PTH (test code = 5005) 117 PG/ML CALCIUM (test code = 2209) 9.4 MG/DL PHOSPHORUS (test code = 2227) 3.7 MG/DL CREATININE (test code = 2214) 2.02 MG/DL eGFR AMER. (test cod e = 98623) 35 ML/MIN/1.73 eGFR NON- AMER. (test code = 08994) 30 ML/MIN/1.73 Yuan HammVITAMIN D, 25 [id number] 00:00:00* Test Item Value Reference Range Interpretation Comme nts VITAMIN D, 25 OH (test code = 4958) 23 NG/ML Yuan HammLIPID [id number] 00:00:00* Test Item Value Reference Range Interpretation Comme nts CHOLESTEROL (test code = 2210) 231 MG/DL TRIGLYCERIDES (test code = 2232) 189 MG/DL HDL CHOLESTEROL (test code = 2220) 49 MG/DL CALC LDL CHOL (test code = 2237) 149 MG/DL RISK RATIO LDL/HDL (test cod e = 2238) 3.04 RATIO Yuan HammCOMPREHENSIVE METABOLIC [id number] 00:00:00* Test Item Value Reference Range Interpretation Comme nts GLUCOSE (test code = 2217) 86 MG/DL BUN (test code = 2208) 35 MG/DL CREATININE (test code = 2214) 2.02 MG/DL eGFR AMER. (test cod e = 65759) 35 ML/MIN/1.73 eGFR NON- AMER. (test code = 52544) 30 ML/MIN/1.73 CALC BUN/CREAT (test code = [...] = 2219) 16 U/L Yuan HammCBC W/AUTO [id number] 00:00:00* Test Item Value Reference Range Interpretation [...] = 1015) 168 K/UL Yuan HammPROTEIN/CREATININE RATIO, [id number] 00:00:00* Test Item Value Reference Range Interpretation Comme nts PROTEIN, URINE, CONC. (test code = 210) 25 MG/DL CREATININE, URINE, CONC. (te st code = 2071) 247.6 MG/DL CALC PROTEIN/CREATININE (darcie t code = 2157) 101 MG/GCREAT Yuan HammLIPID [id number] 00:00:00* Test Item Value Reference Range Interpretation Comme nts CHOLESTEROL (test code = 2210) 231 MG/DL TRIGLYCERIDES (test code = 2232) 189 MG/DL HDL CHOLESTEROL (test code = 2220) 49 MG/DL CALC LDL CHOL (test code = 2237) 149 MG/DL RISK RATIO LDL/HDL (test cod e = 2238) 3.04 RATIO Yuan HammCOMPREHENSIVE METABOLIC [id number] 00:00:00* Test Item Value Reference Range Interpretation Comme nts GLUCOSE (test code = 2217) 86 MG/DL BUN (test code = 2208) 35 MG/DL CREATININE (test code = 2214) 2.02 MG/DL eGFR AMER. (test cod e = 41220) 35 ML/MIN/1.73 eGFR NON- AMER. (test code = 53477) 30 ML/MIN/1.73 CALC BUN/CREAT (test code = [...] = 2219) 16 U/L Yuan HammCBC W/AUTO [id number] 00:00:00* Test Item Value Reference Range Interpretation [...] = 1015) 168 K/UL Yuan HammPROTEIN/CREATININE RATIO, [id number] 00:00:00* Test Item Value Reference Range Interpretation Comme nts PROTEIN, URINE, CONC. (test code = 2104) 25 MG/DL CREATININE, URINE, CONC. (te st code = 2071) 247.6 MG/DL CALC PROTEIN/CREATININE (darcie t code = 215) 101 MG/GCREAT Yuan HammLIPID [id number] 00:00:00* Test Item Value Reference Range Interpretation Comme nts CHOLESTEROL (test code = 2210) 231 MG/DL TRIGLYCERIDES (test code = 2232) 189 MG/DL HDL CHOLESTEROL (test code = 2220) 49 MG/DL CALC LDL CHOL (test code = 2237) 149 MG/DL RISK RATIO LDL/HDL (test cod e = 2238) 3.04 RATIO Yuan HammCOMPREHENSIVE METABOLIC [id number] 00:00:00* Test Item Value Reference Range Interpretation Comme nts GLUCOSE (test code = 2217) 86 MG/DL BUN (test code = 2208) 35 MG/DL CREATININE (test code = 2214) 2.02 MG/DL eGFR AMER. (test cod e = 24016) 35 ML/MIN/1.73 eGFR NON- AMER. (test code = 46567) 30 ML/MIN/1.73 CALC BUN/CREAT (test code = [...] = 2219) 16 U/L Yuan HammCBC W/AUTO [id number] 00:00:00* Test Item Value Reference Range Interpretation [...] = 1015) 168 K/UL Yuan HammPROTEIN/CREATININE RATIO, [id number] 00:00:00* Test Item Value Reference Range Interpretation Comme nts PROTEIN, URINE, CONC. (test code = 2104) 25 MG/DL CREATININE, URINE, CONC. (te st code = 2071) 247.6 MG/DL CALC PROTEIN/CREATININE (darcie t code = 215) 101 MG/GCREAT Yuan HammLIPID [id number] 00:00:00* Test Item Value Reference Range Interpretation Comme nts CHOLESTEROL (test code = 2210) 231 MG/DL TRIGLYCERIDES (test code = 2232) 189 MG/DL HDL CHOLESTEROL (test code = 2220) 49 MG/DL CALC LDL CHOL (test code = 2237) 149 MG/DL RISK RATIO LDL/HDL (test cod e = 2238) 3.04 RATIO Yuan HammCOMPREHENSIVE METABOLIC [id number] 00:00:00* Test Item Value Reference Range Interpretation Comme nts GLUCOSE (test code = 2217) 86 MG/DL BUN (test code = 2208) 35 MG/DL CREATININE (test code = 2214) 2.02 MG/DL eGFR AMER. (test cod e = 40794) 35 ML/MIN/1.73 eGFR NON- AMER. (test code = 54656) 30 ML/MIN/1.73 CALC BUN/CREAT (test code = [...] = 2219) 16 U/L Yuan HammCBC W/AUTO [id number] 00:00:00* Test Item Value Reference Range Interpretation [...] = 1015) 168 K/UL Yuan HammPROTEIN/CREATININE RATIO, [id number] 00:00:00* Test Item Value Reference Range Interpretation Comme nts PROTEIN, URINE, CONC. (test code = 210) 25 MG/DL CREATININE, URINE, CONC. (te st code = 2071) 247.6 MG/DL CALC PROTEIN/CREATININE (darcie t code = 2158) 101 MG/GCREAT Yuan HammLIPID [id number] 00:00:00* Test Item Value Reference Range Interpretation Comme nts CHOLESTEROL (test code = 2210) 215 MG/DL TRIGLYCERIDES (test code = 2232) 135 MG/DL HDL CHOLESTEROL (test code = 2220) 49 MG/DL CALC LDL CHOL (test code = 2237) 139 MG/DL RISK RATIO LDL/HDL (test cod e = 2238) 2.84 RATIO Yuan HammCOMPREHENSIVE METABOLIC [id number] 00:00:00* Test Item Value Reference Range Interpretation Comme nts GLUCOSE (test code = 2217) 108 MG/DL BUN (test code = 2208) 30 MG/DL CREATININE (test code = 2214) 1.49 MG/DL eGFR AMER. (test cod e = 75436) 51 ML/MIN/1.73 eGFR NON- AMER. (test code = 37047) 44 ML/MIN/1.73 CALC BUN/CREAT (test code = [...] = 2219) 15 U/L Yuan Rouse AustinLIPID [id number] 00:00:00* Test Item Value Reference Range Interpretation Comme nts CHOLESTEROL (test code = 2210) 215 MG/DL TRIGLYCERIDES (test code = 2232) 135 MG/DL HDL CHOLESTEROL (test code = 2220) 49 MG/DL CALC LDL CHOL (test code = 2237) 139 MG/DL RISK RATIO LDL/HDL (test cod e = 2238) 2.84 RATIO Yuan HammCOMPREHENSIVE METABOLIC [id number] 00:00:00* Test Item Value Reference Range Interpretation Comme nts GLUCOSE (test code = 2217) 108 MG/DL BUN (test code = 2208) 30 MG/DL CREATININE (test code = 2214) 1.49 MG/DL eGFR AMER. (test cod e = 21222) 51 ML/MIN/1.73 eGFR NON- AMER. (test code = 47242) 44 ML/MIN/1.73 CALC BUN/CREAT (test code = [...] = 2219) 15 U/L Yuan Rouse AustinLIPID [id number] 00:00:00* Test Item Value Reference Range Interpretation Comme nts CHOLESTEROL (test code = 2210) 215 MG/DL TRIGLYCERIDES (test code = 2232) 135 MG/DL HDL CHOLESTEROL (test code = 2220) 49 MG/DL CALC LDL CHOL (test code = 2237) 139 MG/DL RISK RATIO LDL/HDL (test cod e = 2238) 2.84 RATIO Yuan HammCOMPREHENSIVE METABOLIC [id number] 00:00:00* Test Item Value Reference Range Interpretation Comme nts GLUCOSE (test code = 2217) 108 MG/DL BUN (test code = 2208) 30 MG/DL CREATININE (test code = 2214) 1.49 MG/DL eGFR AMER. (test cod e = 60417) 51 ML/MIN/1.73 eGFR NON- AMER. (test code = 45063) 44 ML/MIN/1.73 CALC BUN/CREAT (test code = 2235) 20 RATIO SODIUM (test code = 2231) 142 MEQ/L POTASSIUM (test code = 2228) 4.7 MEQ/L CHLORIDE (test code = 2215) 106 MEQ/L CARBON DIOXIDE (test code = 2206) 23 MEQ/L CALCIUM (test code = 2209) 9.2 MG/DL PROTEIN, TOTAL (test code = 222) 7.7 G/DL ALBUMIN (test code = 2201) 4.4 G/DL CALC GLOBULIN (test code = 2240) 3.3 G/DL CALC A/G RATIO (test code = 2234) 1.3 RATIO BILIRUBIN, TOTAL (test code = 2206) 0.9 MG/DL ALKALINE PHOSPHATASE (test code = 2204) 94 U/L AST (test code = 2218) 13 U/L ALT (test code = 2219) 15 U/L Yuan Rouse ColoraLIPID [id number] 00:00:00* Test Item Value Reference Range Interpretation Comme nts CHOLESTEROL (test code = 2210) 215 MG/DL TRIGLYCERIDES (test code = 2232) 135 MG/DL HDL CHOLESTEROL (test code = 2220) 49 MG/DL CALC LDL CHOL (test code = 2237) 139 MG/DL RISK RATIO LDL/HDL (test cod e = 2238) 2.84 RATIO Yuan Rouse HanselCOMPREHENSIVE METABOLIC [id number] 00:00:00* Test Item Value Reference Range Interpretation Comme nts GLUCOSE (test code = 2217) 108 MG/DL BUN (test code = 2208) 30 MG/DL CREATININE (test code = 2214) 1.49 MG/DL eGFR AMER. (test cod e = 66670) 51 ML/MIN/1.73 eGFR NON- AMER. (test code = 74966) 44 ML/MIN/1.73 CALC BUN/CREAT (test code = [...] (test code = 2219) 15 U/L Yuan HammCOMPREHENSIVE METABOLIC [id number] 00:00:00* Test Item Value Reference Range Interpretation Comme nts GLUCOSE (test code = 2217) 103 MG/DL BUN (test code = 2208) 38 MG/DL CREATININE (test code = 2214) 1.60 MG/DL eGFR AMER. (test cod e = 56681) 47 ML/MIN/1.73 eGFR NON- AMER. (test code = 29858) 41 ML/MIN/1.73 CALC BUN/CREAT (test code = [...] (test code = 2219) 11 U/L Yuan F HanselLIPID [id number] 00:00:00* Test Item Value Reference Range Interpretation Comme nts CHOLESTEROL (test code = 2210) 217 MG/DL TRIGLYCERIDES (test code = 2232) 198 MG/DL HDL CHOLESTEROL (test code = 2220) 47 MG/DL CALC LDL CHOL (test code = 2237) 130 MG/DL RISK RATIO LDL/HDL (test cod e = 2238) 2.77 RATIO Yuan Rouse HanselCBC W/AUTO [id number] 00:00:00* Test Item Value Reference Range Interpretation [...] 1015) 175 K/UL Yuan Rouse HanselPROTEIN/CREATININE RATIO, [id number] 00:00:00* Test Item Value Reference Range Interpretation Comme nts PROTEIN, URINE, CONC. (test code = 2104) 8 MG/DL CREATININE, URINE, CONC. (te st code = 2071) 122.6 MG/DL CALC PROTEIN/CREATININE (darcie t code = 2157) 65 MG/GCREAT Yuan Rouse HanselCOMPREHENSIVE METABOLIC [id number] 00:00:00* Test Item Value Reference Range Interpretation Comme nts GLUCOSE (test code = 2217) 103 MG/DL BUN (test code = 2208) 38 MG/DL CREATININE (test code = 2214) 1.60 MG/DL eGFR AMER. (test cod e = 06455) 47 ML/MIN/1.73 eGFR NON- AMER. (test code = 48550) 41 ML/MIN/1.73 CALC BUN/CREAT (test code = [...] code = 2219) 11 U/L Yuan HammLIPID [id number] 00:00:00* Test Item Value Reference Range Interpretation Comme nts CHOLESTEROL (test code = 2210) 217 MG/DL TRIGLYCERIDES (test code = 2232) 198 MG/DL HDL CHOLESTEROL (test code = 2220) 47 MG/DL CALC LDL CHOL (test code = 2237) 130 MG/DL RISK RATIO LDL/HDL (test cod e = 2238) 2.77 RATIO Yuan HammCBC W/AUTO [id number] 00:00:00* Test Item Value Reference Range Interpretation [...] = 1015) 175 K/UL Yuan HammPROTEIN/CREATININE RATIO, [id number] 00:00:00* Test Item Value Reference Range Interpretation Comme nts PROTEIN, URINE, CONC. (test code = 210) 8 MG/DL CREATININE, URINE, CONC. (te st code = 2071) 122.6 MG/DL CALC PROTEIN/CREATININE (darcie t code = 2158) 65 MG/GCREAT Yuan HammCOMPREHENSIVE METABOLIC [id number] 00:00:00* Test Item Value Reference Range Interpretation Comme nts GLUCOSE (test code = 2217) 103 MG/DL BUN (test code = 2208) 38 MG/DL CREATININE (test code = 2214) 1.60 MG/DL eGFR AMER. (test cod e = 46669) 47 ML/MIN/1.73 eGFR NON- AMER. (test code = 35553) 41 ML/MIN/1.73 CALC BUN/CREAT (test code = [...] code = 2219) 11 U/L Yuan HammLIPID [id number] 00:00:00* Test Item Value Reference Range Interpretation Comme nts CHOLESTEROL (test code = 2210) 217 MG/DL TRIGLYCERIDES (test code = 2232) 198 MG/DL HDL CHOLESTEROL (test code = 2220) 47 MG/DL CALC LDL CHOL (test code = 2237) 130 MG/DL RISK RATIO LDL/HDL (test cod e = 2238) 2.77 RATIO Yuan HammCBC W/AUTO [id number] 00:00:00* Test Item Value Reference Range Interpretation [...] 1015) 175 K/UL Yuan Rouse HanselPROTEIN/CREATININE RATIO, [id number] 00:00:00* Test Item Value Reference Range Interpretation Comme nts PROTEIN, URINE, CONC. (test code = 2103) 8 MG/DL CREATININE, URINE, CONC. (te st code = 2071) 122.6 MG/DL CALC PROTEIN/CREATININE (darcie t code = 2157) 65 MG/GCREAT Yuan Rouse HanselCOMPREHENSIVE METABOLIC [id number] 00:00:00* Test Item Value Reference Range Interpretation Comme nts GLUCOSE (test code = 2217) 103 MG/DL BUN (test code = 2208) 38 MG/DL CREATININE (test code = 2214) 1.60 MG/DL eGFR AMER. (test cod e = 82059) 47 ML/MIN/1.73 eGFR NON- AMER. (test code = 09055) 41 ML/MIN/1.73 CALC BUN/CREAT (test code = [...] code = 2219) 11 U/L Yuan HammLIPID [id number] 00:00:00* Test Item Value Reference Range Interpretation Comme nts CHOLESTEROL (test code = 2210) 217 MG/DL TRIGLYCERIDES (test code = 2232) 198 MG/DL HDL CHOLESTEROL (test code = 2220) 47 MG/DL CALC LDL CHOL (test code = 2237) 130 MG/DL RISK RATIO LDL/HDL (test cod e = 2238) 2.77 RATIO Yuan HammCBC W/AUTO [id number] 00:00:00* Test Item Value Reference Range Interpretation [...] = 1015) 175 K/UL Yuan HammPROTEIN/CREATININE RATIO, [id number] 00:00:00* Test Item Value Reference Range Interpretation Comme nts PROTEIN, URINE, CONC. (test code = 2104) 8 MG/DL CREATININE, URINE, CONC. (te st code = 2071) 122.6 MG/DL CALC PROTEIN/CREATININE (darcie t code = 2157) 65 MG/GCREAT Yuan HammCOMPREHENSIVE METABOLIC [id number] 00:00:00* Test Item Value Reference Range Interpretation Comme nts GLUCOSE (test code = 2217) 103 MG/DL BUN (test code = 2208) 23 MG/DL CREATININE (test code = 2214) 1.57 MG/DL eGFR AMER. (test cod e = 22897) 49 ML/MIN/1.73 eGFR NON- AMER. (test code = 41567) 42 ML/MIN/1.73 CALC BUN/CREAT (test code = [...] code = 2219) 16 U/L Yuan Rouse [id number] 00:00:00* Test Item Value Reference Range Interpretation Comme nts TSH, THIRD GENERATION (test code = 2821) 1.550 UIU/ML Yuan Rouse ColoraCOMPREHENSIVE METABOLIC [id number] 00:00:00* Test Item Value Reference Range Interpretation Comme nts GLUCOSE (test code = 2217) 103 MG/DL BUN (test code = 2208) 23 MG/DL CREATININE (test code = 2214) 1.57 MG/DL eGFR AMER. (test cod e = 26693) 49 ML/MIN/1.73 eGFR NON- AMER. (test code = 09019) 42 ML/MIN/1.73 CALC BUN/CREAT (test code = [...] code = 2219) 16 U/L Yuan Rouse [id number] 00:00:00* Test Item Value Reference Range Interpretation Comme nts TSH, THIRD GENERATION (test code = 2821) 1.550 UIU/ML Yuan Rouse ColoraCOMPREHENSIVE METABOLIC [id number] 00:00:00* Test Item Value Reference Range Interpretation Comme nts GLUCOSE (test code = 2217) 103 MG/DL BUN (test code = 2208) 23 MG/DL CREATININE (test code = 2214) 1.57 MG/DL eGFR AMER. (test cod e = 67769) 49 ML/MIN/1.73 eGFR NON- AMER. (test code = 39224) 42 ML/MIN/1.73 CALC BUN/CREAT (test code = [...] code = 2219) 16 U/L Yuan Rouse [id number] 00:00:00* Test Item Value Reference Range Interpretation Comme nts TSH, THIRD GENERATION (test code = 2821) 1.550 UIU/ML Yuan HammCOMPREHENSIVE METABOLIC [id number] 00:00:00* Test Item Value Reference Range Interpretation Comme nts GLUCOSE (test code = 2217) 103 MG/DL BUN (test code = 2208) 23 MG/DL CREATININE (test code = 2214) 1.57 MG/DL eGFR AMER. (test cod e = 58458) 49 ML/MIN/1.73 eGFR NON- AMER. (test code = 78198) 42 ML/MIN/1.73 CALC BUN/CREAT (test code = [...] (test code = 2219) 16 U/L Yuan [id number] 00:00:00* Test Item Value Reference Range Interpretation Comme nts TSH, THIRD GENERATION (test code = 2821) 1.550 UIU/ML Yuan HammCBC W/AUTO [id number] 00:00:00* Test Item Value Reference Range Interpretation [...] code = 1015) 145 K/UL Yuan HammLIPID [id number] 00:00:00* Test Item Value Reference Range Interpretation Comme nts CHOLESTEROL (test code = 2210) 144 MG/DL TRIGLYCERIDES (test code = 2232) 142 MG/DL HDL CHOLESTEROL (test code = 2220) 48 MG/DL CALC LDL CHOL (test code = 2237) 68 MG/DL RISK RATIO LDL/HDL (test cod e = 2238) 1.41 RATIO Yuan HammCOMPREHENSIVE METABOLIC [id number] 00:00:00* Test Item Value Reference Range Interpretation Comme nts GLUCOSE (test code = 2217) 102 MG/DL BUN (test code = 2208) 22 MG/DL CREATININE (test code = 2214) 1.31 MG/DL eGFR AMER. (test cod e = 77676) 61 ML/MIN/1.73 eGFR NON- AMER. (test code = 87165) 53 ML/MIN/1.73 CALC BUN/CREAT (test code = [...] code = 2219) 23 U/L Yuan HammHEMOGLOBIN [id number] 00:00:00* Test Item Value Reference Range Interpretation Comme nts HEMOGLOBIN A1c (test code = 22610) 5.6 % Yuan HammPSA, [id number] 00:00:00* Test Item Value Reference Range Interpretation Comme nts PSA, TOTAL (test code = 2606) 0.70 NG/ML Yuan HammCBC W/AUTO [id number] 00:00:00* Test Item Value Reference Range Interpretation [...] code = 1015) 145 K/UL Yuan HammLIPID [id number] 00:00:00* Test Item Value Reference Range Interpretation Comme nts CHOLESTEROL (test code = 2210) 144 MG/DL TRIGLYCERIDES (test code = 2232) 142 MG/DL HDL CHOLESTEROL (test code = 2220) 48 MG/DL CALC LDL CHOL (test code = 2237) 68 MG/DL RISK RATIO LDL/HDL (test cod e = 2238) 1.41 RATIO Yuan HammCOMPREHENSIVE METABOLIC [id number] 00:00:00* Test Item Value Reference Range Interpretation Comme nts GLUCOSE (test code = 2217) 102 MG/DL BUN (test code = 2208) 22 MG/DL CREATININE (test code = 2214) 1.31 MG/DL eGFR AMER. (test cod e = 82008) 61 ML/MIN/1.73 eGFR NON- AMER. (test code = 01385) 53 ML/MIN/1.73 CALC BUN/CREAT (test code = [...] code = 2219) 23 U/L Yuan HammHEMOGLOBIN [id number] 00:00:00* Test Item Value Reference Range Interpretation Comme gladys HEMOGLOBIN A1c (test code = 01062) 5.6 % Yuan HammPSA, [id number] 00:00:00* Test Item Value Reference Range Interpretation Comme nts PSA, TOTAL (test code = 2606) 0.70 NG/ML Yuan HammCBC W/AUTO [id number] 00:00:00* Test Item Value Reference Range Interpretation [...] code = 1015) 145 K/UL Yuan HammLIPID [id number] 00:00:00* Test Item Value Reference Range Interpretation Comme nts CHOLESTEROL (test code = 2210) 144 MG/DL TRIGLYCERIDES (test code = 2232) 142 MG/DL HDL CHOLESTEROL (test code = 2220) 48 MG/DL CALC LDL CHOL (test code = 2237) 68 MG/DL RISK RATIO LDL/HDL (test cod e = 2238) 1.41 RATIO Yuan HammCOMPREHENSIVE METABOLIC [id number] 00:00:00* Test Item Value Reference Range Interpretation Comme nts GLUCOSE (test code = 2217) 102 MG/DL BUN (test code = 2208) 22 MG/DL CREATININE (test code = 2214) 1.31 MG/DL eGFR AMER. (test cod e = 40124) 61 ML/MIN/1.73 eGFR NON- AMER. (test code = 04804) 53 ML/MIN/1.73 CALC BUN/CREAT (test code = [...] code = 2219) 23 U/L Yuan HammHEMOGLOBIN [id number] 00:00:00* Test Item Value Reference Range Interpretation Comme nts HEMOGLOBIN A1c (test code = 75414) 5.6 % Yuan HammPSA, [id number] 00:00:00* Test Item Value Reference Range Interpretation Comme nts PSA, TOTAL (test code = 2606) 0.70 NG/ML Yuan HammCBC W/AUTO [id number] 00:00:00* Test Item Value Reference Range Interpretation [...] code = 1015) 145 K/UL Yuan HammLIPID [id number] 00:00:00* Test Item Value Reference Range Interpretation Comme nts CHOLESTEROL (test code = 2210) 144 MG/DL TRIGLYCERIDES (test code = 2232) 142 MG/DL HDL CHOLESTEROL (test code = 2220) 48 MG/DL CALC LDL CHOL (test code = 2237) 68 MG/DL RISK RATIO LDL/HDL (test cod e = 2238) 1.41 RATIO Yuan HammCOMPREHENSIVE METABOLIC [id number] 00:00:00* Test Item Value Reference Range Interpretation Comme nts GLUCOSE (test code = 2217) 102 MG/DL BUN (test code = 2208) 22 MG/DL CREATININE (test code = 2214) 1.31 MG/DL eGFR AMER. (test cod e = 16135) 61 ML/MIN/1.73 eGFR NON- AMER. (test code = 72871) 53 ML/MIN/1.73 CALC BUN/CREAT (test code = [...] code = 2219) 23 U/L Yuan HammHEMOGLOBIN [id number] 00:00:00* Test Item Value Reference Range Interpretation Comme nts HEMOGLOBIN A1c (test code = 67877) 5.6 % Yuan HammPSA, [id number] 00:00:00* Test Item Value Reference Range Interpretation Comme nts PSA, TOTAL (test code = 2606) 0.70 NG/ML Yuan HammLIPID [id number] 00:00:00* Test Item Value Reference Range Interpretation Comme nts CHOLESTEROL (test code = 2210) 137 MG/DL TRIGLYCERIDES (test code = 2232) 204 MG/DL HDL CHOLESTEROL (test code = 2220) 46 MG/DL CALC LDL CHOL (test code = 2237) 50 MG/DL RISK RATIO LDL/HDL (test cod e = 2238) 1.09 RATIO Yuan HammLIPID [id number] 00:00:00* Test Item Value Reference Range Interpretation Comme nts CHOLESTEROL (test code = 2210) 137 MG/DL TRIGLYCERIDES (test code = 2232) 204 MG/DL HDL CHOLESTEROL (test code = 2220) 46 MG/DL CALC LDL CHOL (test code = 2237) 50 MG/DL RISK RATIO LDL/HDL (test cod e = 2238) 1.09 RATIO Yuan Rouse AustinLIPID [id number] 00:00:00* Test Item Value Reference Range Interpretation Comme nts CHOLESTEROL (test code = 2210) 137 MG/DL TRIGLYCERIDES (test code = 2232) 204 MG/DL HDL CHOLESTEROL (test code = 2220) 46 MG/DL CALC LDL CHOL (test code = 2237) 50 MG/DL RISK RATIO LDL/HDL (test cod e = 2238) 1.09 RATIO Yuan Rouse AustinLIPID [id number] 00:00:00* Test Item Value Reference Range Interpretation Comme nts CHOLESTEROL (test code = 2210) 137 MG/DL TRIGLYCERIDES (test code = 2232) 204 MG/DL HDL CHOLESTEROL (test code = 2220) 46 MG/DL CALC LDL CHOL (test code = 2237) 50 MG/DL RISK RATIO LDL/HDL (test cod e = 2238) 1.09 RATIO Yuan HammCOMPREHENSIVE METABOLIC [id number] 00:00:00* Test Item Value Reference Range Interpretation Comme nts GLUCOSE (test code = 2217) 89 MG/DL BUN (test code = 2208) 21 MG/DL CREATININE (test code = 2214) 1.36 MG/DL eGFR AMER. (test cod e = 54275) 58 ML/MIN/1.73 eGFR NON- AMER. (test code = 44864) 50 ML/MIN/1.73 CALC BUN/CREAT (test code = [...] = 2219) 24 U/L Yuan Rouse AustinLIPID [id number] 00:00:00* Test Item Value Reference Range Interpretation Comme nts CHOLESTEROL (test code = 2210) 127 MG/DL TRIGLYCERIDES (test code = 2232) 125 MG/DL HDL CHOLESTEROL (test code = 2220) 46 MG/DL CALC LDL CHOL (test code = 2237) 56 MG/DL RISK RATIO LDL/HDL (test cod e = 2238) 1.22 RATIO Yuan HammCOMPREHENSIVE METABOLIC [id number] 00:00:00* Test Item Value Reference Range Interpretation Comme nts GLUCOSE (test code = 2217) 89 MG/DL BUN (test code = 2208) 21 MG/DL CREATININE (test code = 2214) 1.36 MG/DL eGFR AMER. (test cod e = 01565) 58 ML/MIN/1.73 eGFR NON- AMER. (test code = 88854) 50 ML/MIN/1.73 CALC BUN/CREAT (test code = [...] code = 2219) 24 U/L Yuan Rouse ColoraLIPID [id number] 00:00:00* Test Item Value Reference Range Interpretation Comme nts CHOLESTEROL (test code = 2210) 127 MG/DL TRIGLYCERIDES (test code = 2232) 125 MG/DL HDL CHOLESTEROL (test code = 2220) 46 MG/DL CALC LDL CHOL (test code = 2237) 56 MG/DL RISK RATIO LDL/HDL (test cod e = 2238) 1.22 RATIO Yuan HammCOMPREHENSIVE METABOLIC [id number] 00:00:00* Test Item Value Reference Range Interpretation Comme nts GLUCOSE (test code = 2217) 89 MG/DL BUN (test code = 2208) 21 MG/DL CREATININE (test code = 2214) 1.36 MG/DL eGFR AMER. (test cod e = 77644) 58 ML/MIN/1.73 eGFR NON- AMER. (test code = 51381) 50 ML/MIN/1.73 CALC BUN/CREAT (test code = [...] code = 2219) 24 U/L Yuan HammLIPID [id number] 00:00:00* Test Item Value Reference Range Interpretation Comme nts CHOLESTEROL (test code = 2210) 127 MG/DL TRIGLYCERIDES (test code = 2232) 125 MG/DL HDL CHOLESTEROL (test code = 2220) 46 MG/DL CALC LDL CHOL (test code = 2237) 56 MG/DL RISK RATIO LDL/HDL (test cod e = 2238) 1.22 RATIO Yuan HammCOMPREHENSIVE METABOLIC [id number] 00:00:00* Test Item Value Reference Range Interpretation Comme nts GLUCOSE (test code = 2217) 89 MG/DL BUN (test code = 2208) 21 MG/DL CREATININE (test code = 2214) 1.36 MG/DL eGFR AMER. (test cod e = 36718) 58 ML/MIN/1.73 eGFR NON- AMER. (test code = 52999) 50 ML/MIN/1.73 CALC BUN/CREAT (test code = [...] code = 2219) 24 U/L Yuan HammLIPID [id number] 00:00:00* Test Item Value Reference Range Interpretation Comme nts CHOLESTEROL (test code = 2210) 127 MG/DL TRIGLYCERIDES (test code = 2232) 125 MG/DL HDL CHOLESTEROL (test code = 2220) 46 MG/DL CALC LDL CHOL (test code = 2237) 56 MG/DL RISK RATIO LDL/HDL (test cod e = 2238) 1.22 RATIO Yuan HammCBC W/AUTO [id number] 00:00:00* Test Item Value Reference Range Interpretation [...] = 1015) 149 K/UL Yuan HammCOMPREHENSIVE METABOLIC [id number] 00:00:00* Test Item Value Reference Range Interpretation Comme nts GLUCOSE (test code = 2217) 111 MG/DL BUN (test code = 2208) 26 MG/DL CREATININE (test code = 2214) 1.52 MG/DL eGFR AMER. (test cod e = 02549) 51 ML/MIN/1.73 eGFR NON- AMER. (test code = 69534) 44 ML/MIN/1.73 CALC BUN/CREAT (test code = [...] code = 2219) 18 U/L Yuan HammLIPID [id number] 00:00:00* Test Item Value Reference Range Interpretation Comme nts CHOLESTEROL (test code = 2210) 125 MG/DL TRIGLYCERIDES (test code = 2232) 136 MG/DL HDL CHOLESTEROL (test code = 2220) 47 MG/DL CALC LDL CHOL (test code = 2237) 51 MG/DL RISK RATIO LDL/HDL (test cod e = 2238) 1.08 RATIO Yuan HammHEMOGLOBIN [id number] 00:00:00* Test Item Value Reference Range Interpretation Comme nts HEMOGLOBIN A1c (test code = 46272) 5.5 % Yuan HammCBC W/AUTO [id number] 00:00:00* Test Item Value Reference Range Interpretation [...] code = 1015) 149 K/UL Yuan Rouse HanselCOMPREHENSIVE METABOLIC [id number] 00:00:00* Test Item Value Reference Range Interpretation Comme nts GLUCOSE (test code = 2217) 111 MG/DL BUN (test code = 2208) 26 MG/DL CREATININE (test code = 2214) 1.52 MG/DL eGFR AMER. (test cod e = ) 51 ML/MIN/1.73 eGFR NON- AMER. (test code = 77039) 44 ML/MIN/1.73 CALC BUN/CREAT (test code = 2235) 17 RATIO SODIUM (test code = 2231) 141 MEQ/L POTASSIUM (test code = 2228) 4.7 MEQ/L CHLORIDE (test code = 2215) 103 MEQ/L CARBON DIOXIDE (test code = 2206) 25 MEQ/L CALCIUM (test code = 2209) 9.4 MG/DL PROTEIN, TOTAL (test code = 222) 7.7 G/DL ALBUMIN (test code = 2201) 4.5 G/DL CALC GLOBULIN (test code = 2240) 3.2 G/DL CALC A/G RATIO (test code = 2234) 1.4 RATIO BILIRUBIN, TOTAL (test code = 2207) 0.9 MG/DL ALKALINE PHOSPHATASE (test code = 2204) 105 U/L AST (test code = 2218) 14 U/L ALT (test code = 2219) 18 U/L Yuan HammLIPID [id number] 00:00:00* Test Item Value Reference Range Interpretation Comme nts CHOLESTEROL (test code = 2210) 125 MG/DL TRIGLYCERIDES (test code = 2232) 136 MG/DL HDL CHOLESTEROL (test code = 2220) 47 MG/DL CALC LDL CHOL (test code = 2237) 51 MG/DL RISK RATIO LDL/HDL (test cod e = 2238) 1.08 RATIO Yuan HmamHEMOGLOBIN [id number] 00:00:00* Test Item Value Reference Range Interpretation Comme nts HEMOGLOBIN A1c (test code = 90678) 5.5 % Yuan HammCBC W/AUTO [id number] 00:00:00* Test Item Value Reference Range Interpretation [...] = 1015) 149 K/UL Yuan HammCOMPREHENSIVE METABOLIC [id number] 00:00:00* Test Item Value Reference Range Interpretation Comme nts GLUCOSE (test code = 2217) 111 MG/DL BUN (test code = 2208) 26 MG/DL CREATININE (test code = 2214) 1.52 MG/DL eGFR AMER. (test cod e = 06435) 51 ML/MIN/1.73 eGFR NON- AMER. (test code = 63348) 44 ML/MIN/1.73 CALC BUN/CREAT (test code = [...] (test code = 2219) 18 U/L Yuan Rouse AustinLIPID [id number] 00:00:00* Test Item Value Reference Range Interpretation Comme nts CHOLESTEROL (test code = 2210) 125 MG/DL TRIGLYCERIDES (test code = 2232) 136 MG/DL HDL CHOLESTEROL (test code = 2220) 47 MG/DL CALC LDL CHOL (test code = 2237) 51 MG/DL RISK RATIO LDL/HDL (test cod e = 2238) 1.08 RATIO Yuan HammHEMOGLOBIN [id number] 00:00:00* Test Item Value Reference Range Interpretation Comme nts HEMOGLOBIN A1c (test code = 34778) 5.5 % Yuan HammCBC W/AUTO [id number] 00:00:00* Test Item Value Reference Range Interpretation [...] = 1015) 149 K/UL Yuan HammCOMPREHENSIVE METABOLIC [id number] 00:00:00* Test Item Value Reference Range Interpretation Comme nts GLUCOSE (test code = 2217) 111 MG/DL BUN (test code = 2208) 26 MG/DL CREATININE (test code = 2214) 1.52 MG/DL eGFR AMER. (test cod e = 73028) 51 ML/MIN/1.73 eGFR NON- AMER. (test code = 91599) 44 ML/MIN/1.73 CALC BUN/CREAT (test code = [...] code = 2219) 18 U/L Yuan HammLIPID [id number] 00:00:00* Test Item Value Reference Range Interpretation Comme nts CHOLESTEROL (test code = 2210) 125 MG/DL TRIGLYCERIDES (test code = 2232) 136 MG/DL HDL CHOLESTEROL (test code = 2220) 47 MG/DL CALC LDL CHOL (test code = 2237) 51 MG/DL RISK RATIO LDL/HDL (test cod e = 2238) 1.08 RATIO Yuan HammHEMOGLOBIN [id number] 00:00:00* Test Item Value Reference Range Interpretation Comme nts HEMOGLOBIN A1c (test code = 80446) 5.5 % Yuan HammLIPID [id number] 00:00:00* Test Item Value Reference Range Interpretation [...] 2821) 2.2 UIU/ML Yuan HammPSA, FREE AND [id number] 00:00:00* Test Item Value Reference Range Interpretation Comme nts PROSTATIC SPECIFIC AG (test code = 900923) 0.58 NG/ML FREE PSA (test code = 813576) 0.21 NG/ML % FREE PSA (test code = 469133) 36 % Yuan HammCOMPREHENSIVE METABOLIC [id number] 00:00:00* Test Item Value Reference Range Interpretation Comme nts GLUCOSE (test code = 2217) 99 MG/DL BUN (test code = 2208) 19 MG/DL CREATININE (test code = 2214) 0.87 MG/DL eGFR AMER. (test cod e = 06819) 98 ML/MIN/1.73 eGFR NON- AMER. (test code = 95704) 84 ML/MIN/1.73 CALC BUN/CREAT (test code = [...] (test code = 2219) 16 U/L Yuan HammLIPID [id number] 00:00:00* Test Item Value Reference Range Interpretation [...] (test code = 2821) 2.2 UIU/ML Yuan F AustinPSA, FREE AND [id number] 00:00:00* Test Item Value Reference Range Interpretation Comme nts PROSTATIC SPECIFIC AG (test code = 058882) 0.58 NG/ML FREE PSA (test code = 772597) 0.21 NG/ML % FREE PSA (test code = 944109) 36 % Yuan HammCOMPREHENSIVE METABOLIC [id number] 00:00:00* Test Item Value Reference Range Interpretation Comme nts GLUCOSE (test code = 2217) 99 MG/DL BUN (test code = 2208) 19 MG/DL CREATININE (test code = 2214) 0.87 MG/DL eGFR AMER. (test cod e = 26138) 98 ML/MIN/1.73 eGFR NON- AMER. (test code = 69367) 84 ML/MIN/1.73 CALC BUN/CREAT (test code = [...] (test code = 2219) 16 U/L Yuan HammLIPID [id number] 00:00:00* Test Item Value Reference Range Interpretation [...] code = 2821) 2.2 UIU/ML Yuan Rouse AustinPSA, FREE AND [id number] 00:00:00* Test Item Value Reference Range Interpretation Comme nts PROSTATIC SPECIFIC AG (test code = 676309) 0.58 NG/ML FREE PSA (test code = 068720) 0.21 NG/ML % FREE PSA (test code = 992952) 36 % Yuan HammCOMPREHENSIVE METABOLIC [id number] 00:00:00* Test Item Value Reference Range Interpretation Comme nts GLUCOSE (test code = 2217) 99 MG/DL BUN (test code = 2208) 19 MG/DL CREATININE (test code = 2214) 0.87 MG/DL eGFR AMER. (test cod e = 38580) 98 ML/MIN/1.73 eGFR NON- AMER. (test code = 48978) 84 ML/MIN/1.73 CALC BUN/CREAT (test code = [...] = 2219) 16 U/L Yuan Rouse AustinLIPID [id number] 00:00:00* Test Item Value Reference Range Interpretation [...] 2821) 2.2 UIU/ML Yuan HammPSA, FREE AND [id number] 00:00:00* Test Item Value Reference Range Interpretation Comme nts PROSTATIC SPECIFIC AG (test code = 180690) 0.58 NG/ML FREE PSA (test code = 712690) 0.21 NG/ML % FREE PSA (test code = 941320) 36 % Yuan HammCOMPREHENSIVE METABOLIC [id number] 00:00:00* Test Item Value Reference Range Interpretation Comme nts GLUCOSE (test code = 2217) 99 MG/DL BUN (test code = 2208) 19 MG/DL CREATININE (test code = 2214) 0.87 MG/DL eGFR AMER. (test cod e = 45263) 98 ML/MIN/1.73 eGFR NON- AMER. (test code = 56516) 84 ML/MIN/1.73 CALC BUN/CREAT (test code = [...] = 2219) 16 U/L Yuan HammCBC W/AUTO [id number] 00:00:00* Test Item Value Reference Range Interpretation [...] code = 1015) 177 K/UL Yuan HammHEMOGLOBIN [id number] 00:00:00* Test Item Value Reference Range Interpretation Comme nts HEMOGLOBIN A1c (test code = 41913) 5.8 % Yuan HammCBC W/AUTO [id number] 00:00:00* Test Item Value Reference Range Interpretation [...] = 1015) 177 K/UL Yuan Rouse AustinHEMOGLOBIN [id number] 00:00:00* Test Item Value Reference Range Interpretation Comme nts HEMOGLOBIN A1c (test code = 54973) 5.8 % Yuan Rouse AustinCBC W/AUTO [id number] 00:00:00* Test Item Value Reference Range Interpretation [...] = 1015) 177 K/UL Yuan Rouse AustinHEMOGLOBIN [id number] 00:00:00* Test Item Value Reference Range Interpretation Comme nts HEMOGLOBIN A1c (test code = 37350) 5.8 % Yuan HammCBC W/AUTO [id number] 00:00:00* Test Item Value Reference Range Interpretation [...] = 1015) 177 K/UL Yuan Rouse AustinHEMOGLOBIN [id number] 00:00:00* Test Item Value Reference Range Interpretation Comme nts HEMOGLOBIN A1c (test code = 88423) 5.8 % Yuan Hamm
--- NOTE | 2024-09-25 19:53 | RAD REPORT ---
EXAM: Left upper extremity venous ultrasound HISTORY: Left upper extremity pain and edema COMPARISON: None TECHNIQUE: Multiplanar grayscale and color Doppler images were obtained in a left upper extremity adele ous ultrasound. Spectral analysis of the Doppler waveforms were performed. FINDINGS: The internal jugular vein demonstrates normal compression and flow without evidence of thrombus. The subclavian vein demonstrates normal flow and augmentation without evidence of thrombus. The axillary and brachial veins demonstrate normal compression, flow, and augmentation without eviden ce of thrombus. The venous structures distal to the elbow are patent without thrombus. The cephalic and basilic veins are patent. IMPRESSION: No evidence of DVT in the left upper extremity.
--- NOTE | 2024-09-25 20:46 | RAD REPORT ---
EXAMINATION: Upper Ext Wo Con W/ Mpr CLINICAL INDICATION: Male, 83 years old.pain, swelling TECHNIQUE: CT above extremity was performed without contrast. Reformats were performed. One or more o f the following dose reduction techniques were used: Automated exposure control, adjustment of the mA and/or kV according to patient size, and/or iterative reconstruction. Unless otherwise specified, incidental findings do not require dedicated imaging follow-up. [id number]. COMPARISON: No prior exam. FINDINGS: No left humerus fracture identified. Moderate degenerative changes with subacromial spurring present at the left AC joint. Mild left glenohumeral joint degenerative changes. Degenerative changes are also present at the elbow. No malalignment. No radiopaque foreign body is identified. No fluid collec tion identified. Suspect left elbow effusion which may be due to degenerative changes. IMPRESSION: No left humerus fracture identified. Degenerative changes. An elbow effusion is present but which may be due to underlying degenerative changes as no fracture seen.
[2024-09-25] MEDS ORDERED: HYDROCODONE/APAP 10/325 TAB ONE (22:50)
--- NOTE | 2024-09-25 23:35 | ER ---
Nurse's Notes [facility] Name: Denver Kaiser Age: 83 yrs Sex: Male : 1940 Arrival Date: 09/25/2024 Time: 18:25 Bed DX4 Private MD: Diagnosis: Effusion, left elbow Presentation: 09/25 18:39 Chief complaint: Patient states: L shoulder pain since Saturday. Arm is swollen, no ll1 known trauma. Coronavirus screen: Client denies travel out of the [place] in the last 14 days. At this time, the client does not indicate any symptoms associated with coronavirus-19. Ebola Screen: Patient denies travel to an Ebola-affected area in the 21 days before illness onset. Initial Sepsis Screen: Does the patient meet any 2 criteria? No. Patient's initial sepsis screen is negative. Does the patient have a suspected source of infection? No. Patient's initial sepsis screen is negative. Risk Assessment: Do you want to hurt yourself or someone else? Patient reports no desire to harm self or others. Onset of symptoms was September 23, 2024. 18:39 Method Of Arrival: Wheelchair ll1 18:39 Acuity: KAITLIN 3 ll1 Triage Assessment: 18:40 General: Appears uncomfortable, Behavior is calm, cooperative, appropriate for age. ll1 Pain: Complains of pain in L shoulder Quality of pain is described as aching. Musculoskeletal: Reports pain in L shoulder. Historical: - Allergies: 18:35 No Known Allergies; ll1 - PMHx: 18:35 Atrial fibrillation; Hypercholesterolemia; Hypertensive disorder; ll1 - PSHx: 18:35 Right hip; ll1 - Immunization history:: Adult Immunizations up to date. - Infectious Disease History:: Denies. - Social history:: Smoking status: Patient denies any tobacco usage or history of. Screenin:44 [facility] ED Fall Risk Assessment (Adult) History of falling in the last 3 months, al5 including since admission No falls in past 3 months (0 pts) Confusion or Disorientation No (0 pts) Intoxicated or Sedated No (0 pts) Impaired Gait Yes (1 pt) Mobility Assist Device Used Yes (1 pt) Altered Elimination No (0 pt) Score/Fall Risk Level 0 - 2 = Low Risk Oriented to surroundings, Maintained a safe environment, Hourly rounding (assess needs \T\ fall precautionary measures) done. 20:44 Abuse screen: Denies threats or abuse. Denies injuries from another. Nutritional al5 screening: No deficits noted. Tuberculosis screening: No symptoms or risk factors identified. Assessment: 20:44 General: Appears in no apparent distress. comfortable, Behavior is calm, cooperative. al5 Pain: Complains of pain in left arm. Neuro: Level of Consciousness is awake, alert, obeys commands, Oriented to person, place, time, situation. Cardiovascular: Capillary refill < 3 seconds Patient's skin is warm and dry. Respiratory: Airway is patent Respiratory effort is even, unlabored, Respiratory pattern is regular, symmetrical. GI: No signs and/or symptoms were reported involving the gastrointestinal system. : No signs and/or symptoms were reported regarding the genitourinary system. EENT: No signs and/or symptoms were reported regarding the EENT system. Derm: Skin is intact, Skin is pink, warm \T\ dry. normal. Musculoskeletal: Reports pain in left arm. 09/26 00:05 Reassessment: Patient appears in no apparent distress at this time. No changes from lg3 previously documented assessment. Patient and/or family updated on plan of care and expected duration. Pain level reassessed. Patient is alert, oriented x 3, equal unlabored respirations, skin warm/dry/pink. Vital Signs: 09/25 18:39 BP 152 / 91; Pulse 81; Resp 17; Temp 97.3; Pulse Ox 100% ; Weight 84.82 kg; Height 5 ll1 ft. 10 in. ; Pain 10/10; 20:44 BP 143 / 86; Pulse 78; Resp 16; Pulse Ox 100% on R/A; al5 09/26 00:05 BP 148 / 87; Pulse 77; Resp 18 S; Temp 97.5(O); Pulse Ox 100% on R/A; lg3 09/25 18:39 Body Mass Index 26.83 (84.82 kg, 177.8 cm) ll1 09/25 18:39 Pain Scale: Adult ll1 ED Course: 09/25 18:30 Patient arrived in ED. sj2 18:35 Arm band placed on. ll1 18:36 Stephanie Ritchie PA-C [facility]. sb4 18:36 Daren Taveras MD is Attending Physician. sb4 18:40 Triage completed. ll1 19:44 UPPER EXTREMITY VENOUS UNILATE In Process Unspecified. EDMS 20:38 Upper Ext Wo Con W/ Mpr In Process Unspecified. EDMS 20:44 Patient has correct armband on for positive identification. Provided Education on: plan al5 of care. 20:44 No provider procedures requiring assistance completed. al5 23:35 Reese Santiago MD is Referral Physician. sb4 09/26 00:03 Nivia Cárdenas, RN is Primary Nurse. al5 00:05 Patient did not have IV access during this emergency room visit. lg3 Administered Medications: 09/25 23:02 Drug: [place] PO 10 mg-325 mg 1 tabs PO once Route: PO; lg3 09/26 00:06 Follow up: Response: No adverse reaction; Marked relief of symptoms lg3 Medication: 09/25 20:44 VIS not applicable for this client. al5 Outcome: 23:35 Discharge ordered by . sb4 09/26 00:05 Discharged to home via wheelchair, with family, lg3 Condition: stable Discharge instructions given to patient, director executive communications, Instructed on discharge instructions, follow up and referral plans. medication usage, Demonstrated understanding of instructions, follow-up care, medications, Prescriptions given X 1, 00:07 Patient left the ED. lg3 Signatures: Dispatcher [employer] EDDeirdre Owens RN RN lg3 Bhanu Lara RN RN ll1 Stephanie Ritchie, PA-C PA-C sb4 Nivia Cárdenas RN RN al5 Luis Antonio Meier sj2 Corrections: (The following items were deleted from the chart) 09/25 18:42 18:39 Chief complaint: Patient states: L shoulder pain since Saturday. ll1 ll1 18:42 18:39 BP 152 / 91; Pulse 81bpm; Resp 17bpm; Pulse Ox 100%; Temp 97.3F; Pain 10, ll1 Adult; ll1
--- NOTE | 2024-09-25 23:35 | EDPHYS ---
Physician Documentation [facility] Name: Denver Kaiser Age: 83 yrs Sex: Male : 1940 Arrival Date: 09/25/2024 Time: 18:25 Bed DX4 Private MD: ED Physician Daren Taveras HPI: 09/25 18:56 This 83 yrs old Male presents to ER via Wheelchair with complaints of Shoulder sb4 Pain - LEFT. 18:56 Patient reports left-sided shoulder pain that is now migrated to left elbow pain. sb4 Denies any injury to the area. States that his elbow is swollen and he cannot fully extend his elbow. Does have a history of atrial fibrillation and is on Xarelto daily. Denies any redness or warmth to the area. Denies any prior issues with the arm. Has been taking Tylenol without significant improvement in symptoms. Historical: - Allergies: 18:35 No Known Allergies; ll1 - PMHx: 18:35 Atrial fibrillation; Hypercholesterolemia; Hypertensive disorder; ll1 - PSHx: 18:35 Right hip; ll1 - Immunization history:: Adult Immunizations up to date. - Infectious Disease History:: Denies. - Social history:: Smoking status: Patient denies any tobacco usage or history of. ROS: 18:56 Constitutional: Negative for fever, chills, and weight loss, sb4 18:56 MS/extremity: Positive for pain, swelling, of the left arm, 18:56 All other systems are negative, Exam: 18:58 Constitutional: This is a well developed, well nourished patient who is awake, alert, sb4 and in no acute distress. Head/Face: Normocephalic, atraumatic. Eyes: Extra-ocular motions intact. Periorbital areas with no swelling, redness, or edema. ENT: Mucous membranes moist. Respiratory: No increased work of breathing, no retractions or nasal flaring. Skin: Warm, dry with normal turgor. Normal color with no rashes, no lesions, and no evidence of cellulitis. 18:58 Musculoskeletal/extremity: Circulation is intact in all extremities. Pulses: are normal with no appreciated deficits, Perfusion: the extremity is normally perfused throughout, Sensation intact. Joints: the left elbow displays limited range of motion, painful range of motion, swelling, tenderness, Vital Signs: 18:39 BP 152 / 91; Pulse 81; Resp 17; Temp 97.3; Pulse Ox 100% ; Weight 84.82 kg; Height 5 ll1 ft. 10 in. ; Pain 10/10; 20:44 BP 143 / 86; Pulse 78; Resp 16; Pulse Ox 100% on R/A; al5 09/26 00:05 BP 148 / 87; Pulse 77; Resp 18 S; Temp 97.5(O); Pulse Ox 100% on R/A; lg3 09/25 18:39 Body Mass Index 26.83 (84.82 kg, 177.8 cm) ll1 09/25 18:39 Pain Scale: Adult ll1 MDM: 09/25 18:36 Medical Screening Exam initiated sb4 22:54 Data reviewed: vital signs, nurses notes, radiologic studies, and as a result, I will sb4 discharge patient. Counseling: I had a detailed discussion with the patient and/or guardian regarding the historical points, exam findings, and any diagnostic results supporting the discharge/admit diagnosis, radiology results, to return to the emergency department if symptoms worsen or persist or if there are any questions or concerns that arise at home. 09/25 18:48 Order name: Upper Ext Wo Con W/ Mpr; Complete Time: 20:47 EDMS 09/25 19:44 Order name: UPPER EXTREMITY VENOUS UNILATE; Complete Time: 19:55 EDMS 09/25 23:35 Order name: Sling; Complete Time: 00:06 sb4 Administered Medications: 23:02 Drug: [place] PO 10 mg-325 mg 1 tabs PO once Route: PO; lg3 09/26 00:06 Follow up: Response: No adverse reaction; Marked relief of symptoms lg3 Disposition Summary: 09/25/24 23:35 Discharge Ordered Notes: Location: Home sb4 Problem: new sb4 Symptoms: have improved sb4 Condition: Stable sb4 Diagnosis - Effusion, left elbow sb4 Followup: sb4 - With: Reese Santiago MD - When: 1 week - Reason: Recheck today's complaints, Re-evaluation by your physician Discharge Instructions: - Discharge Summary Sheet sb4 - Elbow Bursitis sb4 Forms: - Patient Portal Instructions sb4 - Leadership Thank You Letter sb4 Prescriptions: - Medrol (Tam) 4 mg Oral Tablets, Dose Pack - take 1 tablet ORAL route as directed - follow package instructions; 1 packet; sb4 Refills: 0, Product Selection Permitted Signatures: Dispatcher [employer] EDDeirdre Owens RN RN lg3 Bhanu Lara RN RN ll1 Stephanie Ritchie PA-C PARaz sb4 Corrections: (The following items were deleted from the chart) 09/25 19:44 18:44 Extremity Venous Uni [email or web address] ordered. EDMS EDMS
[2024-09-26 00:20] VITALS: O2SAT 100
[2024-09-26 00:23] VITALS: BP 148/87; TEMP 97.5
== END 2024-09-26 00:07 | disposition home or self-care (01) ==
LOC: ER 18:25
DX: M25.422 Effusion, left elbow (principal); I10 Essential (primary) hypertension; I48.91 Unspecified atrial fibrillation; E78.00 Pure hypercholesterolemia, unspecified
CPT/HCPCS: 73200; 76377; 93971; 99283